=== PATIENT | female | born 1970 | race Caucasian/White ===

== ENCOUNTER 2023-03-29 11:42 | Inpatient (IN) | payer MEDICARE, MEDICAID, SELFPAY ==
[2023-03-29] VITALS (14 sets, daily range): BP systolic 96–153; BP diastolic 52–105; PULSE 94–116; RESP 18–38; TEMP 36.6–37.1; O2SAT 84–97; BMI 43.0; BMI 42.3
--- NOTE | 2023-03-29 12:01 | DI.RAD.S_ITS ---
PROCEDURE: XR CHEST 1V INDICATIONS: Shortness of breath TECHNIQUE: One view of the chest was acquired. COMPARISON: None. FINDINGS: Surgical changes and devices: None. Lungs and pleura: Lungs are clear. No pleural effusions or pneumothorax. Mediastinum: Mediastinal contours appear normal. Heart size is normal. Bones and chest wall: No suspicious bony lesions. Overlying soft tissues appear unremarkable. IMPRESSION: No acute cardiopulmonary abnormality is seen. Dictated by: Aric Hawk M.D. on 03/29/2023 at 12:41 Approved by: Aric Hawk M.D. on 03/29/2023 at 12:41
[2023-03-29 12:28] LABS: Add Manual Diff / Slide Review NO; Basophils Absolute Auto 100 /uL (0-100); Basophils Percent Auto 0.8 % (0-2); Eosinophils Absolute Auto 1000 /uL (0-450); Eosinophils Percent Auto 13.5 % (2-4); Hematocrit 45.7 % (36-46); Hemoglobin 15.2 g/dL (12.0-16.0); Lymphocytes Absolute Auto 2000 /uL (1100-4500); Lymphocytes Percent Auto 27.9 % (25-40); Mean Corpuscular HGB Conc 33.3 % (30-36); Monocytes Absolute Auto 500 /uL (0-900); Monocytes Percent Auto 7.3 % (3-14); Neutrophils Absolute Auto 3600 /uL (1500-7000); Neutrophils Percent Auto 50.5 % (50-75); Platelet Count 217 X10^3/uL (150-400); Red Blood Cell Count 5.25 X10^6/uL (4.0-5.2); White Blood Cell Count 7.1 X10^3/uL (4.5-11.0)
[2023-03-29] MEDS: ALBUTEROL/IPRATROPIUM 3 ML AMPUL INH ×5 (12:33→19:27)
--- NOTE | 2023-03-29 12:36 | ED.SOB ---
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 Patient presents feeling short of breath wheezy with some discomfort on the sides of her chest. She has had productive cough with white sputum. Afebrile, no sweats. Patient denies any chest pain or pressure, she states she has been feeling worse over the last several days but has had about 2 weeks of symptoms. She states she is starting to feel like when she was hospitalized at [facility]. She was on high-flow while hospitalized. She states she was not intubated. Patient denies any nausea or vomiting. No diarrhea or constipation. She is chronic urinary issues and does have a stimulator for bladder issues. Patient states does not have a known lung history but was discharged home with a nebulizer, states that she tried 1 yesterday and 1 today but without any improvement. She states she was not using them regularly before her hospitalization. States she was hospitalized at [facility]. Patient patient has had bilateral shoulder surgery, she has neurostimulator for her bladder and has had bladder injections for incontinence or retention issues. Patient quit smoking 10 years ago, no alcohol, uses marijuana but no other street drugs. Her primary care is Clementina Krishnan. Related Data Allergies Allergy/AdvReac Type Severity Reaction Status Date / Time shellfish derived Allergy Intermediate Unverified 06/28/17 12:33 metformin Allergy Verified 03/29/23 12:23 Review of Systems Review of Systems ROS Unobtainable: All systems reviewed & are unremarkable except as noted in HPI and below Patient History Social History Smoking Status: Former smoker Smoking Status: Former smoker Substance Use Type: marijuana Exam Narrative Exam Narrative: GENERAL: Alert and oriented x three, moderate distress. Patient able to communicate appropriately. HEENT: Head normocephalic, atraumatic, EOMI, pupils reactive, face symmetric, moist mucous membranes, nasal cannula in place. NECK: Supple, full range of motion CARDIOVASCULAR: Regular rate and rhythm without murmurs, rubs or gallops. RESPIRATORY: Breath sounds equal bilaterally, bilateral wheezes upper and lower lobes, tachypnea, minimal accessory muscle use. ABDOMEN: Soft, nontender. Normoactive bowel sounds all 4 quadrants. No guarding or rebound, rigidity, no mass : No CVA tenderness EXTREMITIES: Normal range of motion, no clubbing or edema. Neurovascularly intact NEUROLOGICAL: Cranial nerves II through XII grossly intact. Moving all extremities SKIN: Warm, dry, no petechiae, no rashes or lesions. Initial Vital Signs Initial Vital Signs: Vital Signs Temperature 98.8 F 03/29/23 11:42 Pulse Rate 102 H 03/29/23 11:42 Respiratory Rate 28 H 03/29/23 11:42 Blood Pressure 143/100 H 03/29/23 11:42 Pulse Oximetry 84 L 03/29/23 11:42 Oxygen Delivery Method Room Air 03/29/23 11:42 Course Orders Ordered: ED Orders 03/29/23 12:01 XR chest 1V Stat EKG-12 Lead Stat Measure peak expiratory flow ONCE RT Consult Eval and Treat NOW 03/29/23 12:02 Covid-19 + FLU A/B + RSV - PCR Stat Respiratory Panel (Film Array) Stat 03/29/23 12:05 Blood Culture Stat Complete Blood Count AUTO DIFF Stat Comprehensive Metabolic Panel Stat D Dimer Stat Lactate (Lactic Acid) Stat NT-proBNP (BNP-Adult 18+) Stat Procalcitonin Stat Prothrombin Time INR Stat Troponin I Stat 03/29/23 13:11 ABG [Arterial Blood Gas] Stat 03/29/23 13:23 CT angio chest PE protocol Stat Levofloxacin (Levaquin) 750 mg in 150 mls @ 100 mls/hr IV NOW ONE Stop: 03/29/23 15:53 Discontinued Medications Albuterol/Ipratropium (Albuterol/Ipratropium 3 Ml Ampul) 3 ml INH NOW ONE Stop: 03/29/23 12:30 Last Admin: 03/29/23 12:33 Dose: 3 ml Documented By: KELI Albuterol/Ipratropium (Albuterol/Ipratropium 3 Ml Ampul) 3 ml INH Q20M [facility] Stop: 03/29/23 14:11 Last Admin: 03/29/23 14:11 Dose: 3 ml Ceftriaxone Sodium 2,000 mg/ (Sodium Chloride) 100 mls @ 200 mls/hr IV NOW ONE Stop: 03/29/23 14:25 Methylprednisolone (Methylprednisolone 125 Mg/2 Ml Vial) 125 mg IV NOW ONE Stop: 03/29/23 12:55 Last Admin: 03/29/23 13:11 Dose: 125 mg Vital Signs Vital signs: Vital Signs - 8 hr 03/29/23 11:42 03/29/23 12:27 03/29/23 12:27 Temperature 98.8 F Pulse Rate 102 H 96 H Respiratory Rate 28 H 35 H Blood Pressure 143/100 H 138/103 H Pulse Oximetry 84 L 91 Oxygen Delivery Method Room Air Oxygen Flow Rate 03/29/23 12:30 03/29/23 12:30 03/29/23 12:35 Temperature Pulse Rate 97 H Respiratory Rate 38 H Blood Pressure 150/105 H Pulse Oximetry 93 93 Oxygen Delivery Method Nasal Cannula Oxygen Flow Rate 5 03/29/23 13:00 03/29/23 13:00 03/29/23 13:30 Temperature Pulse Rate 94 H Respiratory Rate 28 H Blood Pressure 153/99 H 150/101 H Pulse Oximetry 89 L Oxygen Delivery Method Nasal Cannula Oxygen Flow Rate 7 03/29/23 13:30 Temperature Pulse Rate 96 H Respiratory Rate 27 H Blood Pressure Pulse Oximetry 93 Oxygen Delivery Method Oximask Oxygen Flow Rate 7 MDM - SOB/Dyspnea Lab Data 03/29/23 12:05 03/29/23 12:05 Labs: Lab Results 03/29/23 03/29/23 03/29/23 Range/Units 12:02 12:05 13:11 WBC 7.1 (4.5-11.0) X10^3/uL RBC 5.25 H (4.0-5.2) X10^6/uL Hgb 15.2 (12.0-16.0) g/dL Hct 45.7 (36-46) % MCV 87.0 (80-100) fL MCH 29.0 (26-34) PG MCHC 33.3 (30-36) % RDW 14.0 (11.6-14.8) % Plt Count 217 (150-400) X10^3/uL Neut % (Auto) 50.5 (50-75) % Lymph % (Auto) 27.9 (25-40) % Hoke % (Auto) 7.3 (3-14) % Eos % (Auto) 13.5 H (2-4) % Baso % (Auto) 0.8 (0-2) % Neut # (Auto) 3600 (7409-1393) /uL Lymph # (Auto) 2000 (1193-9170) /uL Hoke # (Auto) 500 (0-900) /uL Eos # (Auto) 1000 H (0-450) /uL Baso # (Auto) 100 (0-100) /uL PT 11.9 (9.4-12.5) SECONDS INR 1.0 (0.9-1.3) D-Dimer 1092 H (<500) ng/ml ABG Sample Site Right radial ABG pH 7.36 (7.35-7.45) ABG pCO2 48.3 H (35-45) mmHg ABG pO2 57 L (80-100) mmHg ABG HCO3 27 (23-27) mmol/L ABG Total CO2 29 H (23-27) mmol/L ABG O2 Saturation 88 L (95-100) % ABG Base Excess 2.0 (-2-3) mmol/L FiO2 56 Sodium 139 (137-145) mmol/L Potassium 3.8 (3.4-5.1) mmol/L Chloride 102 (98-107) mmol/L Carbon Dioxide 30 (22-32) mmol/L BUN 11 (7-17) mg/dL Creatinine 0.66 (0.52-1.04) mg/dL Estimated GFR > 60 (>60) mL/min BUN/Creatinine Ratio 16.7 (6-22) Glucose 193 H (70-100) mg/dL Lactate 1.7 (0.7-2.1) mmol/L Calcium 9.1 (8.4-10.2) mg/dL Total Bilirubin 0.9 (0.2-1.3) mg/dL AST 52 H (14-36) IU/L ALT 43 H (<35) IU/L Alkaline Phosphatase 113 (38-126) U/L Troponin I < 0.012 (0.01-0.034) ng/mL NT-Pro-B Natriuret Pep 195 H (<125) pg/mL Total Protein 7.5 (6.3-8.2) g/dL Albumin 4.2 (3.5-5.0) g/dL Globulin 3.3 (1.7-4.1) g/dL Albumin/Globulin Ratio 1.3 (1.0-2.8) Procalcitonin 0.08 (<0.5) ng/mL SARS-CoV-2 (PCR) Negative (Negative) Influenza A (RT-PCR) Flu a negative (NEGATIVE) Influenza B (RT-PCR) Flu b negative (NEGATIVE) RSV (PCR) Negative (Negative) Imaging Data Chest x-ray: Radiologist's Impression: [address] [id number] XRay Report Signed Patient: Yamel Shah MR#: [id number] : 1970 Acct:[id number] Age/Sex: 52 / F Date of Service: 03/29/23 Loc: ED Accession Number: [id number] Procedure: XR chest 1V Ordering Provider: Petra Pearce D.O. PROCEDURE: XR CHEST 1V INDICATIONS: Shortness of breath TECHNIQUE: One view of the chest was acquired. COMPARISON: None. FINDINGS: Surgical changes and devices: None. Lungs and pleura: Lungs are clear. No pleural effusions or pneumothorax. Mediastinum: Mediastinal contours appear normal. Heart size is normal. Bones and chest wall: No suspicious bony lesions. Overlying soft tissues appear unremarkable. IMPRESSION: No acute cardiopulmonary abnormality is seen. Dictated by: Aric Hawk M.D. on 03/29/2023 at 12:41 Approved by: Aric Hawk M.D. on 03/29/2023 at 12:41 ECG Data Attestation: I personally reviewed and interpreted this ECG as follows: Interpretation: nsr, RATE OF 96, MO 124, QRS 80, QTC 492. No acute ST changes noted. MDM Narrative Medical decision making narrative: 52-year-old female with history of diabetes COVID pneumonia with hospitalization and high-flow in January who presents with similar symptoms today. Patient states she did not have lung issues before her hospitalization. She is hypoxic, tachypneic without significant work of breathing currently. Patient does have a hoarse cough in his quite wheezy. Lab workup shows white count of 7.1 and hemoglobin of 15 platelets of 217. No leftward shift. Dimer was ordered as patient had inpatient hospitalization in January with hypoxia and it is 1092. Based on patient's age she does not age adjust for this level and CTA chest to evaluate for pulmonary embolism. CMP shows normal electrolytes, renal function with a glucose of 193, lactate 1.7 bilirubin is 0.9 with a AST/ALT of 52 and 43- troponin and a BNP of 195. Procalcitonin is negative. [facility] respiratory swab is negative for COVID/influenza and RSV. Respiratory panel was sent ABG on 7 L shows a pH of 7.36 with pCO2 of 48 PO2 of 57 and bicarb of 27. Patient appears to have acute hypoxic respiratory failure but no signs of respiratory acidosis or CO2 retention. CTA shows bronchopneumonia, no PE. Patient had DuoNeb EN route, quite wheezy had additional 20 mg nebulized. On recheck some improvement patient states a little better. Still requires 7 L on OxyMask but dips down intermittently when on albuterol. Discussed may end up requiring high-flow. Patient accepted by Dr. Chaparro for admission. Plan for ICU. Critical Care Time Critical Care Time Critical Care Time: Yes Total Critical Care Time: 35 Attestation: The high probability of a clinically significant, sudden or life threatening deterioration of the [cardiac, pulm] system(s) required my full and direct attention, intervention and personal management. The aggregate critical care time was [] minutes. This time is in addition to time spent performing reported procedures but includes the following: [x] Data Review and interpretation [x] Patient assessment and monitoring of vital signs [x] Documentation [x] Medication orders and management Discharge Plan Departure Patient Disposition: Admitted As Inpatient Clinical Impression: Pneumonia Admit Date/Time: 03/29/23 14:42 Admit Provider: Buck Chaparro
[2023-03-29 12:46] LABS: Influenza A - CEPHEID Flu A NEGATIVE (NEGATIVE); Influenza B - CEPHEID Flu B NEGATIVE (NEGATIVE); Respiratory Syncytial Virus Negative (Negative)
[2023-03-29 12:48] LABS: Prothrombin Time 11.9 SECONDS (9.4-12.5)
[2023-03-29 12:52] LABS: Lactate (Lactic Acid) 1.7 mmol/L (0.7-2.1)
[2023-03-29 12:52] LABS: COVID-19 CEPHEID 4-PLEX PCR Negative (Negative)
[2023-03-29 12:53] LABS: Alanine Aminotransferase 43 IU/L (<35); Albumin 4.2 g/dL (3.5-5.0); Albumin Globulin Ratio 1.3 (1.0-2.8); Alkaline Phosphatase 113 U/L (38-126); Aspartate Aminotransferase 52 IU/L (14-36); BUN Creatinine Ratio 16.7 (6-22); Bilirubin Total 0.9 mg/dL (0.2-1.3); Blood Urea Nitrogen 11 mg/dL (7-17); Calcium 9.1 mg/dL (8.4-10.2); Carbon Dioxide 30 mmol/L (22-32); Chloride 102 mmol/L (98-107); Estimated Glomerular Filt Rate > 60 mL/min (>60); Globulin 3.3 g/dL (1.7-4.1); Glucose 193 mg/dL (70-100); HEMOLYSIS 40 (0-50); Potassium 3.8 mmol/L (3.4-5.1); Sodium 139 mmol/L (137-145); Total Protein 7.5 g/dL (6.3-8.2)
[2023-03-29 13:05] LABS: NT-proBNP (BNP-Adult 18+) 195 pg/mL (<125); Troponin I < 0.012 ng/mL (0.01-0.034)
[2023-03-29] MEDS: methylPREDNISolone 125 MG/2 ML VIAL IV (13:11)
[2023-03-29 13:17] LABS: D Dimer 1092 ng/ml (<500)
--- NOTE | 2023-03-29 13:23 | DI.CT.S_ITS ---
PROCEDURE: CT ANGIO CHEST PE PROTOCOL INDICATIONS: hypoxia/wheeze, hospitalized w/ covid pneumonia in January TECHNIQUE: After the administration of intravenous contrast, 2 mm thick sections acquired from the pulmonary apices to the posterior costophrenic angles. 3-dimensional maximum intensity projection (MIP) coronal and sagittal reformats were then acquired through the thorax. For radiation dose reduction, the following was used: automated exposure control, adjustment of mA and/or kV according to patient size. COMPARISON: [facility], CT, CT ANGIO CHEST PE, 07/12/2022, 4:47. FINDINGS: Image quality: Diagnostic. Pulmonary arteries: Pulmonary arteries are normal in size, and demonstrate no intraluminal filling defects to suggest central pulmonary embolism. Lower Neck: No enlarged lymph nodes. Thyroid: No thyroid nodules which require sonographic follow up, per consensus guidelines. Axillae: No enlarged lymph nodes. Chest Wall: Unremarkable. Bones: Unremarkable. Lungs and Pleura: No pneumothorax or pleural effusions. There is mild multifocal geographic bilateral ground-glass pulmonary opacity. Mild bilateral segmental and subsegmental bronchial thickening. 5 mm nodule within the right lower lobe anteriorly, as before. 6 mm nodule within the right middle lobe anteriorly. This is unchanged. Heart: Heart size is normal. No pericardial effusion. Thoracic Vessels: No aortic aneurysm. Mediastinum and Judie: No enlarged lymph nodes. Esophagus: No wall thickening. No hiatal hernia. Upper Abdomen: Portions of the upper abdomen demonstrate a nodular hepatic contour, and are otherwise unremarkable. IMPRESSION: 1. No pulmonary embolus. 2. Mild bilateral bronchopneumonia. 3. No change in right lung nodules. Follow-up is recommended as below. 4. Cirrhosis. Fleischner Society criteria for SOLID lung nodule followup. Nodule size (mm)Low-risk patientHigh-risk patient<6 (single or multiple)No routine followup.Optional CT at 12 months. 6-8 (single or multiple)CT at 6-12 months, then optional CT at 18-24 mo.CT at 6-12 months, then CT at 18-24 months. >8 (single)CT, PET-CT, or biopsy at 3 months. Same as for low-risk pts. >8 (multiple)CT at 3-6 months, then optional CT at 18-24 mo.CT at 3-6 months, then CT at 18-24 months. Fleischner Society criteria for SUB-SOLID lung nodule followup. Solitary pure ground-glass nodules<6 mm (ground glass or part solid)No followup needed. 6 mm or larger (ground glass)CT at 6-12 months to confirm persistence, then CT every 2 years until 5 years.6 mm or larger (part solid)CT at 3-6 months to confirm persistence, then annual CT until 5 years if unchanged and solid component remains <6 mm. Multiple sub-solid nodules<6 mmCT at 3-6 months, then CT consider at 2 & 4 years for high risk patients. [address] at 3-6 months. Subsequent management based on most suspicious lesions. Recommendations do not apply to lung cancer screening, patients with immunosuppression, or patients with known primary cancer. Dictated by: Aric Hawk M.D. on 03/29/2023 at 14:08 Approved by: Aric Hawk M.D. on 03/29/2023 at 14:12
[2023-03-29 13:37] LABS: Procalcitonin 0.08 ng/mL (<0.5)
[2023-03-29 13:54] LABS: Blood Gas Collection Site Right Radial; HCO3 ABG 27 mmol/L (23-27); Oxygen Saturation ABG 88 % (95-100); PCO2 ABG 48.3 mmHg (35-45); PO2 ABG 57 mmHg (80-100); TCO2 ABG 29 mmol/L (23-27); pH ABG 7.36 (7.35-7.45)
[2023-03-29 13:55] LABS: Allen Test for ABG Passed? Yes, Passed; Fractionated Inspired Oxygen 56
[2023-03-29 14:42] LABS: Adenovirus Not Detected (Not Detect); B. parapertussis Not Detected (Not Detecte); Bordetella pertussis Not Detected (Not Detect); Chlamydophila pneumoniae Not Detected (Not Detect); Coronavirus 229E Not Detected (Not Detect); Coronavirus HKU1 Not Detected (Not Detect); Coronavirus NL 63 Not Detected (Not Detect); Coronavirus OC43 Not Detected (Not Detect); Human Metapneumovirus Not Detected (Not Detect); Human Rhinovirus/Enterovirus Not Detected (Not Detect); Influenza A Not Detected (Not Detect); Influenza B Not Detected (Not Detect); Mycoplasma pneumoniae Not Detected (Not Detect); Parainfluenza Virus 1 Not Detected (Not Detect); Parainfluenza Virus 2 Not Detected (Not Detect); Parainfluenza Virus 3 Not Detected (Not Detect); Parainfluenza Virus 4 Not Detected (Not Detect); Respiratory Syncytial Virus Not Detected (Not Detect); SARS- CoV-2 Not Detected (Not Detecte)
[2023-03-29] MEDS: cefTRIAXone 2,000 MG in SODIUM CHLORIDE 0.9% 100 ML 200 MG IV (14:46)
[2023-03-29] MEDS: ALBUTEROL 2.5 MG/3 ML NEB (ADULT) 10 MG INH (15:20)
[2023-03-29] MEDS: levoFLOXacin 750 MG/150 ML PIGGYBACK 100 MG IV (15:22)
[2023-03-29 15:24] LABS: Magnesium 1.8 mg/dL (1.6-2.3)
[2023-03-29] MEDS: INSULIN LISPRO 100 UNIT/ML 3ML VIAL SUBCUT ×2 (17:44→20:32)
[2023-03-29] MEDS: ACETAMINOPHEN 325 MG TABLET 650 MG PO (17:50)
--- NOTE | 2023-03-29 17:56 | PC.NURSE ---
Admit Note Patient arrived to room 231 from ER at approx 1545. Walked self to BSC to void and then to bed. Very short of breath with and without exertion. Receiving neb on arrival and transitioned to oxymask at 15L with SpO2 low 90s. Just placed on heated HFNC by RT at 28L and 55% FiO2. SpO2 upper 90s. ST in the 110s-120s. Audible wheezing noted, coarse throughout lung garcia, intermittent cough. Pt is deaf and communicates in ASL. Production Engineer Track tablet in room and used to orient pt to bed controls, call light, and TV. Pt sister Darlin at bedside and assisted in some communication as well. Explained upcoming interventions as pt had relayed that she felt like she was receiving too many needle injections with no explanations provided during previous hospitalization at [facility]. Pt ok with blood sugar check and insulin administration this evening. Call light within reach, using appropriately to make needs known.
[2023-03-29 17:59] LABS: MRSA (Nasal) PCR Not Detected (Not Detect)
--- NOTE | 2023-03-29 18:51 | PM.HP.1 ---
History of Present Illness History of Present Illness Date Patient Seen: 03/29/23 Chief complaint: SOB, wheezing cough, low oxygen Narrative: Yamel Shah is a 52yo deaf female with PMH of asthma, chronic tobacco and marijuana use, RHONDA, HTN, DM2, crohn's disease, hypothyroidism and GERD who presents with worsening dyspnea, cough and congestion. Her sister is present and is providing ASL interpreting. Patient was hospitalized at [facility] in Jan 2023 with COVID pneumonia and she left AMA after having a bad experience. She says they didn't use her ASL cane weigher helper service well at all, leaving her in the dark about many things. She also felt like they forced her glucose checks and insulin when she didn't want it. She felt unsafe so she left. Since then she has been home and her breathing has been more difficult with a productive cough, wheezing and congestion. This acutely worsened 2 weeks ago and has been progressive so she came to [place] ED. In the ED a CTA chest showed bilateral bronchopneumonia and no PE. She was requiring 7L of O2 then was moved to [facility]. Currently her breathing is better on high flow. She denies CP, NV, abd pain or diarrhea. [facility] Medical History (Updated 03/29/23 @ 16:52 by Zeina Acosta RN) HTN (hypertension) Hypothyroidism GERD (gastroesophageal reflux disease) Diabetes Crohn disease Asthma RHONDA (obstructive sleep apnea) Deafness COVID-19 Surgical History (Updated 03/29/23 @ 16:52 by Zeina Acosta RN) S/P implantation of urinary electronic stimulator device Social History Smoking Status: Former smoker Meds Home Medications and Allergies Home Medications Medication Instructions Recorded Confirmed Type duloxetine 60 mg capsule,delayed 60 mg PO QPM 03/29/23 03/29/23 History release fluticasone propionate 115 2 puff inhalation BID 03/29/23 03/29/23 History mcg-salmeterol 21 mcg/actuation HFA inhaler (Advair HFA) glimepiride 2 mg tablet 2 mg PO DAILY 03/29/23 03/29/23 History glimepiride 4 mg tablet 4 mg PO DAILY 03/29/23 03/29/23 History ipratropium bromide 17 2 puff inhalation QID 03/29/23 03/29/23 History mcg/actuation HFA aerosol inhaler (Atrovent HFA) levothyroxine 50 mcg tablet 50 mcg PO DAILY 03/29/23 03/29/23 History meloxicam 7.5 mg tablet 7.5 mg PO DAILY 03/29/23 03/29/23 History metoprolol succinate 50 mg 100 mg PO DAILY 03/29/23 03/29/23 History tablet,extended release 24 hr omeprazole 40 mg capsule,delayed 40 mg PO DAILY 03/29/23 03/29/23 History release semaglutide 7 mg tablet (Rybelsus) 7 mg PO DAILY 03/29/23 03/29/23 History Allergies Allergy/AdvReac Type Severity Reaction Status Date / Time shellfish derived Allergy Intermediate Verified 03/29/23 16:32 dulaglutide [From Trulicity] Allergy Verified 03/29/23 16:32 metformin Allergy Verified 03/29/23 12:23 Review of Systems Review of Systems Narrative: All other systems reviewed with the patient and are negative unless otherwise stated. Exam Vital Signs (past 8 hours): - 03/29/23 11:42 03/29/23 12:27 03/29/23 12:27 Temperature 98.8 F Pulse Rate 102 H 96 H Respiratory Rate 28 H 35 H Blood Pressure 143/100 H 138/103 H Pulse Oximetry 84 L 91 Oxygen Delivery Method Room Air Oxygen Flow Rate 03/29/23 12:30 03/29/23 12:30 03/29/23 12:35 Temperature Pulse Rate 97 H Respiratory Rate 38 H Blood Pressure 150/105 H Pulse Oximetry 93 93 Oxygen Delivery Method Nasal Cannula Oxygen Flow Rate 5 03/29/23 13:00 03/29/23 13:00 03/29/23 13:30 Temperature Pulse Rate 94 H Respiratory Rate 28 H Blood Pressure 153/99 H 150/101 H Pulse Oximetry 89 L Oxygen Delivery Method Nasal Cannula Oxygen Flow Rate 7 03/29/23 13:30 03/29/23 15:30 03/29/23 16:00 Temperature Pulse Rate 96 H 106 H 112 H Respiratory Rate 27 H 30 H 31 H Blood Pressure Pulse Oximetry 93 89 L 92 Oxygen Delivery Method Oximask Oxygen Flow Rate 7 10 15 03/29/23 16:03 03/29/23 16:03 03/29/23 18:09 Temperature Pulse Rate 111 H Respiratory Rate 36 H Blood Pressure 147/65 H Pulse Oximetry 90 L Oxygen Delivery Method Heated High Flow Oxygen Flow Rate 15 03/29/23 18:16 Temperature Pulse Rate 116 H Respiratory Rate 18 Blood Pressure Pulse Oximetry 92 Oxygen Delivery Method Oxygen Flow Rate Oxygen Delivery Method Heated High Flow Oxygen Flow Rate 15 Narrative Exam Narrative: GEN: obese, dyspneic, has oxymask in place, patient is deaf HEENT: moist mucous membranes, PERRL NECK: trachea midline, no JVD CV: tachycardic, no murmurs PULM: bilateral diffuse wheezes ABD: soft, nontender, nondistended, no organomegaly EXT: warm and well perfused with no edema NEURO: awake, alert, oriented, no focal deficits Objective Labs 03/29/23 12:05 03/29/23 12:05 Labs: Laboratory Results - last 24 hr 03/29/23 03/29/23 03/29/23 12:02 12:02 12:02 WBC RBC Hgb Hct MCV MCH MCHC RDW Plt Count Neut % (Auto) Lymph % (Auto) Morrison % (Auto) Eos % (Auto) Baso % (Auto) Neut # (Auto) Lymph # (Auto) Morrison # (Auto) Eos # (Auto) Baso # (Auto) PT INR D-Dimer ABG Sample Site ABG pH ABG pCO2 ABG pO2 ABG HCO3 ABG Total CO2 ABG O2 Saturation ABG Base Excess FiO2 Sodium Potassium Chloride Carbon Dioxide BUN Creatinine Estimated GFR BUN/Creatinine Ratio Glucose Lactate Calcium Magnesium Total Bilirubin AST ALT Alkaline Phosphatase Troponin I NT-Pro-B Natriuret Pep Total Protein Albumin Globulin Albumin/Globulin Ratio Procalcitonin Nasal Screen MRSA (PCR) Chlamy pneumoniae PCR Not detected Adenovirus (PCR) Not detected B.parapertussis DNA PCR Not detected Coronavirus OC43 (PCR) Not detected Coronavirus HKU1 (PCR) Not detected Coronavirus 229E (PCR) Not detected SARS-CoV-2 (PCR) Negative Not detected Coronavirus NL63 (PCR) Not detected Human Metapneumovir PCR Not detected Influenza A (RT-PCR) Flu a negative Influenza Type A (PCR) Not detected Influenza B (RT-PCR) Flu b negative Influenza Type B (PCR) Not detected M. pneumoniae (PCR) Not detected Parainfluenza 1 (PCR) Not detected Parainfluenza 2 (PCR) Not detected Parainfluenza 3 (PCR) Not detected Parainfluenza 4 (PCR) Not detected RSV (PCR) Negative Not detected Entero/Rhino (PCR) Not detected 03/29/23 03/29/23 03/29/23 12:05 13:11 16:30 WBC 7.1 RBC 5.25 H Hgb 15.2 Hct 45.7 MCV 87.0 MCH 29.0 MCHC 33.3 RDW 14.0 Plt Count 217 Neut % (Auto) 50.5 Lymph % (Auto) 27.9 Morrison % (Auto) 7.3 Eos % (Auto) 13.5 H Baso % (Auto) 0.8 Neut # (Auto) 3600 Lymph # (Auto) 2000 Morrison # (Auto) 500 Eos # (Auto) 1000 H Baso # (Auto) 100 PT 11.9 INR 1.0 D-Dimer 1092 H ABG Sample Site Right radial ABG pH 7.36 ABG pCO2 48.3 H ABG pO2 57 L ABG HCO3 27 ABG Total CO2 29 H ABG O2 Saturation 88 L ABG Base Excess 2.0 FiO2 56 Sodium 139 Potassium 3.8 Chloride 102 Carbon Dioxide 30 BUN 11 Creatinine 0.66 Estimated GFR > 60 BUN/Creatinine Ratio 16.7 Glucose 193 H Lactate 1.7 Calcium 9.1 Magnesium 1.8 Total Bilirubin 0.9 AST 52 H ALT 43 H Alkaline Phosphatase 113 Troponin I < 0.012 NT-Pro-B Natriuret Pep 195 H Total Protein 7.5 Albumin 4.2 Globulin 3.3 Albumin/Globulin Ratio 1.3 Procalcitonin 0.08 Nasal Screen MRSA (PCR) Not detected Chlamy pneumoniae PCR Adenovirus (PCR) B.parapertussis DNA PCR Coronavirus OC43 (PCR) Coronavirus HKU1 (PCR) Coronavirus 229E (PCR) SARS-CoV-2 (PCR) Coronavirus NL63 (PCR) Human Metapneumovir PCR Influenza A (RT-PCR) Influenza Type A (PCR) Influenza B (RT-PCR) Influenza Type B (PCR) M. pneumoniae (PCR) Parainfluenza 1 (PCR) Parainfluenza 2 (PCR) Parainfluenza 3 (PCR) Parainfluenza 4 (PCR) RSV (PCR) Entero/Rhino (PCR) Assessment & Plan Assessment & Plan narrative: # acute hypoxic resp failure 2/2 to asthma exacerbation from pneumonia -CTA with bilateral pneumonia, req HFNC at 28L and 55% -since recently hospitalized and requiring high flow will cover with duel abx -rocephin and levaquin -solu-medrol 60mg IV BID -duonebs, budesonide scheduled -mucinex, tessalon perles PRN -wean O2 as able # deafness -patient requires delicatessen goods stock clerk or sister present to provide sign language # mildly elevated LFT's -AST 52 and ALT 43, unclear if from acute illness as no prior LFT's available -monitor -avoid hepatotoxic agents # DM2 -hold glimepiride, continue rybelsus -start lantus 15u given BG to rise with steroids -SSI -ACHS checks # HTN -continue metoprolol # GERD -continue PPI # obesity -BMI 43 # insomnia -trazodone PRN nightly Code status is full code. DVT prophylaxis with Lovenox b.i.d. due to obesity. Proxy is sister Darlin. I have reviewed home meds and used all available resources to reconcile the home meds. Case discussed with ED physician/APC and patient will be admitted to the hospitalist service for further workup and management. This patient will be admitted as inpatient and will require greater than 2 midnights of hospital time to treat acute hypoxic respiratory failure.
[2023-03-29] MEDS: BUDESONIDE 0.5 MG/2 ML NEB INH (19:27)
[2023-03-29] MEDS: methylPREDNISolone 125 MG/2 ML VIAL 60 MG IV (20:30)
[2023-03-29] MEDS: HYDROCODONE/ACET 5/325 TABLET 1 TAB PO (20:30)
[2023-03-29] MEDS: TRAZODONE 50 MG TABLET PO (20:30)
[2023-03-29] MEDS: DULOXETINE 30 MG CAPSULE 60 MG PO (20:31)
[2023-03-29] MEDS: guaiFENesin ER 600 MG TAB PO (20:31)
[2023-03-29] MEDS: ENOXAPARIN 40 MG/0.4 ML SYRINGE SUBCUT (20:31)
[2023-03-29] MEDS: INSULIN GLARGINE 100 UNIT/ML 3ML PEN 15 UNIT SUBCUT (20:32)
[2023-03-30] VITALS (53 sets, daily range): BP systolic 106–137; BP diastolic 64–86; PULSE 94–125; RESP 15–58; TEMP 36.8–36.9; O2SAT 85–100
[2023-03-30] MEDS: BENZONATATE 100 MG CAPSULE PO ×2 (04:39→11:47)
[2023-03-30 04:59] LABS: Add Manual Diff / Slide Review NO; Basophils Absolute Auto 0 /uL (0-100); Basophils Percent Auto 0.1 % (0-2); Eosinophils Absolute Auto 0 /uL (0-450); Hemoglobin 14.9 g/dL (12.0-16.0); Lymphocytes Absolute Auto 1000 /uL (1100-4500); Lymphocytes Percent Auto 10.9 % (25-40); Mean Corpuscular Volume 87.9 fL (80-100); Monocytes Absolute Auto 200 /uL (0-900); Monocytes Percent Auto 2.7 % (3-14); Neutrophils Absolute Auto 7500 /uL (1500-7000); Neutrophils Percent Auto 86.3 % (50-75); Platelet Count 198 X10^3/uL (150-400); Red Blood Cell Count 5.12 X10^6/uL (4.0-5.2); Red Cell Distribution Width 14.3 % (11.6-14.8); White Blood Cell Count 8.8 X10^3/uL (4.5-11.0)
[2023-03-30 05:09] LABS: Albumin 4.2 g/dL (3.5-5.0); Albumin Globulin Ratio 1.3 (1.0-2.8); Alkaline Phosphatase 105 U/L (38-126); Aspartate Aminotransferase 48 IU/L (14-36); Bilirubin Total 0.7 mg/dL (0.2-1.3); Blood Urea Nitrogen 17 mg/dL (7-17); Calcium 9.6 mg/dL (8.4-10.2); Carbon Dioxide 21 mmol/L (22-32); Chloride 97 mmol/L (98-107); Estimated Glomerular Filt Rate > 60 mL/min (>60); Globulin 3.2 g/dL (1.7-4.1); Glucose 377 mg/dL (70-100); HEMOLYSIS < 15 (0-50); Potassium 3.8 mmol/L (3.4-5.1); Sodium 135 mmol/L (137-145); Total Protein 7.4 g/dL (6.3-8.2)
[2023-03-30 05:16] LABS: Alanine Aminotransferase 51 IU/L (<35)
[2023-03-30] MEDS: PANTOPRAZOLE DR 40 MG TABLET PO (05:54)
[2023-03-30] MEDS: LEVOTHYROXINE 50 MCG TABLET PO (05:54)
[2023-03-30] MEDS: INSULIN LISPRO 100 UNIT/ML 3ML VIAL SUBCUT ×6 (08:23→20:33)
[2023-03-30] MEDS: ACETAMINOPHEN 325 MG TABLET 650 MG PO ×3 (08:27→20:31)
[2023-03-30] MEDS: methylPREDNISolone 125 MG/2 ML VIAL 60 MG IV ×2 (08:27→21:31)
[2023-03-30] MEDS: METOPROLOL ER 50 MG TABLET 100 MG PO (08:28)
[2023-03-30] MEDS: guaiFENesin ER 600 MG TAB PO ×2 (08:28→20:31)
[2023-03-30] MEDS: cefTRIAXone 2,000 MG in SODIUM CHLORIDE 0.9% 100 ML 200 MG IV (08:29)
[2023-03-30] MEDS: ENOXAPARIN 40 MG/0.4 ML SYRINGE SUBCUT ×2 (08:29→20:32)
[2023-03-30] MEDS: ACETYLCYSTEINE (PO/INH) 200 MG/ML VIAL 600 MG INH (09:07)
[2023-03-30] MEDS: ALBUTEROL/IPRATROPIUM 3 ML AMPUL INH ×3 (09:08→18:41)
[2023-03-30] MEDS: BUDESONIDE 0.5 MG/2 ML NEB INH ×2 (09:08→18:41)
[2023-03-30] MEDS: CODEINE/GUAIFENESIN LIQUID 5ML UDC 10 ML PO (11:48)
[2023-03-30] MEDS: levoFLOXacin 750 MG/150 ML PIGGYBACK 100 MG IV (15:34)
--- NOTE | 2023-03-30 16:42 | CM.DANOTE ---
Initial DCP Assessment Note Pt is a 52 yo deaf female, resident of [place], presents with SOB, low oxygen, wheezing cough. PMH of asthma, chronic tobacco and marijuana use, RHONDA, HTN, DM2, crohn's disease. Patient was admitted to [facility] in January with COVID pneumonia and left AMA after reporting a bad experience. PCP: Clementina Krishnan Payer: [facility] Reviewed chart, used language line board design engineer via IPAD to communicate with patient and conduct initial assessment. Patient currently living her with son in an apt in [place]. Patient drives and is indp in all aspects. Patient denies hx of HH or SNF. Patient is on disability benefits and has food stamps through [facility], no caregivers. Patient's sister Darlin lives in [place], is a support to patient , and able to assist with grocery shopping and errands when needed. Patient requests information on available [facility]DC facilities and also DME resources, as patient would like to obtain a cane and unsure she can pay out of pocket for this item. Discussed the necessary steps for SNF stay including finding a SNF that has bed availability, able to accept and then attempt at [facility] auth. Patient states understanding. Provided [facility] SNF choice list and list of DME providers, by [facility], for this region. Plan: Discharge home is anticipated, if so, HH referral may be appropriate CM team will follow clinical course closely. KEERTHI Graham Discharge Planning/Care Management CM Discharge Assessment Start: 03/30/23 16:36 Freq: Status: Active Protocol: Document 03/30/23 16:36 NASH (Rec: 03/30/23 16:42 NASH [id number]) Discharge Planning Assessment Assigned Licensed Nurse Practitioner KEERTHI Rojas DPOA/Assigned Designee Name Darlin, sister ([place]) Contact Information [phone] Advance Directives? No History Provided By Patient,Medical Record Prior Living Arrangements Apartment/Condo Household Members children Type of transporation used prior to Drives own vehicle admit Independent with ADL's Yes Is patient alert and oriented? Yes Needs Assistance With Home Chores / Shopping Comment Patient reports she has been struggling with wrist pain and finds chores and cleaning difficult. Son will not help around the apt w/cleaning. Comment Home w/family, may be a candidate for HH services Barriers to Discharge No Discharge Plan Home Transportation Arrangement Family Referrals Initiated Home Health Additional Comment May benefit from HH, follow clinical course Whiteboard Updated in Patient Room with Yes name and ext. # of Licensed Nurse Practitioner
--- NOTE | 2023-03-30 17:53 | PM.PN.1 ---
Subjective Subjective Interval history: Visit done using video clinical data assistant. Patient states she has a headache. Tylenol helps a little but not much. She thinks her headache is from her BG going too high from the steroids. She is still coughing frequently. HFNC at 75% and 35L. Exam Vital Signs (past 8 hours): - 03/30/23 10:00 03/30/23 10:30 03/30/23 11:00 Pulse Rate 110 H 108 H 108 H Respiratory Rate 27 H 32 H 33 H Blood Pressure Pulse Oximetry 95 91 96 Oxygen Delivery Method Oxygen Flow Rate Fraction of Inspired Oxygen 03/30/23 11:30 03/30/23 12:00 03/30/23 12:30 Pulse Rate 108 H 105 H 119 H Respiratory Rate 38 H 15 40 H Blood Pressure Pulse Oximetry 90 L 96 90 L Oxygen Delivery Method Oxygen Flow Rate Fraction of Inspired Oxygen 03/30/23 12:41 03/30/23 12:42 03/30/23 13:39 Pulse Rate 113 H 108 H Respiratory Rate 43 H 32 H Blood Pressure 124/76 Pulse Oximetry 85 L 93 Oxygen Delivery Method Heated High Flow Oxygen Flow Rate 35 Fraction of Inspired Oxygen 70 03/30/23 13:43 03/30/23 15:00 Pulse Rate 108 H 106 H Respiratory Rate 32 H 31 H Blood Pressure 106/69 Pulse Oximetry 93 94 Oxygen Delivery Method Oxygen Flow Rate Fraction of Inspired Oxygen Fraction of Inspired Oxygen 70 SaO2/FiO2 Ratio 132 Oxygen Delivery Method Heated High Flow Oxygen Flow Rate 35 Narrative Exam Narrative: GEN: obese, dyspneic, has HFNC in place, patient is deaf HEENT: moist mucous membranes, PERRL NECK: trachea midline, no JVD CV: tachycardic, no murmurs PULM: bilateral diffuse wheezes ABD: soft, nontender, nondistended, no organomegaly EXT: warm and well perfused with no edema NEURO: awake, alert, oriented, no focal deficits Objective Labs 03/30/23 04:15 03/30/23 04:15 Labs: Laboratory Results - last 24 hr 03/29/23 03/30/23 16:30 04:15 WBC 8.8 RBC 5.12 Hgb 14.9 Hct 45.0 MCV 87.9 MCH 29.0 MCHC 33.0 RDW 14.3 Plt Count 198 Neut % (Auto) 86.3 H D Lymph % (Auto) 10.9 L Spencer % (Auto) 2.7 L Eos % (Auto) 0.0 L Baso % (Auto) 0.1 Neut # (Auto) 7500 H Lymph # (Auto) 1000 L Spencer # (Auto) 200 Eos # (Auto) 0 Baso # (Auto) 0 Sodium 135 L Potassium 3.8 Chloride 97 L Carbon Dioxide 21 L BUN 17 Creatinine 0.81 Estimated GFR > 60 BUN/Creatinine Ratio 21.0 Glucose 377 H D Calcium 9.6 Total Bilirubin 0.7 AST 48 H ALT 51 H Alkaline Phosphatase 105 Total Protein 7.4 Albumin 4.2 Globulin 3.2 Albumin/Globulin Ratio 1.3 Nasal Screen MRSA (PCR) Not detected [facility] Medical History (Updated 03/29/23 @ 16:52 by Zeina Acosta RN) HTN (hypertension) Hypothyroidism GERD (gastroesophageal reflux disease) Diabetes Crohn disease Asthma RHONDA (obstructive sleep apnea) Deafness COVID-19 Surgical History (Updated 03/29/23 @ 16:52 by Zeina Acosta RN) S/P implantation of urinary electronic stimulator device Social History household members: children Smoking Status: Former smoker alcohol intake: never Assessment & Plan Assessment & Plan narrative: # acute hypoxic resp failure 2/2 to asthma exacerbation from pneumonia -CTA with bilateral pneumonia, req HFNC at 28L and 55% -since recently hospitalized and requiring high flow will cover with duel abx -rocephin and levaquin -solu-medrol 60mg IV BID -duonebs, budesonide scheduled -mucinex, tessalon perles PRN -wean O2 as able, still on HFNC # deafness -patient requires clinical data assistant or sister present to provide sign language # mildly elevated LFT's -AST 52 and ALT 43, unclear if from acute illness as no prior LFT's available -monitor -avoid hepatotoxic agents # DM2 -hold glimepiride, continue rybelsus -start lantus 20u BID given BG to rise with steroids -mealtime 5u and high dose SSI -ACHS checks # headache -add imitrex PRN as patient states tylenol and norco less effective # HTN -continue metoprolol # GERD -continue PPI # obesity -BMI 43 # insomnia -trazodone PRN nightly Code status is full code. DVT prophylaxis with Lovenox b.i.d. due to obesity. Proxy is sister Darlin. I have reviewed home meds and used all available resources to reconcile the home meds. Dispo: Several days to wean O2. Quality VTE Deep Vein Thrombosis/Pulmonary Embolism Present on Admission: No
[2023-03-30] MEDS: HYDROCODONE/ACET 5/325 TABLET 1 TAB PO (18:52)
[2023-03-30] MEDS: DULOXETINE 30 MG CAPSULE 60 MG PO (20:31)
[2023-03-30] MEDS: INSULIN GLARGINE 100 UNIT/ML 3ML PEN 20 UNIT SUBCUT (20:33)
[2023-03-30] MEDS: TRAZODONE 50 MG TABLET PO (20:46)
[2023-03-31] VITALS (58 sets, daily range): BP systolic 108–133; BP diastolic 64–88; PULSE 84–112; RESP 11–51; TEMP 36.4–36.6; O2SAT 87–100
[2023-03-31] MEDS: SUMAtriptan 25 MG TABLET PO (04:03)
[2023-03-31 04:35] LABS: Add Manual Diff / Slide Review NO; Basophils Absolute Auto 0 /uL (0-100); Basophils Percent Auto 0.1 % (0-2); Eosinophils Absolute Auto 0 /uL (0-450); Hematocrit 40.1 % (36-46); Hemoglobin 13.2 g/dL (12.0-16.0); Lymphocytes Absolute Auto 2000 /uL (1100-4500); Lymphocytes Percent Auto 15.3 % (25-40); Mean Corpuscular HGB Conc 32.9 % (30-36); Mean Corpuscular Hemoglobin 28.5 PG (26-34); Mean Corpuscular Volume 86.6 fL (80-100); Monocytes Absolute Auto 1000 /uL (0-900); Monocytes Percent Auto 7.6 % (3-14); Neutrophils Absolute Auto 10300 /uL (1500-7000); Platelet Count 190 X10^3/uL (150-400); Red Blood Cell Count 4.63 X10^6/uL (4.0-5.2); White Blood Cell Count 13.4 X10^3/uL (4.5-11.0)
[2023-03-31 04:44] LABS: Alanine Aminotransferase 30 IU/L (<35); Albumin 3.5 g/dL (3.5-5.0); Albumin Globulin Ratio 1.3 (1.0-2.8); Alkaline Phosphatase 88 U/L (38-126); Aspartate Aminotransferase 24 IU/L (14-36); BUN Creatinine Ratio 31.8 (6-22); Bilirubin Total 0.4 mg/dL (0.2-1.3); Blood Urea Nitrogen 27 mg/dL (7-17); Calcium 9.3 mg/dL (8.4-10.2); Carbon Dioxide 28 mmol/L (22-32); Chloride 102 mmol/L (98-107); Estimated Glomerular Filt Rate > 60 mL/min (>60); Globulin 2.8 g/dL (1.7-4.1); Glucose 170 mg/dL (70-100); HEMOLYSIS < 15 (0-50); Sodium 136 mmol/L (137-145); Total Protein 6.3 g/dL (6.3-8.2)
[2023-03-31] MEDS: LEVOTHYROXINE 50 MCG TABLET PO (05:18)
[2023-03-31] MEDS: PANTOPRAZOLE DR 40 MG TABLET PO (05:18)
[2023-03-31] MEDS: INSULIN LISPRO 100 UNIT/ML 3ML VIAL SUBCUT ×7 (08:05→20:20)
--- NOTE | 2023-03-31 08:12 | P.PN_ITS ---
Subjective Subjective Interval history: Patient's headache improved today. She feels her breathing is better overall too. Willing to work with PT today. Exam Vital Signs (past 8 hours): - 03/31/23 03:00 Temperature 97.6 F Respiratory Rate 20 Blood Pressure 109/77 Pulse Oximetry 96 Fraction of Inspired Oxygen 72 SaO2/FiO2 Ratio 132 Oxygen Delivery Method Heated High Flow Oxygen Flow Rate 35 Narrative Exam Narrative: GEN: obese, dyspneic, has HFNC in place, patient is deaf HEENT: moist mucous membranes, PERRL NECK: trachea midline, no JVD CV: tachycardic, no murmurs PULM: bilateral diffuse wheezes slightly improved ABD: soft, nontender, nondistended, no organomegaly EXT: warm and well perfused with no edema NEURO: awake, alert, oriented, no focal deficits Objective Labs 03/31/23 03:51 03/31/23 03:51 Labs: Laboratory Results - last 24 hr 03/31/23 03:51 WBC 13.4 H D RBC 4.63 Hgb 13.2 Hct 40.1 MCV 86.6 MCH 28.5 MCHC 32.9 RDW 14.0 Plt Count 190 Neut % (Auto) 77.0 H Lymph % (Auto) 15.3 L [place] % (Auto) 7.6 Eos % (Auto) 0.0 L Baso % (Auto) 0.1 Neut # (Auto) 33883 H Lymph # (Auto) 2000 [place] # (Auto) 1000 H Eos # (Auto) 0 Baso # (Auto) 0 Sodium 136 L Potassium 4.0 Chloride 102 Carbon Dioxide 28 BUN 27 H Creatinine 0.85 Estimated GFR > 60 BUN/Creatinine Ratio 31.8 H Glucose 170 H D Calcium 9.3 Total Bilirubin 0.4 AST 24 ALT 30 Alkaline Phosphatase 88 Total Protein 6.3 Albumin 3.5 Globulin 2.8 Albumin/Globulin Ratio 1.3 PFSH Medical History (Updated 03/29/23 @ 16:52 by Zeina Acosta RN) HTN (hypertension) Hypothyroidism GERD (gastroesophageal reflux disease) Diabetes Crohn disease Asthma RHONDA (obstructive sleep apnea) Deafness COVID-19 Surgical History (Updated 03/29/23 @ 16:52 by Zeina Acosta RN) S/P implantation of urinary electronic stimulator device Social History household members: children Smoking Status: Former smoker alcohol intake: never Assessment & Plan Assessment & Plan narrative: # acute hypoxic resp failure 2/2 to asthma exacerbation from pneumonia -CTA with bilateral pneumonia, req HFNC at 28L and 55% -since recently hospitalized and requiring high flow will cover with duel abx -rocephin and levaquin -solu-medrol 60mg IV BID -duonebs, budesonide scheduled -mucinex, tessalon perles PRN -wean O2 as able, still on HFNC # deafness -patient requires vice president for philanthropy or sister present to provide sign language # mildly elevated LFT's -AST 52 and ALT 43, unclear if from acute illness as no prior LFT's available -monitor -avoid hepatotoxic agents # DM2 -hold glimepiride, continue rybelsus -start lantus 20u BID given BG to rise with steroids -mealtime 5u and high dose SSI -ACHS checks # headache -add imitrex PRN as patient states tylenol and norco less effective # HTN -continue metoprolol # GERD -continue PPI # obesity -BMI 43 # insomnia -trazodone PRN nightly Code status is full code. DVT prophylaxis with Lovenox b.i.d. due to obesity. Proxy is sister Darlin. I have reviewed home meds and used all available resources to reconcile the home meds. Dispo: 2-3 days to wean O2. Quality VTE Deep Vein Thrombosis/Pulmonary Embolism Present on Admission: No
[2023-03-31] MEDS: INSULIN GLARGINE 100 UNIT/ML 3ML PEN 20 UNIT SUBCUT ×2 (08:59→20:20)
[2023-03-31] MEDS: METOPROLOL ER 50 MG TABLET 100 MG PO (09:00)
[2023-03-31] MEDS: ENOXAPARIN 40 MG/0.4 ML SYRINGE SUBCUT ×2 (09:00→20:19)
[2023-03-31] MEDS: ACETAMINOPHEN 325 MG TABLET 650 MG PO ×3 (09:01→20:18)
[2023-03-31] MEDS: ALBUTEROL/IPRATROPIUM 3 ML AMPUL INH ×3 (09:02→19:06)
[2023-03-31] MEDS: cefTRIAXone 2,000 MG in SODIUM CHLORIDE 0.9% 100 ML 200 MG IV (09:02)
[2023-03-31] MEDS: guaiFENesin ER 600 MG TAB PO ×2 (09:02→20:19)
[2023-03-31] MEDS: ACETYLCYSTEINE (PO/INH) 200 MG/ML VIAL 600 MG INH (09:03)
[2023-03-31] MEDS: BUDESONIDE 0.5 MG/2 ML NEB INH ×2 (09:03→19:06)
[2023-03-31] MEDS: methylPREDNISolone 125 MG/2 ML VIAL 60 MG IV ×2 (10:53→20:19)
--- NOTE | 2023-03-31 11:06 | CM.DPNOTE ---
DCP Note SUPERVISING LAW ENFORCEMENT ANALYST reviewed EMR. Per provider, pt on 35w/Heated high flow at this time. Pt will likely be here around a week to wean off O2. Per previous CM notes, return home is anticipated, likely no needs from CM team. R/O need for HH closer to [place]. Plan: home with son when medically stable, sister to support. CM team will continue to follow closely for potential HH needs. KEERTHI [place]
--- NOTE | 2023-03-31 13:51 | PC.NURSE ---
0800 Pt care done after explanation given with assistance of die out worker via IPad. otherwise pt is okay with writing notes on the white board. Denies difficulty with communication.
--- NOTE | 2023-03-31 14:48 | PT.IIE ---
Current Diagnoses Pneumonia, unspecified organism (03/29/23) Surgical History (Last Updated 03/29/23 @ 16:52 by Zeina Acosta, RN) S/P implantation of urinary electronic stimulator device Medical History (Last Updated 03/29/23 @ 16:52 by Zeina Acosta, RAMYA) Asthma COVID-19 Crohn disease Deafness Diabetes GERD (gastroesophageal reflux disease) HTN (hypertension) Hypothyroidism RHONDA (obstructive sleep apnea) Physical Therapy Inpatient Evaluation/Re-Eval M1 PT/OT-IP Prior Functional Status Start: 03/31/23 15:39 Freq: NEEDED Status: Active Protocol: Document 03/31/23 14:48 AB (Rec: 03/31/23 15:55 AB [id number]) Medical Review Prior Functional Status Medical History Reviewed Yes Communication pt is deaf and uses ASL to communicate PT used ALS eclectic doctor to communicate with pt Mobility and Gait pt stated that she was independent with all mobilities and ambulation without AD; pt seldom goes outside Social History Household Members children Living Arrangements Apartment/Condo Number of Floors (Floors) One Floor Number of Stairs To Enter/Railing? 2 steps B rails or a ramp to enter Home Environment High Toilet,Tub/Shower Home Equipment Hand Held Shower,Grab Bars In Shower Additional Social History Comment pt lives with her son but son works and will only be available to assist when he is off work pt stated that she sleeps on a couch M2 PT-IP Current Condition Start: 03/31/23 15:39 Freq: NEEDED Status: Active Protocol: Document 03/31/23 14:48 AB (Rec: 03/31/23 15:55 AB [id number]) Physical Therapy Current Condition Current Condition Evaluation Date 03/31/23 Treatment Diagnosis PNA; difficulty in walking Onset Date 03/29/23 M3 PT-IP Subjective Start: 03/31/23 15:39 Freq: NEEDED Status: Active Protocol: Document 03/31/23 14:48 AB (Rec: 03/31/23 15:55 AB [id number]) Subjective Physical Therapy Visit Type Type Initial Evaluation Visit Start Time 14:48 Visit Stop Time 15:37 Total Visit Minutes 49 Number of HYDROBLASTER Visits 0 Physical Therapy Visit Comments Patient Comments stated that she is tired but agreed to do PT M4 PT-IP Mobility and Gait Start: 03/31/23 15:39 Freq: NEEDED Status: Active Protocol: Document 03/31/23 14:48 AB (Rec: 03/31/23 15:55 AB [id number]) PT-Bed Mobility Assessment Supine to Sit Supine to Sit Standby Assistance,Head of Bed Elevated Sit to Supine Sit to Supine Standby Assistance,Head of Bed Elevated PT-Transfer Assessment Sit to and From Stand Sit to and from Stand Standby Assistance,1 Person Assistance,Use of Upper Extremities Equipment Transfer Assistive Device None,Gait Belt Orthotic/Prosthetic Devices or Brace: Yes Transfers Transfer Destination Bed,Bedside Commode Transfer Technique Stand Step Pivot Transfer Ability Level of Assist Standby Assistance,Use of Upper Extremities Comments Mobility Comments Used church communications administrator during PT session. pt supine in bed. agreed to do PT. obtained PLOF and home set up. Pt using HFNC and O2 sat at 96% at rest. pt has hand brace for L wrist and pt stated that she has tendinitis on L hand. pt completed supine to sit SBA with HOB elevated. able to sit on EOB SBA. pt requested to use the toilet. bedside commode positioned next to pt and pt completed step transfer SBA without AD. pt required assistance with hygiene care. completed sit to stand from the commode SBA and step transfer back to EOB SBA. O2 sat with transfers decreased to ~ 83 %. cued for deep breathing and increased to 92% in > 1 min. pt agreed to ambulate. completed sit to stand SBA and ambulated in room without AD SBA to CGA ~ 10 ft. (+) SOB. O2 sat 82-84% . pt refused further ambulation and wants to go back to bed. completed sit to supine SBA. positioned pt in bed. call light and table placed within reach. Nurse came in to assist pt with other needs. Gait Assessment Gait Gait Assistance Required: Standby Assistance,Contact Guard Assist Distance (Feet) 10 Able to Maintain Weight Bearing Status Yes During Gait Assistive Devices Assistive Device None,Gait Belt Orthotic/Prosthetic Devices or Brace: Yes Gait Deviations General Gait Pattern Ataxic,Decreased Stride Length ,Decreased Feet Clearance,Step -to Gait Factors Limiting Gait Function Factors Limiting Gait Function Decreased Activity Tolerance, Decreased Strength,Limited Range of Motion,Pain,Poor Balance,Respiratory Distress PT-Balance Assessment Sitting Balance and Reactions Static Sitting Balance Ability Normal Dynamic Sitting Balance Ability Good Standing Balance and Reactions Static Standing Balance Ability Good Dynamic Standing Balance Ability Fair Device Used without AD M5 PT-IP Objective Assessments Start: 03/31/23 15:39 Freq: NEEDED Status: Active Protocol: Document 03/31/23 14:48 AB (Rec: 03/31/23 15:55 AB [id number]) Orientation Orientation/Cognition Level of Alertness Alert Orientation Name Comments pt is deaf uses ASL for communication Gross Range of Motion Lower Extremity ROM Assessment Within Functional Limits Strength Lower Extremity Strength Hip 4-/5 Knee 4-/5 Muscle Tone Muscle Tone WNL Yes M6 PT-IP Treatment Start: 03/31/23 15:39 Freq: NEEDED Status: Active Protocol: Document 03/31/23 14:48 AB (Rec: 03/31/23 15:55 AB [id number]) Physical Therapy Treatment Education Education Provided Safety M7 PT-IP Assessment and Plan Start: 03/31/23 15:39 Freq: NEEDED Status: Active Protocol: Document 03/31/23 14:48 AB (Rec: 03/31/23 15:55 AB [id number]) PT Summary Assessment and Plan Potential Rehabilitation Potential Fair Status of Condition at Evaluation Unstable Summary Impairments Pain,ROM,Strength,Balance, Cognition,Bed Mobility, Transfers,Gait,Activity Tolerance Assessment Summary pt is a 52 y/o F who presented to the ED for SOB. pt admited for PNA. pt's d-dimer elevated: 1092 but nurse stated that pt does not have any blood clots and cleared to do PT. pt requiring SBA with transfers, CGA for ambulation without AD but limited due to decrease O2 sat to 82% with HFNC on. d/c plan depending on progress. will continue to assess. Goals Bed Mobility Goal Independent Transfer Goal Independent Gait Goal Independent Gait Distance 200 Days to Meet Goals 10 Frequency of Treatment Frequency Of Treatment Once a Day Treatment Plan Physical Therapy Treatment Plan Bed Mobility Training,Transfer Training,Gait Training, Therapeutic Exercise,Balance Retraining,Discharge Planning, Hot or Cold Pack,Neuromuscular Re-ed,Coordination Retraining Precautions Other Precautions O2 sat Recommendations To Nursing Amount of Assist Needed 1 Person Assist Discharge Recommendations PT Discharge Recommendations Home with Assistance,Home Health Transportation Needs at Discharge Private Vehicle
[2023-03-31] MEDS: levoFLOXacin 750 MG/150 ML PIGGYBACK 100 MG IV (15:41)
--- NOTE | 2023-03-31 17:26 | DIET.CONS ---
Addendum entered by Edith Dodd 03/31/23 17:33: Use of [facility] interpreting services during this visit. Original Note: Dietary Consultation Note Admission Date: 03/29/2023 14:42 Assessment: RD consult due to MNA of 11. Denies low PO prior to admit. Endorses adequate appetite despite acute hypoxic resp failure. BG elevated r/t prednisone therapy. States BG at home are usually well managed, however she has not been able to check BG in months due to not having a monitor and difficulty getting Dexcom G7. Sees [facility] ([facility]) and PCP ([facility]) per report. Recent BG in the 200-470mg/dl range until today. Last readings 277, 168, 220mg/dl. States her last Hga1c was in the 6-7% range. Endorses three meals and one snack per day No protein calorie malnutrition currently. Ht: 161.29 cm Wt: 110.223 kg BMI: 42.3 Last BM: 03/31/23 (03/31/23 15:39) MNA: 11 Coleman Score: 21 Diet: 03/29/23 Dinner Carbohydrate Consistent Diet Diet Modifications: Carbohydrate level: Medium (3 CHO) Bedtime snack: Yes Reflex DM orders: No Nutrition Percent Meal Consumed 100% 03/31/23 13:50 Percent Meal Consumed 100% 03/30/23 18:00 Percent Meal Consumed 100% 03/30/23 08:56 Percent Meal Consumed 100% 03/29/23 19:19 Labs: RBC 4.63 X10^6/uL (4.0-5.2) 03/31/23 03:51 Hgb 13.2 g/dL (12.0-16.0) 03/31/23 03:51 Hct 40.1 % (36-46) 03/31/23 03:51 Creatinine 0.85 mg/dL (0.52-1.04) 03/31/23 03:51 Lactate 1.7 mmol/L (0.7-2.1) 03/29/23 12:05 NT-Pro-B Natriuret Pep 195 pg/mL (<125) H 03/29/23 12:05 Nutrition Diagnosis: Altered nutrition related lab values r/t endocrine dysfunction and prednisone therapy aeb elevated blood sugars Interventions: Provided OP diabetes ed contact Pt would like to move forward with referral acquisition for DM ed for CGM help. Also encouraged her to contact endo for help with CGM. Provided monitor kit with 10 strips EER: 45g CCD Monitoring/Evaluations: consult prn Electronically Signed by: Edith Dodd 03/31/23 17:[address] [id number]
[2023-03-31] MEDS: HYDROCODONE/ACET 5/325 TABLET 1 TAB PO (18:28)
[2023-03-31] MEDS: DULOXETINE 30 MG CAPSULE 60 MG PO (20:19)
[2023-03-31] MEDS: TRAZODONE 50 MG TABLET PO (20:19)
[2023-03-31] MEDS: SODIUM CHLORIDE 0.9% FLUSH 10 ML IV (20:20)
[2023-04-01] VITALS (60 sets, daily range): BP systolic 123–167; BP diastolic 80–99; PULSE 81–108; RESP 13–39; TEMP 35.9–36.9; O2SAT 87–96
[2023-04-01] MEDS: HYDROCODONE/ACET 5/325 TABLET 1 TAB PO ×2 (03:56→20:47)
[2023-04-01 04:41] LABS: Add Manual Diff / Slide Review NO; Basophils Absolute Auto 0 /uL (0-100); Basophils Percent Auto 0.6 % (0-2); Eosinophils Absolute Auto 0 /uL (0-450); Eosinophils Percent Auto 0.2 % (2-4); Hematocrit 41.3 % (36-46); Hemoglobin 13.6 g/dL (12.0-16.0); Lymphocytes Absolute Auto 500 /uL (1100-4500); Lymphocytes Percent Auto 6.5 % (25-40); Mean Corpuscular Hemoglobin 28.7 PG (26-34); Monocytes Absolute Auto 200 /uL (0-900); Monocytes Percent Auto 2.7 % (3-14); Neutrophils Absolute Auto 7100 /uL (1500-7000); Platelet Count 168 X10^3/uL (150-400); Red Blood Cell Count 4.74 X10^6/uL (4.0-5.2); Red Cell Distribution Width 14.3 % (11.6-14.8); White Blood Cell Count 7.9 X10^3/uL (4.5-11.0)
[2023-04-01 04:50] LABS: Alanine Aminotransferase 29 IU/L (<35); Albumin 3.6 g/dL (3.5-5.0); Albumin Globulin Ratio 1.2 (1.0-2.8); Alkaline Phosphatase 112 U/L (38-126); Aspartate Aminotransferase 29 IU/L (14-36); BUN Creatinine Ratio 45.5 (6-22); Bilirubin Total 0.4 mg/dL (0.2-1.3); Blood Urea Nitrogen 30 mg/dL (7-17); Calcium 9.2 mg/dL (8.4-10.2); Carbon Dioxide 29 mmol/L (22-32); Chloride 99 mmol/L (98-107); Estimated Glomerular Filt Rate > 60 mL/min (>60); Globulin 2.9 g/dL (1.7-4.1); Glucose 373 mg/dL (70-100); HEMOLYSIS 23 (0-50); Potassium 4.3 mmol/L (3.4-5.1); Sodium 133 mmol/L (137-145); Total Protein 6.5 g/dL (6.3-8.2)
[2023-04-01] MEDS: PANTOPRAZOLE DR 40 MG TABLET PO (06:36)
[2023-04-01] MEDS: LEVOTHYROXINE 50 MCG TABLET PO (06:36)
[2023-04-01] MEDS: INSULIN LISPRO 100 UNIT/ML 3ML VIAL SUBCUT ×7 (07:51→20:50)
[2023-04-01] MEDS: ALBUTEROL/IPRATROPIUM 3 ML AMPUL INH ×3 (07:54→19:06)
[2023-04-01] MEDS: BUDESONIDE 0.5 MG/2 ML NEB INH ×2 (07:54→19:06)
[2023-04-01] MEDS: cefTRIAXone 2,000 MG in SODIUM CHLORIDE 0.9% 100 ML 200 MG IV (08:19)
[2023-04-01] MEDS: ENOXAPARIN 40 MG/0.4 ML SYRINGE SUBCUT ×2 (08:20→20:47)
[2023-04-01] MEDS: ACETAMINOPHEN 325 MG TABLET 650 MG PO ×2 (08:20→20:47)
[2023-04-01] MEDS: INSULIN GLARGINE 100 UNIT/ML 3ML PEN 20 UNIT SUBCUT (08:21)
[2023-04-01] MEDS: METOPROLOL ER 50 MG TABLET 100 MG PO (08:23)
[2023-04-01] MEDS: guaiFENesin ER 600 MG TAB PO ×2 (08:24→20:47)
[2023-04-01] MEDS: methylPREDNISolone 125 MG/2 ML VIAL 60 MG IV (08:28)
--- NOTE | 2023-04-01 09:01 | P.PN_ITS ---
Subjective Subjective Interval history: She is feeling better. Less wheezing. No pain. She has not really been out of bed. Exam Vital Signs (past 8 hours): - 04/01/23 01:30 04/01/23 02:00 04/01/23 02:30 Temperature Pulse Rate 82 81 84 Respiratory Rate 19 18 21 Blood Pressure Pulse Oximetry 90 L 90 L 91 Oxygen Delivery Method Oxygen Flow Rate Fraction of Inspired Oxygen 04/01/23 02:49 04/01/23 03:00 04/01/23 03:30 Temperature Pulse Rate 89 87 86 Respiratory Rate 16 17 19 Blood Pressure Pulse Oximetry 92 91 92 Oxygen Delivery Method Oxygen Flow Rate Fraction of Inspired Oxygen 04/01/23 03:56 04/01/23 03:56 04/01/23 04:00 Temperature Pulse Rate 94 H 92 H Respiratory Rate 32 H 24 Blood Pressure 153/85 H Pulse Oximetry 88 L 93 Oxygen Delivery Method Oxygen Flow Rate Fraction of Inspired Oxygen 04/01/23 04:30 04/01/23 04:35 04/01/23 05:00 Temperature 97.9 F Pulse Rate 93 H 93 H 86 Respiratory Rate 23 23 16 Blood Pressure 153/85 H Pulse Oximetry 89 L 95 93 Oxygen Delivery Method Oxygen Flow Rate Fraction of Inspired Oxygen 04/01/23 05:30 04/01/23 06:00 04/01/23 06:09 Temperature Pulse Rate 91 H 89 96 H Respiratory Rate 17 18 16 Blood Pressure Pulse Oximetry 92 95 94 Oxygen Delivery Method Oxygen Flow Rate Fraction of Inspired Oxygen 04/01/23 06:30 04/01/23 07:00 04/01/23 07:00 Temperature Pulse Rate 84 96 H Respiratory Rate 15 32 H Blood Pressure Pulse Oximetry 96 93 Oxygen Delivery Method Heated High Flow Oxygen Flow Rate Fraction of Inspired Oxygen 04/01/23 07:30 04/01/23 07:49 04/01/23 07:49 Temperature Pulse Rate 95 H 94 H Respiratory Rate 28 H 20 Blood Pressure 123/80 Pulse Oximetry 93 94 Oxygen Delivery Method Oxygen Flow Rate Fraction of Inspired Oxygen 04/01/23 07:54 04/01/23 08:00 04/01/23 08:00 Temperature 98.4 F Pulse Rate 100 H 94 H 99 H Respiratory Rate 22 13 31 H Blood Pressure 123/80 Pulse Oximetry 93 93 91 Oxygen Delivery Method Heated High Flow Oxygen Flow Rate 30 30 Fraction of Inspired Oxygen 50 51 04/01/23 08:02 04/01/23 08:23 Temperature Pulse Rate 100 H 100 H Respiratory Rate 22 Blood Pressure 123/80 Pulse Oximetry 91 Oxygen Delivery Method Oxygen Flow Rate Fraction of Inspired Oxygen Fraction of Inspired Oxygen 51 SaO2/FiO2 Ratio 186 Oxygen Delivery Method Heated High Flow Oxygen Flow Rate 30 Narrative Exam Narrative: NAD, used a sign language interpretor. Lungs clear, some expiratory wheezing. Normal effort. CV regular, no murmur. Non-distended abdomen. Extremities without edema. Objective Labs 04/01/23 04:03 04/01/23 04:03 Labs: Laboratory Results - last 24 hr 04/01/23 04:03 WBC 7.9 RBC 4.74 Hgb 13.6 Hct 41.3 MCV 87.0 MCH 28.7 MCHC 33.0 RDW 14.3 Plt Count 168 Neut % (Auto) 90.0 H Lymph % (Auto) 6.5 L [place] % (Auto) 2.7 L Eos % (Auto) 0.2 L Baso % (Auto) 0.6 Neut # (Auto) 7100 H Lymph # (Auto) 500 L [place] # (Auto) 200 Eos # (Auto) 0 Baso # (Auto) 0 Sodium 133 L Potassium 4.3 Chloride 99 Carbon Dioxide 29 BUN 30 H Creatinine 0.66 Estimated GFR > 60 BUN/Creatinine Ratio 45.5 H Glucose 373 H D Calcium 9.2 Total Bilirubin 0.4 AST 29 ALT 29 Alkaline Phosphatase 112 Total Protein 6.5 Albumin 3.6 Globulin 2.9 Albumin/Globulin Ratio 1.2 [facility] Medical History (Updated 03/29/23 @ 16:52 by Zeina Acosta RN) HTN (hypertension) Hypothyroidism GERD (gastroesophageal reflux disease) Diabetes Crohn disease Asthma RHONDA (obstructive sleep apnea) Deafness COVID-19 Surgical History (Updated 03/29/23 @ 16:52 by Zeina Acosta RN) S/P implantation of urinary electronic stimulator device Social History household members: children Smoking Status: Former smoker alcohol intake: never Assessment & Plan Assessment & Plan narrative: # Acute hypoxic respiratory failure secondary to asthma exacerbation and pneumonia, POA and improving. -CTA with bilateral pneumonia, req HFNC at 30L and 50% -wean off High Flow O2 as able. -rocephin and levaquin (5 days course) -solu-medrol 60mg IV BID -duonebs, budesonide scheduled -mucinex, tessalon perles PRN -wean Solumedrol to 30 Q 12. # Deafness, POA -patient requires medication care manager or sister present to provide sign language # Elevated LFT's, POA -AST 52 and ALT 43, unclear if from acute illness as no prior LFT's available -monitor -avoid hepatotoxic agents # DM2, POA -hold glimepiride, continue rybelsus -start lantus 20u BID given BG to rise with steroids -mealtime 5u and high dose SSI -ACHS checks -wean steroids # Headache, resolved. -add imitrex PRN as patient states tylenol and norco less effective # HTN, POA -continue metoprolol # GERD, POA -continue PPI # Morbid Obesity, POA -BMI 43 # Insomnia, POA -trazodone PRN nightly Code status is full code. DVT prophylaxis with Lovenox b.i.d. due to obesity. Proxy is sister Darlin. I have reviewed home meds and used all available resources to reconcile the home meds. Dispo: 2-3 days to wean O2. Quality VTE Deep Vein Thrombosis/Pulmonary Embolism Present on Admission: No
[2023-04-01] MEDS: SODIUM CHLORIDE 0.9% FLUSH 10 ML IV ×2 (09:44→20:48)
--- NOTE | 2023-04-01 10:04 | CM.DPNOTE ---
DCP Note DIVISION MANAGER reviewed chart. Pt remains on high flow, per provider, will be here for a few more days to wean off high flow. Per PT, fatigued and could be hard for pt to leave house for PT, could be home bound. Per provider, hold a few days for referral to see if she gets stronger first. Plan: home with son support when stable. R/o HH closer to dc. CM team will continue to follow closely. KEERTHI Troy
[2023-04-01] MEDS: INSULIN GLARGINE 100 UNIT/ML 3ML PEN 10 UNIT SUBCUT (11:09)
--- NOTE | 2023-04-01 11:32 | PT.IPTN ---
Current Diagnoses Pneumonia, unspecified organism (03/29/23) Physical Therapy Treatment Note M2 PT-IP Current Condition Start: 03/31/23 15:39 Freq: NEEDED Status: Active Protocol: Document 03/31/23 14:48 AB (Rec: 03/31/23 15:55 AB [email or web address]) Physical Therapy Current Condition Current Condition Evaluation Date 03/31/23 Treatment Diagnosis PNA; difficulty in walking Onset Date 03/29/23 M3 PT-IP Subjective Start: 03/31/23 15:39 Freq: NEEDED Status: Active Protocol: Document 04/01/23 12:00 TS (Rec: 04/01/23 12:14 TS [id number]) Subjective Physical Therapy Visit Type Type Treatment Note Visit Start Time 11:32 Visit Stop Time 11:59 Total Visit Minutes 27 Notes ASL Interepreter used Number of RN DOCUMENTATION Visits 1 Physical Therapy Visit Comments Patient Comments Pt found resting in bed, is agreeable to PT, would like to use commode. M4 PT-IP Mobility and Gait Start: 03/31/23 15:39 Freq: NEEDED Status: Active Protocol: Document 04/01/23 12:00 TS (Rec: 04/01/23 12:14 TS [id number]) PT-Bed Mobility Assessment Supine to Sit Supine to Sit Standby Assistance,Head of Bed Elevated Scooting Scooting to Edge of Bed Standby Assistance PT-Transfer Assessment Sit to and From Stand Sit to and from Stand Standby Assistance,1 Person Assistance,Use of Upper Extremities Equipment Transfer Assistive Device None,Gait Belt Orthotic/Prosthetic Devices or Brace: Yes Transfers Transfer Destination Bedside Commode Transfer Technique Stand Step Pivot Transfer Ability Level of Assist Standby Assistance,Use of Upper Extremities Comments Mobility Comments parts interpreter used for PT session. Pt resting on 10L of o2 Spo2 95% at rest. Supine to sit SBA with HOB elevated, pt desats to mid 80's sitting upto EOB. Sit to stand with no AD SBA for stand step pivot transfer to commode. Pt required assist for pericare from nursing staff. She ambulated in room ~60' SBA with step thru gait and no AD, pt has some SOB, desats to mid to low 80's with mobility, recovers quickly to low 90's with standing rest break. Pt agreed to sit in chair for lunch, pt was left with nursing tending to needs. Gait Assessment Gait Gait Assistance Required: Standby Assistance Distance (Feet) 60 Able to Maintain Weight Bearing Status Yes During Gait Assistive Devices Assistive Device None,Gait Belt Orthotic/Prosthetic Devices or Brace: Yes Gait Deviations General Gait Pattern Ataxic,Decreased Stride Length ,Decreased Feet Clearance,Wide Based Gait Factors Limiting Gait Function Factors Limiting Gait Function Decreased Activity Tolerance, Decreased Strength,Limited Range of Motion,Pain,Poor Balance,Respiratory Distress PT-Balance Assessment Sitting Balance and Reactions Static Sitting Balance Ability Normal Dynamic Sitting Balance Ability Good Standing Balance and Reactions Static Standing Balance Ability Good Dynamic Standing Balance Ability Fair Device Used without AD M5 PT-IP Objective Assessments Start: 03/31/23 15:39 Freq: NEEDED Status: Active Protocol: Document 03/31/23 14:48 AB (Rec: 03/31/23 15:55 AB [id number]) Orientation Orientation/Cognition Level of Alertness Alert Orientation Name Comments pt is deaf uses ASL for communication Gross Range of Motion Lower Extremity ROM Assessment Within Functional Limits Strength Lower Extremity Strength Hip 4-/5 Knee 4-/5 Muscle Tone Muscle Tone WNL Yes M6 PT-IP Treatment Start: 03/31/23 15:39 Freq: NEEDED Status: Active Protocol: Document 04/01/23 12:00 TS (Rec: 04/01/23 12:14 TS [id number]) Physical Therapy Treatment Education Education Provided Safety M7 PT-IP Assessment and Plan Start: 03/31/23 15:39 Freq: NEEDED Status: Active Protocol: Document 04/01/23 12:00 TS (Rec: 04/01/23 12:14 TS [id number]) PT Summary Assessment and Plan Potential Rehabilitation Potential Fair Summary Impairments Pain,ROM,Strength,Balance, Cognition,Bed Mobility, Transfers,Gait,Activity Tolerance Progress Towards Goals Slow Progress due to Medical Issues,Slow Progress due to Activity Tolerance Assessment Summary Yamel is making some progress with her mobility but remains limited by ongoing medical issues and activity tolerance. She continues to be SBA for bed mobility and for STS with no AD. She progressed her gait to ~60'SBA with no AD, she is somewhat unsteady and desats to low to mid 80's with her o2 , she recovers to low 90's quickly. PT continues to recommend home with assistance and HHPT. Goals Bed Mobility Goal Independent Transfer Goal Independent Gait Goal Independent Gait Distance 200 Days to Meet Goals 10 Frequency of Treatment Frequency Of Treatment Once a Day Treatment Plan Physical Therapy Treatment Plan Bed Mobility Training,Transfer Training,Gait Training, Therapeutic Exercise,Balance Retraining,Discharge Planning, Hot or Cold Pack,Neuromuscular Re-ed,Coordination Retraining Precautions Other Precautions O2 sat Recommendations To Nursing Amount of Assist Needed 1 Person Assist Discharge Recommendations PT Discharge Recommendations Home with Assistance,Home Health Transportation Needs at Discharge Private Vehicle
[2023-04-01] MEDS: SODIUM CHLORIDE NASAL SPRAY 1 SPRAY NASAL (11:36)
[2023-04-01] MEDS: CODEINE/GUAIFENESIN LIQUID 5ML UDC 10 ML PO (15:06)
[2023-04-01] MEDS: SUMAtriptan 25 MG TABLET PO (15:06)
[2023-04-01] MEDS: levoFLOXacin 750 MG/150 ML PIGGYBACK 100 MG IV (16:05)
[2023-04-01] MEDS: TRAZODONE 50 MG TABLET PO (20:47)
[2023-04-01] MEDS: DULOXETINE 30 MG CAPSULE 60 MG PO (20:49)
[2023-04-01] MEDS: INSULIN GLARGINE 100 UNIT/ML 3ML PEN 30 UNIT SUBCUT (20:51)
[2023-04-02] VITALS (59 sets, daily range): BP systolic 133–163; BP diastolic 70–108; PULSE 85–109; RESP 15–46; TEMP 35.9–36.8; O2SAT 87–99
[2023-04-02] MEDS: ALBUTEROL 2.5 MG/3 ML NEB (ADULT) INH ×2 (04:19→19:35)
[2023-04-02 04:58] LABS: Add Manual Diff / Slide Review NO; Basophils Absolute Auto 0 /uL (0-100); Basophils Percent Auto 0.2 % (0-2); Eosinophils Absolute Auto 0 /uL (0-450); Hematocrit 42.3 % (36-46); Hemoglobin 14.1 g/dL (12.0-16.0); Lymphocytes Absolute Auto 1000 /uL (1100-4500); Lymphocytes Percent Auto 11.4 % (25-40); Mean Corpuscular HGB Conc 33.3 % (30-36); Mean Corpuscular Hemoglobin 28.9 PG (26-34); Mean Corpuscular Volume 86.7 fL (80-100); Monocytes Absolute Auto 600 /uL (0-900); Monocytes Percent Auto 6.8 % (3-14); Neutrophils Absolute Auto 7000 /uL (1500-7000); Neutrophils Percent Auto 81.6 % (50-75); Platelet Count 160 X10^3/uL (150-400); Red Blood Cell Count 4.88 X10^6/uL (4.0-5.2); Red Cell Distribution Width 14.2 % (11.6-14.8); White Blood Cell Count 8.6 X10^3/uL (4.5-11.0)
[2023-04-02 05:04] LABS: Alanine Aminotransferase 29 IU/L (<35); Albumin 3.7 g/dL (3.5-5.0); Albumin Globulin Ratio 1.2 (1.0-2.8); Alkaline Phosphatase 112 U/L (38-126); Aspartate Aminotransferase 28 IU/L (14-36); BUN Creatinine Ratio 45.5 (6-22); Bilirubin Total 0.5 mg/dL (0.2-1.3); Blood Urea Nitrogen 30 mg/dL (7-17); Calcium 9.6 mg/dL (8.4-10.2); Carbon Dioxide 31 mmol/L (22-32); Chloride 97 mmol/L (98-107); Estimated Glomerular Filt Rate > 60 mL/min (>60); Globulin 3.1 g/dL (1.7-4.1); Glucose 283 mg/dL (70-100); HEMOLYSIS 19 (0-50); Potassium 4.9 mmol/L (3.4-5.1); Sodium 133 mmol/L (137-145); Total Protein 6.8 g/dL (6.3-8.2)
[2023-04-02] MEDS: PANTOPRAZOLE DR 40 MG TABLET PO (06:19)
[2023-04-02] MEDS: LEVOTHYROXINE 50 MCG TABLET PO (06:19)
[2023-04-02] MEDS: INSULIN LISPRO 100 UNIT/ML 3ML VIAL SUBCUT ×5 (07:40→20:11)
[2023-04-02] MEDS: INSULIN GLARGINE 100 UNIT/ML 3ML PEN 30 UNIT SUBCUT ×2 (08:59→20:11)
[2023-04-02] MEDS: ENOXAPARIN 40 MG/0.4 ML SYRINGE SUBCUT ×2 (09:00→20:12)
[2023-04-02] MEDS: cefTRIAXone 2,000 MG in SODIUM CHLORIDE 0.9% 100 ML 200 MG IV (09:00)
[2023-04-02] MEDS: ACETAMINOPHEN 325 MG TABLET 650 MG PO (09:01)
[2023-04-02] MEDS: guaiFENesin ER 600 MG TAB PO ×2 (09:01→20:12)
[2023-04-02] MEDS: METOPROLOL ER 50 MG TABLET 100 MG PO (09:01)
[2023-04-02] MEDS: SODIUM CHLORIDE 0.9% FLUSH 10 ML IV (09:04)
--- NOTE | 2023-04-02 10:25 | CM.DPNOTE ---
DCP Note CHEF UNDER reviewed chart. Per provider, pt making slow improvements. Pt likely here another few days. Pt could be homebound and could benefit from HH if continues to remain weak. Per provider, hold a few days for referral to see if she gets stronger first. Plan: home with son support when stable. R/o HH closer to dc. CM team will continue to follow closely. KEERTHI Troy
[2023-04-02] MEDS: INSULIN LISPRO 100 UNIT/ML 3ML VIAL 10 UNIT SUBCUT ×2 (11:48→16:48)
--- NOTE | 2023-04-02 11:59 | P.PN_ITS ---
Subjective Subjective Interval history: She feels that she is improving on a day-to-day basis. She is less short of breath. She was able to get out of bed and move around a bit yesterday with some dyspnea. Her cough is persistent but slowly improving. She denies any pain. No difficulties with abdominal pain, urination or constipation. Last BM was yesterday. Exam Vital Signs (past 8 hours): - 04/02/23 04:00 04/02/23 04:19 04/02/23 07:00 Temperature 97.9 F Pulse Rate 87 94 H Respiratory Rate 18 28 H Blood Pressure 137/95 H Pulse Oximetry 98 94 Oxygen Delivery Method High Flow Nasal Cannula High Flow Nasal Cannula Oxygen Flow Rate 12 04/02/23 08:00 04/02/23 08:32 04/02/23 09:01 Temperature 98.3 F Pulse Rate 90 90 96 H Respiratory Rate 18 16 Blood Pressure 141/84 H 141/84 H 141/84 H Pulse Oximetry 94 98 Oxygen Delivery Method Oxygen Flow Rate 04/02/23 09:21 04/02/23 09:34 Temperature Pulse Rate 97 H Respiratory Rate Blood Pressure 133/70 Pulse Oximetry 95 Oxygen Delivery Method High Flow Nasal Cannula Oxygen Flow Rate 11 Fraction of Inspired Oxygen 51 SaO2/FiO2 Ratio 155 Oxygen Delivery Method High Flow Nasal Cannula Oxygen Flow Rate 11 Narrative Exam Narrative: NAD, no distress. Lungs are mostly clear with normal rate and effort. Heart is regular. Abdomen is distended, non-tender. Extremities are free of edema. She is relatively calm. Objective Labs 04/02/23 04:41 04/02/23 04:41 Labs: Laboratory Results - last 24 hr 04/02/23 04:41 WBC 8.6 RBC 4.88 Hgb 14.1 Hct 42.3 MCV 86.7 MCH 28.9 MCHC 33.3 RDW 14.2 Plt Count 160 Neut % (Auto) 81.6 H Lymph % (Auto) 11.4 L [place] % (Auto) 6.8 Eos % (Auto) 0.0 L Baso % (Auto) 0.2 Neut # (Auto) 7000 Lymph # (Auto) 1000 L [place] # (Auto) 600 Eos # (Auto) 0 Baso # (Auto) 0 Sodium 133 L Potassium 4.9 Chloride 97 L Carbon Dioxide 31 BUN 30 H Creatinine 0.66 Estimated GFR > 60 BUN/Creatinine Ratio 45.5 H Glucose 283 H Calcium 9.6 Total Bilirubin 0.5 AST 28 ALT 29 Alkaline Phosphatase 112 Total Protein 6.8 Albumin 3.7 Globulin 3.1 Albumin/Globulin Ratio 1.2 [facility] Medical History (Updated 03/29/23 @ 16:52 by Zeina Acosta RN) HTN (hypertension) Hypothyroidism GERD (gastroesophageal reflux disease) Diabetes Crohn disease Asthma RHONDA (obstructive sleep apnea) Deafness COVID-19 Surgical History (Updated 03/29/23 @ 16:52 by Zeina Acosta RN) S/P implantation of urinary electronic stimulator device Social History household members: children Smoking Status: Former smoker alcohol intake: never Assessment & Plan Assessment & Plan narrative: 1. Acute hypoxic respiratory failure secondary to asthma exacerbation and pneumonia, POA and improving. -CTA with bilateral pneumonia, initially required HFNC at 30L and 50% -weaned off High Flow O2 04/01 -rocephin and levaquin (5 days course) -solu-medrol 60mg IV BID initially -duonebs, budesonide scheduled -mucinex, tessalon perles PRN -wean Solumedrol to 30 Q 12. 2. Deafness, POA and active. -patient requires gas blender or sister present to provide sign language 3. Elevated LFT's, POA and resolved. -AST 52 and ALT 43, unclear if from acute illness as no prior LFT's available -monitor 4. DM2, POA and uncontrolled. -hold glimepiride, continue rybelsus -started lantus 20u BID given BG to rise with steroids -mealtime 5u and high dose SSI -ACHS checks -wean steroids -increasing nutritional insulin to 10 AC, had increased Lantus from 20-30 b.i.d. yesterday. 5. Headache, POA and resolved. -add imitrex PRN as patient states tylenol and norco less effective 6. HTN, POA and stable. -continue metoprolol 7. GERD, POA and stable. -continue PPI 8. Morbid Obesity, POA and stable. -BMI 43 9. Insomnia, POA and stable. -trazodone PRN nightly Code status is full code. DVT prophylaxis with Lovenox b.i.d. due to obesity. Proxy is sister Darlin. I have reviewed home meds and used all available resources to reconcile the home meds. Dispo: 2-3 days to wean O2. Home with HH vs SNF pending her improvement and ability to ambulate safely. Quality VTE Deep Vein Thrombosis/Pulmonary Embolism Present on Admission: No
[2023-04-02] MEDS: BUDESONIDE 0.5 MG/2 ML NEB INH ×2 (13:15→19:35)
[2023-04-02] MEDS: ALBUTEROL/IPRATROPIUM 3 ML AMPUL INH (13:15)
--- NOTE | 2023-04-02 13:20 | PT.IPTN ---
Current Diagnoses Pneumonia, unspecified organism (03/29/23) Physical Therapy Treatment Note M2 PT-IP Current Condition Start: 03/31/23 15:39 Freq: NEEDED Status: Active Protocol: Document 03/31/23 14:48 AB (Rec: 03/31/23 15:55 AB [id number]) Physical Therapy Current Condition Current Condition Evaluation Date 03/31/23 Treatment Diagnosis PNA; difficulty in walking Onset Date 03/29/23 M3 PT-IP Subjective Start: 03/31/23 15:39 Freq: NEEDED Status: Active Protocol: Document 04/02/23 12:51 KS (Rec: 04/02/23 13:53 KS [id number]) Subjective Physical Therapy Visit Type Type Treatment Note Visit Start Time 12:51 Visit Stop Time 13:20 Total Visit Minutes 29 Notes Pts sister present and able to interpret Physical Therapy Visit Comments Patient Comments Pt found resting in bed, is agreeable to PT, would like to use commode. M4 PT-IP Mobility and Gait Start: 03/31/23 15:39 Freq: NEEDED Status: Active Protocol: Document 04/02/23 12:51 KS (Rec: 04/02/23 13:53 KS [id number]) PT-Bed Mobility Assessment Supine to Sit Supine to Sit Standby Assistance,Head of Bed Elevated Scooting Scooting to Edge of Bed Standby Assistance PT-Transfer Assessment Sit to and From Stand Sit to and from Stand Standby Assistance,1 Person Assistance,Use of Upper Extremities Equipment Transfer Assistive Device None,Gait Belt,4 Wheeled Walker Orthotic/Prosthetic Devices or Brace: Yes Transfers Transfer Destination Chair,Toilet Transfer Technique pt ambulated Transfer Ability Level of Assist Standby Assistance,Use of Upper Extremities Comments Mobility Comments Pt in bed upon arrival, sister present and able to interpret . Pt on 12 L O2, sat low to mid 90s at rest. Pt SBA for bed mobility, SBA to CGA for ambulation. Increased SOB duing ambulation, O2 desat to low to mid 80s but recovers quickly. Pt reported she occasionally feels lightheaded when walking longer distances at home as well, trialed ambulation w/ 4WW for energy conservation. Pts sister has 4WW that pt can borrow if she wants to walk longer distances . Pt transferred to chair and left w/ RT. Gait Assessment Gait Gait Assistance Required: Standby Assistance,Contact Guard Assist,1 Person Assist Distance (Feet) 80 Able to Maintain Weight Bearing Status Yes During Gait Assistive Devices Assistive Device None,Gait Belt Orthotic/Prosthetic Devices or Brace: Yes Gait Deviations General Gait Pattern Ataxic,Decreased Stride Length ,Decreased Feet Clearance,Wide Based Gait Factors Limiting Gait Function Factors Limiting Gait Function Decreased Activity Tolerance, Decreased Strength,Limited Range of Motion,Pain,Poor Balance,Respiratory Distress Comments Gait Comments Pt somewhat unsteady w/o AD and easily becomes SOB but recovers quickly. PT-Balance Assessment Sitting Balance and Reactions Static Sitting Balance Ability Normal Dynamic Sitting Balance Ability Good Standing Balance and Reactions Static Standing Balance Ability Good Dynamic Standing Balance Ability Fair Device Used without AD M5 PT-IP Objective Assessments Start: 03/31/23 15:39 Freq: NEEDED Status: Active Protocol: Document 03/31/23 14:48 AB (Rec: 03/31/23 15:55 AB [id number]) Orientation Orientation/Cognition Level of Alertness Alert Orientation Name Comments pt is deaf uses ASL for communication Gross Range of Motion Lower Extremity ROM Assessment Within Functional Limits Strength Lower Extremity Strength Hip 4-/5 Knee 4-/5 Muscle Tone Muscle Tone WNL Yes M6 PT-IP Treatment Start: 03/31/23 15:39 Freq: NEEDED Status: Active Protocol: Document 04/02/23 12:51 KS (Rec: 04/02/23 13:53 KS [id number]) Physical Therapy Treatment Education Education Provided Safety M7 PT-IP Assessment and Plan Start: 03/31/23 15:39 Freq: NEEDED Status: Active Protocol: Document 04/02/23 12:51 KS (Rec: 04/02/23 13:53 KS [id number]) PT Summary Assessment and Plan Potential Rehabilitation Potential Fair Summary Impairments Pain,ROM,Strength,Balance, Cognition,Bed Mobility, Transfers,Gait,Activity Tolerance Progress Towards Goals Slow Progress due to Medical Issues,Slow Progress due to Activity Tolerance Assessment Summary Pt on 12 L o2 today, mid 90s at rest and mid 80s during mobility. Able to ambulate SBA to CGA w/o AD but limited due to SOB and low activity tolerance. Trailed 4WW for energy conservation, pts sister as one pt can use for longer distances. PT continues to recommend home with assistance and HHPT. Goals Bed Mobility Goal Independent Transfer Goal Independent Gait Goal Independent Gait Distance 200 Days to Meet Goals 10 Frequency of Treatment Frequency Of Treatment Once a Day Treatment Plan Physical Therapy Treatment Plan Bed Mobility Training,Transfer Training,Gait Training, Therapeutic Exercise,Balance Retraining,Discharge Planning, Hot or Cold Pack,Neuromuscular Re-ed,Coordination Retraining Precautions Other Precautions O2 sat Recommendations To Nursing Amount of Assist Needed 1 Person Assist Discharge Recommendations PT Discharge Recommendations Home with Assistance,Home Health Transportation Needs at Discharge Private Vehicle
[2023-04-02] MEDS: FUROSEMIDE 40 MG/4 ML VIAL IV (13:38)
[2023-04-02] MEDS: levoFLOXacin 750 MG/150 ML PIGGYBACK 100 MG IV (15:49)
[2023-04-02] MEDS: CODEINE/GUAIFENESIN LIQUID 5ML UDC 10 ML PO (20:09)
[2023-04-02] MEDS: TRAZODONE 50 MG TABLET PO (20:12)
[2023-04-02] MEDS: HYDROCODONE/ACET 5/325 TABLET 1 TAB PO (20:12)
[2023-04-02] MEDS: DULOXETINE 30 MG CAPSULE 60 MG PO (20:13)
[2023-04-03] VITALS (60 sets, daily range): BP systolic 118–143; BP diastolic 70–95; PULSE 80–110; RESP 14–57; TEMP 36.1–36.7; O2SAT 85–100
[2023-04-03 04:32] LABS: Add Manual Diff / Slide Review NO; Basophils Absolute Auto 0 /uL (0-100); Basophils Percent Auto 0.1 % (0-2); Eosinophils Absolute Auto 100 /uL (0-450); Eosinophils Percent Auto 0.9 % (2-4); Hematocrit 43.4 % (36-46); Hemoglobin 14.4 g/dL (12.0-16.0); Lymphocytes Absolute Auto 2500 /uL (1100-4500); Lymphocytes Percent Auto 34.8 % (25-40); Mean Corpuscular HGB Conc 33.1 % (30-36); Mean Corpuscular Hemoglobin 28.2 PG (26-34); Mean Corpuscular Volume 85.2 fL (80-100); Monocytes Absolute Auto 700 /uL (0-900); Monocytes Percent Auto 10.3 % (3-14); Neutrophils Absolute Auto 3800 /uL (1500-7000); Neutrophils Percent Auto 53.9 % (50-75); Platelet Count 145 X10^3/uL (150-400); Red Cell Distribution Width 14.1 % (11.6-14.8); White Blood Cell Count 7.1 X10^3/uL (4.5-11.0)
[2023-04-03 04:40] LABS: Alanine Aminotransferase 38 IU/L (<35); Albumin 3.6 g/dL (3.5-5.0); Albumin Globulin Ratio 1.2 (1.0-2.8); Alkaline Phosphatase 105 U/L (38-126); Aspartate Aminotransferase 39 IU/L (14-36); Bilirubin Total 0.6 mg/dL (0.2-1.3); Blood Urea Nitrogen 37 mg/dL (7-17); Calcium 9.5 mg/dL (8.4-10.2); Carbon Dioxide 35 mmol/L (22-32); Chloride 96 mmol/L (98-107); Estimated Glomerular Filt Rate > 60 mL/min (>60); Globulin 2.9 g/dL (1.7-4.1); Glucose 153 mg/dL (70-100); HEMOLYSIS 28 (0-50); Sodium 134 mmol/L (137-145); Total Protein 6.5 g/dL (6.3-8.2)
[2023-04-03] MEDS: PANTOPRAZOLE DR 40 MG TABLET PO (06:00)
[2023-04-03] MEDS: LEVOTHYROXINE 50 MCG TABLET PO (06:01)
[2023-04-03] MEDS: ALBUTEROL/IPRATROPIUM 3 ML AMPUL INH ×3 (09:07→20:09)
[2023-04-03] MEDS: BUDESONIDE 0.5 MG/2 ML NEB INH ×2 (09:07→20:09)
[2023-04-03] MEDS: INSULIN GLARGINE 100 UNIT/ML 3ML PEN 30 UNIT SUBCUT ×2 (09:13→20:44)
[2023-04-03] MEDS: ENOXAPARIN 40 MG/0.4 ML SYRINGE SUBCUT ×2 (09:13→20:43)
[2023-04-03] MEDS: predniSONE 20 MG TABLET 40 MG PO (09:14)
[2023-04-03] MEDS: guaiFENesin ER 600 MG TAB PO ×2 (09:14→20:42)
[2023-04-03] MEDS: METOPROLOL ER 50 MG TABLET 100 MG PO (09:14)
--- NOTE | 2023-04-03 10:28 | CM.DPNOTE ---
Addendum entered by KEERTHI Troy 04/03/23 16:15: Per provider PN, pt on room air at this time at july tx tomorrow. Per PT note, refused PT today. CM team will follow closely for CM needs at tx. SL Original Note: DCP Note REVERSE ENGINEER reviewed chart. Per provider, pt making slow improvements. Pt likely here another few days. Pt could be homebound and could benefit from HH if continues to remain weak. CM team will hold a few days for referral to see if she gets stronger first or if HH referral would be appropriate. Pt currently on 8ltrs O2 at this time. Plan: home with son support when stable. R/o HH closer to tx. CM team will continue to follow closely. KEERTHI Troy
[2023-04-03] MEDS: INSULIN LISPRO 100 UNIT/ML 3ML VIAL SUBCUT ×5 (12:01→20:45)
--- NOTE | 2023-04-03 13:11 | PT-IP ANOTE ---
PT checked in twice today. Earlier in the day, pt was sleeping soundly. On second check, pt refused out of bed activity, stating she had been up to shower with nursing already today. RT arrived for treatment and PT departed. Will follow up as able next service date.
--- NOTE | 2023-04-03 15:23 | PM.PN.1 ---
Subjective Subjective Interval history: She feels much improved today. Has weaned O2 dramatically, now 88% on room air. still dyspnic with exertion. Seen with hearing aid repairer this AM ID#[id number]. Exam Vital Signs (past 8 hours): - 04/03/23 08:00 04/03/23 09:07 04/03/23 09:14 Temperature 97.8 F Pulse Rate 101 H 101 H 100 H Respiratory Rate 38 H 16 Blood Pressure 131/81 Pulse Oximetry 95 93 Oxygen Delivery Method High Flow Nasal Cannula Oxygen Flow Rate 9 Fraction of Inspired Oxygen 04/03/23 10:00 04/03/23 12:00 04/03/23 12:18 Temperature 97.0 F L Pulse Rate 92 H 106 H Respiratory Rate 38 H Blood Pressure 143/71 H 128/70 Pulse Oximetry 94 94 Oxygen Delivery Method High Flow Nasal Cannula Oxygen Flow Rate 2 1 Fraction of Inspired Oxygen 04/03/23 13:08 04/03/23 14:23 Temperature Pulse Rate 95 H Respiratory Rate 20 Blood Pressure Pulse Oximetry 96 91 Oxygen Delivery Method Nasal Cannula Room Air Oxygen Flow Rate 2 Fraction of Inspired Oxygen 28 Fraction of Inspired Oxygen 28 SaO2/FiO2 Ratio 342 Oxygen Delivery Method Room Air Oxygen Flow Rate 2 Narrative Exam Narrative: NAD, no distress. Lungs are mostly clear with normal rate and effort. Heart is regular. Abdomen is distended, non-tender. Extremities are free of edema. She is relatively calm. Objective Labs 04/03/23 04:12 04/03/23 04:12 Labs: Laboratory Results - last 24 hr 04/03/23 04:12 WBC 7.1 RBC 5.10 Hgb 14.4 Hct 43.4 MCV 85.2 MCH 28.2 MCHC 33.1 RDW 14.1 Plt Count 145 L Neut % (Auto) 53.9 D Lymph % (Auto) 34.8 D [place] % (Auto) 10.3 Eos % (Auto) 0.9 L Baso % (Auto) 0.1 Neut # (Auto) 3800 Lymph # (Auto) 2500 [place] # (Auto) 700 Eos # (Auto) 100 Baso # (Auto) 0 Sodium 134 L Potassium 4.0 Chloride 96 L Carbon Dioxide 35 H BUN 37 H Creatinine 0.74 Estimated GFR > 60 BUN/Creatinine Ratio 50.0 H Glucose 153 H D Calcium 9.5 Total Bilirubin 0.6 AST 39 H ALT 38 H Alkaline Phosphatase 105 Total Protein 6.5 Albumin 3.6 Globulin 2.9 Albumin/Globulin Ratio 1.2 [facility] Medical History (Updated 03/29/23 @ 16:52 by Zeina Acosta RN) HTN (hypertension) Hypothyroidism GERD (gastroesophageal reflux disease) Diabetes Crohn disease Asthma RHONDA (obstructive sleep apnea) Deafness COVID-19 Surgical History (Updated 03/29/23 @ 16:52 by Zeina Acosta RN) S/P implantation of urinary electronic stimulator device Social History household members: children Smoking Status: Former smoker alcohol intake: never Assessment & Plan Assessment & Plan narrative: 1. Acute hypoxic respiratory failure secondary to asthma exacerbation and pneumonia, POA and improving. -CTA with bilateral pneumonia, initially required HFNC at 30L and 50% -weaned off High Flow O2 04/01, borderline hypoxia on room air now, 88% on room air. Still dyspnea with exertion. -rocephin and levaquin (5 days course) now completed -solu-medrol 60mg IV BID initially, changed to prednisone 40 mg daily starting today. -duonebs, budesonide scheduled -mucinex, tessalon perles PRN 2. Deafness, POA and active. -patient requires hearing aid repairer or sister present to provide sign language -dimmer board operator used this morning for communication with patient. 3. Elevated LFT's, POA and resolved. -AST 52 and ALT 43, unclear if from acute illness as no prior LFT's available -monitor 4. DM2, POA and uncontrolled. -hold glimepiride, continue rybelsus -started lantus 20u BID given BG to rise with steroids, then increased to 30 U BID, will continue for now. -cut mealtime to 5 U from 10 U today with glucose near 100 with decrease in steroids to avoid hypoglycemia. Continue to monitor closely. -ACHS checks -wean steroids as discussed above. 5. Headache, POA and resolved. -add imitrex PRN as patient states tylenol and norco less effective 6. HTN, POA and stable. -continue home metoprolol 7. GERD, POA and stable. -continue PPI 8. Morbid Obesity, POA and stable. -BMI 43 9. Insomnia, POA and stable. -trazodone PRN nightly Code status is full code. DVT prophylaxis with Lovenox b.i.d. due to obesity. Proxy is sister Darlin. I have reviewed home meds and used all available resources to reconcile the home meds. Dispo: Likely discharge home tomorrow, depending on oxygen needs with ambulation. Quality VTE Deep Vein Thrombosis/Pulmonary Embolism Present on Admission: No
[2023-04-03] MEDS: HYDROCODONE/ACET 5/325 TABLET 1 TAB PO (16:46)
[2023-04-03] MEDS: BENZONATATE 100 MG CAPSULE PO (20:42)
[2023-04-03] MEDS: TRAZODONE 50 MG TABLET PO (20:42)
[2023-04-03] MEDS: DULOXETINE 30 MG CAPSULE 60 MG PO (20:42)
[2023-04-03] MEDS: ACETAMINOPHEN 325 MG TABLET 650 MG PO (20:42)
[2023-04-03] MEDS: CODEINE/GUAIFENESIN LIQUID 5ML UDC 10 ML PO (20:43)
[2023-04-04] VITALS (31 sets, daily range): BP systolic 124–174; BP diastolic 76–104; PULSE 92–107; RESP 15–28; TEMP 36.2–36.6; O2SAT 88–96
[2023-04-04] MEDS: ALBUTEROL/IPRATROPIUM 3 ML AMPUL INH (07:31)
[2023-04-04] MEDS: BUDESONIDE 0.5 MG/2 ML NEB INH (07:31)
[2023-04-04] MEDS: ENOXAPARIN 40 MG/0.4 ML SYRINGE SUBCUT (08:15)
[2023-04-04] MEDS: BENZONATATE 100 MG CAPSULE PO (08:15)
[2023-04-04] MEDS: predniSONE 20 MG TABLET 40 MG PO (08:15)
[2023-04-04] MEDS: LEVOTHYROXINE 50 MCG TABLET PO (08:15)
[2023-04-04] MEDS: guaiFENesin ER 600 MG TAB PO (08:16)
[2023-04-04] MEDS: PANTOPRAZOLE DR 40 MG TABLET PO (08:16)
[2023-04-04] MEDS: METOPROLOL ER 50 MG TABLET 100 MG PO (08:18)
[2023-04-04] MEDS: INSULIN GLARGINE 100 UNIT/ML 3ML PEN 30 UNIT SUBCUT (08:19)
[2023-04-04] MEDS: INSULIN LISPRO 100 UNIT/ML 3ML VIAL SUBCUT ×3 (08:20→12:16)
--- NOTE | 2023-04-04 10:35 | PT.IPTN ---
Current Diagnoses Pneumonia, unspecified organism (03/29/23) Physical Therapy Treatment Note M2 PT-IP Current Condition Start: 03/31/23 15:39 Freq: NEEDED Status: Active Protocol: Document 03/31/23 14:48 AB (Rec: 03/31/23 15:55 AB [id number]) Physical Therapy Current Condition Current Condition Evaluation Date 03/31/23 Treatment Diagnosis PNA; difficulty in walking Onset Date 03/29/23 M3 PT-IP Subjective Start: 03/31/23 15:39 Freq: NEEDED Status: Active Protocol: Document 04/04/23 10:35 AB (Rec: 04/04/23 11:51 AB [id number]) Subjective Physical Therapy Visit Type Type Treatment Note Visit Start Time 10:35 Visit Stop Time 10:55 Total Visit Minutes 20 Notes used supervisor refractory products to communicate with pt Number of ELECTRIC GOLF CART REPAIRER Visits 0 Physical Therapy Visit Comments Patient Comments agreeable to do PT M4 PT-IP Mobility and Gait Start: 03/31/23 15:39 Freq: NEEDED Status: Active Protocol: Document 04/04/23 10:35 AB (Rec: 04/04/23 11:51 AB [id number]) PT-Transfer Assessment Sit to and From Stand Sit to and from Stand Standby Assistance,Use of Upper Extremities Equipment Transfer Assistive Device None Orthotic/Prosthetic Devices or Brace: No Gait Assessment Gait Gait Assistance Required: Standby Assistance Distance (Feet) 600 Assistive Devices Assistive Device None Orthotic/Prosthetic Devices or Brace: No Gait Deviations General Gait Pattern Ataxic Factors Limiting Gait Function Factors Limiting Gait Function Respiratory Distress Comments Gait Comments pt sitting on the chair and agreed to do PT. supervisor refractory products used. O2 sat with 3L/min O2: 93%. completed sit to stand SBA and ambulated in room without AD ~ 25 ft. pt sat on the chair. O2 sat: 88% with 3L/min O2. cued for deep breathing and O2 sat recovered to 91%. educated pt to take deep breaths in between tasks to maintain O2 sat. pt agreed to do more ambulation. Pt ambulated in the hallway without AD SBA with 3L/min O2. completed ~ 600 ft SBA and cued for deep breathing in between walking. O2 sat dueing ambulation: 90- 96%. pt ambulated back to her chair. call light and table placed within reach. M5 PT-IP Objective Assessments Start: 03/31/23 15:39 Freq: NEEDED Status: Active Protocol: Document 03/31/23 14:48 AB (Rec: 03/31/23 15:55 AB [id number]) Orientation Orientation/Cognition Level of Alertness Alert Orientation Name Comments pt is deaf uses ASL for communication Gross Range of Motion Lower Extremity ROM Assessment Within Functional Limits Strength Lower Extremity Strength Hip 4-/5 Knee 4-/5 Muscle Tone Muscle Tone WNL Yes M6 PT-IP Treatment Start: 03/31/23 15:39 Freq: NEEDED Status: Active Protocol: Document 04/04/23 10:35 AB (Rec: 04/04/23 11:51 AB [id number]) Physical Therapy Treatment Education Education Provided Safety M7 PT-IP Assessment and Plan Start: 03/31/23 15:39 Freq: NEEDED Status: Active Protocol: Document 04/04/23 10:35 AB (Rec: 04/04/23 11:51 AB [id number]) PT Summary Assessment and Plan Potential Rehabilitation Potential Fair Summary Impairments Balance,Bed Mobility,Transfers ,Gait,Activity Tolerance Progress Towards Goals Slow Progress due to Activity Tolerance Assessment Summary pt requiring SBA with ambulation without AD. O2 sat decreased to 88% with initial walking but with good recovery. O2 sat maintained at 90-96% with 2nd ambulation without AD SBA with cues for deep breathing in between ambulation. pt lives with her son who works but may assist pt as needed. pt may go home with assistance and will benefit from HHPT. Goals Bed Mobility Goal Independent Transfer Goal Independent Gait Goal Independent Gait Distance 200 Days to Meet Goals 10 Frequency of Treatment Frequency Of Treatment Once a Day Treatment Plan Physical Therapy Treatment Plan Bed Mobility Training,Transfer Training,Gait Training, Therapeutic Exercise,Balance Retraining,Discharge Planning, Hot or Cold Pack,Neuromuscular Re-ed,Coordination Retraining Precautions Other Precautions O2 sat Recommendations To Nursing Amount of Assist Needed 1 Person Assist Discharge Recommendations PT Discharge Recommendations Home with Assistance,Home Health Transportation Needs at Discharge Private Vehicle
[2023-04-04 11:13] LABS: Add Manual Diff / Slide Review NO; Basophils Absolute Auto 0 /uL (0-100); Basophils Percent Auto 0.2 % (0-2); Eosinophils Absolute Auto 100 /uL (0-450); Eosinophils Percent Auto 1.4 % (2-4); Hematocrit 45.8 % (36-46); Hemoglobin 15.3 g/dL (12.0-16.0); Lymphocytes Absolute Auto 1400 /uL (1100-4500); Lymphocytes Percent Auto 15.9 % (25-40); Mean Corpuscular HGB Conc 33.4 % (30-36); Mean Corpuscular Hemoglobin 28.5 PG (26-34); Mean Corpuscular Volume 85.4 fL (80-100); Monocytes Absolute Auto 600 /uL (0-900); Monocytes Percent Auto 7.4 % (3-14); Neutrophils Absolute Auto 6400 /uL (1500-7000); Neutrophils Percent Auto 75.1 % (50-75); Platelet Count 193 X10^3/uL (150-400); Red Blood Cell Count 5.36 X10^6/uL (4.0-5.2); Red Cell Distribution Width 14.3 % (11.6-14.8); White Blood Cell Count 8.5 X10^3/uL (4.5-11.0)
[2023-04-04 11:22] LABS: Alanine Aminotransferase 59 IU/L (<35); Albumin 4.1 g/dL (3.5-5.0); Albumin Globulin Ratio 1.3 (1.0-2.8); Alkaline Phosphatase 125 U/L (38-126); Aspartate Aminotransferase 65 IU/L (14-36); BUN Creatinine Ratio 41.1 (6-22); Bilirubin Total 0.8 mg/dL (0.2-1.3); Blood Urea Nitrogen 30 mg/dL (7-17); Calcium 9.7 mg/dL (8.4-10.2); Carbon Dioxide 31 mmol/L (22-32); Chloride 96 mmol/L (98-107); Estimated Glomerular Filt Rate > 60 mL/min (>60); Globulin 3.2 g/dL (1.7-4.1); Glucose 251 mg/dL (70-100); HEMOLYSIS 26 (0-50); Potassium 4.3 mmol/L (3.4-5.1); Sodium 133 mmol/L (137-145); Total Protein 7.3 g/dL (6.3-8.2)
[2023-04-04] MEDS: CALCIUM CARBONATE 500 MG TAB 1000 MG PO (11:47)
--- NOTE | 2023-04-04 11:51 | PC.NURSE ---
Addendum entered by Melissa Robins R.N. 04/04/23 13:25: Pt met discharge criteria, VSS, RN gave in depth instructions on medications and home oxygen. Original Note: Pt counseled on using oxygen when at home, 2-3L, especially with activity. Pt has home SPO2 sensor and RN counseled pt to measure O2 with sensor. VSS.
--- NOTE | 2023-04-04 12:16 | P.DS_ITS ---
History of Present Illness History of Present Illness Chief complaint: SOB, wheezing cough, low oxygen Narrative: Yamel Shah is a 52yo deaf female with PMH of asthma, chronic tobacco and marijuana use, RHONDA, HTN, DM2, crohn's disease, hypothyroidism and GERD who presents with worsening dyspnea, cough and congestion. Her sister is present and is providing ASL interpreting. Patient was hospitalized at [facility] in Jan 2023 with COVID pneumonia and she left AMA after having a bad experience. She says they didn't use her ASL kitchen work supervisor service well at all, leaving her in the dark about many things. She also felt like they forced her glucose checks and insulin when she didn't want it. She felt unsafe so she left. Since then she has been home and her breathing has been more difficult with a productive cough, wheezing and congestion. This acutely worsened 2 weeks ago and has been progressive so she came to [place] ED. In the ED a CTA chest showed bilateral bronchopneumonia and no PE. She was requiring 7L of O2 then was moved to HFNC. Currently her breathing is better on high flow. She denies CP, NV, abd pain or diarrhea. Discharge Providers Provider Date of admission: 03/29/23 14:42 Discharge Date: 04/04/23 Primary care physician: MILLI Morgan Consults: 03/29/23 19:18 Consult to Dietitian, Adult Routine Comment: Reason For Exam: assessed at high risk 03/31/23 12:45 Consult to Physical Therapy Evaluate & Treat Comment: Physician Instructions: Evaluate and Treat Discharge provider: Buck Chaparro DO Summary Hospital Course Discharge Diagnosis: 1. Acute hypoxic respiratory failure secondary to asthma exacerbation and pneumonia, POA and improving. -CTA with bilateral pneumonia, initially required HFNC at 30L and 50% -weaned off High Flow O2 04/01 to NC -rocephin and levaquin (5 days course finished) -solu-medrol 60mg IV BID initially, then weaned to 30mg IV then prednisone 40mg daily -duonebs, budesonide scheduled -weaned to 2-3L with exertion and 1L at rest -setup for home O2 with RT 2. Deafness, POA and active. -patient requires screener perfumer or sister present to provide sign language 3. Elevated LFT's, POA and resolved. -AST 52 and ALT 43, unclear if from acute illness as no prior LFT's available -monitor -ordered for outpatient CMP in 1 week after discharge to check on LFT's and have PCP follow-up on this 4. DM2, POA and uncontrolled. -hold glimepiride, continue rybelsus -started lantus 20u BID given BG to rise with steroids -mealtime 5u and high dose SSI -ACHS checks -wean steroids -increasing nutritional insulin to 10 AC, had increased Lantus from 20-30 b.i.d. yesterday. -patient to resume home regimen on discharge 5. Headache, POA and resolved. -add imitrex PRN as patient states tylenol and norco less effective 6. HTN, POA and stable. -continue metoprolol 7. GERD, POA and stable. -continue PPI -patient wanted to try protonix on discharge instead of her prilosec, script given 8. Morbid Obesity, POA and stable. -BMI 43 9. Insomnia, POA and stable. -trazodone PRN nightly Hospital Course: Admitted for acute hypoxic resp failure 2/2 PNA and requiring HFNC. Put on abx, steroids, and nebs and improved over 1 week to 1L at rest and 2L with exertion. Patient discharged home with home O2. Given protonix on discharge for ongoing heartburn. Also prescribed more duonebs medication and tubing for her neb machine. Patient had elevated LFT's without a clear cause, so CMP outpatient labs ordered for PCP to follow-up on. Exam Vital Signs (past 8 hours): - 04/04/23 04:20 04/04/23 04:20 04/04/23 07:00 Temperature 97.4 F L Pulse Rate 92 H Respiratory Rate 17 Blood Pressure 143/91 H Pulse Oximetry 96 Oxygen Delivery Method High Flow Nasal Cannula Oxygen Flow Rate 1 04/04/23 07:33 04/04/23 08:00 04/04/23 08:18 Temperature 98 F Pulse Rate 96 H 96 H Respiratory Rate 18 Blood Pressure 152/85 H 152/85 H Pulse Oximetry 88 L 90 L Oxygen Delivery Method High Flow Nasal Cannula Oxygen Flow Rate 0.5 1 04/04/23 08:48 Temperature Pulse Rate 99 H Respiratory Rate Blood Pressure 143/76 H Pulse Oximetry Oxygen Delivery Method Oxygen Flow Rate Fraction of Inspired Oxygen 28 SaO2/FiO2 Ratio 342 Oxygen Delivery Method High Flow Nasal Cannula Oxygen Flow Rate 1 Narrative Exam Narrative: NAD, no distress. She is deaf. Lungs with mild wheezes, and with normal rate and effort. Heart is regular. Abdomen is distended, non-tender. Extremities are free of edema. She is relatively calm. Objective Labs 04/04/23 10:48 04/04/23 10:48 Labs: Laboratory Results - last 24 hr 04/04/23 10:48 WBC 8.5 RBC 5.36 H Hgb 15.3 Hct 45.8 MCV 85.4 MCH 28.5 MCHC 33.4 RDW 14.3 Plt Count 193 Neut % (Auto) 75.1 H D Lymph % (Auto) 15.9 L [place] % (Auto) 7.4 Eos % (Auto) 1.4 L Baso % (Auto) 0.2 Neut # (Auto) 6400 Lymph # (Auto) 1400 [place] # (Auto) 600 Eos # (Auto) 100 Baso # (Auto) 0 Sodium 133 L Potassium 4.3 Chloride 96 L Carbon Dioxide 31 BUN 30 H Creatinine 0.73 Estimated GFR > 60 BUN/Creatinine Ratio 41.1 H Glucose 251 H Calcium 9.7 Total Bilirubin 0.8 AST 65 H ALT 59 H Alkaline Phosphatase 125 Total Protein 7.3 Albumin 4.1 Globulin 3.2 Albumin/Globulin Ratio 1.3 PFSH Medical History (Updated 04/04/23 @ 12:12 by Buck Chaparro DO) HTN (hypertension) Hypothyroidism GERD (gastroesophageal reflux disease) Diabetes Crohn disease Asthma RHONDA (obstructive sleep apnea) Deafness COVID-19 Surgical History (Updated 03/29/23 @ 16:52 by Zeina Acosta RN) S/P implantation of urinary electronic stimulator device Social History household members: children Smoking Status: Former smoker alcohol intake: never Discharge Plan Discharge Plan Patient Disposition: Home Provider Discharge Comment: You were admitted for shortness of breathing and wheezing. This improved with steroids, nebulizers and oxygen. You will now need oxygen at home to keep yourself >90%. You don't have to use it at rest if you're above this number. I've sent more nebulizer mediation and tubing for you. I've also put you on a different antiacid medication for your heartburn to try. Please get your labs checked in 1 week because your liver enzymes were mildly elevated. Your PCP should follow-up on the results to make sure they are looking ok. Dr. Chaparro Discharge orders & Medications Prescriptions: New pantoprazole 40 mg Tablet,Delayed Release (Dr/Ec) 40 mg PO 0600 Qty: 30 0RF (DME) nebulizer accessories Misc See Rx Instructions .Route Qty: 4 0RF Rx Instructions: nebulizer tubing ipratropium-albuterol 0.5 mg-3 mg(2.5 mg base)/3 mL Solution For Nebulization 3 ml inhalation Q6H PRN (Reason: shortness of breath or wheezing) Qty: 90 0RF Continued fluticasone propion-salmeterol [Advair HFA] 115-21 mcg/actuation HFA aerosol inhaler 2 puff inhalation BID metoprolol succinate 50 mg tablet extended release 24 hr 100 mg PO DAILY glimepiride 2 mg tablet 2 mg PO DAILY Rx Instructions: Take along with 4 mg tab meloxicam 7.5 mg tablet 7.5 mg PO DAILY levothyroxine 50 mcg tablet 50 mcg PO DAILY glimepiride 4 mg tablet 4 mg PO DAILY Rx Instructions: take along with 2 mg tab duloxetine 60 mg capsule,delayed release(DR/EC) 60 mg PO QPM Atrovent HFA 17 mcg/actuation HFA aerosol inhaler 2 puff inhalation QID Rybelsus 7 mg tablet 7 mg PO DAILY calcium carbonate [Tums] 200 mg calcium (500 mg) Tablet,Chewable 200 mg PO PRN PRN (Reason: Heartburn) Discontinued omeprazole 40 mg capsule,delayed release(DR/EC) 40 mg PO DAILY Follow up/Referrals: Clementina Krishnan ARNP [Primary Care Provider] - 2 Weeks Other Ambulatory Orders: Comprehensive Metabolic Panel (Urgent) Timeframe: 1 Week Facility: [facility] - Location: Laboratory Ordered By: Buck Chaparro Visit Report/Discharge Packet Stand Alone Forms: Patient Portal/API, Stroke Signs & Symptoms Discharge Data Primary Care Provider: Clementina Krishnan Quality VTE Deep Vein Thrombosis/Pulmonary Embolism Present on Admission: No
== END 2023-04-04 13:26 | disposition home or self-care (01) | DRG 193 ==
LOC: ED 14:25 → AC 14:43 → ICU 15:17
PROVIDERS: Admitting Provider Student in an Organized Health Care Education/Training Program; Emergency Provider Emergency Medicine; PCP Nurse Practitioner Family; Referring Provider Emergency Medicine; Visit Provider Student in an Organized Health Care Education/Training Program
DX: J18.9 Pneumonia, unspecified organism (principal); J96.01 Acute respiratory failure with hypoxia; J45.901 Unspecified asthma with (acute) exacerbation; Z68.41 Body mass index [BMI] 40.0-44.9, adult; H91.90 Unspecified hearing loss, unspecified ear; I10 Essential (primary) hypertension; K21.9 Gastro-esophageal reflux disease without esophagitis; G47.00 Insomnia, unspecified; E66.9 Obesity, unspecified; R51.9 Headache, unspecified; R79.89 Other specified abnormal findings of blood chemistry; E11.65 Type 2 diabetes mellitus with hyperglycemia; E03.9 Hypothyroidism, unspecified; Z79.84 Long term (current) use of oral hypoglycemic drugs; Z87.891 Personal history of nicotine dependence
CPT/HCPCS: 0241U; 36415; 36600; 71045; 71275; 80053; 82805; 82962; 83605; 83735; 83880; 84145; 84484; 85025; 85379; 85610; 87040; 87633; 87797; 93005; 93010; 94618; 94640; 94762; 96365; 96368; 96375; 97116; 97163; 97530; 99285; 99291; J0696; J1650; J1940; J1956; J2919; J2930; J7613; Q9967

== ENCOUNTER 2023-06-23 11:50 | Emergency (ER) | payer MEDICARE, MEDICAID, SELFPAY ==
[2023-06-07 13:57] VITALS: BMI 42.3
[2023-06-23] VITALS (13 sets, daily range): BP systolic 124–145; BP diastolic 73–84; PULSE 86–98; RESP 18–26; TEMP 36.9; O2SAT 89–93; BMI 41.3
--- NOTE | 2023-06-23 12:14 | DI.RAD.S_ITS ---
PROCEDURE: XR CHEST 1V INDICATIONS: sob, h/o copd TECHNIQUE: One view of the chest was acquired. COMPARISON: [facility], CR, XR CHEST 1V, 03/29/2023, 12:19. FINDINGS: Surgical changes and devices: None. Lungs and pleura: Lungs are clear. No pleural effusions or pneumothorax. Mediastinum: Mediastinal contours appear normal. Heart size is normal. Bones and chest wall: No suspicious bony lesions. Overlying soft tissues appear unremarkable. IMPRESSION: No acute cardiopulmonary abnormality is seen. Dictated by: Alex Kong M.D. on 06/23/2023 at 13:05 Approved by: Alex Kong M.D. on 06/23/2023 at 13:05
--- NOTE | 2023-06-23 12:16 | ED.SOB ---
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 She reports increasing shortness of breath over the last couple of days. She has audible wheezing son is at bedside reports that she always sounds like this. They are here today because her PCP recommended that she come to the ED. She does have a productive cough and does not to be significantly worse. No fever or chills. Denies any orthopnea. She is noted to be 90% on 2 L. Related Data Home Medications Medication Instructions Recorded Confirmed duloxetine 60 mg capsule,delayed 60 mg PO QPM 03/29/23 03/29/23 release fluticasone propionate 115 2 puff inhalation BID 03/29/23 03/29/23 mcg-salmeterol 21 mcg/actuation HFA inhaler (Advair HFA) glimepiride 2 mg tablet 2 mg PO DAILY 03/29/23 03/29/23 glimepiride 4 mg tablet 4 mg PO DAILY 03/29/23 03/29/23 ipratropium bromide 17 2 puff inhalation QID 03/29/23 03/29/23 mcg/actuation HFA aerosol inhaler (Atrovent HFA) levothyroxine 50 mcg tablet 50 mcg PO DAILY 03/29/23 03/29/23 meloxicam 7.5 mg tablet 7.5 mg PO DAILY 03/29/23 03/29/23 metoprolol succinate 50 mg 100 mg PO DAILY 03/29/23 03/29/23 tablet,extended release 24 hr semaglutide 7 mg tablet (Rybelsus) 7 mg PO DAILY 03/29/23 03/29/23 calcium carbonate 200 mg calcium 200 mg PO PRN PRN Heartburn 04/04/23 04/04/23 (500 mg) chewable tablet (Tums) Previous Rx's Medication Instructions Recorded ipratropium 0.5 mg-albuterol 3 mg 3 ml inhalation Q6H PRN shortness 04/04/23 (2.5 mg base)/3 mL nebulization of breath or wheezing #90 mL soln nebulizer accessories #4 ea 04/04/23 pantoprazole 40 mg tablet,delayed 40 mg PO 0600 #30 tabs 04/04/23 release benzonatate 200 mg capsule 200 mg PO TID PRN cough #20 caps 06/23/23 prednisone 20 mg tablet 40 mg (2 x 20 mg) PO DAILY #10 tabs 06/23/23 Allergies Allergy/AdvReac Type Severity Reaction Status Date / Time shellfish derived Allergy Intermediate Verified 03/29/23 16:32 dulaglutide [From Trulicity] Allergy Verified 03/29/23 16:32 metformin Allergy Verified 03/29/23 12:23 Patient History Medical History (Updated 06/23/23 @ 15:36 by Yokasta Jasmine DO) HTN (hypertension) Hypothyroidism GERD (gastroesophageal reflux disease) Diabetes Crohn disease Asthma RHONDA (obstructive sleep apnea) Deafness COVID-19 Surgical History (Updated 03/29/23 @ 16:52 by Zeina Acosta RN) S/P implantation of urinary electronic stimulator device Social History household members: children Smoking Status: Former smoker alcohol intake: never Smoking Status: Former smoker alcohol intake frequency: holidays/special occasions only Substance Use Type: marijuana Exam Initial Vital Signs Initial Vital Signs: Vital Signs Temperature 98.5 F 06/23/23 11:57 Pulse Rate 95 H 06/23/23 11:57 Respiratory Rate 18 06/23/23 11:57 Blood Pressure 130/80 06/23/23 11:57 Pulse Oximetry 90 L 06/23/23 11:57 Oxygen Delivery Method Room Air 06/23/23 11:57 GENERAL: Alert 52-year-old female appears comfortable and in no acute distress. HEENT: Head atraumatic,EOMI, pupils reactive, face symmetric, moist mucous membranes CARDIOVASCULAR: Regular rate and rhythm without murmurs, rubs or gallops. RESPIRATORY: Audible wheezing bilaterally, coarse breath sounds bilaterally ABDOMEN: Soft, nontender. Normoactive bowel sounds all 4 quadrants. No guarding or rebound. : Mild bilateral flank EXTREMITIES: Normal range of motion, no clubbing or edema. Neurovascularly intact NEUROLOGICAL: Alert and oriented x4. No focal deficits SKIN: Warm, dry, no laceration, no petechiae, no rashes or lesions. Course Orders Ordered: ED Orders 06/23/23 12:14 Chest [XR chest 1V] Stat RT Consult Eval and Treat NOW 06/23/23 12:53 BNP [NT-proBNP (BNP-Adult 18+)] Stat CBC Auto Diff [Complete Blood Count AUTO DIFF] Stat CMP [Comprehensive Metabolic Panel] Stat Troponin & CK Cardiac Panel Stat 06/23/23 14:04 Respiratory Panel (Film Array) Stat Discontinued Medications Albuterol (Albuterol 2.5 Mg/3 Ml Neb (Adult)) 5 mg INH NOW ONE Stop: 06/23/23 12:42 Last Admin: 06/23/23 12:48 Dose: 5 mg Documented By: KENA Albuterol/Ipratropium (Albuterol/Ipratropium 3 Ml Ampul) 3 ml INH NOW ONE Stop: 06/23/23 12:27 Last Admin: 06/23/23 12:31 Dose: 3 ml Documented By: KENA Methylprednisolone (Methylprednisolone 125 Mg/2 Ml Vial) 125 mg IV NOW ONE Stop: 06/23/23 12:29 Last Admin: 06/23/23 13:06 Dose: 125 mg Documented By: NOLA Vital Signs Vital signs: Vital Signs - 8 hr 06/23/23 11:57 06/23/23 12:31 06/23/23 12:41 Temperature 98.5 F Pulse Rate 95 H 98 H 89 Respiratory Rate 18 26 H Blood Pressure 130/80 Pulse Oximetry 90 L 89 L 91 Oxygen Delivery Method Room Air Nasal Cannula Nasal Cannula Oxygen Flow Rate 3 2 06/23/23 12:48 06/23/23 13:00 06/23/23 13:30 Temperature Pulse Rate 90 93 H 89 Respiratory Rate 24 Blood Pressure Pulse Oximetry 91 91 93 Oxygen Delivery Method Nasal Cannula Oxygen Flow Rate 4 06/23/23 14:00 06/23/23 14:30 06/23/23 14:37 Temperature Pulse Rate 89 97 H 90 Respiratory Rate Blood Pressure 126/73 Pulse Oximetry 92 93 90 L Oxygen Delivery Method Oxygen Flow Rate 06/23/23 14:37 06/23/23 15:00 06/23/23 15:00 Temperature Pulse Rate 86 Respiratory Rate Blood Pressure 126/73 124/74 Pulse Oximetry 92 Oxygen Delivery Method Oxygen Flow Rate 06/23/23 15:30 06/23/23 16:00 06/23/23 16:07 Temperature Pulse Rate 90 87 Respiratory Rate Blood Pressure 145/84 H Pulse Oximetry 89 L Oxygen Delivery Method Oxygen Flow Rate 06/23/23 16:07 Temperature Pulse Rate 93 H Respiratory Rate Blood Pressure Pulse Oximetry 89 L Oxygen Delivery Method Oxygen Flow Rate MDM - SOB/Dyspnea Lab Data 06/23/23 12:53 06/23/23 12:53 Labs: Lab Results 06/23/23 06/23/23 Range/Units 12:53 14:04 WBC 9.4 (4.5-11.0) X10^3/uL RBC 5.25 H (4.0-5.2) X10^6/uL Hgb 14.7 (12.0-16.0) g/dL Hct 45.0 (36-46) % MCV 85.8 (80-100) fL MCH 28.1 (26-34) PG MCHC 32.7 (30-36) % RDW 13.6 (11.6-14.8) % Plt Count 225 (150-400) X10^3/uL Neut % (Auto) 46.5 L (50-75) % Lymph % (Auto) 32.2 (25-40) % [place] % (Auto) 10.2 (3-14) % Eos % (Auto) 9.8 H (2-4) % Baso % (Auto) 1.3 (0-2) % Neut # (Auto) 4300 (2051-3168) /uL Lymph # (Auto) 3000 (5080-9163) /uL [place] # (Auto) 1000 H (0-900) /uL Eos # (Auto) 900 H (0-450) /uL Baso # (Auto) 100 (0-100) /uL Sodium 141 (137-145) mmol/L Potassium 4.3 (3.4-5.1) mmol/L Chloride 107 (98-107) mmol/L Carbon Dioxide 29 (22-32) mmol/L BUN 21 H (7-17) mg/dL Creatinine 0.72 (0.52-1.04) mg/dL Estimated GFR > 60 (>60) mL/min BUN/Creatinine Ratio 29.2 H (6-22) Glucose 73 (70-100) mg/dL Calcium 9.3 (8.4-10.2) mg/dL Total Bilirubin 0.6 (0.2-1.3) mg/dL AST 33 (14-36) IU/L ALT 27 (<35) IU/L Alkaline Phosphatase 105 (38-126) U/L Total Creatine Kinase 163 H (30-135) U/L Troponin I < 0.012 (0.01-0.034) ng/mL NT-Pro-B Natriuret Pep 206 H (<125) pg/mL Total Protein 7.6 (6.3-8.2) g/dL Albumin 4.2 (3.5-5.0) g/dL Globulin 3.4 (1.7-4.1) g/dL Albumin/Globulin Ratio 1.2 (1.0-2.8) Chlamy pneumoniae PCR Not detected (Not Detect) Adenovirus (PCR) Not detected (Not Detect) B.parapertussis DNA PCR Not detected (Not Detecte) Coronavirus OC43 (PCR) Not detected (Not Detect) Coronavirus HKU1 (PCR) Not detected (Not Detect) Coronavirus 229E (PCR) Not detected (Not Detect) SARS-CoV-2 (PCR) Not detected (Not Detecte) Coronavirus NL63 (PCR) Not detected (Not Detect) Human Metapneumovir PCR Not detected (Not Detect) Influenza Type A (PCR) Not detected (Not Detect) Influenza Type B (PCR) Not detected (Not Detect) M. pneumoniae (PCR) Not detected (Not Detect) Parainfluenza 1 (PCR) Not detected (Not Detect) Parainfluenza 2 (PCR) Not detected (Not Detect) Parainfluenza 3 (PCR) Not detected (Not Detect) Parainfluenza 4 (PCR) Not detected (Not Detect) RSV (PCR) Not detected (Not Detect) Entero/Rhino (PCR) Not detected (Not Detect) Imaging Data Chest x-ray: Radiologist's Impression: PROCEDURE: XR CHEST 1V INDICATIONS: sob, h/o copd TECHNIQUE: One view of the chest was acquired. COMPARISON: [facility], CR, XR CHEST 1V, 03/29/2023, 12:19. FINDINGS: Surgical changes and devices: None. Lungs and pleura: Lungs are clear. No pleural effusions or pneumothorax. Mediastinum: Mediastinal contours appear normal. Heart size is normal. Bones and chest wall: No suspicious bony lesions. Overlying soft tissues appear unremarkable. IMPRESSION: No acute cardiopulmonary abnormality is seen. Dictated by: Alex Kong M.D. on 06/23/2023 at 13:05 [facility] Narrative Medical decision making narrative: Patient 52-year-old female with chronic respiratory failure on chronic home O2 presenting today with increasing shortness of breath per PCP. Patient reports that she is mildly worse shortness of breath. She is audible wheezing although family reports that her breathing only sounds is partly. She is afebrile. Blood work has been reviewed WBC 9.4, hemoglobin 14.7 hematocrit 45, platelets 225, electrolytes sodium 141 potassium 4.3 chloride 107, carbon 20 any glucose 73, negative troponin BNP 206 Chest x-ray no acute cardiopulmonary process Patient received albuterol treatment and steroids in his overall feeling a little bit better. Her audible wheezing is obviously improved. Family and patient state that she feels back to her normal self she is on her 2 L. She ambulated to the restroom. She is given prednisone and Tessalon Perles for her cough Discharge Plan Departure Patient Disposition: Home Clinical Impression: Asthma exacerbation Instructions: DI for Asthma -- Adult Activity Restrictions/Additional Instructions: *You have been diagnosed with asthma exacerbation *What to do: At this time things overall appear well no need for antibiotics. Please continue to use her oxygen all the time. *Continue to take medications as directed Prednisone 40 mg once a day for 5 days *Follow up with your primary care provider in 2-3 days or call [phone] *Return to ER if you should have increasing shortness of breath fever chills productive cough confusion or any new, worsening or concerning symptoms Prescriptions: New prednisone 20 mg tablet 40 mg PO DAILY Qty: 10 0RF benzonatate 200 mg capsule 200 mg PO TID PRN (Reason: cough) Qty: 20 0RF No Action fluticasone propion-salmeterol [Advair HFA] 115-21 mcg/actuation HFA aerosol inhaler 2 puff inhalation BID metoprolol succinate 50 mg tablet extended release 24 hr 100 mg PO DAILY glimepiride 2 mg tablet 2 mg PO DAILY Rx Instructions: Take along with 4 mg tab meloxicam 7.5 mg tablet 7.5 mg PO DAILY levothyroxine 50 mcg tablet 50 mcg PO DAILY glimepiride 4 mg tablet 4 mg PO DAILY Rx Instructions: take along with 2 mg tab duloxetine 60 mg capsule,delayed release(DR/EC) 60 mg PO QPM Atrovent HFA 17 mcg/actuation HFA aerosol inhaler 2 puff inhalation QID Rybelsus 7 mg tablet 7 mg PO DAILY calcium carbonate [Tums] 200 mg calcium (500 mg) Tablet,Chewable 200 mg PO PRN PRN (Reason: Heartburn) pantoprazole 40 mg Tablet,Delayed Release (Dr/Ec) 40 mg PO 0600 Qty: 30 0RF (DME) nebulizer accessories Misc See Rx Instructions .Route Qty: 4 0RF Rx Instructions: nebulizer tubing ipratropium-albuterol 0.5 mg-3 mg(2.5 mg base)/3 mL Solution For Nebulization 3 ml inhalation Q6H PRN (Reason: shortness of breath or wheezing) Qty: 90 0RF Referrals: Clementina Krishnan ARNP [Primary Care Provider] - Stand Alone Forms: Patient Portal/API
[2023-06-23] MEDS: ALBUTEROL/IPRATROPIUM 3 ML AMPUL INH (12:31)
--- NOTE | 2023-06-23 12:46 | RT ---
pt valerio neb tx well, on 3lpm nc, no distress noted
[2023-06-23] MEDS: ALBUTEROL 2.5 MG/3 ML NEB (ADULT) 5 MG INH (12:48)
[2023-06-23 13:00] LABS: Add Manual Diff / Slide Review NO; Basophils Absolute Auto 100 /uL (0-100); Basophils Percent Auto 1.3 % (0-2); Eosinophils Absolute Auto 900 /uL (0-450); Eosinophils Percent Auto 9.8 % (2-4); Hemoglobin 14.7 g/dL (12.0-16.0); Lymphocytes Absolute Auto 3000 /uL (1100-4500); Lymphocytes Percent Auto 32.2 % (25-40); Mean Corpuscular HGB Conc 32.7 % (30-36); Mean Corpuscular Hemoglobin 28.1 PG (26-34); Mean Corpuscular Volume 85.8 fL (80-100); Monocytes Absolute Auto 1000 /uL (0-900); Monocytes Percent Auto 10.2 % (3-14); Neutrophils Absolute Auto 4300 /uL (1500-7000); Neutrophils Percent Auto 46.5 % (50-75); Platelet Count 225 X10^3/uL (150-400); Red Blood Cell Count 5.25 X10^6/uL (4.0-5.2); Red Cell Distribution Width 13.6 % (11.6-14.8); White Blood Cell Count 9.4 X10^3/uL (4.5-11.0)
[2023-06-23] MEDS: methylPREDNISolone 125 MG/2 ML VIAL IV (13:06)
[2023-06-23 13:20] LABS: Alanine Aminotransferase 27 IU/L (<35); Albumin 4.2 g/dL (3.5-5.0); Albumin Globulin Ratio 1.2 (1.0-2.8); Alkaline Phosphatase 105 U/L (38-126); Aspartate Aminotransferase 33 IU/L (14-36); BUN Creatinine Ratio 29.2 (6-22); Bilirubin Total 0.6 mg/dL (0.2-1.3); Blood Urea Nitrogen 21 mg/dL (7-17); Calcium 9.3 mg/dL (8.4-10.2); Carbon Dioxide 29 mmol/L (22-32); Chloride 107 mmol/L (98-107); Creatine Kinase 163 U/L (30-135); Estimated Glomerular Filt Rate > 60 mL/min (>60); Globulin 3.4 g/dL (1.7-4.1); Glucose 73 mg/dL (70-100); HEMOLYSIS < 15 (0-50); Potassium 4.3 mmol/L (3.4-5.1); Sodium 141 mmol/L (137-145); Total Protein 7.6 g/dL (6.3-8.2)
[2023-06-23 13:29] LABS: NT-proBNP (BNP-Adult 18+) 206 pg/mL (<125); Troponin I < 0.012 ng/mL (0.01-0.034)
[2023-06-23 14:57] LABS: Adenovirus Not Detected (Not Detect); B. parapertussis Not Detected (Not Detecte); Bordetella pertussis Not Detected (Not Detect); Chlamydophila pneumoniae Not Detected (Not Detect); Coronavirus 229E Not Detected (Not Detect); Coronavirus HKU1 Not Detected (Not Detect); Coronavirus NL 63 Not Detected (Not Detect); Coronavirus OC43 Not Detected (Not Detect); Human Metapneumovirus Not Detected (Not Detect); Human Rhinovirus/Enterovirus Not Detected (Not Detect); Influenza A Not Detected (Not Detect); Influenza B Not Detected (Not Detect); Mycoplasma pneumoniae Not Detected (Not Detect); Parainfluenza Virus 1 Not Detected (Not Detect); Parainfluenza Virus 2 Not Detected (Not Detect); Parainfluenza Virus 3 Not Detected (Not Detect); Parainfluenza Virus 4 Not Detected (Not Detect); Respiratory Syncytial Virus Not Detected (Not Detect); SARS- CoV-2 Not Detected (Not Detecte)
--- NOTE | 2023-06-23 16:18 | RT ---
pt valerio well, on 4 lpm nc.
== END 2023-06-23 16:19 | disposition home or self-care (01) ==
PROVIDERS: Emergency Provider Emergency Medicine; PCP Nurse Practitioner Family
DX: J45.901 Unspecified asthma with (acute) exacerbation (principal)
CPT/HCPCS: 71045; 80053; 82550; 83880; 84484; 85025; 87633; 94640; 96374; 99284; J2919; J7613

== ENCOUNTER 2023-10-15 15:11 | Emergency (ER) | payer MEDICARE, MEDICAID, SELFPAY ==
[2023-06-07 13:57] VITALS: BMI 42.3
[2023-10-15] VITALS (11 sets, daily range): BP systolic 105–162; BP diastolic 77–106; PULSE 108–121; RESP 20–39; TEMP 36.5; O2SAT 89–98; BMI 42.4
--- NOTE | 2023-10-15 15:12 | PC.NURSE ---
customer service attendant offered to pt. Pt declined customer service attendant at this time. Pt states her sister can translate.
--- NOTE | 2023-10-15 15:55 | PC.NURSE ---
SOB has worsened with N/V over the last 2-3 days.
--- NOTE | 2023-10-15 15:59 | PC.NURSE ---
Pt Sister is translating at this time per pt request.
--- NOTE | 2023-10-15 16:05 | ED_ITS ---
HPI - Nausea/Vomiting/Diarrhea General Chief complaint: Nausea/Vomiting/Diarrhea Stated complaint: diabetic, N/V t-3, SOB Time Seen by Provider: 10/15/23 15:42 Source: patient and family Mode of arrival: Wheelchair Limitations: no limitations History of Present Illness HPI Narrative: 52-year-old female on home O2 2 L, RHONDA, Crohn's disease, diabetes, GERD, hypertension, hypothyroid who uses sign language to communicate. 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 Patient presents with complaint of chronic persistent cough, audible wheezing which is baseline. Patient notes she has been having nausea and vomiting sometimes associated as a post-tussive emesis but also sometimes immediately after eating without any cough. She denies any fevers or chills. Denies any chest pain or pressure. States she always feels a little short of breath. No orthopnea. She states she feels like she is wheezing in her upper chest. She does use albuterol inhalers and nebulizers at home with minimal improvement. She was given a prescription for some cough medication which was very helpful but she states her primary care doctor did not refill it. Patient denies any abdominal back or flank pain. She has a history of IBS so states when she has coughing a lot or vomiting she often has not diarrhea. Denies any black or bloody stools. Denies any dysuria urgency frequency or new incontinence. No new swelling of extremities. Patient presents today because of vomiting has been pretty persistent for the past week. She notes that she isn't diabetic she has no longer on insulin she has been moved over to oral medications but her continuous glucose monitor and insurance would not cover a new 1. She states her primary care did not write for a glucometer and she has not been able to check her sugars. She is accompanied by her sister who is currently translating for her. Related Data Home Medications Medication Instructions Recorded Confirmed duloxetine 60 mg capsule,delayed 60 mg PO QPM 03/29/23 03/29/23 release fluticasone propionate 115 2 puff inhalation BID 03/29/23 03/29/23 mcg-salmeterol 21 mcg/actuation HFA inhaler (Advair HFA) glimepiride 2 mg tablet 2 mg PO DAILY 03/29/23 03/29/23 glimepiride 4 mg tablet 4 mg PO DAILY 03/29/23 03/29/23 ipratropium bromide 17 2 puff inhalation QID 03/29/23 03/29/23 mcg/actuation HFA aerosol inhaler (Atrovent HFA) levothyroxine 50 mcg tablet 50 mcg PO DAILY 03/29/23 03/29/23 meloxicam 7.5 mg tablet 7.5 mg PO DAILY 03/29/23 03/29/23 metoprolol succinate 50 mg 100 mg PO DAILY 03/29/23 03/29/23 tablet,extended release 24 hr semaglutide 7 mg tablet (Rybelsus) 7 mg PO DAILY 03/29/23 03/29/23 calcium carbonate (Tums) 200 mg PO PRN PRN Heartburn 04/04/23 04/04/23 Previous Rx's Medication Instructions Recorded ipratropium 0.5 mg-albuterol 3 mg 3 ml inhalation Q6H PRN shortness 04/04/23 (2.5 mg base)/3 mL nebulization of breath or wheezing #90 mL soln nebulizer accessories #4 ea 04/04/23 pantoprazole 40 mg tablet,delayed 40 mg PO 0600 #30 tabs 04/04/23 release benzonatate 200 mg capsule 200 mg PO TID PRN cough #20 caps 06/23/23 prednisone 20 mg tablet 40 mg (2 x 20 mg) PO DAILY #10 tabs 06/23/23 albuterol sulfate 90 mcg/actuation 2 puff inhalation Q6H PRN 06/27/23 aerosol inhaler shortness of breath or wheezing #8.5 grams fluticasone propionate 230 2 puff inhalation BID #12 grams 06/27/23 mcg-salmeterol 21 mcg/actuation HFA inhaler (Advair HFA) benzonatate 100 mg capsule 100 mg PO Q6H PRN cough #20 caps 10/15/23 blood sugar diagnostic #50 ea 10/15/23 blood-glucose meter #1 ea 10/15/23 Allergies Allergy/AdvReac Type Severity Reaction Status Date / Time shellfish derived Allergy Intermediate Verified 10/15/23 15:27 dulaglutide [From Trulicity] Allergy Verified 10/15/23 15:27 metformin Allergy Verified 10/15/23 15:27 Review of Systems Review of Systems ROS Unobtainable: All systems reviewed & are unremarkable except as noted in HPI and below Patient History Medical History HTN (hypertension) Hypothyroidism GERD (gastroesophageal reflux disease) Diabetes Crohn disease Asthma RHONDA (obstructive sleep apnea) Deafness COVID-19 Surgical History S/P implantation of urinary electronic stimulator device Social History household members: children Smoking Status: Former smoker alcohol intake: never Smoking Status: Former smoker alcohol intake frequency: holidays/special occasions only Substance Use Type: marijuana Exam Narrative Exam Narrative: GENERAL: Alert and oriented x three, obese female in mild distress HEENT: Head normocephalic, atraumatic, EOMI, pupils reactive, face symmetric, moist mucous membranes NECK: Supple, full range of motion CARDIOVASCULAR: Regular rate and rhythm without murmurs, rubs or gallops. No JVD. No edema bilateral lower extremities. RESPIRATORY: Breath sounds equal bilaterally, no wheezes rales or rhonchi. Patient does have some audible wheeze but no wheeze in bases. No accessory muscle use. No tachypnea. ABDOMEN: Soft, nontender. Nondistended. Normoactive bowel sounds all 4 quadrants. No guarding or rebound, rigidity, no mass : No CVA tenderness EXTREMITIES: Normal range of motion, no clubbing or edema. Neurovascularly intact NEUROLOGICAL: Cranial nerves II through XII grossly intact. Moving all extremities. Patient ambulated to bathroom independently without issue. SKIN: Warm, dry, no petechiae, no rashes or lesions. Initial Vital Signs Initial Vital Signs: Vital Signs Temperature 97.7 F 10/15/23 15:20 Pulse Rate 114 H 10/15/23 15:20 Respiratory Rate 20 10/15/23 15:20 Blood Pressure 162/106 H 10/15/23 15:20 Pulse Oximetry 92 10/15/23 15:20 Oxygen Delivery Method Room Air 10/15/23 15:20 Course Orders Ordered: Discontinued Medications Benzonatate (Benzonatate 100 Mg Capsule) 100 mg PO NOW ONE Stop: 10/15/23 18:34 Last Admin: 10/15/23 18:48 Dose: 100 mg Documented By: RACHEL Sodium Chloride (Normal Saline 0.9%) 1,000 mls @ 1,000 mls/hr IV BOLUS ONE Stop: 10/15/23 17:29 Last Infusion: 10/15/23 18:15 Dose: Infused Documented By: Admin: 10/15/23 17:13 Dose: 1,000 mls/hr Documented By: Ondansetron HCl (Ondansetron 4 Mg/2 Ml Inj) 4 mg IV NOW ONE Stop: 10/15/23 18:34 Last Admin: 10/15/23 18:48 Dose: 4 mg Documented By: RACHEL Vital Signs Vital signs: Vital Signs - 8 hr 10/15/23 15:20 10/15/23 15:30 10/15/23 15:31 Temperature 97.7 F Pulse Rate 114 H 111 H Respiratory Rate 20 Blood Pressure 162/106 H 129/83 Pulse Oximetry 92 93 Oxygen Delivery Method Room Air 10/15/23 15:31 10/15/23 16:00 10/15/23 16:00 Temperature Pulse Rate 113 H 108 H Respiratory Rate 24 Blood Pressure 105/77 Pulse Oximetry 91 91 Oxygen Delivery Method Room Air 10/15/23 16:30 10/15/23 16:30 10/15/23 17:06 Temperature Pulse Rate 109 H 109 H Respiratory Rate 39 H 24 Blood Pressure 156/90 H Pulse Oximetry 92 94 Oxygen Delivery Method 10/15/23 17:07 10/15/23 17:07 10/15/23 17:30 Temperature Pulse Rate 108 H 109 H Respiratory Rate 25 H 26 H Blood Pressure 136/82 Pulse Oximetry 93 96 Oxygen Delivery Method Room Air 10/15/23 17:30 10/15/23 18:00 10/15/23 18:00 Temperature Pulse Rate 121 H Respiratory Rate 34 H Blood Pressure 137/85 140/88 Pulse Oximetry 98 Oxygen Delivery Method 10/15/23 18:41 10/15/23 18:43 10/15/23 18:43 Temperature Pulse Rate 111 H 109 H Respiratory Rate 38 H Blood Pressure 128/87 Pulse Oximetry 89 L 93 Oxygen Delivery Method Room Air MDM - Nausea/Vomiting/Diarrhea Lab Data 10/15/23 15:38 10/15/23 15:38 Labs: Lab Results 10/15/23 10/15/23 10/15/23 Range/Units 15:38 16:21 17:10 WBC 4.7 (4.5-11.0) X10^3/uL RBC 5.26 H (4.0-5.2) X10^6/uL Hgb 14.9 (12.0-16.0) g/dL Hct 44.9 (36-46) % MCV 85.4 (80-100) fL MCH 28.4 (26-34) PG MCHC 33.2 (30-36) % RDW 13.8 (11.6-14.8) % Plt Count 182 (150-400) X10^3/uL Neut % (Auto) 56.3 (50-75) % Lymph % (Auto) 24.0 L (25-40) % Lipscomb % (Auto) 12.8 (3-14) % Eos % (Auto) 5.3 H (2-4) % Baso % (Auto) 1.6 (0-2) % Neut # (Auto) 2600 (2914-9373) /uL Lymph # (Auto) 1100 (2073-2639) /uL Lipscomb # (Auto) 600 (0-900) /uL Eos # (Auto) 200 (0-450) /uL Baso # (Auto) 100 (0-100) /uL VBG pH (7.33-7.43) VBG pCO2 (45-50) mmHg VBG pO2 (35-45) mmHg VBG HCO3 (24-28) mmol/L VBG Total CO2 (24-29) mmol/L VBG O2 Saturation (70-75) % VBG Base Excess (0-4) mmol/L FiO2 Sodium 141 (137-145) mmol/L Potassium 3.5 (3.4-5.1) mmol/L Chloride 107 (98-107) mmol/L Carbon Dioxide 25 (22-32) mmol/L BUN 15 (7-17) mg/dL Creatinine 0.75 (0.52-1.04) mg/dL Estimated GFR > 60 (>60) mL/min BUN/Creatinine Ratio 20.0 (6-22) Glucose 199 H (70-100) mg/dL Lactate 1.3 (0.7-2.1) mmol/L Calcium 9.1 (8.4-10.2) mg/dL Total Bilirubin 0.7 (0.2-1.3) mg/dL AST 47 H (14-36) IU/L ALT 39 H (<35) IU/L Alkaline Phosphatase 146 H (38-126) U/L Total Creatine Kinase 174 H (30-135) U/L Troponin I < 0.012 (0.01-0.034) ng/mL NT-Pro-B Natriuret Pep 38 (<125) pg/mL Total Protein 7.5 (6.3-8.2) g/dL Albumin 4.4 (3.5-5.0) g/dL Globulin 3.1 (1.7-4.1) g/dL Albumin/Globulin Ratio 1.4 (1.0-2.8) Lipase 79 (23-300) U/L Ur Bilirubin Confirm Negative (Negative) Urine RBC None seen (0-5/HPF) Urine WBC 1-5/hpf (0-5/HPF) Ur Squamous Epith Cells 10-30 /hpf H (0-5/HPF) Calcium Oxalate Crystal Few H Urine Bacteria Few (2-10) H (None) Ur Culture Indicated? Cult not indicated Vol Urine Centrifuged 10ml (spun) Ketones < 0.20 (<0.27) mmol/L Chlamy pneumoniae PCR Not detected (Not Detect) Adenovirus (PCR) Not detected (Not Detect) B.parapertussis DNA PCR Not detected (Not Detecte) Coronavirus OC43 (PCR) Not detected (Not Detect) Coronavirus HKU1 (PCR) Not detected (Not Detect) Coronavirus 229E (PCR) Not detected (Not Detect) SARS-CoV-2 (PCR) Not detected (Not Detecte) Coronavirus NL63 (PCR) Not detected (Not Detect) Human Metapneumovir PCR Not detected (Not Detect) Influenza Type A (PCR) Not detected (Not Detect) Influenza Type B (PCR) Not detected (Not Detect) M. pneumoniae (PCR) Not detected (Not Detect) Parainfluenza 1 (PCR) Not detected (Not Detect) Parainfluenza 2 (PCR) Not detected (Not Detect) Parainfluenza 3 (PCR) Not detected (Not Detect) Parainfluenza 4 (PCR) Not detected (Not Detect) RSV (PCR) Not detected (Not Detect) Entero/Rhino (PCR) Not detected (Not Detect) 10/15/23 Range/Units 17:12 WBC (4.5-11.0) X10^3/uL RBC (4.0-5.2) X10^6/uL Hgb (12.0-16.0) g/dL Hct (36-46) % MCV (80-100) fL MCH (26-34) PG MCHC (30-36) % RDW (11.6-14.8) % Plt Count (150-400) X10^3/uL Neut % (Auto) (50-75) % Lymph % (Auto) (25-40) % Lipscomb % (Auto) (3-14) % Eos % (Auto) (2-4) % Baso % (Auto) (0-2) % Neut # (Auto) (8564-1959) /uL Lymph # (Auto) (6447-6092) /uL Lipscomb # (Auto) (0-900) /uL Eos # (Auto) (0-450) /uL Baso # (Auto) (0-100) /uL VBG pH 7.37 (7.33-7.43) VBG pCO2 44.3 L (45-50) mmHg VBG pO2 41 (35-45) mmHg VBG HCO3 25 (24-28) mmol/L VBG Total CO2 26 (24-29) mmol/L VBG O2 Saturation 74 (70-75) % VBG Base Excess -0.3 L (0-4) mmol/L FiO2 21 Sodium (137-145) mmol/L Potassium (3.4-5.1) mmol/L Chloride (98-107) mmol/L Carbon Dioxide (22-32) mmol/L BUN (7-17) mg/dL Creatinine (0.52-1.04) mg/dL Estimated GFR (>60) mL/min BUN/Creatinine Ratio (6-22) Glucose (70-100) mg/dL Lactate (0.7-2.1) mmol/L Calcium (8.4-10.2) mg/dL Total Bilirubin (0.2-1.3) mg/dL AST (14-36) IU/L ALT (<35) IU/L Alkaline Phosphatase (38-126) U/L Total Creatine Kinase (30-135) U/L Troponin I (0.01-0.034) ng/mL NT-Pro-B Natriuret Pep (<125) pg/mL Total Protein (6.3-8.2) g/dL Albumin (3.5-5.0) g/dL Globulin (1.7-4.1) g/dL Albumin/Globulin Ratio (1.0-2.8) Lipase (23-300) U/L Ur Bilirubin Confirm (Negative) Urine RBC (0-5/HPF) Urine WBC (0-5/HPF) Ur Squamous Epith Cells (0-5/HPF) Calcium Oxalate Crystal Urine Bacteria (None) Ur Culture Indicated? Vol Urine Centrifuged Ketones (<0.27) mmol/L Chlamy pneumoniae PCR (Not Detect) Adenovirus (PCR) (Not Detect) B.parapertussis DNA PCR (Not Detecte) Coronavirus OC43 (PCR) (Not Detect) Coronavirus HKU1 (PCR) (Not Detect) Coronavirus 229E (PCR) (Not Detect) SARS-CoV-2 (PCR) (Not Detecte) Coronavirus NL63 (PCR) (Not Detect) Human Metapneumovir PCR (Not Detect) Influenza Type A (PCR) (Not Detect) Influenza Type B (PCR) (Not Detect) M. pneumoniae (PCR) (Not Detect) Parainfluenza 1 (PCR) (Not Detect) Parainfluenza 2 (PCR) (Not Detect) Parainfluenza 3 (PCR) (Not Detect) Parainfluenza 4 (PCR) (Not Detect) RSV (PCR) (Not Detect) Entero/Rhino (PCR) (Not Detect) Point of Care Testing Glucose POC 204 Urine Dip Bedside Urine Glucose Negative Bedside Urine Bilirubin + 1 Bedside Urine Ketone +/- 5 Urine Specific [place] 1.030 Bedside Urine Occult Blood - Negative Bedside Urine pH 6.0 Bedside Urine Protein + 30 Bedside Urine Urobilinogen - Negative Bedside Urine Nitrite - Negative Bedside Urine Leukocytes +/- 15 Esterase Imaging Data Chest x-ray: Radiologist's Impression: [address] [address] XRay Report Signed Patient: Yamel Shah MR#: [id number] : 1970 Acct:[id number] Age/Sex: 52 / F Date of Service: 10/15/23 Loc: ED Accession Number: [id number] Procedure: XR chest 1V Ordering Provider: Petra Pearce D.O. PROCEDURE: XR CHEST 1V INDICATIONS: cough, vomiting TECHNIQUE: One view of the chest was acquired. COMPARISON: [facility], CR, XR CHEST 1V, 06/23/2023, 12:20. FINDINGS: Surgical changes and devices: None. Lungs and pleura: Lungs are clear. No pleural effusions or pneumothorax. Mediastinum: Mediastinal contours appear normal. Heart size is normal. Bones and chest wall: No suspicious bony lesions. Overlying soft tissues appear unremarkable. IMPRESSION: No acute cardiopulmonary abnormality is seen. Approved by: Pedro Virk M.D. on 10/15/2023 at 16:05 CT scan - abdomen/pelvis: Radiologist's Impression: Yamel Shah??52??F??1970 ? Allergy/Adv: shellfish derived, dulaglutide, metformin (More??) Close Chest X-Ray (Signed) Pedro Virk - 10/15/23 Abdomen/Pelvis CT (Signed) Luis Virkic - 10/15/23 Chest X-Ray (Signed) Alex Kong - 06/23/23 Telemetry Strips 03/29/23 Chest CTA (Signed) Aric Hawk - 03/29/23 Chest X-Ray (Signed) Aric Hawk - 03/29/23 Launch?[place] [address] CT Scan Report Signed Patient: Yamel Shah MR#: [id number] : 1970 Acct:[id number] Age/Sex: 52 / F Date of Service: 10/15/23 Loc: ED Accession Number: [id number] Procedure: CT abdomen pelvis w con Ordering Provider: Petra Pearce D.O. PROCEDURE: CT ABDOMEN PELVIS W CON INDICATIONS: vomiting TECHNIQUE: After the administration of intravenous contrast, axial sections acquired from the lung bases to the pubic symphysis. Coronal and sagittal reformats were performed. For radiation dose reduction, the following was used: automated exposure control, adjustment of mA and/or kV according to patient size. COMPARISON: None. FINDINGS: Lower thorax: The lung bases are clear. Heart size normal. No hiatal hernia. Liver: The liver is diffusely decreased in attenuation without focal mass lesion. Biliary system: Cholecystectomy. No intra or extrahepatic bile duct dilation. Pancreas: Unremarkable without mass or inflammation evident. Spleen: Normal in size and density. Adrenals: Normal morphology and density. Reproductive system: Unremarkable as visualized. Urinary system: Normal renal size and attenuation. No renal calculi, hydronephrosis, or solid mass present. Urinary bladder unremarkable. Gastrointestinal system: The bowel is unremarkable without evidence of bowel obstruction or inflammation. The stomach appears unremarkable. Appendix: Normal appendix identified. No evidence of appendicitis. Peritoneal spaces: No mesenteric or retroperitoneal adenopathy. No free air. No free fluid. Vasculature: The IVC, aorta and iliac vasculature are unremarkable. Abdominal wall: Abdominal wall intact without evidence of ventral or inguinal hernias. Musculoskeletal: Normal bone mineralization. No acute fractures. Sacral nerve stimulator with left gluteal pulse generator noted IMPRESSION: No acute CT findings in the abdomen and pelvis. No obstruction or abscess. Approved by: Pedro Virk M.D. on 10/15/2023 at 17:15 ECG Data Attestation: I personally reviewed and interpreted this ECG as follows: Prior ECG tracings: not available for review Interpretation: Sinus rhythm rate of 100 IN 122 QRS 82 QTC of 461, no acute ST elevation or depression. No change from prior 03/29/2023. MDM Narrative Medical decision making narrative: 52-year-old female who presents with complaint of nausea and vomiting for the past week sometimes associated with posttussive emesis but also sometimes just right after eating. Fevers. She is got chronic audible wheeze which has not changed. She has a chronic cough. Patient is tachycardic but afebrile no hypotension. No significant work of breathing and her wheezing seems to be little bit higher up and not at her bases. Per patient this is more her baseline. She does have known diabetes was on insulin but converted over to oral medications but has not been able to check her glucose. Labs, white count of 4.7 hemoglobin of 14 platelets of 182. Sodium 141 potassium 3 5 chloride of 107 CO2 of 25 with a BUN of 15 creatinine 0.75 glucose is 199 lactate 1.3 calcium 9.1 with bilirubin of 0.7 AST is 47 ALT is 39 alk- phos of 146 lipase is 79, troponins less than 0.012 with a BNP of 38 and a CK of 174. Urine micro is 10-30 squamous few calcium oxalate few bacteria. Positive for leuks negative for nitrates. EKG sinus rhythm no acute ST changes Chest x-ray chest x-ray shows no acute change CT abdomen and pelvis is negative. Respiratory panel is negative. Patient notes she had like a prescription for Tessalon Perles for cough. I do not see any contraindication to this. Patient's labs overall are appropriate, felt appropriate for discharge home at this time. Patient has had not had any emesis here in the department. She has had some fluids but no antiemetics. She is a little bit of audible wheeze but she states that is kind of her normal baseline she has had chronic cough no clear new signs of infection or changes. She did find Tessalon Perles helpful. Discharge Plan Departure Patient Disposition: Home Clinical Impression: Cough, Vomiting Activity Restrictions/Additional Instructions: Follow up with your physician for recheck. Your workup today was overall reassuring no significant changes in terms of infection, your glucose is a little high at 199 and your liver enzymes are slightly elevated. Continue your home medications as prescribed. You can obtain a glucometer [id number] prescription is included today. There is also a prescription for Tessalon Perles [facility] in [place]. Please return for fevers, new chest pain or shortness of breath, coughing up blood, lightheadedness or passing out, new swelling in your extremities, persistent vomiting, black or bloody stools or other new or concerning changes. Prescriptions: New benzonatate 100 mg capsule 100 mg PO Q6H PRN (Reason: cough) Qty: 20 0RF (DME) blood-glucose meter Kit See Rx Instructions .Route Qty: 1 0RF Rx Instructions: As directed (DME) blood sugar diagnostic Strip See Rx Instructions .Route Qty: 50 0RF Rx Instructions: As directed No Action fluticasone propion-salmeterol [Advair HFA] 115-21 mcg/actuation HFA aerosol inhaler 2 puff inhalation BID metoprolol succinate 50 mg tablet extended release 24 hr 100 mg PO DAILY glimepiride 2 mg tablet 2 mg PO DAILY Rx Instructions: Take along with 4 mg tab meloxicam 7.5 mg tablet 7.5 mg PO DAILY levothyroxine 50 mcg tablet 50 mcg PO DAILY glimepiride 4 mg tablet 4 mg PO DAILY Rx Instructions: take along with 2 mg tab duloxetine 60 mg capsule,delayed release(DR/EC) 60 mg PO QPM Atrovent HFA 17 mcg/actuation HFA aerosol inhaler 2 puff inhalation QID Rybelsus 7 mg tablet 7 mg PO DAILY calcium carbonate [Tums] 200 mg calcium (500 mg) Tablet,Chewable 200 mg PO PRN PRN (Reason: Heartburn) pantoprazole 40 mg Tablet,Delayed Release (Dr/Ec) 40 mg PO 0600 Qty: 30 0RF (DME) nebulizer accessories Misc See Rx Instructions .Route Qty: 4 0RF Rx Instructions: nebulizer tubing ipratropium-albuterol 0.5 mg-3 mg(2.5 mg base)/3 mL Solution For Nebulization 3 ml inhalation Q6H PRN (Reason: shortness of breath or wheezing) Qty: 90 0RF prednisone 20 mg tablet 40 mg PO DAILY Qty: 10 0RF benzonatate 200 mg capsule 200 mg PO TID PRN (Reason: cough) Qty: 20 0RF fluticasone propion-salmeterol [Advair HFA] 230-21 mcg/actuation HFA aerosol inhaler 2 puff inhalation BID Qty: 12 3RF albuterol sulfate 90 mcg/actuation HFA aerosol inhaler 2 puff inhalation Q6H PRN (Reason: shortness of breath or wheezing) Qty: 8.5 3RF Referrals: Clementina Krishnan ARNP [Primary Care Provider] - Stand Alone Forms: Patient Portal/API
--- NOTE | 2023-10-15 16:28 | DI.CT.S_ITS ---
PROCEDURE: CT ABDOMEN PELVIS W CON INDICATIONS: vomiting TECHNIQUE: After the administration of intravenous contrast, axial sections acquired from the lung bases to the pubic symphysis. Coronal and sagittal reformats were performed. For radiation dose reduction, the following was used: automated exposure control, adjustment of mA and/or kV according to patient size. COMPARISON: None. FINDINGS: Lower thorax: The lung bases are clear. Heart size normal. No hiatal hernia. Liver: The liver is diffusely decreased in attenuation without focal mass lesion. Biliary system: Cholecystectomy. No intra or extrahepatic bile duct dilation. Pancreas: Unremarkable without mass or inflammation evident. Spleen: Normal in size and density. Adrenals: Normal morphology and density. Reproductive system: Unremarkable as visualized. Urinary system: Normal renal size and attenuation. No renal calculi, hydronephrosis, or solid mass present. Urinary bladder unremarkable. Gastrointestinal system: The bowel is unremarkable without evidence of bowel obstruction or inflammation. The stomach appears unremarkable. Appendix: Normal appendix identified. No evidence of appendicitis. Peritoneal spaces: No mesenteric or retroperitoneal adenopathy. No free air. No free fluid. Vasculature: The IVC, aorta and iliac vasculature are unremarkable. Abdominal wall: Abdominal wall intact without evidence of ventral or inguinal hernias. Musculoskeletal: Normal bone mineralization. No acute fractures. Sacral nerve stimulator with left gluteal pulse generator noted IMPRESSION: No acute CT findings in the abdomen and pelvis. No obstruction or abscess. Approved by: Pedro Virk M.D. on 10/15/2023 at 17:15
--- NOTE | 2023-10-15 16:28 | DI.RAD.S_ITS ---
PROCEDURE: XR CHEST 1V INDICATIONS: cough, vomiting TECHNIQUE: One view of the chest was acquired. COMPARISON: [facility], CR, XR CHEST 1V, 06/23/2023, 12:20. FINDINGS: Surgical changes and devices: None. Lungs and pleura: Lungs are clear. No pleural effusions or pneumothorax. Mediastinum: Mediastinal contours appear normal. Heart size is normal. Bones and chest wall: No suspicious bony lesions. Overlying soft tissues appear unremarkable. IMPRESSION: No acute cardiopulmonary abnormality is seen. Approved by: Pedro Virk M.D. on 10/15/2023 at 16:05
--- NOTE | 2023-10-15 16:39 | EKG_ITS ---
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
[2023-10-15 16:46] LABS: Add Manual Diff / Slide Review NO; Basophils Absolute Auto 100 /uL (0-100); Basophils Percent Auto 1.6 % (0-2); Eosinophils Absolute Auto 200 /uL (0-450); Eosinophils Percent Auto 5.3 % (2-4); Hematocrit 44.9 % (36-46); Hemoglobin 14.9 g/dL (12.0-16.0); Lymphocytes Absolute Auto 1100 /uL (1100-4500); Mean Corpuscular HGB Conc 33.2 % (30-36); Mean Corpuscular Hemoglobin 28.4 PG (26-34); Mean Corpuscular Volume 85.4 fL (80-100); Monocytes Absolute Auto 600 /uL (0-900); Monocytes Percent Auto 12.8 % (3-14); Neutrophils Absolute Auto 2600 /uL (1500-7000); Neutrophils Percent Auto 56.3 % (50-75); Platelet Count 182 X10^3/uL (150-400); Red Blood Cell Count 5.26 X10^6/uL (4.0-5.2); Red Cell Distribution Width 13.8 % (11.6-14.8); White Blood Cell Count 4.7 X10^3/uL (4.5-11.0)
[2023-10-15 16:48] LABS: HEMOLYSIS < 15 (0-50)
[2023-10-15 16:52] LABS: Lactate (Lactic Acid) 1.3 mmol/L (0.7-2.1)
[2023-10-15 16:53] LABS: Alanine Aminotransferase 39 IU/L (<35); Albumin 4.4 g/dL (3.5-5.0); Albumin Globulin Ratio 1.4 (1.0-2.8); Alkaline Phosphatase 146 U/L (38-126); Aspartate Aminotransferase 47 IU/L (14-36); Bilirubin Total 0.7 mg/dL (0.2-1.3); Blood Urea Nitrogen 15 mg/dL (7-17); Calcium 9.1 mg/dL (8.4-10.2); Carbon Dioxide 25 mmol/L (22-32); Chloride 107 mmol/L (98-107); Estimated Glomerular Filt Rate > 60 mL/min (>60); Globulin 3.1 g/dL (1.7-4.1); Glucose 199 mg/dL (70-100); Lipase 79 U/L (23-300); Potassium 3.5 mmol/L (3.4-5.1); Sodium 141 mmol/L (137-145); Total Protein 7.5 g/dL (6.3-8.2)
[2023-10-15 16:54] LABS: Creatine Kinase 174 U/L (30-135)
[2023-10-15 16:56] LABS: Bacteria Urine Few (2-10); RBC Urine None Seen (0-5/HPF); Squamous Epithelial Cell Urine 10-30 /HPF (0-5/HPF); Urine Volume 10mL (spun); WBC Urine 1-5/HPF (0-5/HPF)
[2023-10-15 16:57] LABS: Calcium Oxalate Crystals Urine Few; Culture Indicated Urine Cult Not Indicated; Ictotest Urine Negative (Negative)
[2023-10-15 17:05] LABS: NT-proBNP (BNP-Adult 18+) 38 pg/mL (<125); Troponin I < 0.012 ng/mL (0.01-0.034)
[2023-10-15 17:12] LABS: Ketones (Beta-Hydroxybutyrate) < 0.20 mmol/L (<0.27)
[2023-10-15] MEDS: SODIUM CHLORIDE 0.9% 1,000 ML 1000 ML IV (17:13)
[2023-10-15 17:24] LABS: Base Excess VBG -0.3 mmol/L (0-4); HCO3 VBG 25 mmol/L (24-28); PCO2 VBG 44.3 mmHg (45-50); PO2 VBG 41 mmHg (35-45); pH VBG 7.37 (7.33-7.43)
[2023-10-15 17:25] LABS: Fractionated Inspired Oxygen 21; Oxygen Saturation VBG 74 % (70-75); Total CO2 VBG 26 mmol/L (24-29)
[2023-10-15 18:03] LABS: Adenovirus Not Detected (Not Detect); B. parapertussis Not Detected (Not Detecte); Bordetella pertussis Not Detected (Not Detect); Chlamydophila pneumoniae Not Detected (Not Detect); Coronavirus 229E Not Detected (Not Detect); Coronavirus HKU1 Not Detected (Not Detect); Coronavirus NL 63 Not Detected (Not Detect); Coronavirus OC43 Not Detected (Not Detect); Human Metapneumovirus Not Detected (Not Detect); Human Rhinovirus/Enterovirus Not Detected (Not Detect); Influenza A Not Detected (Not Detect); Influenza B Not Detected (Not Detect); Mycoplasma pneumoniae Not Detected (Not Detect); Parainfluenza Virus 1 Not Detected (Not Detect); Parainfluenza Virus 2 Not Detected (Not Detect); Parainfluenza Virus 3 Not Detected (Not Detect); Parainfluenza Virus 4 Not Detected (Not Detect); Respiratory Syncytial Virus Not Detected (Not Detect); SARS- CoV-2 Not Detected (Not Detecte)
[2023-10-15] MEDS: ONDANSETRON 4 MG/2 ML INJ IV (18:48)
[2023-10-15] MEDS: BENZONATATE 100 MG CAPSULE PO (18:48)
== END 2023-10-15 19:11 | disposition home or self-care (01) ==
PROVIDERS: Emergency Provider Emergency Medicine; PCP Nurse Practitioner Family
DX: R05.9 Cough, unspecified (principal); R11.2 Nausea with vomiting, unspecified; R06.02 Shortness of breath; Z11.52 Encounter for screening for COVID-19
CPT/HCPCS: 36415; 71045; 74177; 80053; 81003; 81015; 82009; 82550; 82805; 82962; 83605; 83690; 83880; 84484; 85025; 87633; 93005; 96361; 96374; 99284; J2405; Q9967

== ENCOUNTER 2024-01-16 12:45 | Inpatient (IN) | payer MEDICARE, MEDICAID, SELFPAY ==
[2023-06-07 13:57] VITALS: BMI 42.3
[2024-01-16] VITALS (28 sets, daily range): BP systolic 123–194; BP diastolic 84–112; PULSE 79–107; RESP 18–20; TEMP 36.3–36.8; O2SAT 85–95; BMI 42.7
--- NOTE | 2024-01-16 13:16 | DI.RAD.S_ITS ---
PROCEDURE: XR CHEST 1V INDICATIONS: Shortness of breath TECHNIQUE: One view of the chest was acquired. COMPARISON: [facility], CR, XR CHEST 1V, 10/15/2023, 16:48. FINDINGS: Surgical changes and devices: None. Lungs and pleura: Lungs are clear. No pleural effusions or pneumothorax. Mediastinum: Mediastinal contours appear normal. Heart size is normal. Bones and chest wall: No suspicious bony lesions. Overlying soft tissues appear unremarkable. IMPRESSION: No acute cardiopulmonary pathology. Dictated by: Erickson Chester M.D. on 01/16/2024 at 14:52 Approved by: Erickson Chester M.D. on 01/16/2024 at 14:54
--- NOTE | 2024-01-16 13:16 | EKG_ITS ---
[facility] [address] [place] [address] Test Date: 2024-01-16 Pat Name: Yamel Shah Department: [facility] Room: Gender: Female [employer]: : [id number] Requested By: Order Number: [id number] Reading MD: Bowen Lopes Measurements Intervals [place] Rate: 86 P: 30 VT: 152 QRS: 40 QRSD: 86 T: 59 QT: 388 QTc: 464 Interpretive Statements Normal sinus rhythm Electronically Signed On 01-16-2024 14:44:53 PDT by Bowen Lopes
--- NOTE | 2024-01-16 13:17 | ED_ITS ---
HPI - SOB/Dyspnea General Chief Complaint: Shortness of Breath/Dyspnea Stated Complaint: cough, dizziness, wheezing Time Seen by Provider: 01/16/24 13:15 Source: patient, RN notes reviewed and old records reviewed Mode of arrival: Ambulatory Limitations: language barrier (uses ASL to communicate, used music critic line) History of Present Illness HPI Narrative: 53-year-old female history of home O2, obstructive sleep apnea, Crohn's, diabetes, GERD, hypertension, dyslipidemia he was sign language to communicate. Patient presents with complaint of increased shortness of breath for the months, chronic persistent cough and audible wheezing. Patient states no fevers or chills she has had chronic nasal congestion. Does have intermittent nausea and vomiting which she also described on her last visit in September. She associates it more with particular foods. States she feels very tight in her chest today. Does feel short of breath. She has been using her albuterol inhaler and her steroid inhaler regularly. She describes using her daily inhaler daily whether feeling good or bad, last use of her albuterol inhaler was last night. She does note she has not been compliant with her home O2 has run out of the tubing and has not called her physician for refill but she still has the oxygen take available and full. Denies any orthopnea. Denies any diarrhea or constipation that is new. States she has IBS so has irregular bowels normally. Denies any new urinary symptoms. States she has some chronic issues and does have a stimulator in place her. Denies any new swelling of extremities. States she was not taking any prescription medications currently states she was allergic to shellfish, Trulicity and metformin. Former smoker, denies any regular alcohol, states uses marijuana but no other recreational drugs. Clementina Krishnan is her primary care physician. Patient states she reached out to her primary care physician who referred her to be evaluated by us. Related Data Home Medications Medication Instructions Recorded Confirmed duloxetine 60 mg capsule,delayed 60 mg PO QPM 03/29/23 03/29/23 release fluticasone propionate 115 2 puff inhalation BID 03/29/23 03/29/23 mcg-salmeterol 21 mcg/actuation HFA inhaler (Advair HFA) glimepiride 2 mg tablet 2 mg PO DAILY 03/29/23 03/29/23 glimepiride 4 mg tablet 4 mg PO DAILY 03/29/23 03/29/23 ipratropium bromide 17 2 puff inhalation QID 03/29/23 03/29/23 mcg/actuation HFA aerosol inhaler (Atrovent HFA) levothyroxine 50 mcg tablet 50 mcg PO DAILY 03/29/23 03/29/23 meloxicam 7.5 mg tablet 7.5 mg PO DAILY 03/29/23 03/29/23 metoprolol succinate 50 mg 100 mg PO DAILY 03/29/23 03/29/23 tablet,extended release 24 hr semaglutide 7 mg tablet (Rybelsus) 7 mg PO DAILY 03/29/23 03/29/23 calcium carbonate (Tums) 200 mg PO PRN PRN Heartburn 04/04/23 04/04/23 Previous Rx's Medication Instructions Recorded ipratropium 0.5 mg-albuterol 3 mg 3 ml inhalation Q6H PRN shortness 04/04/23 (2.5 mg base)/3 mL nebulization of breath or wheezing #90 mL soln nebulizer accessories #4 ea 04/04/23 pantoprazole 40 mg tablet,delayed 40 mg PO 0600 #30 tabs 04/04/23 release benzonatate 200 mg capsule 200 mg PO TID PRN cough #20 caps 06/23/23 prednisone 20 mg tablet 40 mg (2 x 20 mg) PO DAILY #10 tabs 06/23/23 albuterol sulfate 90 mcg/actuation 2 puff inhalation Q6H PRN 06/27/23 aerosol inhaler shortness of breath or wheezing #8.5 grams benzonatate 100 mg capsule 100 mg PO Q6H PRN cough #20 caps 10/15/23 blood sugar diagnostic #50 ea 10/15/23 blood-glucose meter #1 ea 10/15/23 fluticasone propionate 230 2 puff inhalation BID #12 grams 11/22/23 mcg-salmeterol 21 mcg/actuation HFA inhaler (Advair HFA) Allergies Allergy/AdvReac Type Severity Reaction Status Date / Time shellfish derived Allergy Intermediate Verified 10/15/23 15:27 dulaglutide [From Trulicity] Allergy Verified 10/15/23 15:27 metformin Allergy Verified 10/15/23 15:27 Review of Systems Review of Systems ROS Unobtainable: All systems reviewed & are unremarkable except as noted in HPI and below Patient History Medical History HTN (hypertension) Hypothyroidism GERD (gastroesophageal reflux disease) Diabetes Crohn disease Asthma RHONDA (obstructive sleep apnea) Deafness COVID-19 Surgical History S/P implantation of urinary electronic stimulator device Social History household members: children Smoking Status: Former smoker alcohol intake: never Smoking Status: Former smoker alcohol intake frequency: holidays/special occasions only Substance Use Type: marijuana Exam Narrative Exam Narrative: GEN: well nourished, well appearing female, alert and oriented x 3, patient appears to be in mild distress. HEENT: Atraumatic, pupils are equal round reactive to light, extraocular movements are intact, nares are clear, there is no conjunctival pallor. Throat is clear without any exudates, erythema, tonsillar enlargement or uvular deviation HEART: Regular rate and rhythm without murmur, clicks, rubs. Edema bilateral lower extremities LUNGS:Lungs breath sounds slightly decreased, bilateral expiratory wheeze throughout, no rales, crackles, chest moves symmetrically, no tachypnea. ABD:bowel sounds normal, soft, non-tender, no guarding, rebound, rigidity, no masses noted, no hepatosplenomegaly :No CVA tenderness MSCL: Non-tender, no muscle atrophy, muscles strength 5/5 upper and lower extremities, full range of motion, normal gait NEURO:CN 2-12 intact, sensation normal. SKIN: Patient has some abrasions on her left anterior abdominal wall, there appear to be healing no surrounding erythema or cellulitis no drainage. Patient states this is from where her cat scratched her she then had Band-Aids in the Band-Aids caused reaction on her skin. Initial Vital Signs Initial Vital Signs: Vital Signs Temperature 97.3 F L 01/16/24 13:07 Pulse Rate 89 01/16/24 13:07 Respiratory Rate 18 01/16/24 13:07 Blood Pressure 123/97 H 01/16/24 13:07 Pulse Oximetry 90 L 01/16/24 13:07 Oxygen Delivery Method Room Air 01/16/24 13:07 Course Orders Ordered: ED Orders 01/16/24 13:16 XR chest 1V Stat EKG-12 Lead Stat Measure peak expiratory flow ONCE RT Consult Eval and Treat NOW 01/16/24 13:20 Complete Blood Count AUTO DIFF Stat Comprehensive Metabolic Panel Stat Lactate (Lactic Acid) Stat NT-proBNP (BNP-Adult 18+) Stat Prothrombin Time INR Stat Troponin & CK Cardiac Panel Stat 01/16/24 13:52 Respiratory Panel (Film Array) Stat Remdesivir 200 mg/ Sodium (Chloride) 250 mls @ 250 mls/hr IV NOW ONE Stop: 01/16/24 18:47 Last Admin: 01/16/24 18:16 Dose: 250 mls/hr Discontinued Medications Acetaminophen (Acetaminophen 325 Mg Tablet) 975 mg PO NOW ONE Stop: 01/16/24 17:43 Last Admin: 01/16/24 17:45 Dose: 975 mg Documented By: TARA Albuterol (Albuterol 2.5 Mg/3 Ml Neb (Adult)) 10 mg INH NOW ONE Stop: 01/16/24 13:16 Last Admin: 01/16/24 13:25 Dose: 10 mg Documented By: DANIEL Dexamethasone (Dexamethasone 10 Mg/Ml Vial) 6 mg IV NOW ONE Stop: 01/16/24 17:49 Last Admin: 01/16/24 18:16 Dose: 6 mg Methylprednisolone (Methylprednisolone 125 Mg/2 Ml Vial) 125 mg IV NOW ONE Stop: 01/16/24 13:16 Last Admin: 01/16/24 13:49 Dose: 125 mg Documented By: PRIMITIVO Vital Signs Vital signs: Vital Signs - 8 hr 01/16/24 13:07 01/16/24 13:15 01/16/24 13:26 Temperature 97.3 F L Pulse Rate 89 86 84 Respiratory Rate 18 20 Blood Pressure 123/97 H 123/97 H Pulse Oximetry 90 L 88 L 95 Oxygen Delivery Method Room Air Room Air Nasal Cannula Oxygen Flow Rate 2 01/16/24 13:30 01/16/24 13:45 01/16/24 13:59 Temperature Pulse Rate 85 89 83 Respiratory Rate 20 Blood Pressure 129/90 Pulse Oximetry 90 L 91 89 L Oxygen Delivery Method Nasal Cannula Nasal Cannula Nasal Cannula Oxygen Flow Rate 5 5 5 01/16/24 14:00 01/16/24 14:00 01/16/24 14:30 Temperature Pulse Rate 81 83 Respiratory Rate Blood Pressure 135/91 H Pulse Oximetry 88 L 90 L Oxygen Delivery Method Nasal Cannula Nasal Cannula Oxygen Flow Rate 5 4 01/16/24 14:31 01/16/24 14:31 01/16/24 14:55 Temperature Pulse Rate 85 87 Respiratory Rate Blood Pressure 150/109 H Pulse Oximetry 88 L 93 Oxygen Delivery Method Nasal Cannula Oximask Oxygen Flow Rate 4 4 01/16/24 14:55 01/16/24 15:00 01/16/24 15:00 Temperature Pulse Rate 90 Respiratory Rate Blood Pressure 159/98 H 146/84 H Pulse Oximetry 91 Oxygen Delivery Method Oximask Oxygen Flow Rate 4 01/16/24 15:30 01/16/24 15:30 01/16/24 16:00 Temperature Pulse Rate 90 89 Respiratory Rate Blood Pressure 139/97 H Pulse Oximetry 92 93 Oxygen Delivery Method Oxygen Flow Rate 01/16/24 16:00 01/16/24 16:30 01/16/24 16:30 Temperature Pulse Rate 91 H Respiratory Rate Blood Pressure 151/110 H 143/97 H Pulse Oximetry 91 Oxygen Delivery Method Oximask Oxygen Flow Rate 2 01/16/24 16:52 01/16/24 16:52 01/16/24 17:00 Temperature Pulse Rate 95 H 91 H Respiratory Rate Blood Pressure 188/109 H Pulse Oximetry 91 90 L Oxygen Delivery Method Oximask Oxygen Flow Rate 2 2 01/16/24 17:00 01/16/24 17:30 01/16/24 17:31 Temperature Pulse Rate 80 79 Respiratory Rate Blood Pressure 194/103 H Pulse Oximetry 85 L 86 L Oxygen Delivery Method Nasal Cannula Nasal Cannula Oxygen Flow Rate 2 2 01/16/24 17:31 01/16/24 17:45 01/16/24 17:58 Temperature Pulse Rate 96 H Respiratory Rate 20 Blood Pressure 158/96 H Pulse Oximetry 87 L 94 Oxygen Delivery Method Oximask Oximask Oxygen Flow Rate 2 4 MDM - SOB/Dyspnea Lab Data 01/16/24 13:20 01/16/24 13:20 Labs: Lab Results 01/16/24 01/16/24 Range/Units 13:20 13:52 WBC 7.1 (4.5-11.0) X10^3/uL RBC 5.24 H (4.0-5.2) X10^6/uL Hgb 14.8 (12.0-16.0) g/dL Hct 44.4 (36-46) % MCV 84.7 (80-100) fL MCH 28.2 (26-34) PG MCHC 33.3 (30-36) % RDW 14.6 (11.6-14.8) % Plt Count 219 (150-400) X10^3/uL Neut % (Auto) 53.1 (50-75) % Lymph % (Auto) 27.4 (25-40) % Sandoval % (Auto) 10.5 (3-14) % Eos % (Auto) 8.1 H (2-4) % Baso % (Auto) 0.9 (0-2) % Neut # (Auto) 3800 (5390-8456) /uL Lymph # (Auto) 2000 (7028-6202) /uL Sandoval # (Auto) 800 (0-900) /uL Eos # (Auto) 600 H (0-450) /uL Baso # (Auto) 100 (0-100) /uL PT 11.1 (9.4-12.5) SECONDS INR 1.0 (0.9-1.3) Sodium 139 (137-145) mmol/L Potassium 4.4 (3.4-5.1) mmol/L Chloride 106 (98-107) mmol/L Carbon Dioxide 30 (22-32) mmol/L BUN 17 (7-17) mg/dL Creatinine 0.78 (0.52-1.04) mg/dL Estimated GFR > 60 (>60) mL/min BUN/Creatinine Ratio 21.8 (6-22) Glucose 109 H (70-100) mg/dL Lactate 0.9 (0.7-2.1) mmol/L Calcium 9.4 (8.4-10.2) mg/dL Total Bilirubin 0.6 (0.2-1.3) mg/dL AST 33 (14-36) IU/L ALT 25 (<35) IU/L Alkaline Phosphatase 102 (38-126) U/L Total Creatine Kinase 78 (30-135) U/L Troponin I < 0.012 (0.01-0.034) ng/mL NT-Pro-B Natriuret Pep 221 H (<125) pg/mL Total Protein 6.6 (6.3-8.2) g/dL Albumin 4.0 (3.5-5.0) g/dL Globulin 2.6 (1.7-4.1) g/dL Albumin/Globulin Ratio 1.5 (1.0-2.8) Chlamy pneumoniae PCR Not detected (Not Detect) Adenovirus (PCR) Not detected (Not Detect) B. pertussis DNA (PCR) Not detected (Not Detect) B.parapertussis DNA PCR Not detected (Not Detecte) Coronavirus OC43 (PCR) Not detected (Not Detect) Coronavirus HKU1 (PCR) Not detected (Not Detect) Coronavirus 229E (PCR) Not detected (Not Detect) SARS-CoV-2 (PCR) Detected H (Not Detecte) Coronavirus NL63 (PCR) Not detected (Not Detect) Human Metapneumovir PCR Not detected (Not Detect) Influenza Type A (PCR) Not detected (Not Detect) Influenza Type B (PCR) Not detected (Not Detect) M. pneumoniae (PCR) Not detected (Not Detect) Parainfluenza 1 (PCR) Not detected (Not Detect) Parainfluenza 2 (PCR) Not detected (Not Detect) Parainfluenza 3 (PCR) Not detected (Not Detect) Parainfluenza 4 (PCR) Not detected (Not Detect) RSV (PCR) Not detected (Not Detect) Entero/Rhino (PCR) Not detected (Not Detect) Point of Care Testing Glucose POC 95 ECG Data Attestation: I personally reviewed and interpreted this ECG as follows: Prior ECG tracings: available for review Interpretation: Sinus rhythm rate 86 WI 152 QRS 86 QTC [address] No acute ST elevation depression appreciated. Patient has priors from September and March of 2023 which appears similar. [facility] Narrative Medical decision making narrative: 3-year-old presents with complaint of wheezing chest tightness that she describes as going on for the past 2 months but worse recently. She was hypoxic at 90% on room but does have a history of using home O2. She states she has not typically been using it did not arrive with it on today. Patient is diffusely wheezing on exam but otherwise minimal respiratory distress. She has been on albuterol and been using Advair regularly. Labs show white count of 7.1 hemoglobin of 14 platelets of 219, electrolytes appropriate glucose is 109 creatinine 0.78 with a BUN of 17, lactate 0.9, LFTs are negative troponins less than 0.012 with a BNP of 221. EKG sinus rhythm Chest x-ray shows no acute change Respiratory panel positive for COVID Patient received Solu-Medrol, 10 mg albuterol. On recheck patient's wheezes resolved but is 86% on 2 L. patient does have home O2 which she was not here with but this is lower than likely appropriate for discharge. Patient is agreeable to receive remdesivir and dexamethasone. She states breathing feels better if she was quiet and still. Spoke with Dr. Lopes who accepts for inpatient. Discharge Plan Departure Patient Disposition: Admitted As Inpatient Clinical Impression: Acute asthma exacerbation, COVID-19 virus infection Admit Date/Time: 01/16/24 17:59 Admit Provider: Bowen Lopes
[2024-01-16] MEDS: ALBUTEROL 2.5 MG/3 ML NEB (ADULT) 10 MG INH (13:25)
[2024-01-16 13:30] LABS: Add Manual Diff / Slide Review NO; Basophils Absolute Auto 100 /uL (0-100); Basophils Percent Auto 0.9 % (0-2); Eosinophils Absolute Auto 600 /uL (0-450); Eosinophils Percent Auto 8.1 % (2-4); Hematocrit 44.4 % (36-46); Hemoglobin 14.8 g/dL (12.0-16.0); Lymphocytes Absolute Auto 2000 /uL (1100-4500); Lymphocytes Percent Auto 27.4 % (25-40); Mean Corpuscular HGB Conc 33.3 % (30-36); Mean Corpuscular Hemoglobin 28.2 PG (26-34); Mean Corpuscular Volume 84.7 fL (80-100); Monocytes Absolute Auto 800 /uL (0-900); Monocytes Percent Auto 10.5 % (3-14); Neutrophils Absolute Auto 3800 /uL (1500-7000); Neutrophils Percent Auto 53.1 % (50-75); Platelet Count 219 X10^3/uL (150-400); Red Blood Cell Count 5.24 X10^6/uL (4.0-5.2); Red Cell Distribution Width 14.6 % (11.6-14.8); White Blood Cell Count 7.1 X10^3/uL (4.5-11.0)
[2024-01-16 13:38] LABS: Prothrombin Time 11.1 SECONDS (9.4-12.5)
[2024-01-16 13:42] LABS: Creatine Kinase 78 U/L (30-135); Lactate (Lactic Acid) 0.9 mmol/L (0.7-2.1)
[2024-01-16 13:43] LABS: Alanine Aminotransferase 25 IU/L (<35); Albumin Globulin Ratio 1.5 (1.0-2.8); Alkaline Phosphatase 102 U/L (38-126); Aspartate Aminotransferase 33 IU/L (14-36); BUN Creatinine Ratio 21.8 (6-22); Bilirubin Total 0.6 mg/dL (0.2-1.3); Blood Urea Nitrogen 17 mg/dL (7-17); Calcium 9.4 mg/dL (8.4-10.2); Carbon Dioxide 30 mmol/L (22-32); Chloride 106 mmol/L (98-107); Estimated Glomerular Filt Rate > 60 mL/min (>60); Globulin 2.6 g/dL (1.7-4.1); Glucose 109 mg/dL (70-100); HEMOLYSIS 34 (0-50); Potassium 4.4 mmol/L (3.4-5.1); Sodium 139 mmol/L (137-145); Total Protein 6.6 g/dL (6.3-8.2)
[2024-01-16] MEDS: methylPREDNISolone 125 MG/2 ML VIAL IV (13:49)
[2024-01-16 13:52] LABS: NT-proBNP (BNP-Adult 18+) 221 pg/mL (<125)
[2024-01-16 13:55] LABS: Troponin I < 0.012 ng/mL (0.01-0.034)
--- NOTE | 2024-01-16 14:08 | PC.NURSE ---
Pt receiving breathing tx, called RT to bedside, pt on 5L NC + nebulizer = currently 87%. Physician aware.
[2024-01-16 14:59] LABS: B. parapertussis Not Detected (Not Detecte); Bordetella pertussis Not Detected (Not Detect); Chlamydophila pneumoniae Not Detected (Not Detect); Coronavirus 229E Not Detected (Not Detect); Coronavirus HKU1 Not Detected (Not Detect); Coronavirus NL 63 Not Detected (Not Detect); Coronavirus OC43 Not Detected (Not Detect); Human Metapneumovirus Not Detected (Not Detect); Human Rhinovirus/Enterovirus Not Detected (Not Detect); Influenza A Not Detected (Not Detect); Influenza B Not Detected (Not Detect); Mycoplasma pneumoniae Not Detected (Not Detect); Parainfluenza Virus 1 Not Detected (Not Detect); Parainfluenza Virus 2 Not Detected (Not Detect); Parainfluenza Virus 3 Not Detected (Not Detect); Parainfluenza Virus 4 Not Detected (Not Detect); Respiratory Syncytial Virus Not Detected (Not Detect); SARS- CoV-2 Detected (Not Detecte)
[2024-01-16 15:08] LABS: Adenovirus Not Detected (Not Detect)
[2024-01-16] MEDS: ACETAMINOPHEN 325 MG TABLET 975 MG PO (17:45)
[2024-01-16] MEDS: DEXAMETHASONE 10 MG/ML VIAL 6 MG IV (18:16)
[2024-01-16] MEDS: REMDESIVIR 200 MG in SODIUM CHLORIDE 0.9% 250 ML 250 MG IV (18:16)
--- NOTE | 2024-01-16 18:27 | PM.HP.1 ---
History of Present Illness History of Present Illness Date Patient Seen: 01/16/24 Time Patient Seen: 18:29 Chief complaint: cough, dizziness, wheezing Narrative: History obtained with use of bedside ASL interpretation services on an ipad. Yamel Shah is a 53yo deaf female with PMH of OHS and asthma (see prior pulmonary notes), prior chronic tobacco and current daily marijuana use, RHONDA, HTN, DM2, crohn's disease, hypothyroidism and GERD who presents with worsening dyspnea, cough and congestion. She presents with worsening dyspnea over the past couple of days along with increased sputum production. She reports testing positive for COVID approximately a month ago, she felt improved after about a week. Last week she went to [place], [place] and since has felt more short of breath, with increased wheezing and cough. Cough is productive of yellow sputum. Yesterday she felt very sleepy and tired. She called her PCP who asked her to come to the emergency room but she stalled until today when she checked her oxygen and it was 85%. She had not been checking her oxygen for the past few months. She was previously on oxygen but stopped using this about 3 months ago, she was not checking her oxygen at that time. She also complains of stomach pains for the past month, with occasional morning emesis. She has IBS-D and has had no change in her diarrhea. She denies melena, BRBPR, or hematemesis. She endorses daily marijuana smoking, and THC gummy use for years. In the ER, Patient was hypoxic on room air to the low 80s, mid 80s on 2L, but >90% on 3L. Previous pulmonary documentation states she only required 1-2 L at her last follow up. She also no longer has all the equipment for her oxygen at home. CXR was unremarkable. Labs were also unremarkable. I have ordered for a d-dimer given her recent travel. If positive will perform a CT angio. [facility] Medical History HTN (hypertension) Hypothyroidism GERD (gastroesophageal reflux disease) Diabetes Crohn disease Asthma RHONDA (obstructive sleep apnea) Deafness COVID-19 Surgical History S/P implantation of urinary electronic stimulator device Social History household members: children Smoking Status: Former smoker alcohol intake: never Meds Home Medications and Allergies Home Medications Medication Instructions Recorded Confirmed Type duloxetine 60 mg capsule,delayed 60 mg PO QPM 03/29/23 03/29/23 History release fluticasone propionate 115 2 puff inhalation BID 03/29/23 03/29/23 History mcg-salmeterol 21 mcg/actuation HFA inhaler (Advair HFA) glimepiride 2 mg tablet 2 mg PO DAILY 03/29/23 03/29/23 History glimepiride 4 mg tablet 4 mg PO DAILY 03/29/23 03/29/23 History ipratropium bromide 17 2 puff inhalation QID 03/29/23 03/29/23 History mcg/actuation HFA aerosol inhaler (Atrovent HFA) levothyroxine 50 mcg tablet 50 mcg PO DAILY 03/29/23 03/29/23 History meloxicam 7.5 mg tablet 7.5 mg PO DAILY 03/29/23 03/29/23 History metoprolol succinate 50 mg 100 mg PO DAILY 03/29/23 03/29/23 History tablet,extended release 24 hr semaglutide 7 mg tablet (Rybelsus) 7 mg PO DAILY 03/29/23 03/29/23 History calcium carbonate (Tums) 200 mg PO PRN PRN Heartburn 04/04/23 04/04/23 History ipratropium 0.5 mg-albuterol 3 mg 3 ml inhalation Q6H PRN shortness 04/04/23 Rx (2.5 mg base)/3 mL nebulization of breath or wheezing #90 mL soln nebulizer accessories #4 ea 04/04/23 Rx pantoprazole 40 mg tablet,delayed 40 mg PO 0600 #30 tabs 04/04/23 Rx release benzonatate 200 mg capsule 200 mg PO TID PRN cough #20 caps 06/23/23 Rx prednisone 20 mg tablet 40 mg (2 x 20 mg) PO DAILY #10 tabs 06/23/23 Rx albuterol sulfate 90 mcg/actuation 2 puff inhalation Q6H PRN 06/27/23 06/27/23 Rx aerosol inhaler shortness of breath or wheezing #8.5 grams benzonatate 100 mg capsule 100 mg PO Q6H PRN cough #20 caps 10/15/23 Rx blood sugar diagnostic #50 ea 10/15/23 Rx blood-glucose meter #1 ea 10/15/23 Rx fluticasone propionate 230 2 puff inhalation BID #12 grams 11/22/23 Rx mcg-salmeterol 21 mcg/actuation HFA inhaler (Advair HFA) Allergies Allergy/AdvReac Type Severity Reaction Status Date / Time shellfish derived Allergy Intermediate Verified 10/15/23 15:27 dulaglutide [From Trulicity] Allergy Verified 10/15/23 15:27 metformin Allergy Verified 10/15/23 15:27 Review of Systems Review of Systems Narrative: All other systems reviewed with the patient and are negative unless otherwise stated. Exam Vital Signs (past 8 hours): - 01/16/24 13:07 01/16/24 13:15 01/16/24 13:26 Temperature 97.3 F L Pulse Rate 89 86 84 Respiratory Rate 18 20 Blood Pressure 123/97 H 123/97 H Pulse Oximetry 90 L 88 L 95 Oxygen Delivery Method Room Air Room Air Nasal Cannula Oxygen Flow Rate 2 01/16/24 13:30 01/16/24 13:45 01/16/24 13:59 Temperature Pulse Rate 85 89 83 Respiratory Rate 20 Blood Pressure 129/90 Pulse Oximetry 90 L 91 89 L Oxygen Delivery Method Nasal Cannula Nasal Cannula Nasal Cannula Oxygen Flow Rate 5 5 5 01/16/24 14:00 01/16/24 14:00 01/16/24 14:30 Temperature Pulse Rate 81 83 Respiratory Rate Blood Pressure 135/91 H Pulse Oximetry 88 L 90 L Oxygen Delivery Method Nasal Cannula Nasal Cannula Oxygen Flow Rate 5 4 01/16/24 14:31 01/16/24 14:31 01/16/24 14:55 Temperature Pulse Rate 85 87 Respiratory Rate Blood Pressure 150/109 H Pulse Oximetry 88 L 93 Oxygen Delivery Method Nasal Cannula Oximask Oxygen Flow Rate 4 4 01/16/24 14:55 01/16/24 15:00 01/16/24 15:00 Temperature Pulse Rate 90 Respiratory Rate Blood Pressure 159/98 H 146/84 H Pulse Oximetry 91 Oxygen Delivery Method Oximask Oxygen Flow Rate 4 01/16/24 15:30 01/16/24 15:30 01/16/24 16:00 Temperature Pulse Rate 90 89 Respiratory Rate Blood Pressure 139/97 H Pulse Oximetry 92 93 Oxygen Delivery Method Oxygen Flow Rate 01/16/24 16:00 01/16/24 16:30 01/16/24 16:30 Temperature Pulse Rate 91 H Respiratory Rate Blood Pressure 151/110 H 143/97 H Pulse Oximetry 91 Oxygen Delivery Method Oximask Oxygen Flow Rate 2 01/16/24 16:52 01/16/24 16:52 01/16/24 17:00 Temperature Pulse Rate 95 H 91 H Respiratory Rate Blood Pressure 188/109 H Pulse Oximetry 91 90 L Oxygen Delivery Method Oximask Oxygen Flow Rate 2 2 01/16/24 17:00 01/16/24 17:30 01/16/24 17:31 Temperature Pulse Rate 80 79 Respiratory Rate Blood Pressure 194/103 H Pulse Oximetry 85 L 86 L Oxygen Delivery Method Nasal Cannula Nasal Cannula Oxygen Flow Rate 2 2 01/16/24 17:31 01/16/24 17:45 01/16/24 17:58 Temperature Pulse Rate 96 H Respiratory Rate 20 Blood Pressure 158/96 H Pulse Oximetry 87 L 94 Oxygen Delivery Method Oximask Oximask Oxygen Flow Rate 2 4 Oxygen Delivery Method Oximask Oxygen Flow Rate 4 Narrative Exam Narrative: General:? Patient is well developed and well nourished, in no distress at this time. On nasal cannula. HEENT:? Normocephalic, atraumatic, extraocular muscles intact, oral pharynx is clear and mucous membranes are moist. Neck: supple and symmetric, trachea is midline, no cervical adenopathy. Negative for JVD Chest:? Normal AP diameter and contour without kyphoscoliosis, no tachypnea, equal chest rise bilaterally. Lungs:? Left wheezing > R, diffuse, expiratory. No rhonchi or rales. Cardio:?RRR no m/r/g. Abdomen: S ND, mild epigastric tenderness. Musculoskeletal:? Muscle strength and tone are equal within normal limits, no deformity. Extremities: No edema or joint effusions. No cyanosis or clubbing. Skin:? Pale,? Warm to touch,dry and intact without rashes, ulcerations or petechiae.? Neuro:? Alert and orientated x3,? sensation to touch intact in all extremities, no gross deficits noted of cranial nerves. Psych:? Patient has a well-kept appearance, appropriate affect, mental status attitude thought context and judgment are appropriate for age. Objective ECG Impression: Normal sinus rhythm as interpreted by [facility] 01/16/24 13:20 01/16/24 13:20 Labs: Laboratory Results - last 24 hr 01/16/24 01/16/24 13:20 13:52 WBC 7.1 RBC 5.24 H Hgb 14.8 Hct 44.4 MCV 84.7 MCH 28.2 MCHC 33.3 RDW 14.6 Plt Count 219 Neut % (Auto) 53.1 Lymph % (Auto) 27.4 [place] % (Auto) 10.5 Eos % (Auto) 8.1 H Baso % (Auto) 0.9 Neut # (Auto) 3800 Lymph # (Auto) 2000 [place] # (Auto) 800 Eos # (Auto) 600 H Baso # (Auto) 100 PT 11.1 INR 1.0 Sodium 139 Potassium 4.4 Chloride 106 Carbon Dioxide 30 BUN 17 Creatinine 0.78 Estimated GFR > 60 BUN/Creatinine Ratio 21.8 Glucose 109 H Lactate 0.9 Calcium 9.4 Total Bilirubin 0.6 AST 33 ALT 25 Alkaline Phosphatase 102 Total Creatine Kinase 78 Troponin I < 0.012 NT-Pro-B Natriuret Pep 221 H Total Protein 6.6 Albumin 4.0 Globulin 2.6 Albumin/Globulin Ratio 1.5 Chlamy pneumoniae PCR Not detected Adenovirus (PCR) Not detected B. pertussis DNA (PCR) Not detected B.parapertussis DNA PCR Not detected Coronavirus OC43 (PCR) Not detected Coronavirus HKU1 (PCR) Not detected Coronavirus 229E (PCR) Not detected SARS-CoV-2 (PCR) Detected H Coronavirus NL63 (PCR) Not detected Human Metapneumovir PCR Not detected Influenza Type A (PCR) Not detected Influenza Type B (PCR) Not detected M. pneumoniae (PCR) Not detected Parainfluenza 1 (PCR) Not detected Parainfluenza 2 (PCR) Not detected Parainfluenza 3 (PCR) Not detected Parainfluenza 4 (PCR) Not detected RSV (PCR) Not detected Entero/Rhino (PCR) Not detected Assessment & Plan Assessment & Plan narrative: 1. Acute on chronic respiratory failure with hypoxia - likely secondary to asthma exacerbation, with COVID and possible bacterial pneumonia. Unclear significant of covid testing since she reports testing postive a month ago but felt improved after. - worsening of symptoms can represent a bacterial component. Will treat with oral augmentin x5 days. - Dexamethasone 6mg IV until acute hypoxia resolved, will also treat with remdesevir - will check D-dimer, if positive will get CT angio of her chest with recent worsening after recent trip to [facility]. - RT eval and treat, continue albuterol prn, covert home inhalers to formulary nebulizers - isolation precuations for her COVID infection. 2. COVID pneumonia with possible bacterial superimposed pneumonia - treatment as noted above in #1 3. Asthma with exacerbation - steroids as noted above - RT eval and treat - continue prn albuterol and replace home inhalers with formulary nebs. 4. Obesity - The patient is at much higher risk for medical and surgical complications because of their obesity. This increases the difficulty and complexity of medical and surgical interventions and increases the chances of poor outcomes such as morbidity and mortality. 5. HTN - continue home medications. 6. DM - replace home oral medication with sliding scale insulin - A1c ordered 7. Hypothyroidism - continue home medications - will check a TSH tomorrow AM Code: Full, surrogate is patient's sister DVT: Lovenox I have utilized all available immediate resources to obtain, update, or review the patient's current medications. Dispo: patient admitted under inpatient status. Unclear if will be able to discharge home or possible SNF, will have PT/OT evaluations. Additional history obtained via discussions with the ER provider, also used sign language interpretive services for this encounter with the patient. These discussions contributed to the creation of the above assessment and plan. I have reviewed patient's presenting documentation, labs, and imaging personally. Time-Based Coding :: [TOTAL MINUTES] spent with patient and on the chart (including review of chart, obtaining history, exam, reviewing outside data, placing orders, documenting exam and treatment plan, and counseling patient) on [DATE].
[2024-01-16 19:07] LABS: D Dimer 992 ng/ml (<500)
--- NOTE | 2024-01-16 22:35 | DI.CT.S_ITS ---
PROCEDURE: CT ANGIO CHEST PE PROTOCOL INDICATIONS: r/o PE, hypoxia TECHNIQUE: After the administration of intravenous contrast, 2 mm thick sections acquired from the pulmonary apices to the posterior costophrenic angles. 3-dimensional maximum intensity projection (MIP) coronal and sagittal reformats were then acquired through the thorax. For radiation dose reduction, the following was used: automated exposure control, adjustment of mA and/or kV according to patient size. COMPARISON: [facility], CT, CT ANGIO CHEST PE PROTOCOL, 03/29/2023, 13:45. FINDINGS: Image quality: Diagnostic. Pulmonary arteries: Pulmonary arteries are normal in size, and demonstrate no intraluminal filling defects to suggest central pulmonary embolism. Lower Neck: No enlarged lymph nodes. Thyroid: No thyroid nodules which require sonographic follow up, per consensus guidelines. Axillae: No enlarged lymph nodes. Chest Wall: Unremarkable. Bones: Unremarkable. Lungs and Pleura: No pneumothorax or pleural effusions. Bibasilar atelectasis. No septal thickening or nodularity. Visualized airways are clear. Stable 4 mm anterior right middle lobe nodule. No new suspicious or enlarging pulmonary nodules. Heart: Heart size is normal. No pericardial effusion. Thoracic Vessels: No aortic aneurysm. Mediastinum and Judie: No enlarged lymph nodes. Esophagus: No wall thickening. No hiatal hernia. Upper Abdomen: Visualized upper abdomen solid organs and bowel loops appear normal. IMPRESSION: No pulmonary embolus. No acute cardiopulmonary process. Dictated by: Jorge Atwood M.D. on 01/16/2024 at 23:40 Approved by: Jorge Atwood M.D. on 01/16/2024 at 23:46
[2024-01-16] MEDS: ACETAMINOPHEN 325 MG TABLET 650 MG PO (22:49)
[2024-01-16] MEDS: INSULIN LISPRO 100 UNIT/ML 3ML VIAL SUBCUT (22:49)
[2024-01-16] MEDS: AMOXICILLIN/CLAV 875/125 MG 1 TAB PO (22:49)
[2024-01-17] VITALS (9 sets, daily range): BP systolic 104–146; BP diastolic 62–103; PULSE 94–108; RESP 16–24; TEMP 35.7–36.9; O2SAT 91–96
--- NOTE | 2024-01-17 00:40 | PC.NURSE ---
pt arrived via stretcher from ED @ 1940. pt is deaf and uses ASL and/or whiteboard to communicate. able to slightly read mouths of others, though not very much. covid positive and on droplet precautions. a&o x4. temp 98.3, hr 103, bp 145/103, rr 18. on 4L oxymask with O2 sats of 94%. expiratory wheezing heard on auscultation throughout lungs. has productive, intermittent cough. ambulates independently. complaining of 9/10 headache. prn tylenol given. blood sugar 385. notified and ordered to give 8 units of sliding scale insulin. able to get prn tessalon woody ordered for cough. has scratches on abdomen that have surrounding erythema. small bruise below umbilical line. highly encouraged pt to ambulate to the bedside commode for the night but pt insisted on having purewick placed overnight. bed in lowest position with call light within reach.
[2024-01-17] MEDS: MELATONIN 3 MG TABLET 6 MG PO ×2 (02:16→21:50)
[2024-01-17] MEDS: BENZONATATE 100 MG CAPSULE PO ×3 (02:16→21:50)
[2024-01-17 05:25] LABS: Add Manual Diff / Slide Review NO; Basophils Absolute Auto 0 /uL (0-100); Basophils Percent Auto 0.2 % (0-2); Eosinophils Absolute Auto 0 /uL (0-450); Hematocrit 41.9 % (36-46); Hemoglobin 13.9 g/dL (12.0-16.0); Lymphocytes Absolute Auto 1100 /uL (1100-4500); Lymphocytes Percent Auto 7.9 % (25-40); Mean Corpuscular HGB Conc 33.2 % (30-36); Mean Corpuscular Hemoglobin 27.9 PG (26-34); Monocytes Absolute Auto 400 /uL (0-900); Monocytes Percent Auto 2.5 % (3-14); Neutrophils Absolute Auto 12400 /uL (1500-7000); Neutrophils Percent Auto 89.4 % (50-75); Platelet Count 222 X10^3/uL (150-400); Red Blood Cell Count 4.99 X10^6/uL (4.0-5.2); Red Cell Distribution Width 14.4 % (11.6-14.8); White Blood Cell Count 13.9 X10^3/uL (4.5-11.0)
[2024-01-17] MEDS: PANTOPRAZOLE DR 20 MG TABLET PO (05:32)
[2024-01-17] MEDS: LEVOTHYROXINE 50 MCG TABLET PO (05:32)
[2024-01-17 05:37] LABS: BUN Creatinine Ratio 29.9 (6-22); Blood Urea Nitrogen 23 mg/dL (7-17); Calcium 9.6 mg/dL (8.4-10.2); Carbon Dioxide 25 mmol/L (22-32); Chloride 104 mmol/L (98-107); Estimated Glomerular Filt Rate > 60 mL/min (>60); Glucose 176 mg/dL (70-100); HEMOLYSIS < 15 (0-50); Hemoglobin A1C% w Est Avg Glu 6.5 % (4.0-6.0); Potassium 4.6 mmol/L (3.4-5.1); Sodium 136 mmol/L (137-145)
[2024-01-17 06:29] LABS: TSH w/ Reflex to FT4 0.53 uIU/mL (0.47-4.68)
--- NOTE | 2024-01-17 07:45 | PM.PN.1 ---
Subjective Subjective Interval history: 53 F admitted with Covid PNA. H/O HTN, RHONDA, and DM2. S: The patient feels somewhat better today, still is low short of breath and coughing quite a bit. She also has a headache. No nausea. Exam Vital Signs (past 8 hours): - 01/17/24 00:00 01/17/24 04:00 Temperature 97.2 F L 97.6 F Pulse Rate 106 H 104 H Respiratory Rate 24 20 Blood Pressure 116/69 114/73 Pulse Oximetry 91 93 Oxygen Flow Rate 4 4 Oxygen Delivery Method Oximask Oxygen Flow Rate 4 Narrative Exam Narrative: NAD, alert and oriented. Fluent speech. O2 2 L Lungs are clear, normal rate and effort. Heart is regular, no murmur gallop or rub. Abdomen is soft, non distended. Extremities are free of edema. Objective Labs 01/17/24 04:45 01/17/24 04:45 Labs: Laboratory Results - last 24 hr 01/16/24 01/16/24 01/17/24 13:20 13:52 04:45 WBC 7.1 13.9 H D RBC 5.24 H 4.99 Hgb 14.8 13.9 Hct 44.4 41.9 MCV 84.7 84.0 MCH 28.2 27.9 MCHC 33.3 33.2 RDW 14.6 14.4 Plt Count 219 222 Neut % (Auto) 53.1 89.4 H D Lymph % (Auto) 27.4 7.9 L [place] % (Auto) 10.5 2.5 L Eos % (Auto) 8.1 H 0.0 L Baso % (Auto) 0.9 0.2 Neut # (Auto) 3800 09628 H Lymph # (Auto) 2000 1100 [place] # (Auto) 800 400 Eos # (Auto) 600 H 0 Baso # (Auto) 100 0 PT 11.1 INR 1.0 D-Dimer 992 H Sodium 139 136 L Potassium 4.4 4.6 Chloride 106 104 Carbon Dioxide 30 25 BUN 17 23 H Creatinine 0.78 0.77 Estimated GFR > 60 > 60 BUN/Creatinine Ratio 21.8 29.9 H Glucose 109 H 176 H Hemoglobin A1c 6.5 H Lactate 0.9 Calcium 9.4 9.6 Magnesium 2.0 Total Bilirubin 0.6 AST 33 ALT 25 Alkaline Phosphatase 102 Total Creatine Kinase 78 Troponin I < 0.012 NT-Pro-B Natriuret Pep 221 H Total Protein 6.6 Albumin 4.0 Globulin 2.6 Albumin/Globulin Ratio 1.5 TSH 0.53 Chlamy pneumoniae PCR Not detected Adenovirus (PCR) Not detected B. pertussis DNA (PCR) Not detected B.parapertussis DNA PCR Not detected Coronavirus OC43 (PCR) Not detected Coronavirus HKU1 (PCR) Not detected Coronavirus 229E (PCR) Not detected SARS-CoV-2 (PCR) Detected H Coronavirus NL63 (PCR) Not detected Human Metapneumovir PCR Not detected Influenza Type A (PCR) Not detected Influenza Type B (PCR) Not detected M. pneumoniae (PCR) Not detected Parainfluenza 1 (PCR) Not detected Parainfluenza 2 (PCR) Not detected Parainfluenza 3 (PCR) Not detected Parainfluenza 4 (PCR) Not detected RSV (PCR) Not detected Entero/Rhino (PCR) Not detected PFSH Medical History HTN (hypertension) Hypothyroidism GERD (gastroesophageal reflux disease) Diabetes Crohn disease Asthma RHONDA (obstructive sleep apnea) Deafness COVID-19 Surgical History S/P implantation of urinary electronic stimulator device Social History household members: children Smoking Status: Former smoker alcohol intake: never Assessment & Plan Assessment & Plan narrative: 1. Acute on chronic respiratory failure with hypoxia, present on admission and active. - likely secondary to asthma exacerbation, with COVID and possible bacterial pneumonia. Unclear significant of covid testing since she reports testing postive a month ago but felt improved after. - Dexamethasone 6mg IV until acute hypoxia resolved, will also treat with remdesevir - will check D-dimer, if positive will get CT angio of her chest with recent worsening after recent trip to [facility]. - RT eval and treat, continue albuterol prn, covert home inhalers to formulary nebulizers - isolation precuations for her COVID infection. 2. COVID pneumonia with possible bacterial superimposed pneumonia, present on admission and active. - treatment as noted above in #1 3. Asthma with exacerbation, present on admission and active. - steroids as noted above - RT eval and treat - continue prn albuterol and replace home inhalers with formulary nebs. 4. Obesity, present on admission and active. - The patient is at much higher risk for medical and surgical complications because of their obesity. This increases the difficulty and complexity of medical and surgical interventions and increases the chances of poor outcomes such as morbidity and mortality. 5. HTN, present on admission and active. - continue home medications. 6. DM, present on admission and active. - replace home oral medication with sliding scale insulin - A1c ordered 7. Hypothyroidism, present on admission and active. - continue home medications - will check a TSH tomorrow AM 8. Possible bacterial pneumonia, present on admission and active. - Ceftriaxone and azithro. MELANY: 01/17. Code: Full, surrogate is patient's sister DVT: Lovenox Time-Based Coding :: [TOTAL MINUTES] spent with patient and on the chart (including review of chart, obtaining history, exam, reviewing outside data, placing orders, documenting exam and treatment plan, and counseling patient) on [DATE].
[2024-01-17] MEDS: AMOXICILLIN/CLAV 875/125 MG 1 TAB PO ×2 (08:07→21:25)
[2024-01-17] MEDS: DULOXETINE 30 MG CAPSULE 60 MG PO (08:08)
[2024-01-17] MEDS: DEXAMETHASONE 10 MG/ML VIAL 6 MG IV (08:08)
[2024-01-17] MEDS: METOPROLOL ER 50 MG TABLET 100 MG PO (08:08)
[2024-01-17] MEDS: ENOXAPARIN 40 MG/0.4 ML SYRINGE SUBCUT ×2 (08:08→21:25)
[2024-01-17] MEDS: INSULIN LISPRO 100 UNIT/ML 3ML VIAL SUBCUT ×4 (08:11→21:26)
[2024-01-17] MEDS: REMDESIVIR 100 MG in SODIUM CHLORIDE 0.9% 250 ML 250 MG IV (08:23)
[2024-01-17] MEDS: BACITRACIN 28 GM OINT 1 APPLIC TOP ×2 (09:23→21:26)
[2024-01-17] MEDS: ALBUTEROL/IPRATROPIUM 3 ML AMPUL INH ×2 (09:32→15:49)
[2024-01-17] MEDS: ACETAMINOPHEN 325 MG TABLET 650 MG PO (11:54)
[2024-01-17] MEDS: guaiFENesin Solution 100 MG/5 ML UDC 200 MG PO (14:08)
--- NOTE | 2024-01-17 15:06 | CM.DANOTE ---
Initial DCP Assessment Visit Note Reviewed EMR and team rounds for pt's medical status and updates. Did not meet with pt at bedside due to covid+ status and active cough symptoms. Pt lives independently with her son in their own apartment in [place]. She has a sister, Darlin, who lives in [place] and will likely be the family member to transport her home once she is medically cleared for home d/c. Final PT/OT recommendations are currently pending. Payor: [facility] PCP: Clementina Krishnan Pt is a 53 year-old F who presented to the ED with covid+ pneumonia. She is deaf and uses ASL and whiteboards for communication, she uses a cane for mobility, and uses home O2 at baseline. She c/o worsening SOB, chronic/persistent cough, and audible wheezing. She was started on IV remdesivir and dexamethasone, and admitted to the floor for cont. eval and tx. DCP will continue to follow and assist with any final evolving assistance/resource needs for d/c. Discharge Planning/Care Management CM Discharge Assessment Start: 01/17/24 15:04 Freq: Status: Active Protocol: Document 01/17/24 15:04 DPL (Rec: 01/17/24 15:06 DPL [id number]) Discharge Planning Assessment Assigned Surveillance Supervisor KEERTHI Herndon Advance Directives? No History Provided By Medical Record Expected Length of Stay 3 Has Patient been admitted in last 30 No days? Prior Living Arrangements Apartment/Condo Household Members children Type of transporation used prior to Drives own vehicle admit Independent with ADL's Yes Is patient alert and oriented? Yes Caregiver for Another No Community Services used prior to Oxygen Therapy admission: DME Already Rented / Owned Cane Comment Likely home, but pending PT/OT evals once pt is more stable. Barriers to Discharge No Discharge Plan Home Transportation Arrangement Family Whiteboard Updated in Patient Room with No name and ext. # of Surveillance Supervisor Comment Did not enter room due to covid+ status and active cough . Review Status In Process Please Provide Date Initial DC 01/17/24 Assessment Was Performed
[2024-01-17] MEDS: INSULIN GLARGINE 100 UNIT/ML 3ML PEN 15 UNIT SUBCUT (21:27)
[2024-01-18] VITALS (7 sets, daily range): BP systolic 110–148; BP diastolic 70–95; PULSE 84–103; RESP 16–20; TEMP 36.4–36.8; O2SAT 92–98
[2024-01-18] MEDS: PANTOPRAZOLE DR 20 MG TABLET PO (06:17)
[2024-01-18] MEDS: LEVOTHYROXINE 50 MCG TABLET PO (06:17)
[2024-01-18 07:25] LABS: Add Manual Diff / Slide Review NO; Basophils Absolute Auto 0 /uL (0-100); Basophils Percent Auto 0.2 % (0-2); Eosinophils Absolute Auto 0 /uL (0-450); Hematocrit 40.4 % (36-46); Hemoglobin 13.4 g/dL (12.0-16.0); Lymphocytes Absolute Auto 2400 /uL (1100-4500); Lymphocytes Percent Auto 17.4 % (25-40); Mean Corpuscular HGB Conc 33.2 % (30-36); Mean Corpuscular Volume 84.5 fL (80-100); Monocytes Absolute Auto 1000 /uL (0-900); Monocytes Percent Auto 7.1 % (3-14); Neutrophils Absolute Auto 10600 /uL (1500-7000); Neutrophils Percent Auto 75.3 % (50-75); Platelet Count 204 X10^3/uL (150-400); Red Blood Cell Count 4.78 X10^6/uL (4.0-5.2); Red Cell Distribution Width 14.6 % (11.6-14.8); White Blood Cell Count 14.1 X10^3/uL (4.5-11.0)
[2024-01-18] MEDS: ALBUTEROL/IPRATROPIUM 3 ML AMPUL INH ×2 (07:36→11:37)
[2024-01-18 07:38] LABS: Blood Urea Nitrogen 28 mg/dL (7-17); Calcium 9.4 mg/dL (8.4-10.2); Carbon Dioxide 30 mmol/L (22-32); Chloride 102 mmol/L (98-107); Estimated Glomerular Filt Rate > 60 mL/min (>60); Glucose 140 mg/dL (70-100); HEMOLYSIS 21 (0-50); Potassium 4.4 mmol/L (3.4-5.1); Sodium 135 mmol/L (137-145)
[2024-01-18] MEDS: REMDESIVIR 100 MG in SODIUM CHLORIDE 0.9% 250 ML 250 MG IV (09:27)
[2024-01-18] MEDS: ENOXAPARIN 40 MG/0.4 ML SYRINGE SUBCUT (09:27)
[2024-01-18] MEDS: METOPROLOL ER 50 MG TABLET 100 MG PO (09:27)
[2024-01-18] MEDS: AMOXICILLIN/CLAV 875/125 MG 1 TAB PO (09:28)
[2024-01-18] MEDS: DULOXETINE 30 MG CAPSULE 60 MG PO (09:28)
[2024-01-18] MEDS: DEXAMETHASONE 10 MG/ML VIAL 6 MG IV (09:28)
[2024-01-18] MEDS: BACITRACIN 28 GM OINT 1 APPLIC TOP (09:28)
[2024-01-18] MEDS: BENZONATATE 100 MG CAPSULE PO (10:14)
[2024-01-18] MEDS: INSULIN LISPRO 100 UNIT/ML 3ML VIAL SUBCUT (12:07)
--- NOTE | 2024-01-18 14:08 | PM.DS.1 ---
History of Present Illness History of Present Illness Chief complaint: cough, dizziness, wheezing Narrative: From H&P: Yamel Shah is a 53yo deaf female with PMH of OHS and asthma (see prior pulmonary notes), prior chronic tobacco and current daily marijuana use, RHONDA, HTN, DM2, crohn's disease, hypothyroidism and GERD who presents with worsening dyspnea, cough and congestion. She presents with worsening dyspnea over the past couple of days along with increased sputum production. She reports testing positive for COVID approximately a month ago, she felt improved after about a week. Last week she went to [place], [place] and since has felt more short of breath, with increased wheezing and cough. Cough is productive of yellow sputum. Yesterday she felt very sleepy and tired. She called her PCP who asked her to come to the emergency room but she stalled until today when she checked her oxygen and it was 85%. She had not been checking her oxygen for the past few months. She was previously on oxygen but stopped using this about 3 months ago, she was not checking her oxygen at that time. She also complains of stomach pains for the past month, with occasional morning emesis. She has IBS-D and has had no change in her diarrhea. She denies melena, BRBPR, or hematemesis. She endorses daily marijuana smoking, and THC gummy use for years. In the ER, Patient was hypoxic on room air to the low 80s, mid 80s on 2L, but >90% on 3L. Previous pulmonary documentation states she only required 1-2 L at her last follow up. She also no longer has all the equipment for her oxygen at home. CXR was unremarkable. Labs were also unremarkable. I have ordered for a d-dimer given her recent travel. If positive will perform a CT angio. Discharge Providers Provider Date of admission: 01/16/24 17:59 Discharge Date: 01/18/24 Primary care physician: MILLI Morgan Consults: None. Discharge provider: David Carmona MD Summary Hospital Course Discharge Diagnosis: 1. Acute on chronic respiratory failure with hypoxia, present on admission and improved. - likely secondary to asthma exacerbation, with COVID and possible bacterial pneumonia. 2. COVID pneumonia with possible bacterial superimposed pneumonia, present on admission and improved. - treatment as noted above in #1 3. Asthma with exacerbation, present on admission and improved. - steroids as noted above 4. Obesity, present on admission and active. 5. HTN, present on admission and active. - continue home medications. 6. DM, present on admission and active. - replace home oral medication with sliding scale insulin 7. Hypothyroidism, present on admission and active. 8. Possible bacterial pneumonia, present on admission and active. -antibiotics in the hospital. Hospital Course: She was admitted for asthma exacerbation and COVID. Her CT scan was negative. She was treated with steroids and remdesivir as well as empiric antibiotics, Augmentin. She improved with resolution of hypoxemia and great improvement of cough. She felt at or near her baseline the day of discharge was felt to be stable for discharge home. She will be given several more days of oral antibiotics and steroids. She was asked to have close follow up with her primary care. Status at Discharge Cognitive/behavioral status at discharge: oriented Functional status at discharge: independent ambulation Overall status at discharge: patient is back to baseline Time Spent with Patient Time spent: Greater than 30 minutes Exam Vital Signs (past 8 hours): - 01/18/24 07:37 01/18/24 08:00 01/18/24 08:57 Temperature 97.6 F Pulse Rate 95 H 92 H Respiratory Rate 20 16 Blood Pressure 116/79 Pulse Oximetry 94 96 Oxygen Delivery Method Nasal Cannula Nasal Cannula Oxygen Flow Rate 3 2 01/18/24 09:27 01/18/24 11:37 01/18/24 12:00 Temperature 97.6 F Pulse Rate 92 H 103 H 84 Respiratory Rate 20 Blood Pressure 116/72 148/95 H Pulse Oximetry 95 98 Oxygen Delivery Method Nasal Cannula Oxygen Flow Rate 3 2 Oxygen Delivery Method Nasal Cannula Oxygen Flow Rate 2 Narrative Exam Narrative: NAD, alert and oriented. Fluent speech. Lungs are clear, normal rate and effort. Minimal if any wheezing. No coughing while in the room. Heart is regular, no murmur gallop or rub. Abdomen is soft, non distended. Extremities are free of edema. Objective Imaging Multiple studies:: Radiologist's impression: Chest CTA: No pulmonary embolus. No acute cardiopulmonary process. Chest x-ray: No acute cardiopulmonary pathology. Labs 01/18/24 07:05 01/18/24 07:05 Labs: Laboratory Results - last 24 hr 01/18/24 07:05 WBC 14.1 H RBC 4.78 Hgb 13.4 Hct 40.4 MCV 84.5 MCH 28.0 MCHC 33.2 RDW 14.6 Plt Count 204 Neut % (Auto) 75.3 H Lymph % (Auto) 17.4 L [place] % (Auto) 7.1 Eos % (Auto) 0.0 L Baso % (Auto) 0.2 Neut # (Auto) 93691 H Lymph # (Auto) 2400 [place] # (Auto) 1000 H Eos # (Auto) 0 Baso # (Auto) 0 Sodium 135 L Potassium 4.4 Chloride 102 Carbon Dioxide 30 BUN 28 H Creatinine 0.80 Estimated GFR > 60 BUN/Creatinine Ratio 35.0 H Glucose 140 H Calcium 9.4 Magnesium 2.0 PFSH Medical History HTN (hypertension) Hypothyroidism GERD (gastroesophageal reflux disease) Diabetes Crohn disease Asthma RHONDA (obstructive sleep apnea) Deafness COVID-19 Surgical History S/P implantation of urinary electronic stimulator device Social History household members: children Smoking Status: Former smoker alcohol intake: never Discharge Assessment & Plan Assessment and Plan Assessment: 1. COVID, present on admission and active. 2. Acute hypoxic respiratory failure, present on admission and resolved. 3. Asthma exacerbation, present on admission and improved. Plan of Treatment: Discharge home with the initial 5 days of oral antibiotics and steroids. Close follow up with the PCP. Return for fevers, chills, or dyspnea. Her antibiotics were changed to doxycycline at discharge to cover atypicals as well. Discharge Plan Discharge Plan Patient Disposition: Home Provider Discharge Comment: Stable for discharge home. Discharge orders & Medications Prescriptions: New prednisone 50 mg tablet 50 mg PO DAILY Qty: 5 0RF doxycycline hyclate 100 mg capsule 100 mg PO BID Qty: 10 0RF Continued fluticasone propion-salmeterol [Advair HFA] 230-21 mcg/actuation HFA aerosol inhaler 2 puff inhalation BID Qty: 12 3RF fluticasone propion-salmeterol [Advair HFA] 115-21 mcg/actuation HFA aerosol inhaler 2 puff inhalation BID metoprolol succinate 50 mg tablet extended release 24 hr 100 mg PO DAILY glimepiride 2 mg tablet 2 mg PO DAILY Rx Instructions: Take along with 4 mg tab levothyroxine 50 mcg tablet 50 mcg PO DAILY glimepiride 4 mg tablet 4 mg PO DAILY Rx Instructions: take along with 2 mg tab duloxetine 60 mg capsule,delayed release(DR/EC) 60 mg PO QPM Atrovent HFA 17 mcg/actuation HFA aerosol inhaler 2 puff inhalation QID Rybelsus 7 mg tablet 7 mg PO DAILY pantoprazole 40 mg Tablet,Delayed Release (Dr/Ec) 40 mg PO 0600 Qty: 30 0RF (DME) nebulizer accessories Misc See Rx Instructions .Route Qty: 4 0RF Rx Instructions: nebulizer tubing benzonatate 200 mg capsule 200 mg PO TID PRN (Reason: cough) Qty: 20 0RF benzonatate 100 mg capsule 100 mg PO Q6H PRN (Reason: cough) Qty: 20 0RF (DME) blood-glucose meter Kit See Rx Instructions .Route Qty: 1 0RF Rx Instructions: As directed (DME) blood sugar diagnostic Strip See Rx Instructions .Route Qty: 50 0RF Rx Instructions: As directed albuterol sulfate 90 mcg/actuation HFA aerosol inhaler 2 puff inhalation Q6H PRN (Reason: shortness of breath or wheezing) Qty: 8.5 3RF Follow up/Referrals: Clementina Krishnan ARNP [Primary Care Provider] - Activity Restrictions/Additional Instructions: toelrated Diet/Activity/Treatments Activity: As tolerated. Skin/Wound/Dressing Care Report to your healthcare provider any signs of infection, such as:: chills, fever Visit Report/Discharge Packet Instructions: Prednisone, DI for COVID-19 (Suspected or Confirmed ) Stand Alone Forms: Patient Portal/API Discharge Data Primary Care Provider: Clementina Krishnan
== END 2024-01-18 15:16 | disposition home or self-care (01) | DRG 177 ==
LOC: ED 13:15 → AC 18:00
PROVIDERS: Admitting Provider Internal Medicine; Emergency Provider Emergency Medicine; PCP Nurse Practitioner Family; Referring Provider Emergency Medicine; Visit Provider Internal Medicine
DX: U07.1 COVID-19 (principal); J12.82 Pneumonia due to coronavirus disease 2019; J96.21 Acute and chronic respiratory failure with hypoxia; J15.9 Unspecified bacterial pneumonia; J45.901 Unspecified asthma with (acute) exacerbation; Z68.41 Body mass index [BMI] 40.0-44.9, adult; H91.93 Unspecified hearing loss, bilateral; K58.0 Irritable bowel syndrome with diarrhea; E66.9 Obesity, unspecified; I10 Essential (primary) hypertension; E11.9 Type 2 diabetes mellitus without complications; E03.9 Hypothyroidism, unspecified; F12.90 Cannabis use, unspecified, uncomplicated; G47.33 Obstructive sleep apnea (adult) (pediatric); K21.9 Gastro-esophageal reflux disease without esophagitis; Z87.891 Personal history of nicotine dependence; Z79.84 Long term (current) use of oral hypoglycemic drugs
CPT/HCPCS: 36415; 71045; 71275; 80048; 80053; 82550; 82962; 83036; 83605; 83735; 83880; 84443; 84484; 85025; 85379; 85610; 87633; 93005; 94640; 94762; 96365; 96375; 99285; J1100; J1650; J1815; J2919; J7613; Q9967

== ENCOUNTER 2024-04-11 18:22 | Inpatient (IN) | payer MEDICARE, MEDICAID, SELFPAY ==
[2024-01-16 22:17] VITALS: BMI 42.7
[2024-04-11] VITALS (21 sets, daily range): BP systolic 113–157; BP diastolic 63–89; PULSE 99–122; RESP 18–40; TEMP 36.9; O2SAT 90–98; BMI 42.9
--- NOTE | 2024-04-11 18:39 | DI.RAD.S_ITS ---
PROCEDURE: XR CHEST 1V INDICATIONS: SOB TECHNIQUE: One view of the chest was acquired. COMPARISON: [facility], CR, XR CHEST 1V, 01/16/2024, 14:01. [facility], CR, XR CHEST 1V, 10/15/2023, 16:48. FINDINGS: Surgical changes and devices: None. Lungs and pleura: Lungs are clear. No pleural effusions or pneumothorax. Mediastinum: Mediastinal contours appear normal. Heart size is normal. Bones and chest wall: No suspicious bony lesions. Overlying soft tissues appear unremarkable. IMPRESSION: No acute cardiopulmonary abnormality is seen. Dictated by: Dao Copeland M.D. on 04/11/2024 at 19:57 Approved by: Dao Copeland M.D. on 04/11/2024 at 19:58
--- NOTE | 2024-04-11 18:39 | EKG_ITS ---
[facility] [address] [place] [address] Test Date: 2024-04-11 Pat Name: Yamel Shah Department: [facility] Room: Gender: Female Hem[employer] Automatic: : [id number] Requested By: Order Number: [id number] Reading MD: David Carmona Measurements Intervals [place] Rate: 95 P: 26 TX: 130 QRS: 52 QRSD: 76 T: 70 QT: 372 QTc: 467 Interpretive Statements Normal sinus rhythm Electronically Signed On 04-12-2024 12:51:41 PST by David Carmona
--- NOTE | 2024-04-11 18:40 | PC.NURSE ---
Patient is deaf, does not have hearing aids here with her. Sister is at bedside helping to interpret everything that is said in room, this is preferred by patient because sister is fluent in ASL and hearing, sister is also well versed in interpreting all things said/spoken or sounds for her sister as needed. RN also removed mask from face whenever possible to allow patient to see full face, facial expression, and lips while speaking to aid in communication; sister explained that is helpful for patient.
[2024-04-11] MEDS: ALBUTEROL/IPRATROPIUM 3 ML AMPUL 6 ML INH (18:59)
--- NOTE | 2024-04-11 19:19 | ED_ITS ---
HPI - General Adult General Chief complaint: Shortness of Breath/Dyspnea Stated complaint: SOB, Wheezing Time Seen by Provider: 04/11/24 18:38 Source: patient and family Mode of arrival: Ambulatory Limitations: hearing History of Present Illness HPI narrative: Patient was a 53-year-old female. She was deaf. Her sister is at bedside providing sign language interpretation. Patient was here for evaluation of shortness of breath and wheezing that has been progressively worsening over the past couple days. No fevers. Patient was having some chest pressure because of the shortness of breath. She does have a history of asthma. She also states she was presumed COPD but does not carry the specific diagnosis. She does not see a electrical design technician. She has been trying to get into see a electrical design technician but has been having some difficulty because she needs a service in order to help her make phone calls and she thinks that because it is showing up as an abnormal phone number the clinic is not picking up the phone she was not been able to talk with anybody at the electrical design technician's office despite multiple attempts. She denies any lower extremity swelling. She has a nonproductive cough. She was albuterol at home which he has been using fairly persistently. She was a nebulizer at home but is out of the medications. She has been on Advair in the past but she states this medication did not work for her in her insurance company does not cover it any longer. Related Data Home Medications Medication Instructions Recorded Confirmed duloxetine 60 mg capsule,delayed 60 mg PO QPM 03/29/23 01/16/24 release fluticasone propionate 115 2 puff inhalation BID 03/29/23 01/16/24 mcg-salmeterol 21 mcg/actuation HFA inhaler (Advair HFA) glimepiride 2 mg tablet 2 mg PO DAILY 03/29/23 01/16/24 glimepiride 4 mg tablet 4 mg PO DAILY 03/29/23 01/16/24 ipratropium bromide 17 2 puff inhalation QID 03/29/23 01/16/24 mcg/actuation HFA aerosol inhaler (Atrovent HFA) levothyroxine 50 mcg tablet 50 mcg PO DAILY 03/29/23 01/16/24 metoprolol succinate 50 mg 100 mg PO DAILY 03/29/23 01/16/24 tablet,extended release 24 hr semaglutide 7 mg tablet (Rybelsus) 7 mg PO DAILY 03/29/23 01/16/24 Previous Rx's Medication Instructions Recorded nebulizer accessories #4 ea 04/04/23 pantoprazole 40 mg tablet,delayed 40 mg PO 0600 #30 tabs 04/04/23 release benzonatate 200 mg capsule 200 mg PO TID PRN cough #20 caps 06/23/23 albuterol sulfate 90 mcg/actuation 2 puff inhalation Q6H PRN 06/27/23 aerosol inhaler shortness of breath or wheezing #8.5 grams benzonatate 100 mg capsule 100 mg PO Q6H PRN cough #20 caps 10/15/23 blood sugar diagnostic #50 ea 10/15/23 blood-glucose meter #1 ea 10/15/23 fluticasone propionate 230 2 puff inhalation BID #12 grams 11/22/23 mcg-salmeterol 21 mcg/actuation HFA inhaler (Advair HFA) doxycycline hyclate 100 mg capsule 100 mg PO BID #10 caps 01/18/24 prednisone 50 mg tablet 50 mg PO DAILY #5 tabs 01/18/24 Allergies Allergy/AdvReac Type Severity Reaction Status Date / Time shellfish derived Allergy Intermediate Verified 10/15/23 15:27 dulaglutide [From Trulicity] Allergy Verified 10/15/23 15:27 metformin Allergy Verified 10/15/23 15:27 Review of Systems Review of Systems ROS Unobtainable: All systems reviewed & are unremarkable except as noted in HPI and below Patient History Medical History HTN (hypertension) Hypothyroidism GERD (gastroesophageal reflux disease) Diabetes Crohn disease Asthma RHONDA (obstructive sleep apnea) Deafness COVID-19 Surgical History S/P implantation of urinary electronic stimulator device Social History household members: children Smoking Status: Former smoker alcohol intake: never Smoking Status: Former smoker alcohol intake frequency: holidays/special occasions only Exam Initial Vital Signs Initial Vital Signs: Vital Signs Pulse Rate 105 H 04/11/24 18:37 Respiratory Rate 28 H 04/11/24 18:37 Pulse Oximetry 90 L 04/11/24 18:37 Const General: cooperative, comfortable and No ill appearing [facility] Head: normal to inspection and normocephalic Resp Effort & Inspection: cough, labored, no respiratory distress, no retractions, no stridor, tachypneic and no use of accessory muscles Auscultation: rhonchi and wheezes Cardio Rate: tachycardic Rhythm: regular rhythm Skin General: no rashes or lesions noted Neuro General: patient alert, patient awake and moves all extremities Extrem General: No edema Course Orders Ordered: ED Orders 04/11/24 18:39 XR chest 1V Stat EKG-12 Lead Stat RT Consult Eval and Treat Now 04/11/24 19:20 BNP [NT-proBNP (BNP-Adult 18+)] Stat Complete Blood Count AUTO DIFF Stat Comprehensive Metabolic Panel Stat Lipase Stat Troponin & CK Cardiac Panel Stat 04/11/24 19:40 Covid-19 + FLU A/B + RSV - PCR Stat 04/11/24 21:10 CT chest wo con Stat Magnesium Sulfate (Magnesium Sulfate) 2 gm in 50 mls @ 25 mls/hr IV NOW ONE Stop: 04/12/24 01:46 Last Admin: 04/11/24 23:55 Dose: 25 mls/hr Documented By: KG Co-signed By: HNG Discontinued Medications Albuterol (Albuterol 2.5 Mg/3 Ml Neb (Adult)) 20 mg INH NOW ONE Stop: 04/11/24 21:11 Last Admin: 04/11/24 21:45 Dose: 20 mg Documented By: MR Albuterol/Ipratropium (Albuterol/Ipratropium 3 Ml Ampul) 6 ml INH NOW ONE Stop: 04/11/24 18:45 Last Admin: 04/11/24 18:59 Dose: 6 ml Documented By: ROSHAN Albuterol/Ipratropium (Albuterol/Ipratropium 3 Ml Ampul) 3 ml INH NOW ONE Stop: 04/11/24 19:21 Last Admin: 04/11/24 19:55 Dose: 3 ml Documented By: ROSHAN Azithromycin 500 mg/ Dextrose 250 mls @ 250 mls/hr IV NOW ONE Stop: 04/11/24 23:48 Methylprednisolone (Methylprednisolone 125 Mg/2 Ml Vial) 125 mg IV NOW ONE Stop: 04/11/24 19:22 Last Admin: 04/11/24 19:45 Dose: 125 mg Documented By: PRIMITIVO Vital Signs Vital signs: Vital Signs - 8 hr 04/11/24 18:37 04/11/24 18:38 04/11/24 18:38 Temperature Pulse Rate 105 H 103 H Respiratory Rate 28 H Blood Pressure 157/82 H Pulse Oximetry 90 L 92 Oxygen Delivery Method Oxygen Flow Rate 04/11/24 18:45 04/11/24 18:45 04/11/24 18:59 Temperature 98.5 F Pulse Rate 100 H 106 H Respiratory Rate 28 H 40 H Blood Pressure 134/84 134/84 Pulse Oximetry 94 90 L Oxygen Delivery Method Nasal Cannula Room Air Oxygen Flow Rate 04/11/24 19:00 04/11/24 19:08 04/11/24 19:30 Temperature Pulse Rate 100 H 99 H 103 H Respiratory Rate 22 28 H 20 Blood Pressure Pulse Oximetry 93 95 93 Oxygen Delivery Method Nasal Cannula Nasal Cannula Nasal Cannula Oxygen Flow Rate 2 3 2 04/11/24 19:56 04/11/24 20:00 04/11/24 20:30 Temperature Pulse Rate 106 H 107 H 107 H Respiratory Rate 24 23 Blood Pressure Pulse Oximetry 94 91 92 Oxygen Delivery Method Nasal Cannula Nasal Cannula Oxygen Flow Rate 3 2 04/11/24 21:00 04/11/24 21:05 04/11/24 21:05 Temperature Pulse Rate 107 H Respiratory Rate 22 Blood Pressure 125/87 125/78 Pulse Oximetry 98 Oxygen Delivery Method Nasal Cannula Oxygen Flow Rate 2 04/11/24 21:05 04/11/24 21:30 04/11/24 22:00 Temperature Pulse Rate 106 H 105 H 112 H Respiratory Rate 22 22 Blood Pressure Pulse Oximetry 92 95 94 Oxygen Delivery Method Nasal Cannula Oxygen Flow Rate 2 04/11/24 22:09 04/11/24 22:09 04/11/24 22:20 Temperature Pulse Rate 111 H 116 H Respiratory Rate 18 21 Blood Pressure 142/63 H 118/67 Pulse Oximetry 94 94 Oxygen Delivery Method Room Air Room Air Oxygen Flow Rate 04/11/24 22:21 04/11/24 22:21 04/11/24 22:30 Temperature Pulse Rate 121 H Respiratory Rate 22 Blood Pressure 118/65 113/68 Pulse Oximetry 92 Oxygen Delivery Method Room Air Oxygen Flow Rate 04/11/24 22:30 04/11/24 23:00 04/11/24 23:00 Temperature Pulse Rate 118 H 114 H Respiratory Rate 22 18 Blood Pressure 120/67 Pulse Oximetry 90 L 90 L Oxygen Delivery Method Room Air Oxygen Flow Rate 04/11/24 23:21 04/11/24 23:21 04/11/24 23:30 Temperature Pulse Rate 119 H 122 H Respiratory Rate Blood Pressure 121/81 Pulse Oximetry 94 92 Oxygen Delivery Method Oxygen Flow Rate 04/11/24 23:30 Temperature Pulse Rate Respiratory Rate Blood Pressure 149/89 H Pulse Oximetry Oxygen Delivery Method Oxygen Flow Rate Medical Decision Making Medical Records Medical records reviewed: Yes I reviewed the patient's medical records. Lab Data Lab results reviewed: Yes I reviewed the patient's lab results. 04/11/24 19:20 04/11/24 19:20 Labs: Lab Results 04/11/24 04/11/24 Range/Units 19:20 19:40 WBC 6.9 (4.5-11.0) X10^3/uL RBC 5.02 (4.0-5.2) X10^6/uL Hgb 14.0 (12.0-16.0) g/dL Hct 42.4 (36-46) % MCV 84.4 (80-100) fL MCH 27.9 (26-34) PG MCHC 33.1 (30-36) % RDW 14.1 (11.6-14.8) % Plt Count 163 (150-400) X10^3/uL Neut % (Auto) 46.1 L (50-75) % Lymph % (Auto) 35.7 (25-40) % [place] % (Auto) 8.5 (3-14) % Eos % (Auto) 8.9 H (2-4) % Baso % (Auto) 0.8 (0-2) % Neut # (Auto) 3200 (6717-7186) /uL Lymph # (Auto) 2500 (8340-3146) /uL [place] # (Auto) 600 (0-900) /uL Eos # (Auto) 600 H (0-450) /uL Baso # (Auto) 100 (0-100) /uL Sodium 142 (137-145) mmol/L Potassium 4.2 (3.4-5.1) mmol/L Chloride 106 (98-107) mmol/L Carbon Dioxide 31 (22-32) mmol/L BUN 18 H (7-17) mg/dL Creatinine 0.88 (0.52-1.04) mg/dL Estimated GFR > 60 (>60) mL/min BUN/Creatinine Ratio 20.5 (6-22) Glucose 123 H (70-100) mg/dL Calcium 9.1 (8.4-10.2) mg/dL Total Bilirubin 0.5 (0.2-1.3) mg/dL AST 34 (14-36) IU/L ALT 35 H (<35) IU/L Alkaline Phosphatase 117 (38-126) U/L Total Creatine Kinase 103 (30-135) U/L Troponin I < 0.012 (0.01-0.034) ng/mL NT-Pro-B Natriuret Pep 69 (<125) pg/mL Total Protein 7.3 (6.3-8.2) g/dL Albumin 4.4 (3.5-5.0) g/dL Globulin 2.9 (1.7-4.1) g/dL Albumin/Globulin Ratio 1.5 (1.0-2.8) Lipase 197 (23-300) U/L SARS-CoV-2 (PCR) Negative (Negative) Influenza A (RT-PCR) Flu a negative (NEGATIVE) Influenza B (RT-PCR) Flu b negative (NEGATIVE) RSV (PCR) Negative (Negative) Imaging Data Chest x-ray: Radiologist's Impression: PROCEDURE: XR CHEST 1V INDICATIONS: SOB TECHNIQUE: One view of the chest was acquired. COMPARISON: [facility], , XR CHEST 1V, 01/16/2024, 14:01. [facility], , XR CHEST 1V, 10/15/2023, 16:48. FINDINGS: Surgical changes and devices: None. Lungs and pleura: Lungs are clear. No pleural effusions or pneumothorax. Mediastinum: Mediastinal contours appear normal. Heart size is normal. Bones and chest wall: No suspicious bony lesions. Overlying soft tissues appear unremarkable. IMPRESSION: No acute cardiopulmonary abnormality is seen. CT scan - chest: Radiologist's Impression: PROCEDURE: CT CHEST WO CON INDICATIONS: SOb and cough TECHNIQUE: Noncontrast 5 mm thick sections acquired from the pulmonary apices to the posterior costophrenic angles. 1 mm lung window, 5 mm thick coronal and sagittal and 7 mm axial MIP reformats were then acquired. For radiation dose reduction, the following was used: automated exposure control, adjustment of mA and/or kV according to patient size. COMPARISON: [facility], CT, CT ANGIO CHEST PE PROTOCOL, 01/16/2024, 23:02. FINDINGS: Image quality: Diagnostic. Lower Neck: No enlarged lymph nodes. Thyroid: No thyroid nodules which require sonographic follow up, per consensus guidelines. Axillae: No enlarged lymph nodes. Chest Wall: Unremarkable. Bones: Unremarkable. Lungs and Pleura: No pneumothorax or pleural effusions. No consolidation or suspicious nodules. Heart: Heart size is normal. No pericardial effusion. Thoracic Vessels: The aorta and pulmonary arteries demonstrate normal size. Mediastinum and Judie: No enlarged lymph nodes. Esophagus: No wall thickening. No hiatal hernia. Upper Abdomen: Visualized upper abdomen solid organs and bowel loops appear normal. IMPRESSION: No acute pulmonary process. ECG Data Attestation: I personally reviewed and interpreted this ECG as follows: Interpretation: Sinus rhythm Ventricular rate 95 Normal axis Normal QRS Normal QTC No ST T wave changes MDM Narrative Medical decision making narrative: Chest x-ray shows no signs of pneumonia. No CT scan was ordered because the patient states that her primary doctor monitor have a CT scan but again she has been having difficulty navigating the phone system in order to get this scheduled. Subsequent CT scan is unremarkable and I did discuss this with her. She was remained persistently tachycardic and I suspect that this is because of all of the albuterol. She was not been hypoxic but up with walking she does become very dyspneic on exertion and tachypneic. After 3 DuoNebs, continuous nebulizer, steroids the patient was still having quite a bit of wheezing and tachypnea. Magnesium will be administered. I will cover with antibiotics given the fact that she was not improving with normal treatment to cover any potential atypical pneumonias. I do feel given her presentation, tachycardia, tachypnea, wheezing of the fact that she does not have nebulizer medications at home that admission to the hospital would benefit her tremendously. I discussed this with the patient in the sister. She expressed understanding and agreement. Discussed the case with Dr. Ghotra hospitalist on-call who will admit for further evaluation and treatment. Discharge Plan Departure Patient Disposition: Admitted as Observation Clinical Impression: Asthma with exacerbation Admit Date/Time: 04/11/24 23:57
[2024-04-11 19:35] LABS: Add Manual Diff / Slide Review NO; Basophils Absolute Auto 100 /uL (0-100); Basophils Percent Auto 0.8 % (0-2); Eosinophils Absolute Auto 600 /uL (0-450); Eosinophils Percent Auto 8.9 % (2-4); Hematocrit 42.4 % (36-46); Lymphocytes Absolute Auto 2500 /uL (1100-4500); Lymphocytes Percent Auto 35.7 % (25-40); Mean Corpuscular HGB Conc 33.1 % (30-36); Mean Corpuscular Hemoglobin 27.9 PG (26-34); Mean Corpuscular Volume 84.4 fL (80-100); Monocytes Absolute Auto 600 /uL (0-900); Monocytes Percent Auto 8.5 % (3-14); Neutrophils Absolute Auto 3200 /uL (1500-7000); Neutrophils Percent Auto 46.1 % (50-75); Platelet Count 163 X10^3/uL (150-400); Red Blood Cell Count 5.02 X10^6/uL (4.0-5.2); Red Cell Distribution Width 14.1 % (11.6-14.8); White Blood Cell Count 6.9 X10^3/uL (4.5-11.0)
[2024-04-11 19:45] LABS: Creatine Kinase 103 U/L (30-135)
[2024-04-11] MEDS: methylPREDNISolone 125 MG/2 ML VIAL IV (19:45)
[2024-04-11 19:46] LABS: Alanine Aminotransferase 35 IU/L (<35); Albumin 4.4 g/dL (3.5-5.0); Albumin Globulin Ratio 1.5 (1.0-2.8); Alkaline Phosphatase 117 U/L (38-126); Aspartate Aminotransferase 34 IU/L (14-36); BUN Creatinine Ratio 20.5 (6-22); Bilirubin Total 0.5 mg/dL (0.2-1.3); Blood Urea Nitrogen 18 mg/dL (7-17); Calcium 9.1 mg/dL (8.4-10.2); Carbon Dioxide 31 mmol/L (22-32); Chloride 106 mmol/L (98-107); Estimated Glomerular Filt Rate > 60 mL/min (>60); Globulin 2.9 g/dL (1.7-4.1); Glucose 123 mg/dL (70-100); HEMOLYSIS < 15 (0-50); Lipase 197 U/L (23-300); Potassium 4.2 mmol/L (3.4-5.1); Sodium 142 mmol/L (137-145); Total Protein 7.3 g/dL (6.3-8.2)
[2024-04-11] MEDS: ALBUTEROL/IPRATROPIUM 3 ML AMPUL INH (19:55)
[2024-04-11 19:58] LABS: NT-proBNP (BNP-Adult 18+) 69 pg/mL (<125); Troponin I < 0.012 ng/mL (0.01-0.034)
[2024-04-11 20:34] LABS: Influenza A - CEPHEID Flu A NEGATIVE (NEGATIVE); Influenza B - CEPHEID Flu B NEGATIVE (NEGATIVE); Respiratory Syncytial Virus Negative (Negative)
[2024-04-11 20:35] LABS: COVID-19 CEPHEID 4-PLEX PCR Negative (Negative)
--- NOTE | 2024-04-11 21:10 | DI.CT.S_ITS ---
PROCEDURE: CT CHEST WO CON INDICATIONS: SOb and cough TECHNIQUE: Noncontrast 5 mm thick sections acquired from the pulmonary apices to the posterior costophrenic angles. 1 mm lung window, 5 mm thick coronal and sagittal and 7 mm axial MIP reformats were then acquired. For radiation dose reduction, the following was used: automated exposure control, adjustment of mA and/or kV according to patient size. COMPARISON: [facility], CT, CT ANGIO CHEST PE PROTOCOL, 01/16/2024, 23:02. FINDINGS: Image quality: Diagnostic. Lower Neck: No enlarged lymph nodes. Thyroid: No thyroid nodules which require sonographic follow up, per consensus guidelines. Axillae: No enlarged lymph nodes. Chest Wall: Unremarkable. Bones: Unremarkable. Lungs and Pleura: No pneumothorax or pleural effusions. No consolidation or suspicious nodules. Heart: Heart size is normal. No pericardial effusion. Thoracic Vessels: The aorta and pulmonary arteries demonstrate normal size. Mediastinum and Judie: No enlarged lymph nodes. Esophagus: No wall thickening. No hiatal hernia. Upper Abdomen: Visualized upper abdomen solid organs and bowel loops appear normal. IMPRESSION: No acute pulmonary process. Dictated by: Pat Vargas M.D. on 04/11/2024 at 22:04 Approved by: Pat Vargas M.D. on 04/11/2024 at 22:10
[2024-04-11] MEDS: ALBUTEROL 2.5 MG/3 ML NEB (ADULT) 20 MG INH (21:45)
--- NOTE | 2024-04-11 22:16 | PC.NURSE ---
patient reported dizziness after start of nebulizer, bp and heartrate stable, see flowsheet for VS. MD notified and ordered to pause nebulizer. Patient then asked to ambulate to restroom, ambulated independentl, steady gate to restroom; oxygen off.
--- NOTE | 2024-04-11 23:25 | PC.NURSE ---
DESIZING MACHINE OPERATOR note: Walked patient down the che. Patient's oxygen saturation was 92% on room air with a pulse of 122. This was consistent.
[2024-04-11] MEDS: MAGNESIUM SULFATE 2 GM/50 ML PIGGYBACK IV (23:55)
[2024-04-12] VITALS (40 sets, daily range): BP systolic 115–154; BP diastolic 66–91; PULSE 99–116; RESP 18–28; TEMP 36.7–37.7; O2SAT 86–96; BMI 42.9
--- NOTE | 2024-04-12 00:03 | PC.NURSE ---
Mag sulfate infusing at resp rate over 20 mins per verbal order from Dr Glaeas
[2024-04-12] MEDS: AZITHROMYCIN 500 MG in DEXTROSE 5% IN WATER 250 ML 250 MG IV (00:39)
[2024-04-12] MEDS: HEPARIN 5,000 UNIT/ML VIAL 5000 UNIT SUBCUT ×3 (00:39→20:18)
--- NOTE | 2024-04-12 01:20 | PC.NURSE ---
Pt took her routine home nighttime meds: duloxetine metoprolol with ok from Dr Galeas
--- NOTE | 2024-04-12 01:22 | PC.NURSE ---
Admission assessment completed with pt's sister assisting with ASL interpretation.
[2024-04-12] MEDS: ACETAMINOPHEN 325 MG TABLET 650 MG PO ×2 (02:55→10:18)
[2024-04-12 05:22] LABS: Add Manual Diff / Slide Review NO; Basophils Absolute Auto 0 /uL (0-100); Basophils Percent Auto 0.1 % (0-2); Eosinophils Absolute Auto 0 /uL (0-450); Eosinophils Percent Auto 0.1 % (2-4); Hematocrit 41.5 % (36-46); Hemoglobin 13.6 g/dL (12.0-16.0); Lymphocytes Absolute Auto 600 /uL (1100-4500); Lymphocytes Percent Auto 8.9 % (25-40); Mean Corpuscular HGB Conc 32.7 % (30-36); Mean Corpuscular Hemoglobin 27.7 PG (26-34); Mean Corpuscular Volume 84.7 fL (80-100); Monocytes Absolute Auto 100 /uL (0-900); Monocytes Percent Auto 1.2 % (3-14); Neutrophils Absolute Auto 5700 /uL (1500-7000); Neutrophils Percent Auto 89.7 % (50-75); Platelet Count 154 X10^3/uL (150-400); Red Blood Cell Count 4.91 X10^6/uL (4.0-5.2); White Blood Cell Count 6.4 X10^3/uL (4.5-11.0)
[2024-04-12 05:37] LABS: Blood Urea Nitrogen 20 mg/dL (7-17); Calcium 9.3 mg/dL (8.4-10.2); Carbon Dioxide 23 mmol/L (22-32); Chloride 105 mmol/L (98-107); Estimated Glomerular Filt Rate > 60 mL/min (>60); Glucose 265 mg/dL (70-100); HEMOLYSIS < 15 (0-50); Potassium 4.7 mmol/L (3.4-5.1); Sodium 137 mmol/L (137-145)
--- NOTE | 2024-04-12 05:50 | PM.HP.1 ---
History of Present Illness History of Present Illness Chief complaint: SOB, Wheezing Narrative: 53 year old female with past medical history of asthma and presumed COPD (past medical history of tobacco abuse but quit 10 years ago), depression, hypothyroidism, NIDDM and HTN presents with shortness of breath. Of note, the patient is deaf the patient's younger sister is at the bedside who help with interpretation. Per report, over the last few days, the patient has been having progressive shortness of breath and wheezing. The patient has a dry cough but denies any known sick contact. The patient also denies any fever, chills, chest pain, nausea, vomiting, diarrhea or dysuria. In our ER, the patient remains stable but was requiring 1-2L of O2 per NC. CXR and CT chest shows no acute findings. The patient labs were relatively benign. The patient was given Solumedrol and duoenbs. [facility] Medical History HTN (hypertension) Hypothyroidism GERD (gastroesophageal reflux disease) Diabetes Crohn disease Asthma RHONDA (obstructive sleep apnea) Deafness COVID-19 Surgical History S/P implantation of urinary electronic stimulator device Social History household members: children Smoking Status: Former smoker alcohol intake: never Meds Home Medications and Allergies Home Medications Medication Instructions Recorded Confirmed Type duloxetine 60 mg capsule,delayed 60 mg PO QPM 03/29/23 04/12/24 History release fluticasone propionate 115 2 puff inhalation BID 03/29/23 01/16/24 History mcg-salmeterol 21 mcg/actuation HFA inhaler (Advair HFA) glimepiride 2 mg tablet 2 mg PO DAILY 03/29/23 04/12/24 History glimepiride 4 mg tablet 4 mg PO DAILY 03/29/23 04/12/24 History ipratropium bromide 17 2 puff inhalation QID 03/29/23 01/16/24 History mcg/actuation HFA aerosol inhaler (Atrovent HFA) levothyroxine 50 mcg tablet 50 mcg PO DAILY 03/29/23 04/12/24 History metoprolol succinate 50 mg 100 mg PO DAILY 03/29/23 04/12/24 History tablet,extended release 24 hr semaglutide 7 mg tablet (Rybelsus) 14 mg PO DAILY 03/29/23 04/12/24 History nebulizer accessories #4 ea 04/04/23 01/16/24 Rx pantoprazole 40 mg tablet,delayed 40 mg PO 0600 #30 tabs 04/04/23 01/16/24 Rx release benzonatate 200 mg capsule 200 mg PO TID PRN cough #20 caps 06/23/23 01/16/24 Rx albuterol sulfate 90 mcg/actuation 2 puff inhalation Q6H PRN 06/27/23 01/16/24 Rx aerosol inhaler shortness of breath or wheezing #8.5 grams benzonatate 100 mg capsule 100 mg PO Q6H PRN cough #20 caps 10/15/23 01/16/24 Rx blood sugar diagnostic #50 ea 10/15/23 01/16/24 Rx blood-glucose meter #1 ea 10/15/23 01/16/24 Rx fluticasone propionate 230 2 puff inhalation BID #12 grams 11/22/23 01/16/24 Rx mcg-salmeterol 21 mcg/actuation HFA inhaler (Advair HFA) doxycycline hyclate 100 mg capsule 100 mg PO BID #10 caps 01/18/24 Rx prednisone 50 mg tablet 50 mg PO DAILY #5 tabs 01/18/24 Rx pantoprazole 40 mg tablet,delayed 40 mg PO DAILY 04/12/24 04/12/24 History release pioglitazone 15 mg tablet 15 mg PO DAILY 04/12/24 04/12/24 History vibegron 75 mg tablet (Gemtesa) 75 mg PO DAILY 04/12/24 04/12/24 History Allergies Allergy/AdvReac Type Severity Reaction Status Date / Time shellfish derived Allergy Intermediate Verified 10/15/23 15:27 dulaglutide [From [facility]] Allergy Verified 10/15/23 15:27 metformin Allergy Verified 10/15/23 15:27 Review of Systems Review of Systems ROS: Yes All systems reviewed with the patient and are negative except as otherwise documented Exam Vital Signs (past 8 hours): - 04/11/24 22:00 04/11/24 22:09 04/11/24 22:09 Pulse Rate 112 H 111 H Respiratory Rate 22 18 Blood Pressure 142/63 H Pulse Oximetry 94 94 Oxygen Delivery Method Nasal Cannula Room Air Oxygen Flow Rate 2 04/11/24 22:20 04/11/24 22:21 04/11/24 22:21 Pulse Rate 116 H 121 H Respiratory Rate 21 22 Blood Pressure 118/67 118/65 Pulse Oximetry 94 92 Oxygen Delivery Method Room Air Room Air Oxygen Flow Rate 04/11/24 22:30 04/11/24 22:30 04/11/24 23:00 Pulse Rate 118 H 114 H Respiratory Rate 22 18 Blood Pressure 113/68 Pulse Oximetry 90 L 90 L Oxygen Delivery Method Room Air Oxygen Flow Rate 04/11/24 23:00 04/11/24 23:21 04/11/24 23:21 Pulse Rate 119 H Respiratory Rate Blood Pressure 120/67 121/81 Pulse Oximetry 94 Oxygen Delivery Method Oxygen Flow Rate 04/11/24 23:30 04/11/24 23:30 04/12/24 00:00 Pulse Rate 122 H Respiratory Rate Blood Pressure 149/89 H 141/86 H Pulse Oximetry 92 Oxygen Delivery Method Oxygen Flow Rate 04/12/24 00:30 04/12/24 01:00 04/12/24 01:30 Pulse Rate 111 H 113 H 112 H Respiratory Rate 18 Blood Pressure Pulse Oximetry 93 92 93 Oxygen Delivery Method Oxygen Flow Rate 04/12/24 02:00 04/12/24 02:30 04/12/24 03:00 Pulse Rate 110 H 110 H 110 H Respiratory Rate Blood Pressure Pulse Oximetry 91 92 91 Oxygen Delivery Method Oxygen Flow Rate 04/12/24 03:30 04/12/24 04:00 04/12/24 04:30 Pulse Rate 109 H 109 H 109 H Respiratory Rate Blood Pressure Pulse Oximetry 91 91 90 L Oxygen Delivery Method Oxygen Flow Rate 04/12/24 05:00 Pulse Rate 110 H Respiratory Rate Blood Pressure 126/76 Pulse Oximetry 91 Oxygen Delivery Method Oxygen Flow Rate Oxygen Delivery Method Room Air Oxygen Flow Rate 2 Narrative Exam Narrative: Physical Exam: GENERAL: The patient is not in any acute distressed. Awake and alert. HEENT: Nonicteric sclerae, PERRLA, EOMI. Oropharynx clear. Moist mucous membranes. Conjunctivae appear well perfused. HEART: Regular rate and rhythm without murmurs. No lower extremities edema. LUNGS: Clear to auscultation bilaterally. No wheezing, crackles or rhonchi ABDOMEN: Soft, positive bowel sounds, nontender. SKIN: No rash, no excessive bruising, petechiae, or purpura. NEUROLOGIC: AxO x 3. Cranial nerves II-XII intact without motor/sensory deficit. Objective Labs 04/12/24 05:03 04/12/24 05:03 Labs: Laboratory Results - last 24 hr 04/11/24 04/11/24 04/12/24 19:20 19:40 05:03 WBC 6.9 6.4 RBC 5.02 4.91 Hgb 14.0 13.6 Hct 42.4 41.5 MCV 84.4 84.7 MCH 27.9 27.7 MCHC 33.1 32.7 RDW 14.1 14.0 Plt Count 163 154 Neut % (Auto) 46.1 L 89.7 H D Lymph % (Auto) 35.7 8.9 L D [place] % (Auto) 8.5 1.2 L Eos % (Auto) 8.9 H 0.1 L Baso % (Auto) 0.8 0.1 Neut # (Auto) 3200 5700 Lymph # (Auto) 2500 600 L [place] # (Auto) 600 100 Eos # (Auto) 600 H 0 Baso # (Auto) 100 0 Sodium 142 137 Potassium 4.2 4.7 Chloride 106 105 Carbon Dioxide 31 23 BUN 18 H 20 H Creatinine 0.88 0.74 Estimated GFR > 60 > 60 BUN/Creatinine Ratio 20.5 27.0 H Glucose 123 H 265 H D Calcium 9.1 9.3 Total Bilirubin 0.5 AST 34 ALT 35 H Alkaline Phosphatase 117 Total Creatine Kinase 103 Troponin I < 0.012 NT-Pro-B Natriuret Pep 69 Total Protein 7.3 Albumin 4.4 Globulin 2.9 Albumin/Globulin Ratio 1.5 Lipase 197 SARS-CoV-2 (PCR) Negative Influenza A (RT-PCR) Flu a negative Influenza B (RT-PCR) Flu b negative RSV (PCR) Negative Assessment & Plan Assessment & Plan narrative: Asthma/COPD exacerbation. Admit to medical inpatient. Continue Solumedrol and duonebs. No sign of infection at this time. NIDDM. Glucose 120s. Hold all oral DM medications. Will give lantus and montior glucose in setting of steroid treatment. Hypothyroidism. Resume home Synthroid. GERD. Resume home PPI. HTN. Monitor BP and resume home BP medications. DVT PPx hep SQ Code status full code Disposition home in 2 days Time-Based Coding :: [TOTAL MINUTES] spent with patient and on the chart (including review of chart, obtaining history, exam, reviewing outside data, placing orders, documenting exam and treatment plan, and counseling patient) on [DATE].
[2024-04-12] MEDS: methylPREDNISolone 125 MG/2 ML VIAL 60 MG IV ×4 (06:47→23:42)
[2024-04-12] MEDS: LEVOTHYROXINE 50 MCG TABLET PO (06:47)
--- NOTE | 2024-04-12 07:23 | P.PN_ITS ---
Subjective Subjective Interval history: Summary: 53 year old female with past medical history of asthma and presumed COPD (past medical history of tobacco abuse but quit 10 years ago), depression, hypothyroidism, NIDDM and HTN presents with shortness of breath. Of note, the patient is deaf the patient's younger sister is at the bedside who help with interpretation. Per report, over the last few days, the patient has been having progressive shortness of breath and wheezing. The patient has a dry cough but denies any known sick contact. The patient also denies any fever, chills, chest pain, nausea, vomiting, diarrhea or dysuria. In our ER, the patient remains stable but was requiring 1-2L of O2 per NC. CXR and CT chest shows no acute findings. The patient labs were relatively benign. The patient was given Solumedrol and duoenbs. She uses oxygen at home, as needed. S: She was still about a short of breath and wheezy as yesterday. She notes a many year history of smoking marijuana and previous history of smoking cigarettes for many years as well. She continues to smoke marijuana. She did have cold symptoms initially which was about 3 weeks ago with some rhinorrhea. Her cough is mostly nonproductive at this point. Exam Vital Signs (past 8 hours): - 04/11/24 23:30 04/11/24 23:30 04/12/24 00:00 Pulse Rate 122 H Respiratory Rate Blood Pressure 149/89 H 141/86 H Pulse Oximetry 92 04/12/24 00:30 04/12/24 01:00 04/12/24 01:30 Pulse Rate 111 H 113 H 112 H Respiratory Rate 18 Blood Pressure Pulse Oximetry 93 92 93 04/12/24 02:00 04/12/24 02:30 04/12/24 03:00 Pulse Rate 110 H 110 H 110 H Respiratory Rate Blood Pressure Pulse Oximetry 91 92 91 04/12/24 03:30 04/12/24 04:00 04/12/24 04:30 Pulse Rate 109 H 109 H 109 H Respiratory Rate Blood Pressure Pulse Oximetry 91 91 90 L 04/12/24 05:00 04/12/24 05:03 04/12/24 05:03 Pulse Rate 110 H 108 H Respiratory Rate Blood Pressure 126/76 126/76 Pulse Oximetry 91 91 04/12/24 05:30 04/12/24 06:00 04/12/24 06:30 Pulse Rate 103 H 99 H 101 H Respiratory Rate Blood Pressure Pulse Oximetry 90 L 89 L 94 Oxygen Delivery Method Room Air Oxygen Flow Rate 2 Narrative Exam Narrative: NAD, alert and oriented. Fluent speech. Lungs are notable for diffuse expiratory wheezing, normal rate and effort. She was on oxygen. Heart is regular, no murmur gallop or rub. Abdomen is soft, non distended. Extremities are free of edema. Objective ECG Impression: Sinus rhythm Ventricular rate 95 Normal axis Normal QRS Normal QTC No ST T wave changes Imaging Multiple studies:: Radiologist's impression: Chest x-ray: No acute cardiopulmonary abnormality is seen. Chest CT: Lower Neck: No enlarged lymph nodes. Thyroid: No thyroid nodules which require sonographic follow up, per consensus guidelines. Axillae: No enlarged lymph nodes. Chest Wall: Unremarkable. Bones: Unremarkable. Lungs and Pleura: No pneumothorax or pleural effusions. No consolidation or suspicious nodules. Heart: Heart size is normal. No pericardial effusion. Thoracic Vessels: The aorta and pulmonary arteries demonstrate normal size. Mediastinum and Judie: No enlarged lymph nodes. Esophagus: No wall thickening. No hiatal hernia. Upper Abdomen: Visualized upper abdomen solid organs and bowel loops appear normal. Labs 04/12/24 05:03 04/12/24 05:03 Labs: Laboratory Results - last 24 hr 04/11/24 04/11/24 04/12/24 19:20 19:40 05:03 WBC 6.9 6.4 RBC 5.02 4.91 Hgb 14.0 13.6 Hct 42.4 41.5 MCV 84.4 84.7 MCH 27.9 27.7 MCHC 33.1 32.7 RDW 14.1 14.0 Plt Count 163 154 Neut % (Auto) 46.1 L 89.7 H D Lymph % (Auto) 35.7 8.9 L D [place] % (Auto) 8.5 1.2 L Eos % (Auto) 8.9 H 0.1 L Baso % (Auto) 0.8 0.1 Neut # (Auto) 3200 5700 Lymph # (Auto) 2500 600 L [place] # (Auto) 600 100 Eos # (Auto) 600 H 0 Baso # (Auto) 100 0 Sodium 142 137 Potassium 4.2 4.7 Chloride 106 105 Carbon Dioxide 31 23 BUN 18 H 20 H Creatinine 0.88 0.74 Estimated GFR > 60 > 60 BUN/Creatinine Ratio 20.5 27.0 H Glucose 123 H 265 H D Calcium 9.1 9.3 Total Bilirubin 0.5 AST 34 ALT 35 H Alkaline Phosphatase 117 Total Creatine Kinase 103 Troponin I < 0.012 NT-Pro-B Natriuret Pep 69 Total Protein 7.3 Albumin 4.4 Globulin 2.9 Albumin/Globulin Ratio 1.5 Lipase 197 SARS-CoV-2 (PCR) Negative Influenza A (RT-PCR) Flu a negative Influenza B (RT-PCR) Flu b negative RSV (PCR) Negative PFSH Medical History HTN (hypertension) Hypothyroidism GERD (gastroesophageal reflux disease) Diabetes Crohn disease Asthma RHONDA (obstructive sleep apnea) Deafness COVID-19 Surgical History S/P implantation of urinary electronic stimulator device Social History household members: children Smoking Status: Former smoker alcohol intake: never Assessment & Plan Assessment & Plan narrative: 1. Asthma/COPD exacerbation. Present on admission and active. 2. NIDDM. Present on admission and active. 3. Hypothyroidism. Present on admission and stable. 4. GERD. Present on admission and stable. 5. HTN. Present on admission and stable. PLAN: -continue corticosteroids and bronchodilators. -no antibiotics at this point. Imaging is clear. -continue her chronic PPI and hypertension medications as well as Synthroid. -correctional lispro and hold oral agents. -oxycodone as needed for headache or pain. Tylenol is not very helpful. -Tessalon as needed cough MELANY: 04/14. DVT PPx hep SQ Code status full code Time-Based Coding :: [TOTAL MINUTES] spent with patient and on the chart (including review of chart, obtaining history, exam, reviewing outside data, placing orders, documenting exam and treatment plan, and counseling patient) on [DATE].
[2024-04-12] MEDS: ALBUTEROL/IPRATROPIUM 3 ML AMPUL INH ×3 (07:35→19:28)
[2024-04-12] MEDS: BUDESONIDE 0.5 MG/2 ML NEB INH ×2 (07:45→19:28)
[2024-04-12] MEDS: METOPROLOL ER 50 MG TABLET 100 MG PO (08:35)
[2024-04-12] MEDS: PANTOPRAZOLE DR 40 MG TABLET PO (08:36)
[2024-04-12] MEDS: INSULIN GLARGINE 100 UNIT/ML 3ML PEN 20 UNIT SUBCUT (08:37)
--- NOTE | 2024-04-12 08:50 | PC.NURSE ---
Pt a&Ox4. GIven breakfast tray from dietary. Pt remains on 2L NC with o2 sat 96%. Pt tachypneic and wheezy. Report given to Radha FOOD QUALITY TECHNICIAN.
[2024-04-12 12:06] LABS: MRSA (Nasal) PCR NOT DETECTED (Not Detect)
[2024-04-12] MEDS: BENZONATATE 100 MG CAPSULE PO ×2 (14:42→20:18)
[2024-04-12 15:40] LABS: Adenovirus Not Detected (Not Detect); B. parapertussis Not Detected (Not Detecte); Bordetella pertussis Not Detected (Not Detect); Chlamydophila pneumoniae Not Detected (Not Detect); Coronavirus 229E Not Detected (Not Detect); Coronavirus HKU1 Not Detected (Not Detect); Coronavirus NL 63 Not Detected (Not Detect); Coronavirus OC43 Not Detected (Not Detect); Human Metapneumovirus Not Detected (Not Detect); Human Rhinovirus/Enterovirus Not Detected (Not Detect); Influenza A Not Detected (Not Detect); Influenza B Not Detected (Not Detect); Mycoplasma pneumoniae Not Detected (Not Detect); Parainfluenza Virus 1 Not Detected (Not Detect); Parainfluenza Virus 2 Not Detected (Not Detect); Parainfluenza Virus 3 Not Detected (Not Detect); Parainfluenza Virus 4 Not Detected (Not Detect); Respiratory Syncytial Virus Not Detected (Not Detect); SARS- CoV-2 Not Detected (Not Detecte)
[2024-04-12] MEDS: OXYCODONE IR 5 MG TABLET PO ×2 (17:11→20:18)
[2024-04-12] MEDS: DULOXETINE 30 MG CAPSULE 60 MG PO (17:11)
[2024-04-12] MEDS: SODIUM CHLORIDE 0.9% FLUSH 10 ML IV (20:18)
[2024-04-12] MEDS: INSULIN LISPRO 100 UNIT/ML 3ML VIAL SUBCUT (21:34)
[2024-04-13] VITALS (9 sets, daily range): BP systolic 120–148; BP diastolic 72–95; PULSE 97–110; RESP 18–28; TEMP 36.2–37.4; O2SAT 90–95
[2024-04-13] MEDS: methylPREDNISolone 125 MG/2 ML VIAL 60 MG IV ×4 (06:27→23:37)
[2024-04-13] MEDS: LEVOTHYROXINE 50 MCG TABLET PO (06:28)
[2024-04-13] MEDS: ALBUTEROL/IPRATROPIUM 3 ML AMPUL INH ×3 (07:43→18:05)
[2024-04-13] MEDS: BUDESONIDE 0.5 MG/2 ML NEB INH ×2 (07:43→18:05)
[2024-04-13] MEDS: OXYCODONE IR 5 MG TABLET PO ×3 (07:54→20:18)
[2024-04-13] MEDS: BENZONATATE 100 MG CAPSULE PO (07:57)
[2024-04-13] MEDS: METOPROLOL ER 50 MG TABLET 100 MG PO (08:37)
[2024-04-13] MEDS: PANTOPRAZOLE DR 40 MG TABLET PO (08:37)
[2024-04-13] MEDS: INSULIN GLARGINE 100 UNIT/ML 3ML PEN 20 UNIT SUBCUT (08:37)
[2024-04-13] MEDS: INSULIN LISPRO 100 UNIT/ML 3ML VIAL SUBCUT ×4 (08:38→20:20)
[2024-04-13] MEDS: SODIUM CHLORIDE 0.9% FLUSH 10 ML IV ×2 (08:51→20:19)
[2024-04-13] MEDS: HEPARIN 5,000 UNIT/ML VIAL 5000 UNIT SUBCUT ×2 (08:51→20:18)
[2024-04-13] MEDS: AZITHROMYCIN 500 MG in SODIUM CHLORIDE 0.9% 250 ML 250 MG IV (11:03)
[2024-04-13] MEDS: guaiFENesin ER 600 MG TAB 1200 MG PO ×2 (11:03→20:18)
[2024-04-13] MEDS: BENZOCAINE/MENTHOL 1 LOZ PKT 1 EACH PO ×2 (11:51→20:18)
--- NOTE | 2024-04-13 15:21 | CM.DANOTE ---
Patient is a 53 yo female who was admitted OBS Status on 04/11/24 and changed to INPT Status on 04/13/24 for Asthma/COPD exac. Pt has [facility] and [facility] for insurance and her PCP is Clementina Krishnan. EMR was reviewed. Per MD, pt with SOB and hx of tobacco smoking and current THC smoker and has home oxygen at baseline and admitted for COPD exacerbation and discussion regarding her smoking habits. Pt currently on IV abx. Per RN, pt has been independent in room with mobility and now tolerating room air and family either translates or the collar band creaser or white board used for communication. Due to triage needs today, no bedside discussion at this time as currently no identified barriers to discharge. Pt was last admitted in Dec 2023 a few months ago for COVID+ and was able to discharge home with outpt f/u. Pt lives independently with her son in their own apartment in [place] and sometimes uses a cane for longer distances. She has a sister, Darlin, who lives in [place] and will likely be the family member to transport her home once she is medically cleared for home d/c. Plan: SW to follow tomorrow for bedside discussion to confirm safe d/c home when medically stable and any further identified discharge planning needs. KEERTHI Gallegos Discharge Planning/Care Management CM Discharge Assessment Start: 04/13/24 15:19 Freq: Status: Active Protocol: Document 04/13/24 15:19 BF (Rec: 04/13/24 15:21 BF [id number]) Discharge Planning Assessment Assigned Histology Supervisor KEERTHI Arevalo DPOA/Assigned Designee Name sister Advance Directives? No Advance Directives on File No History Provided By Patient,Family Member,Medical Record Has Patient been admitted in last 30 No days? Comment last admit in Dec 2023 couple months ago for COVID+ and went home Prior Living Arrangements Apartment/Condo Household Members children Type of transporation used prior to Relies on Others admit Independent with ADL's Yes Is patient alert and oriented? Yes Caregiver for Another No Comment Deaf and uses [place] Sign Language at baseline DME Already Rented / Owned Oxygen Comment Home O2 2L Barriers to Discharge No Discharge Plan Home Transportation Arrangement Family Review Status In Process Please Provide Date Initial DC 04/13/24 Assessment Was Performed Next Review Type Continued Stay Review
[2024-04-13] MEDS: DULOXETINE 30 MG CAPSULE 60 MG PO (16:42)
--- NOTE | 2024-04-13 18:49 | P.PN_ITS ---
Subjective Subjective Interval history: 53 year old female with asthma and presumed COPD, former tobacco dependence, current marijuana smoker, depression, hypothyroidism, NIDDM and HTN admitted early yesterday morning w/COPD exacerbation. director global sales used. Pt reports she continues to feel very tight in her chest and SOB. She was able to get up to the bathroom last night and didn't get more SOB. RT did trial of O2 removal a couple of minutes before I walked in to see her (current sats 88- 89%). Pt reports she cannot take more than shallow breath d/t the harsh coughing she gets. She coughs up white sputum. She notes the sputum production is chronic. She did not have any fevers or other ill sxs at home. She feels we aren't giving her the right meds to make her better at this point. Exam Vital Signs (past 8 hours): - 04/13/24 12:00 04/13/24 13:11 04/13/24 16:00 Temperature 97.2 F L Pulse Rate 107 H 99 H 104 H Respiratory Rate 26 H 18 26 H Blood Pressure 148/82 H 142/89 H Pulse Oximetry 90 L 95 93 Oxygen Delivery Method Room Air Oxygen Flow Rate 0 0 0 Fraction of Inspired Oxygen 21 04/13/24 18:05 Temperature Pulse Rate 103 H Respiratory Rate 20 Blood Pressure Pulse Oximetry 95 Oxygen Delivery Method Room Air Oxygen Flow Rate Fraction of Inspired Oxygen Fraction of Inspired Oxygen 21 SaO2/FiO2 Ratio 452 Oxygen Delivery Method Room Air Oxygen Flow Rate 0 Narrative Exam Narrative: GEN: Middle aged female, pleasant, alert and oriented x 3, NAD HEENT:NC, Face symmetric CHEST: audible wheezing at rest, Respiratory excursions symmetric, diffusely diminished t/o, diffuse wheezing t/o CV: mildly tachy w/rr, no M/R/G ABD: Soft, obese, NT/ND, BT present in all 4 quadrants, body habitus limits exam EXTR: warm, well perfused, no C/C/E SKIN: warm and dry, no rash NEURO: Alert and oriented x 3, nonfocal Objective Labs 04/12/24 05:03 04/12/24 05:03 [facility] Medical History HTN (hypertension) Hypothyroidism GERD (gastroesophageal reflux disease) Diabetes Crohn disease Asthma RHONDA (obstructive sleep apnea) Deafness COVID-19 Surgical History S/P implantation of urinary electronic stimulator device Social History household members: children Smoking Status: Former smoker alcohol intake: never Assessment & Plan Assessment & Plan narrative: 1. COPD exacerbation Patient remains very tight and wheezy. She continues on Solu-Medrol 60 mg IV q.6 hours. She has not ready for deescalation of steroids. She continues on budesonide nebulizers, DuoNebs, and albuterol nebulizers. Will add azithromycin for anti-inflammatory effect. Discussed she needs to discontinue smoking marijuana. This is likely worsening her COPD control at baseline. Will add Mucinex to help with the cough and help her expectorate her mucus. Will also have cough medications at bedside as needed. 2. Diabetes mellitus, uncontrolled with hyperglycemia She has blood sugars that are quite elevated, up as high as 359, likely exacerbated by steroids. Will add medium dose sliding scale insulin. 3. Acute hypoxic respiratory failure She has been requiring 2 L of oxygen via nasal cannula to maintain her O2 saturations 4. Class 3 obesity BMI is 42.9. Would benefit from weight reduction from a respiratory perspective. 5. Hypertension Continue metoprolol 6. Hypothyroidism Continue levothyroxine 7. GERD Continue pantoprazole Code status Full Prophylaxis Continue heparin Disposition Likely home in 48-72 hours Time-Based Coding :: [TOTAL MINUTES] spent with patient and on the chart (including review of chart, obtaining history, exam, reviewing outside data, placing orders, documenting exam and treatment plan, and counseling patient) on [DATE].
[2024-04-14] VITALS: BP 125/67; PULSE 104; TEMP 37.2; O2SAT 97
[2024-04-14 04:00] VITALS: BP 136/83; PULSE 90; RESP 20; TEMP 36.8; O2SAT 96
[2024-04-14 04:57] LABS: Add Manual Diff / Slide Review NO; Basophils Absolute Auto 0 /uL (0-100); Eosinophils Absolute Auto 0 /uL (0-450); Hematocrit 39.8 % (36-46); Hemoglobin 12.9 g/dL (12.0-16.0); Lymphocytes Absolute Auto 600 /uL (1100-4500); Lymphocytes Percent Auto 4.9 % (25-40); Mean Corpuscular HGB Conc 32.5 % (30-36); Mean Corpuscular Hemoglobin 27.6 PG (26-34); Mean Corpuscular Volume 84.9 fL (80-100); Monocytes Absolute Auto 400 /uL (0-900); Monocytes Percent Auto 3.8 % (3-14); Neutrophils Absolute Auto 10800 /uL (1500-7000); Neutrophils Percent Auto 91.3 % (50-75); Platelet Count 162 X10^3/uL (150-400); Red Blood Cell Count 4.69 X10^6/uL (4.0-5.2); Red Cell Distribution Width 14.4 % (11.6-14.8); White Blood Cell Count 11.9 X10^3/uL (4.5-11.0)
[2024-04-14 05:17] LABS: BUN Creatinine Ratio 38.1 (6-22); Blood Urea Nitrogen 32 mg/dL (7-17); Calcium 9.6 mg/dL (8.4-10.2); Carbon Dioxide 30 mmol/L (22-32); Chloride 100 mmol/L (98-107); Estimated Glomerular Filt Rate > 60 mL/min (>60); Glucose 287 mg/dL (70-100); HEMOLYSIS < 15 (0-50); Potassium 4.6 mmol/L (3.4-5.1); Sodium 135 mmol/L (137-145)
[2024-04-14] MEDS: methylPREDNISolone 125 MG/2 ML VIAL 60 MG IV (06:15)
[2024-04-14] MEDS: LEVOTHYROXINE 50 MCG TABLET PO (06:18)
[2024-04-14] MEDS: ALBUTEROL/IPRATROPIUM 3 ML AMPUL INH (07:39)
[2024-04-14 07:40] VITALS: PULSE 95; RESP 18; O2SAT 90
[2024-04-14] MEDS: BUDESONIDE 0.5 MG/2 ML NEB INH (07:40)
[2024-04-14 08:00] VITALS: BP 139/97; PULSE 94; RESP 18; O2SAT 95
[2024-04-14] MEDS: INSULIN LISPRO 100 UNIT/ML 3ML VIAL SUBCUT (08:05)
[2024-04-14] MEDS: INSULIN GLARGINE 100 UNIT/ML 3ML PEN 20 UNIT SUBCUT (08:06)
[2024-04-14] MEDS: BENZOCAINE/MENTHOL 1 LOZ PKT 1 EACH PO (08:06)
[2024-04-14] MEDS: PANTOPRAZOLE DR 40 MG TABLET PO (08:07)
[2024-04-14] MEDS: SODIUM CHLORIDE 0.9% FLUSH 10 ML IV (08:07)
[2024-04-14] MEDS: HEPARIN 5,000 UNIT/ML VIAL 5000 UNIT SUBCUT (08:07)
[2024-04-14] MEDS: METOPROLOL ER 50 MG TABLET 100 MG PO (08:07)
[2024-04-14] MEDS: guaiFENesin ER 600 MG TAB 1200 MG PO (08:07)
[2024-04-14 08:37] VITALS: BP 129/90; PULSE 81
[2024-04-14] MEDS: INSULIN GLARGINE 100 UNIT/ML 3ML PEN 10 UNIT SUBCUT (10:50)
--- NOTE | 2024-04-14 11:54 | CM.DPC ---
DCP Discharge Home Per MD, pt is medically stable to d/c home today and pt states she prefers [facility] over [facility] even though she lives close to [facility] and pt denies any discharge needs and states sister will provide transport this morning home. No identified barriers to discharge. KEERTHI Gallegos
--- NOTE | 2024-04-19 10:34 | PM.DS.1 ---
History of Present Illness History of Present Illness Chief complaint: SOB, Wheezing Narrative: Per H&P: 53 year old female with past medical history of asthma and presumed COPD (past medical history of tobacco abuse but quit 10 years ago), depression, hypothyroidism, NIDDM and HTN presents with shortness of breath. Of note, the patient is deaf the patient's younger sister is at the bedside who help with interpretation. Per report, over the last few days, the patient has been having progressive shortness of breath and wheezing. The patient has a dry cough but denies any known sick contact. The patient also denies any fever, chills, chest pain, nausea, vomiting, diarrhea or dysuria. In our ER, the patient remains stable but was requiring 1-2L of O2 per NC. CXR and CT chest shows no acute findings. The patient labs were relatively benign. The patient was given Solumedrol and duoenbs. Discharge Providers Provider Date of admission: 04/13/24 05:19 Discharge Date: 04/14/24 Primary care physician: MILLI Morgan Consults: 04/12/24 10:17 Consult to [facility] - Toddler Caregiver Routine Comment: Toddler Caregiver Consult needed for:: Has no money Comment: Limited funds for food, broken car Discharge provider: Madyson Pressley MD Summary Hospital Course Discharge Diagnosis: 1. COPD exacerbation 2. Diabetes mellitus, uncontrolled with hyperglycemia 3. Acute hypoxic respiratory failure 4. Class 3 obesity 5. Hypertension 6. Hypothyroidism 7. GERD Hospital Course: Pt was admitted w/COPD exacerbation and initiated on IV steroids, nebulizers and supplemental O2. IV azithromycin was added on 04/13 for its antiinflammatory benefit. She showed gradual improvement, was weaned off of oxygen, and was feeling significantly better on the date of discharge. She was advised to stop smoking marijuana as it is likely exacerbating her COPD. She agreed to try to switch to edibles instead. She is discharged in stable condition. Status at Discharge Cognitive/behavioral status at discharge: at baseline, oriented Functional status at discharge: independent ambulation Overall status at discharge: patient is progressing back to baseline Time Spent with Patient Time spent: Less than 30 minutes Exam Vital Signs (past 8 hours): Fraction of Inspired Oxygen 21 SaO2/FiO2 Ratio 428 Oxygen Delivery Method Room Air Oxygen Flow Rate 4 Narrative Exam Narrative: GEN: Middle aged female, pleasant, alert and oriented x 3, NAD HEENT:NC, Face symmetric CHEST: Improved air movement throughout, diffuse expiratory wheezes CV: RRR, no M/R/G ABD: Soft, obese, NT/ND, BT present in all 4 quadrants, body habitus limits exam EXTR: warm, well perfused, no C/C/E SKIN: warm and dry, no rash NEURO: Alert and oriented x 3, nonfocal Objective Labs 04/14/24 04:02 04/14/24 04:02 [facility] Medical History (Reviewed 04/12/24 @ : by David Carmona MD) HTN (hypertension) Hypothyroidism GERD (gastroesophageal reflux disease) Diabetes Crohn disease Asthma RHONDA (obstructive sleep apnea) Deafness COVID-19 Surgical History (Reviewed 04/12/24 @ : by David Carmona MD) S/P implantation of urinary electronic stimulator device Social History (Reviewed 04/12/24 @ : by David Carmona MD) household members: children Smoking Status: Former smoker alcohol intake: never Discharge Plan Discharge Plan Patient Disposition: Home Provider Discharge Comment: 1. You will be on a taper of prednisone (a steroid) which is anti-inflammatory. Unfortunately, it will continue to cause your blood sugars to be elevated. 2. You will continue on the antibiotic (azithromycin) for 2 more days for its anti-inflammatory properties, not because of any infection. 3. Continue cough medication as needed. 4. ADD ipratropium/albuterol (duoneb) nebulizers three times per day 5. ADD budesonide nebulizers (pulmicort) twice a day 6. Continue albuterol nebulizers as needed 7. Do not smoke or vape. Return to the ED: Worsening shortness of breath Fevers/chills Inability to hold down medicines/food/fluids Discharge orders & Medications Prescriptions: New albuterol sulfate 2.5 mg /3 mL (0.083 %) Solution For Nebulization 2.5 mg inhalation Q4H PRN (Reason: Shortness Of Breath) Qty: 180 0RF ipratropium-albuterol 0.5 mg-3 mg(2.5 mg base)/3 mL Solution For Nebulization 3 ml inhalation TID Qty: 180 0RF budesonide [Pulmicort] 0.5 mg/2 mL Suspension For Nebulization 0.5 mg INH RTBID Qty: 120 0RF guaifenesin [Mucus Relief ER] 600 mg Tablet Extended Release 12hr 1,200 mg PO BID Qty: 120 0RF prednisone 20 mg tablet 40 mg PO DAILY Qty: 15 0RF Rx Instructions: 2 tabs daily x 3 days, 1.5 tabs daily x 3 days, 1 tab daily x 3 days, 1/2 tab daily x 3 days, then stop Continued pantoprazole 40 mg tablet,delayed release (DR/EC) 40 mg PO DAILY Gemtesa 75 mg tablet 75 mg PO DAILY pioglitazone 15 mg Tablet 15 mg PO DAILY metoprolol succinate 50 mg tablet extended release 24 hr 100 mg PO DAILY glimepiride 2 mg tablet 2 mg PO DAILY Rx Instructions: Take along with 4 mg tab levothyroxine 50 mcg tablet 50 mcg PO DAILY glimepiride 4 mg tablet 4 mg PO DAILY Rx Instructions: take along with 2 mg tab duloxetine 60 mg capsule,delayed release(DR/EC) 60 mg PO QPM Rybelsus 7 mg tablet 14 mg PO DAILY pantoprazole 40 mg Tablet,Delayed Release (Dr/Ec) 40 mg PO 0600 Qty: 30 0RF (DME) nebulizer accessories Misc See Rx Instructions .Route Qty: 4 0RF Rx Instructions: nebulizer tubing benzonatate 100 mg capsule 100 mg PO Q6H PRN (Reason: cough) Qty: 20 0RF (DME) blood-glucose meter Kit See Rx Instructions .Route Qty: 1 0RF Rx Instructions: As directed (DME) blood sugar diagnostic Strip See Rx Instructions .Route Qty: 50 0RF Rx Instructions: As directed albuterol sulfate 90 mcg/actuation HFA aerosol inhaler 2 puff inhalation Q6H PRN (Reason: shortness of breath or wheezing) Qty: 8.5 3RF Discontinued fluticasone propion-salmeterol [Advair HFA] 115-21 mcg/actuation HFA aerosol inhaler 2 puff inhalation BID Atrovent HFA 17 mcg/actuation HFA aerosol inhaler 2 puff inhalation QID Follow up/Referrals: Clementina Krishnan ARNP [Primary Care Provider] - Diet/Activity/Treatments Diet: Carb-consistent/Diabetic Activity: As tolerated Oxygen: N/A Visit Report/Discharge Packet Instructions: DI for Chronic Obstructive Pulmonary Disease, Physical Activity for People with COPD Stand Alone Forms: Patient Portal/API, Stroke Signs & Symptoms Discharge Data Primary Care Provider: Clementina Krishnan
== END 2024-04-14 11:05 | disposition home or self-care (01) | DRG 191 ==
LOC: ED 23:58 → AC 23:58 → ICU 04-12 09:30
PROVIDERS: Family Medicine; Hospitalist; Admitting Provider Internal Medicine; Emergency Provider Emergency Medicine; PCP Nurse Practitioner Family; Visit Provider Internal Medicine
DX: J44.1 Chronic obstructive pulmonary disease with (acute) exacerbation (principal); J45.901 Unspecified asthma with (acute) exacerbation; Z68.41 Body mass index [BMI] 40.0-44.9, adult; E03.9 Hypothyroidism, unspecified; K21.9 Gastro-esophageal reflux disease without esophagitis; I10 Essential (primary) hypertension; H91.90 Unspecified hearing loss, unspecified ear; E11.65 Type 2 diabetes mellitus with hyperglycemia; T38.0X5A Adverse effect of glucocorticoids and synthetic analogues, initial encounter; E66.813 Obesity, class 3; Z79.84 Long term (current) use of oral hypoglycemic drugs; Z87.891 Personal history of nicotine dependence
CPT/HCPCS: 0241U; 36415; 71045; 71250; 80048; 80053; 82550; 82962; 83690; 83880; 84484; 85025; 87633; 87797; 93005; 94640; 94762; 96365; 96366; 96367; 96375; 99285; G0378; J1644; J1815; J2919; J3475; J7613

== ENCOUNTER 2024-05-08 16:32 | Emergency (ER) | payer MEDICARE, MEDICAID, SELFPAY ==
[2024-04-12 10:00] VITALS: BMI 42.9
[2024-05-08] VITALS (8 sets, daily range): BP systolic 115–158; BP diastolic 57–92; PULSE 89–99; RESP 18–22; TEMP 36.9–37.3; O2SAT 91–96; BMI 42.4
--- NOTE | 2024-05-08 16:50 | EKG_ITS ---
[address] [address] Test Date: 2024-05-08 Pat Name: Yamel Shah Department: [facility] Room: Gender: Female Pile Driving Technician: EMILIA : 1970 Requested By: Order Number: [id number] Reading MD: Magdaleno Small MD Measurements Intervals [place] Rate: 90 P: 37 DC: 130 QRS: 25 QRSD: 80 T: 55 QT: 380 QTc: 464 Interpretive Statements Normal sinus rhythm Electronically Signed On 05-09-2024 7:40:35 PST by Magdaleno Small MD
[2024-05-08 17:42] LABS: Add Manual Diff / Slide Review NO; Basophils Absolute Auto 100 /uL (0-100); Eosinophils Absolute Auto 300 /uL (0-450); Eosinophils Percent Auto 7.1 % (2-4); Hematocrit 41.2 % (36-46); Hemoglobin 13.4 g/dL (12.0-16.0); Lymphocytes Absolute Auto 1700 /uL (1100-4500); Lymphocytes Percent Auto 38.2 % (25-40); Mean Corpuscular HGB Conc 32.6 % (30-36); Mean Corpuscular Hemoglobin 27.9 PG (26-34); Mean Corpuscular Volume 85.6 fL (80-100); Monocytes Absolute Auto 500 /uL (0-900); Monocytes Percent Auto 11.3 % (3-14); Neutrophils Absolute Auto 1800 /uL (1500-7000); Neutrophils Percent Auto 41.4 % (50-75); Platelet Count 171 X10^3/uL (150-400); Red Blood Cell Count 4.81 X10^6/uL (4.0-5.2); Red Cell Distribution Width 15.5 % (11.6-14.8); White Blood Cell Count 4.3 X10^3/uL (4.5-11.0)
[2024-05-08 17:48] LABS: Alanine Aminotransferase 70 IU/L (<35); Albumin Globulin Ratio 1.4 (1.0-2.8); Alkaline Phosphatase 107 U/L (38-126); Aspartate Aminotransferase 58 IU/L (14-36); BUN Creatinine Ratio 22.2 (6-22); Bilirubin Total 0.6 mg/dL (0.2-1.3); Blood Urea Nitrogen 16 mg/dL (7-17); Calcium 8.7 mg/dL (8.4-10.2); Carbon Dioxide 24 mmol/L (22-32); Chloride 109 mmol/L (98-107); Estimated Glomerular Filt Rate > 60 mL/min (>60); Globulin 2.8 g/dL (1.7-4.1); Glucose 180 mg/dL (70-100); HEMOLYSIS 18 (0-50); Lipase 114 U/L (23-300); Potassium 3.9 mmol/L (3.4-5.1); Sodium 141 mmol/L (137-145); Total Protein 6.8 g/dL (6.3-8.2)
[2024-05-08] MEDS: ONDANSETRON 4 MG/2 ML INJ IV ×2 (17:49→18:48)
--- NOTE | 2024-05-08 17:54 | PC.NURSE ---
Sigh foreign language teacher used for assessment
--- NOTE | 2024-05-08 18:32 | ED.NAVMDI ---
HPI - Nausea/Vomiting/Diarrhea General Chief complaint: Nausea/Vomiting/Diarrhea Stated complaint: vomitting/diarrhea stomach hurts Time Seen by Provider: 05/08/24 18:19 Source: patient Mode of arrival: Ambulatory History of Present Illness HPI Narrative: 53-year-old female with history of deafness, communicates by ASL, history via sales supervisor service, has 3 days duration of nausea vomiting diarrhea, worse on Monday with perhaps 20 episodes of diarrhea, 10 episodes of emesis, less on Monday, further decreased yesterday but still present today. No black or red stool. No black or red emesis. She was taking [id number] Imodium but ran out, still having diarrhea, still feeling nauseated and retching. No recent antibiotics. No history of Crohn's disease or inflammatory bowel disease, though she does admit to history of IBS. No recent travel or camping. No close contacts to persons with similar GI symptoms. Related Data Home Medications Medication Instructions Recorded Confirmed duloxetine 60 mg capsule,delayed 60 mg PO QPM 03/29/23 04/12/24 release glimepiride 2 mg tablet 2 mg PO DAILY 03/29/23 04/12/24 glimepiride 4 mg tablet 4 mg PO DAILY 03/29/23 04/12/24 levothyroxine 50 mcg tablet 50 mcg PO DAILY 03/29/23 04/12/24 metoprolol succinate 50 mg 100 mg PO DAILY 03/29/23 04/12/24 tablet,extended release 24 hr semaglutide 7 mg tablet (Rybelsus) 14 mg PO DAILY 03/29/23 04/12/24 pantoprazole 40 mg tablet,delayed 40 mg PO DAILY 04/12/24 04/12/24 release pioglitazone 15 mg tablet 15 mg PO DAILY 04/12/24 04/12/24 vibegron 75 mg tablet (Gemtesa) 75 mg PO DAILY 04/12/24 04/12/24 Previous Rx's Medication Instructions Recorded nebulizer accessories #4 ea 04/04/23 pantoprazole 40 mg tablet,delayed 40 mg PO 0600 #30 tabs 04/04/23 release albuterol sulfate 90 mcg/actuation 2 puff inhalation Q6H PRN 06/27/23 aerosol inhaler shortness of breath or wheezing #8.5 grams benzonatate 100 mg capsule 100 mg PO Q6H PRN cough #20 caps 10/15/23 blood sugar diagnostic #50 ea 10/15/23 blood-glucose meter #1 ea 10/15/23 albuterol sulfate 2.5 mg/3 mL 2.5 mg (3 mL) inhalation Q4H PRN 04/14/24 (0.083 %) solution for nebulization Shortness Of Breath #180 mL budesonide 0.5 mg/2 mL suspension 0.5 mg (2 mL) INH RTBID #120 mL 04/14/24 for nebulization (Pulmicort) guaifenesin 600 mg tablet, 1,200 mg (2 x 600 mg) PO BID #120 04/14/24 extended release 12 hr (Mucus tabs Relief ER) ipratropium 0.5 mg-albuterol 3 mg 3 ml inhalation TID #180 mL 04/14/24 (2.5 mg base)/3 mL nebulization soln prednisone 20 mg tablet 40 mg (2 x 20 mg) PO DAILY #15 tabs 04/14/24 diphenoxylate-atropine 2.5 1 tab PO BID #7 tabs 05/08/24 mg-0.025 mg tablet (Lomotil) ondansetron 4 mg disintegrating 4 mg PO Q6H PRN nausea and 05/08/24 tablet vomiting #7 tabs Allergies Allergy/AdvReac Type Severity Reaction Status Date / Time shellfish derived Allergy Intermediate Verified 10/15/23 15:27 dulaglutide [From Trulicity] Allergy Verified 10/15/23 15:27 metformin Allergy Verified 10/15/23 15:27 Patient History Medical History HTN (hypertension) Hypothyroidism GERD (gastroesophageal reflux disease) Diabetes Crohn disease Asthma RHONDA (obstructive sleep apnea) Deafness COVID-19 Surgical History S/P implantation of urinary electronic stimulator device Social History household members: children Smoking Status: Former smoker alcohol intake: never Smoking Status: Former smoker alcohol intake frequency: holidays/special occasions only Exam Narrative Exam Narrative: GENERAL: Well-developed patient, in mild distress. Communication via sales supervisor on tablet HEAD: Atraumatic. Normocephalic. EYES: Pupils equal round and reactive. Extraocular motions intact. No scleral icterus. No injection or drainage. ENT: Nose without bleeding, purulent drainage. Throat without erythema, tonsillar hypertrophy or exudate. Airway patent. Bilateral deafness, TMs appear unremarkable, EACs normal. No hearing aids in place. NECK: Trachea midline. Non tender CARDIOVASCULAR: Regular rate and rhythm without murmurs, gallops, or rubs. RESPIRATORY: Clear to auscultation. Breath sounds equal bilaterally. No wheezes, rales, or rhonchi. GASTROINTESTINAL: Abdomen soft, non-tender, nondistended. EXTREMITIES: No edema or joint tenderness. BACK: Nontender without deformity or crepitance. No flank tenderness. NEURO: AOx3. Motor functions grossly nonfocal. Deafness noted however, chronic bilateral, communication by sales supervisor SKIN: No rash or erythema of visible areas Initial Vital Signs Initial Vital Signs: Vital Signs Temperature 98.4 F 05/08/24 16:43 Pulse Rate 95 H 05/08/24 16:43 Respiratory Rate 18 05/08/24 16:43 Blood Pressure 135/92 H 05/08/24 16:43 Pulse Oximetry 93 05/08/24 16:43 Oxygen Delivery Method Room Air 05/08/24 16:43 Course Orders Ordered: ED Orders 05/08/24 19:00 GI Panel (Film Array) Stat Urine Microscopic Stat Discontinued Medications Diphenoxylate HCl/Atropine (Diphenoxylate/Atrop 2.5/0.025 Tablet) 2 each PO NOW ONE Stop: 05/08/24 18:34 Last Admin: 05/08/24 18:48 Dose: 2 each Documented By: ALINA Sodium Chloride (Normal Saline 0.9%) 1,000 mls @ 1,000 mls/hr IV BOLUS ONE Stop: 05/08/24 19:32 Last Infusion: 05/08/24 20:06 Dose: Infused Documented By: Admin: 05/08/24 18:48 Dose: 1,000 mls/hr Documented By: ALINA Ondansetron HCl (Ondansetron 4 Mg/2 Ml Inj) 4 mg IV NOW PRN PRN Reason: Nausea And Vomiting Last Admin: 05/08/24 17:49 Dose: 4 mg Documented By: ALINA Ondansetron HCl (Ondansetron 4 Mg Odt) 4 mg PO NOW PRN PRN Reason: Nausea And Vomiting Ondansetron HCl (Ondansetron 4 Mg/2 Ml Inj) 4 mg IV NOW ONE Stop: 05/08/24 18:34 Last Admin: 05/08/24 18:48 Dose: 4 mg Documented By: ALINA Ondansetron HCl (Ondansetron 4 Mg Odt Prepack) 1 bottle MISC DIRECTED ONE Stop: 05/08/24 18:52 Last Admin: 05/08/24 20:09 Dose: 1 bottle Documented By: ALINA Vital Signs Vital signs: Vital Signs - 8 hr 05/08/24 19:10 05/08/24 19:11 05/08/24 19:11 Temperature Pulse Rate 99 H 97 H Respiratory Rate Blood Pressure 124/79 Pulse Oximetry 95 96 Oxygen Delivery Method 05/08/24 20:22 Temperature 99.2 F Pulse Rate 90 Respiratory Rate 22 Blood Pressure 158/92 H Pulse Oximetry 95 Oxygen Delivery Method Room Air MDM - Nausea/Vomiting/Diarrhea Lab Data Attestation: I reviewed the patient's lab results. Lab results narrative: White blood cell count 4300, hemoglobin 13.4, platelets adequate. Glucose 180. BUN 16 with creatinine 0.72. Serum CO2 24 not decreased. Sodium 141, potassium 3.9, chloride 109. Liver functions show mild transaminitis, otherwise unremarkable. Lipase normal. Stool GI panel requested but no specimen received thus far. 05/08/24 17:30 05/08/24 17:30 Labs: Lab Results 05/08/24 05/08/24 Range/Units 17:30 19:00 WBC 4.3 L (4.5-11.0) X10^3/uL RBC 4.81 (4.0-5.2) X10^6/uL Hgb 13.4 (12.0-16.0) g/dL Hct 41.2 (36-46) % MCV 85.6 (80-100) fL MCH 27.9 (26-34) PG MCHC 32.6 (30-36) % RDW 15.5 H (11.6-14.8) % Plt Count 171 (150-400) X10^3/uL Neut % (Auto) 41.4 L (50-75) % Lymph % (Auto) 38.2 (25-40) % [place] % (Auto) 11.3 (3-14) % Eos % (Auto) 7.1 H (2-4) % Baso % (Auto) 2.0 (0-2) % Neut # (Auto) 1800 (2391-8008) /uL Lymph # (Auto) 1700 (5477-4032) /uL [place] # (Auto) 500 (0-900) /uL Eos # (Auto) 300 (0-450) /uL Baso # (Auto) 100 (0-100) /uL Sodium 141 (137-145) mmol/L Potassium 3.9 (3.4-5.1) mmol/L Chloride 109 H (98-107) mmol/L Carbon Dioxide 24 (22-32) mmol/L BUN 16 (7-17) mg/dL Creatinine 0.72 (0.52-1.04) mg/dL Estimated GFR > 60 (>60) mL/min BUN/Creatinine Ratio 22.2 H (6-22) Glucose 180 H (70-100) mg/dL Calcium 8.7 (8.4-10.2) mg/dL Total Bilirubin 0.6 (0.2-1.3) mg/dL AST 58 H (14-36) IU/L ALT 70 H (<35) IU/L Alkaline Phosphatase 107 (38-126) U/L Total Protein 6.8 (6.3-8.2) g/dL Albumin 4.0 (3.5-5.0) g/dL Globulin 2.8 (1.7-4.1) g/dL Albumin/Globulin Ratio 1.4 (1.0-2.8) Lipase 114 (23-300) U/L Urine RBC None seen (0-5/HPF) Urine WBC 1-5/hpf (0-5/HPF) Ur Squamous Epith Cells 10-30 /hpf H (0-5/HPF) Urine Bacteria Moderate (10-30) H (None) Vol Urine Centrifuged 10ml (spun) Stl C. cayetanensis PCR Not detected (Not Detect) Stool Rotavirus (PCR) Not detected (Not Detect) Stool Adenovirus (PCR) Not detected (Not Detect) Stool Astrovirus (PCR) Not detected (Not Detect) Stool Cryptosporidium PCR Not detected (Not Detect) Stl E.coli Shiga Tox PCR Not detected (Not Detect) St Sh/Enteroin Ecoli PCR Not detected (Not Detect) Stl Enterotoxigenic E PCR Not detected (Not Detect) Stool EPEC (PCR) Not detected (Not Detect) Stl E. histolytica PCR Not detected (Not Detect) Stool Giardia Lamblia PCR Not detected (Not Detect) Stool Sapovirus (PCR) Not detected (Not Detect) Stl P. shigelloides PCR Not detected (Not Detect) St Y.enterocolitica PCR Not detected (Not Detect) Stool Vibrio (PCR) Not detected (Not Detect) Stl Vibrio cholerae PCR Not detected (Not Detect) Stl Enteroaggr Ecoli PCR Not detected (Not Detect) Stl Norovirus GI/GII PCR Detected (Not Detect) Campylobacter (PCR) Not detected (Not Detect) C. difficile Tox (PCR) Not detected (Not Detect) Salmonella (PCR) Not detected (Not Detect) Urine Dip Bedside Urine Glucose Negative Bedside Urine Bilirubin - Negative Bedside Urine Ketone - Negative Urine Specific [place] 1.030 Bedside Urine Occult Blood - Negative Bedside Urine pH 5.5 Bedside Urine Protein +/- 15 Bedside Urine Urobilinogen +/- 1mg Bedside Urine Nitrite - Negative Bedside Urine Leukocytes - Negative Esterase MDM Narrative Medical decision making narrative: (patient encounter with the assistance of [employer]ere[employer] marine design engineer online through tablet) 53-year-old female with history of deafness, communicates via Aereo, manager of investigations services communication for history. Patient with 3 days duration significant nausea and vomiting, less the 2nd day, further decreased yesterday but still persisting, with nausea and retching through the day today. Afebrile, sirs screen negative. Generalized weakness likely represents dehydration, we will screen for electrolyte disorder. Labs pending. Lab results: White blood cell count 4300, hemoglobin 13.4, platelets adequate. Glucose 180. BUN 16 with creatinine 0.72. Serum CO2 24 not decreased. Sodium 141, potassium 3.9, chloride 109. Liver functions show mild transaminitis, otherwise unremarkable. Lipase normal. Stool GI panel requested but no specimen received thus far. Urinalysis contaminated, no new or in culture by protocol, she would not have UTI symptoms. We will hold off on any repeat for now. No stool specimen received for GI panel testing. Patient is still nauseated after initial IV Zofran, we will repeat dose. She has been taking OTC loperamide but still having loose stools, we will give Lomotil oral when she is able to take orals. IV fluid bolus. Patient feels better after IV fluid bolus, nausea seems controlled, was able to take oral Lomotil. Prescription sent for further Lomotil to use as needed for control of diarrhea, no specimens for multiple hours here reproduced. Home pack ODT Zofran provided to use if needed for nausea or vomiting. Encouraged to take oral fluids. Discharged home. Return precautions discussed. Discharge Plan Departure Patient Disposition: Home Clinical Impression: Nausea vomiting and diarrhea, Dehydration, Generalized weakness Instructions: DI for Dehydration -- Adult, Nausea and Vomiting-Adult Activity Restrictions/Additional Instructions: History of deafness, history obtained via sales supervisor services. Ms. Shah, You had recent days significant nausea vomiting and diarrhea, with generalized weakness, worse on Monday, improved some on Monday, further improved on Monday, still having symptoms today. He had been taking [id number] loperamide/Imodium for diarrhea control. Your lab tests actually were pretty reassuring, no anemia, no high white blood cell count inflammatory changes, electrolytes and kidney function were good despite significant output of stool and vomiting reported. We will add Lomotil antidiarrheal agent, dose given now, prescription sent to your pharmacy if any further doses might be needed. Antidiarrheals can also cause constipation if overused, use if needed to control significant diarrhea output. Otherwise stay hydrated with drinking of Gatorade and Powerade oral fluids. Antinausea medication given as well, prescription sent to your pharmacy for oral dissolvable ondansetron if needed. IV fluids given. Recheck symptoms with your regular doctor if still persisting in the next couple of days. Return to this/nearest emergency department for any change worsening symptoms or any concerns prior. Thank you for allowing our team to evaluate you today. Prescriptions: New diphenoxylate-atropine [Lomotil] 2.5-0.025 mg tablet 1 tab PO BID Qty: 7 0RF ondansetron 4 mg tablet,disintegrating 4 mg PO Q6H PRN (Reason: nausea and vomiting) Qty: 7 0RF No Action pantoprazole 40 mg tablet,delayed release (DR/EC) 40 mg PO DAILY Gemtesa 75 mg tablet 75 mg PO DAILY pioglitazone 15 mg Tablet 15 mg PO DAILY albuterol sulfate 2.5 mg /3 mL (0.083 %) Solution For Nebulization 2.5 mg inhalation Q4H PRN (Reason: Shortness Of Breath) Qty: 180 0RF ipratropium-albuterol 0.5 mg-3 mg(2.5 mg base)/3 mL Solution For Nebulization 3 ml inhalation TID Qty: 180 0RF budesonide [Pulmicort] 0.5 mg/2 mL Suspension For Nebulization 0.5 mg INH RTBID Qty: 120 0RF guaifenesin [Mucus Relief ER] 600 mg Tablet Extended Release 12hr 1,200 mg PO BID Qty: 120 0RF prednisone 20 mg tablet 40 mg PO DAILY Qty: 15 0RF Rx Instructions: 2 tabs daily x 3 days, 1.5 tabs daily x 3 days, 1 tab daily x 3 days, 1/2 tab daily x 3 days, then stop metoprolol succinate 50 mg tablet extended release 24 hr 100 mg PO DAILY glimepiride 2 mg tablet 2 mg PO DAILY Rx Instructions: Take along with 4 mg tab levothyroxine 50 mcg tablet 50 mcg PO DAILY glimepiride 4 mg tablet 4 mg PO DAILY Rx Instructions: take along with 2 mg tab duloxetine 60 mg capsule,delayed release(DR/EC) 60 mg PO QPM Rybelsus 7 mg tablet 14 mg PO DAILY pantoprazole 40 mg Tablet,Delayed Release (Dr/Ec) 40 mg PO 0600 Qty: 30 0RF (DME) nebulizer accessories Misc See Rx Instructions .Route Qty: 4 0RF Rx Instructions: nebulizer tubing benzonatate 100 mg capsule 100 mg PO Q6H PRN (Reason: cough) Qty: 20 0RF (DME) blood-glucose meter Kit See Rx Instructions .Route Qty: 1 0RF Rx Instructions: As directed (DME) blood sugar diagnostic Strip See Rx Instructions .Route Qty: 50 0RF Rx Instructions: As directed albuterol sulfate 90 mcg/actuation HFA aerosol inhaler 2 puff inhalation Q6H PRN (Reason: shortness of breath or wheezing) Qty: 8.5 3RF Referrals: Clementina Krishnan ARNP [Primary Care Provider] - Stand Alone Forms: Patient Portal/API/Survey
[2024-05-08] MEDS: DIPHENOXYLATE/ATROP 2.5/0.025 TABLET 2 EACH PO (18:48)
[2024-05-08] MEDS: SODIUM CHLORIDE 0.9% 1,000 ML 1000 ML IV (18:48)
[2024-05-08 19:56] LABS: Urine Volume 10mL (spun)
[2024-05-08 19:57] LABS: Bacteria Urine Moderate (10-30); RBC Urine None Seen (0-5/HPF); Squamous Epithelial Cell Urine 10-30 /HPF (0-5/HPF); WBC Urine 1-5/HPF (0-5/HPF)
[2024-05-08] MEDS: ONDANSETRON 4 MG ODT PREPACK 1 BOTTLE MISC (20:09)
[2024-05-08 20:37] LABS: Adenovirus F 40/41 Not Detected (Not Detect); Astrovirus Not Detected (Not Detect); Campylobacter Not Detected (Not Detect); Clostridium difficile toxin AB Not Detected (Not Detect); Cryptosporidium Not Detected (Not Detect); Cyclospora cayetanensis Not Detected (Not Detect); Entamoeba histolytica Not Detected (Not Detect); Enteroaggregative E.coli Not Detected (Not Detect); Enteropathogenic E.coli Not Detected (Not Detect); Enterotoxigenic E.coli It/st Not Detected (Not Detect); Giardia lamblia Not Detected (Not Detect); Norovirus GI/GII Detected (Not Detect); Plesiomonsa shigelloides Not Detected (Not Detect); Rotavirus A Not Detected (Not Detect); Salmonella Not Detected (Not Detect); Sapovirus Not Detected (Not Detect); Shiga-like toxin-prod E.coli Not Detected (Not Detect); Shigella/Enteroinvasive E.coli Not Detected (Not Detect); Vibrio Not Detected (Not Detect); Vibrio cholerae Not Detected (Not Detect); Yersinia enterocolitica Not Detected (Not Detect)
== END 2024-05-08 20:24 | disposition home or self-care (01) ==
PROVIDERS: Emergency Medicine; Emergency Provider Emergency Medicine; PCP Nurse Practitioner Family
DX: R19.7 Diarrhea, unspecified (principal); R11.2 Nausea with vomiting, unspecified; E86.0 Dehydration; R53.1 Weakness; H91.93 Unspecified hearing loss, bilateral; I10 Essential (primary) hypertension; Z87.891 Personal history of nicotine dependence
CPT/HCPCS: 36415; 80053; 81003; 81015; 83690; 85025; 87507; 93005; 96361; 96374; 96376; 99284; J2405

== ENCOUNTER 2024-08-22 10:57 | Inpatient (IN) | payer MEDICARE, MEDICAID, SELFPAY ==
[2024-04-12 10:00] VITALS: BMI 42.9
[2024-08-22] VITALS (19 sets, daily range): BP systolic 112–142; BP diastolic 69–95; PULSE 92–105; RESP 18–33; TEMP 35.7–36.9; O2SAT 88–96; BMI 47.9; BMI 46.3
--- NOTE | 2024-08-22 11:10 | EKG_ITS ---
[address] [address] [address] [address] Test Date: 2024-08-22 Pat Name: Yamel Shah Department: Room: Gender: Female Log Clerk: : 1970 Requested By: Order Number: [id number] Reading MD: David Carmona Measurements Intervals [place] Rate: 98 P: 43 MI: 130 QRS: 51 QRSD: 86 T: 66 QT: 374 QTc: 477 Interpretive Statements Normal sinus rhythm Electronically Signed On 08-22-2024 19:02:25 PDT by David Carmona
--- NOTE | 2024-08-22 11:10 | DI.RAD.S_ITS ---
PROCEDURE: XR CHEST 1V INDICATIONS: Shortness of breath TECHNIQUE: One view of the chest was acquired. COMPARISON: [facility], CR, XR CHEST 2 VIEWS, 03/22/2024, 13:45. [facility], CT, CT ANGIO CHEST PE PROTOCOL, 01/16/2024, 23:02. [facility], CR, XR CHEST 1V, 01/16/2024, 14:01. [facility], CR, XR CHEST 1V, 10/15/2023, 16:48. [facility], CR, XR CHEST 1V, 04/11/2024, 19:22. FINDINGS: Surgical changes and devices: There is been prior truncation of the right distal clavicle. Lungs and pleura: An incomplete inspiratory result is noted, causing a crowded appearance to the lung markings. No focal infiltrates are seen. No pneumothorax or significant pleural effusions are seen. Mediastinum: The cardiac contours are within normal limits. The aorta demonstrates calcification and tortuosity. Bones and chest wall: Age-appropriate bony degenerative changes are seen. No suspicious bony lesions. Overlying soft tissues appear unremarkable. IMPRESSION: Low lung volumes, without an acute abnormality seen by plain film. Dictated by: Vaughn Meraz M.D. on 08/22/2024 at 10:48 Approved by: Vaughn Meraz M.D. on 08/22/2024 at 10:49
[2024-08-22] MEDS: ALBUTEROL/IPRATROPIUM 3 ML AMPUL 9 ML INH (11:28)
--- NOTE | 2024-08-22 11:50 | ED_ITS ---
HPI - SOB/Dyspnea General Chief Complaint: Shortness of Breath/Dyspnea Stated Complaint: sent from Pulmonology, Wheezing Time Seen by Provider: 08/22/24 11:44 Source: patient and family Mode of arrival: Wheelchair Limitations: other History of Present Illness HPI Narrative: Patient is sent here from her pulmonary office with Dr. Infante, she was in the office today. Has had shortness of breath in the past 1 week that is worse. History of asthma and is being evaluated for COPD. Is still smoking. Last admission in May 2024 and she states she feels like she needs to be admitted again. No prior history of intubation. Patient does still smoke. She is on 2 L nasal cannula oxygen at night and during the day as needed. Sister at bedside to do sign language Related Data Home Medications ?Medication ?Instructions ?Recorded ?Confirmed glimepiride 2 mg tablet 2 mg PO DAILY 03/29/2308/22 levothyroxine 50 mcg tablet 50 mcg PO DAILY 03/29/23 0 08/22/24 metoprolol succinate 50 mg 100 mg PO DAILY 03/29/23 tablet,extended release 24 hr pantoprazole 40 mg tablet,delayed 40 mg PO DAILY 04/1208/22/24 release pioglitazone 15 mg tablet 15 mg PO DAILY 04/12/2408/11 vibegron 75 mg tablet (Gemtesa) 75 mg PO DAILY 5 08/22/24 gabapentin 300 mg capsule 300 mg PO TID nerve pain 08/1108/22/24 omega 3-iyl-iix-fish oil 300 1 cap PO DAILY 08/22/24 0 08/22/24 mg-1,000 mg capsule (Fish Oil) Previous Rx's ?Medication ?Instructions ?Recorded nebulizer accessories #4 ea 04/04/23 albuterol sulfate 90 mcg/actuation 2 puff inhalation Q 6H PRN 06/27/23 aerosol inhaler shortness of breath or wheez ing #8.5 grams blood sugar diagnostic #50 ea 10/15/23 albuterol sulfate 2.5 mg/3 mL 2.5 mg (3 mL) inhalation Q4H PRN 04/14/24 (0.083 %) solution for nebulization Shortness Of Breat h #180 mL ipratropium 0.5 mg-albuterol 3 mg 3 ml inhalation TID #180 mL 04/14/24 (2.5 mg base)/3 mL nebulization soln Allergies Allergy/AdvReac Type Severity Reaction Status Date / Time shellfish derived Allergy Intermediate Verified 08/22/24 10:22 dulaglutide (From Trulicity) Allergy Verified 08/22/24 10:22 metformin Allergy Verified 08/22/24 10:22 Review of Systems Review of Systems Narrative: GENERAL: Negative chills, fatigue, malaise, fever, sweats. HEENT: Negative sinus pain, ear pain, sore throat RESPIRATORY: Positive dyspnea, cough CARDIOVASCULAR: Negative chest pain, palpitations GASTROINTESTINAL: Negative vomiting, nausea, abdominal pain : Negative dysuria, frequency, hematuria MUSCULOSKELETAL: Negative muscle or bony pain SKIN: Negative rash, skin lesions NEUROLOGIC: Negative weakness, numbness ROS Unobtainable: All systems reviewed & are unremarkable except as noted in HPI and below Patient History Medical History HTN (hypertension) Hypothyroidism GERD (gastroesophageal reflux disease) Diabetes Crohn disease Asthma RHONDA (obstructive sleep apnea) Deafness COVID-19 Surgical History S/P implantation of urinary electronic stimulator device Social History household members: none Smoking Status: Former smoker alcohol intake: never alcohol intake frequency: holidays/special occasions only Exam Narrative Exam Narrative: GENERAL: in no distress, not toxic not dyspneic HEAD: Normocephalic. EYES: Pupils equal round ENT: Mucous membranes moist. NECK: Trachea midline. CARDIOVASCULAR: Regular rate and rhythm RESPIRATORY: Patient is speaking near full sentences. Actively getting breathing treatment. There is coarse bilateral lung sounds with wheezing. Patient in no distress otherwise. GASTROINTESTINAL: Abdomen soft, non-tender EXTREMITIES: No gross deformities. BACK: No flank tenderness. NEURO: AOx4. Patient using sign language with sister SKIN: Warm and dry PSYCH: Not anxious, is cooperative Initial Vital Signs Initial Vital Signs: Vital Signs Pulse Rate 97 H 08/22/24 11:12 Pulse Oximetry 91 08/22/24 11:12 Course Orders Ordered: Acetaminophen (Acetaminophen 325 Mg Tablet) 650 mg PO Q6H PRN PRN Reason: Fever/Mild Pain (1-3) Last Admin: 08/25/24 09:02 Dose: 650 mg Documented By: Admin: 08/23/24 07:05 Dose: 650 mg Documented By: Admin: 08/22/24 17:11 Dose: 650 mg Documented By: DEMOND Hydrocodone Bitart/Acetaminophen (Hydrocodone/Acet 10/325 Tablet) 1 tab PO Q4HR PRN PRN Reason: Pain, Moderate (4-6) Last Admin: 08/26/24 06:37 Dose: 1 tab Documented By: Admin: 08/25/24 21:06 Dose: 1 tab Documented By: Admin: 08/25/24 15:38 Dose: 1 tab Documented By: Admin: 08/25/24 06:08 Dose: 1 tab Documented By: Admin: 08/24/24 15:35 Dose: 1 tab Documented By: Admin: 08/24/24 10:18 Dose: 1 tab Documented By: Admin: 08/23/24 16:05 Dose: 1 tab Documented By: Admin: 08/23/24 10:25 Dose: 1 tab Documented By: ERIC Albuterol (Albuterol 2.5 Mg/3 Ml Neb (Adult)) 2.5 mg INH [id number] PRN PRN Reason: Shortness Of Breath Or Wheezing Last Admin: 08/23/24 18:55 Dose: 2.5 mg Documented By: Admin: 08/23/24 04:37 Dose: 2.5 mg Documented By: PV Albuterol/Ipratropium (Albuterol/Ipratropium 3 Ml Ampul) 3 ml INH [id number] LULY Last Admin: 08/25/24 19:16 Dose: 3 ml Documented By: Admin: 08/25/24 13:47 Dose: 3 ml Documented By: Admin: 08/25/24 08:18 Dose: 3 ml Documented By: Admin: 08/24/24 20:03 Dose: 3 ml Documented By: Admin: 08/24/24 15:26 Dose: 3 ml Documented By: Admin: 08/24/24 08:30 Dose: 3 ml Documented By: Admin: 08/23/24 16:52 Dose: 3 ml Documented By: Admin: 08/23/24 13:18 Dose: 3 ml Documented By: Admin: 08/23/24 09:07 Dose: 3 ml Documented By: Admin: 08/22/24 20:08 Dose: 3 ml Documented By: MR Bisacodyl (Bisacodyl 10 Mg Supp) 10 mg W[place] DAILY PRN PRN Reason: Constipation Last Admin: 08/25/24 17:11 Dose: 10 mg Documented By: GLENN Doxycycline Hyclate (Doxycycline Hyclate 100 Mg Tablet) 100 mg PO BID [facility] Last Admin: 08/25/24 20:53 Dose: 100 mg Documented By: Admin: 08/25/24 09:03 Dose: 100 mg Documented By: Admin: 08/24/24 20:54 Dose: 100 mg Documented By: Admin: 08/24/24 08:56 Dose: 100 mg Documented By: Admin: 08/23/24 20:27 Dose: 100 mg Documented By: Admin: 08/23/24 08:22 Dose: 100 mg Documented By: Admin: 08/22/24 21:10 Dose: 100 mg Documented By: TELLY Enoxaparin Sodium (Enoxaparin 40 Mg/0.4 Ml Syringe) 40 mg SUBCUT BID [facility] Last Admin: 08/25/24 20:53 Dose: 40 mg Documented By: Admin: 08/25/24 09:03 Dose: 40 mg Documented By: Admin: 08/24/24 21:09 Dose: 40 mg Documented By: Admin: 08/24/24 08:50 Dose: 40 mg Documented By: Admin: 08/23/24 20:27 Dose: 40 mg Documented By: EF Gabapentin (Gabapentin 300 Mg Capsule) 300 mg PO TID [facility] Last Admin: 08/25/24 20:53 Dose: 300 mg Documented By: Admin: 08/25/24 15:38 Dose: 300 mg Documented By: Admin: 08/25/24 09:03 Dose: 300 mg Documented By: Admin: 08/24/24 20:54 Dose: 300 mg Documented By: Admin: 08/24/24 15:40 Dose: 300 mg Documented By: Admin: 08/24/24 08:54 Dose: 300 mg Documented By: Admin: 08/23/24 20:27 Dose: 300 mg Documented By: Admin: 08/23/24 15:53 Dose: 300 mg Documented By: Admin: 08/23/24 08:22 Dose: 300 mg Documented By: Admin: 08/22/24 21:10 Dose: 300 mg Documented By: Admin: 08/22/24 17:05 Dose: 300 mg Documented By: DEMOND Guaifenesin (Guaifenesin Solution 100 Mg/5 Ml Udc) 200 mg PO Q4HR PRN PRN Reason: Cough Last Admin: 08/24/24 17:26 Dose: 200 mg Documented By: Admin: 08/24/24 12:44 Dose: 200 mg Documented By: Admin: 08/23/24 18:53 Dose: 200 mg Documented By: Admin: 08/23/24 12:11 Dose: 200 mg Documented By: Admin: 08/23/24 08:22 Dose: 200 mg Documented By: ERIC Hydromorphone HCl (Hydromorphone 0.5 Mg Inj) 0.5 mg IV Q2H PRN PRN Reason: Pain, Severe (7-10) Last Admin: 08/24/24 12:44 Dose: 0.5 mg Documented By: TYLER Dextrose (D10w) 100 mls @ 999 mls/hr IV PRN PRN PRN Reason: Hypoglycemia Insulin Glargine (Insulin Glargine 100 Unit/Ml 3ml Pen) 12 unit SUBCUT BEDTIME LULY; Protocol Last Admin: 08/25/24 20:54 Dose: 12 unit Documented By: TRAMAINE Co-signed By: REGAN Admin: 08/24/24 21:10 Dose: 12 unit Documented By: Co-signed By: MEGAN Insulin Human Lispro (Insulin Lispro 100 Unit/Ml 3ml Vial) 0 unit SUBCUT ACHS LULY; Protocol Last Admin: 08/25/24 20:55 Dose: 5 unit Documented By: SMS Co-signed By: REGAN Admin: 08/25/24 17:12 Dose: 7 unit Documented By: GLENN Co-signed By: МАРИЯ Admin: 08/25/24 12:20 Dose: 5 unit Documented By: GLENN Co-signed By: BRENNAN Admin: 08/25/24 09:03 Dose: 3 unit Documented By: GLENN Co-signed By: BRENNAN Admin: 08/24/24 21:10 Dose: 5 unit Documented By: Co-signed By: MEGAN Admin: 08/24/24 17:25 Dose: 3 unit Documented By: TYLER Co-signed By: MAURICE Admin: 08/24/24 12:12 Dose: 5 unit Documented By: TYLER Co-signed By: MS(2) Admin: 08/24/24 08:49 Dose: 3 unit Documented By: TYLER Co-signed By: MAURICE Admin: 08/23/24 20:38 Dose: 4 unit Documented By: HANNA Co-signed By: NATALIE Admin: 08/23/24 17:00 Dose: 4 unit Documented By: ERIC Co-signed By: MS(2) Admin: 08/23/24 12:12 Dose: 4 unit Documented By: ERIC Co-signed By: MS(2) Admin: 08/23/24 08:26 Dose: 2 unit Documented By: ERIC Co-signed By: MICKI Admin: 08/22/24 21:10 Dose: 4 unit Documented By: TELLY Co-signed By: NATALIE Admin: 08/22/24 17:06 Dose: 2 unit Documented By: DEMOND Co-signed By: GA Levothyroxine Sodium (Levothyroxine 50 Mcg Tablet) 50 mcg PO DAILY@0600 [facility] Last Admin: 08/26/24 06:25 Dose: 50 mcg Documented By: Admin: 08/25/24 06:08 Dose: 50 mcg Documented By: Admin: 08/24/24 06:50 Dose: 50 mcg Documented By: HANNA Lorazepam (Lorazepam 1 Mg Tablet) 1 mg PO Q6HR PRN PRN Reason: Anxiety Last Admin: 08/25/24 15:38 Dose: 1 mg Documented By: Admin: 08/25/24 06:19 Dose: 1 mg Documented By: Admin: 08/24/24 20:55 Dose: 1 mg Documented By: Lorazepam (Lorazepam 0.5 Mg Tablet) 0.5 mg PO Q4HR PRN PRN Reason: Anxiety Last Admin: 08/26/24 06:37 Dose: 0.5 mg Documented By: Admin: 08/25/24 21:06 Dose: 0.5 mg Documented By: TRAMAINE Methylprednisolone (Methylprednisolone 125 Mg/2 Ml Vial) 60 mg IV Q6HR [facility] [place] Last Admin: 08/26/24 06:25 Dose: 60 mg Documented By: Admin: 08/25/24 23:49 Dose: 60 mg Documented By: Admin: 08/25/24 18:35 Dose: 60 mg Documented By: Admin: 08/25/24 12:19 Dose: 60 mg Documented By: Admin: 08/25/24 06:08 Dose: 60 mg Documented By: Admin: 08/24/24 23:57 Dose: 60 mg Documented By: Admin: 08/24/24 17:26 Dose: 60 mg Documented By: Admin: 08/24/24 12:10 Dose: 60 mg Documented By: Admin: 08/24/24 06:50 Dose: 60 mg Documented By: Admin: 08/23/24 23:19 Dose: 60 mg Documented By: Admin: 08/23/24 17:04 Dose: 60 mg Documented By: Admin: 08/23/24 12:11 Dose: 60 mg Documented By: Admin: 08/23/24 06:28 Dose: 60 mg Documented By: Admin: 08/22/24 23:29 Dose: 60 mg Documented By: Admin: 08/22/24 17:11 Dose: 60 mg Documented By: DEMOND Metoprolol Succinate (Metoprolol Er 50 Mg Tablet) 100 mg PO DAILY [facility] Last Admin: 08/25/24 09:03 Dose: 100 mg Documented By: Admin: 08/24/24 08:55 Dose: 100 mg Documented By: Admin: 08/23/24 08:22 Dose: 100 mg Documented By: ERIC Naloxone HCl (Naloxone 0.4 Mg/Ml Vial) 0.2 mg IV Q2MIN PRN PRN Reason: Opiate Reversal Nf - Vibegron ( Gemtesa) 75 Mg Tablet 75 mg PO DAILY [facility] [place] Last Admin: 08/25/24 09:17 Dose: Not Given Documented By: Admin: 08/24/24 09:02 Dose: 75 mg Documented By: Admin: 08/23/24 09:39 Dose: Not Given Documented By: ERIC Nystatin (Nystatin Powder 15gm) 1 applic TOP BID [facility] Last Admin: 08/25/24 20:53 Dose: 1 applic Documented By: TRAMAINE Ondansetron HCl (Ondansetron 4 Mg/2 Ml Inj) 4 mg IV Q8HR PRN PRN Reason: Nausea And Vomiting Last Admin: 08/25/24 06:19 Dose: 4 mg Documented By: Admin: 08/24/24 18:18 Dose: 4 mg Documented By: Admin: 08/23/24 20:27 Dose: 4 mg Documented By: HANNA Pantoprazole Sodium (Pantoprazole Dr 40 Mg Tablet) 40 mg PO DAILY [facility] Last Admin: 08/25/24 09:03 Dose: 40 mg Documented By: Admin: 08/24/24 08:56 Dose: 40 mg Documented By: Admin: 08/23/24 08:22 Dose: 40 mg Documented By: ERIC Polyethylene Glycol (Polyethylene Glycol 3350 17 Gm Powd.Pack) 17 gm PO BID [facility] Last Admin: 08/25/24 20:53 Dose: 17 gm Documented By: Admin: 08/25/24 09:03 Dose: 17 gm Documented By: Admin: 08/24/24 21:13 Dose: Not Given Documented By: Admin: 08/24/24 20:55 Dose: 17 gm Documented By: Sennosides (Sennosides 8.6 Mg Tablet) 8.6 mg PO DAILY [facility] Last Admin: 08/25/24 09:03 Dose: 8.6 mg Documented By: Admin: 08/24/24 20:55 Dose: 8.6 mg Documented By: Sodium Chloride (Sodium Chloride 0.9% Flush) 10 ml IV PRN PRN PRN Reason: Flush Last Admin: 08/26/24 06:25 Dose: 10 ml Documented By: TRAMAINE Discontinued Medications Albuterol (Albuterol 2.5 Mg/3 Ml Neb (Adult)) 2.5 mg INH NOW ONE Stop: 08/22/24 14:13 Last Admin: 08/22/24 14:17 Dose: 2.5 mg Documented By: LA Albuterol/Ipratropium (Albuterol/Ipratropium 3 Ml Ampul) 9 ml INH NOW ONE Stop: 08/22/24 11:26 Last Admin: 08/22/24 11:28 Dose: 9 ml Documented By: ASAEL Insulin Glargine (Insulin Glargine 100 Unit/Ml 3ml Pen) 10 unit SUBCUT BEDTIME [facility]; Protocol Last Admin: 08/23/24 20:38 Dose: 10 unit Documented By: HANNA Co-signed By: NATALIE Levothyroxine Sodium (Levothyroxine 50 Mcg Tablet) 50 mcg PO DAILY [facility] Last Admin: 08/23/24 08:22 Dose: 50 mcg Documented By: ERIC Methylprednisolone (Methylprednisolone 125 Mg/2 Ml Vial) 125 mg IV NOW ONE Stop: 08/22/24 11:54 Last Admin: 08/22/24 12:06 Dose: 125 mg Documented By: KONSTANTIN Oseltamivir Phosphate (Oseltamivir 75 Mg Capsule) 75 mg PO BID [facility] Last Admin: 08/23/24 10:25 Dose: 75 mg Documented By: ERIC Vital Signs Vital signs: Vital Signs - 8 hr 08/22/24 11:12 08/22/24 11:13 08/22/24 11:13 Temperature Pulse Rate 97 H 95 H Respiratory Rate Blood Pressure 131/91 H Pulse Oximetry 91 90 L Oxygen Delivery Method Oxygen Flow Rate Fraction of Inspired Oxygen 08/22/24 11:22 08/22/24 11:29 08/22/24 11:30 Temperature 98.4 F Pulse Rate 95 H 94 H Respiratory Rate 28 H 24 Blood Pressure 131/91 H 120/77 Pulse Oximetry 90 L 96 Oxygen Delivery Method Room Air Nasal Cannula Oxygen Flow Rate 3 Fraction of Inspired Oxygen 08/22/24 11:30 08/22/24 12:00 08/22/24 12:00 Temperature Pulse Rate 92 H 102 H Respiratory Rate Blood Pressure 123/78 Pulse Oximetry 91 88 L Oxygen Delivery Method Room Air Oxygen Flow Rate Fraction of Inspired Oxygen 08/22/24 14:17 Temperature Pulse Rate 98 H Respiratory Rate 20 Blood Pressure Pulse Oximetry 90 L Oxygen Delivery Method Nasal Cannula Oxygen Flow Rate 2 Fraction of Inspired Oxygen 28 MDM - SOB/Dyspnea Lab Data 08/26/24 05:00 08/26/24 05:00 Labs: Lab Results 08/22/24 08/22/24 Range/Units 11:54 11:56 WBC 5.8 (4.5-11.0) X10^3/uL RBC 4.95 (4.0-5.2) X10^6/uL Hgb 14.1 (12.0-16.0) g/dL Hct 41.7 (36-46) % MCV 84.4 (80-100) fL MCH 28.4 (26-34) PG MCHC 33.7 (30-36) % RDW 14.2 (11.6-14.8) % Plt Count 171 (150-400) X10^3/uL Neut % (Auto) 51.4 (50-75) % Lymph % (Auto) 27.2 (25-40) % [place] % (Auto) 13.4 (3-14) % Eos % (Auto) 7.4 H (2-4) % Baso % (Auto) 0.6 (0-2) % Neut # (Auto) 3000 (6699-8150) /uL Lymph # (Auto) 1600 (5416-5944) /uL [place] # (Auto) 800 (0-900) /uL Eos # (Auto) 400 (0-450) /uL Baso # (Auto) 0 (0-100) /uL PT 11.0 (9.4-12.5) SECONDS INR 1.0 (0.9-1.3) VBG pH 7.26 L (7.33-7.43) VBG pCO2 65.7 H (45-50) mmHg VBG pO2 33 L (35-45) mmHg VBG HCO3 30 H (24-28) mmol/L VBG Total CO2 29 (24-29) mmol/L VBG O2 Saturation 54 L (70-75) % VBG Base Excess 0.6 (0-4) mmol/L FiO2 % 28 % % Sodium 139 (137-145) mmol/L Potassium 4.5 (3.4-5.1) mmol/L Chloride 104 (98-107) mmol/L Carbon Dioxide 25 (22-32) mmol/L BUN 21 H (7-17) mg/dL Creatinine 0.94 (0.52-1.04) mg/dL Estimated GFR > 60 (>60) mL/min BUN/Creatinine Ratio 22.3 H (6-22) Glucose 132 H (70-99) mg/dL Lactate 1.2 (0.7-2.1) mmol/L Calcium 9.2 (8.4-10.2) mg/dL Total Bilirubin 0.6 (0.2-1.3) mg/dL AST 37 H (14-36) IU/L ALT 28 (<35) IU/L Alkaline Phosphatase 115 (38-126) U/L Troponin I < 0.012 (0.01-0.034) ng/mL NT-Pro-B Natriuret Pep 282 H (<125) pg/mL Total Protein 7.6 (6.3-8.2) g/dL Albumin 4.6 (3.5-5.0) g/dL Globulin 3.0 (1.7-4.1) g/dL Albumin/Globulin Ratio 1.5 (1.0-2.8) Imaging Data Chest x-ray: Radiologist's Impression: [address] [address] XRay Report Signed Patient: Yamel Shah MR#: [id number] : 1970 Acct:[id number] Age/Sex: 53 / F Date of Service: 08/22/24 Loc: ED Accession Number: [id number] Procedure: XR chest 1V Ordering Provider: Veto Saunders MD PROCEDURE: XR CHEST 1V INDICATIONS: Shortness of breath TECHNIQUE: One view of the chest was acquired. COMPARISON: [facility], CR, XR CHEST 2 VIEWS, 03/22/2024, 13:45. [facility], CT, CT ANGIO CHEST PE PROTOCOL, 01/16/2024, 23:02. [facility], CR, XR CHEST 1V, 01/16/2024, 14:01. [facility], CR, XR CHEST 1V, 10/15/2023, 16:48. [facility], CR, XR CHEST 1V, 04/11/2024, 19:22. FINDINGS: Surgical changes and devices: There is been prior truncation of the right distal clavicle. Lungs and pleura: An incomplete inspiratory result is noted, causing a crowded appearance to the lung markings. No focal infiltrates are seen. No pneumothorax or significant pleural effusions are seen. Mediastinum: The cardiac contours are within normal limits. The aorta demonstrates calcification and tortuosity. Bones and chest wall: Age-appropriate bony degenerative changes are seen. No suspicious bony lesions. Overlying soft tissues appear unremarkable. IMPRESSION: Low lung volumes, without an acute abnormality seen by plain film. Dictated by: Vaughn Meraz M.D. on 08/22/2024 at 10:48 Approved by: Vaughn Meraz M.D. on 08/22/2024 at 10:49 MDM Narrative Medical decision making narrative: Patient is sent here from her pulmonary office with Dr. Infante, she was in the office today. Has had shortness of breath in the past 1 week that is worse. History of asthma and is being evaluated for COPD. Is still smoking. Last admission in May 2024 and she states she feels like she needs to be admitted again. No prior history of intubation. Patient does still smoke. She is on 2 L nasal cannula oxygen at night and during the day as needed. Sister at bedside to do sign language After history and exam, respiratory therapy for albuterol nebulizers, CBC CMP respiratory panel chest x-ray Solu-Medrol admit, VBG [facility] Medical records reviewed: Pulmonary office visit prior to arrival today Differential considered: Includes but not limited to asthma exacerbation pneumonia viral syndrome Lab Test results independently reviewed as above. Pertinent findings: WBC 5.8 hemoglobin 14.1 sodium 139 potassium 4.5 troponin less than 0.012 BNP 282 Independently reviewed EKG normal sinus rhythm normal EKG rate 98 Imaging studies independently reviewed: Chest x-ray no acute finding Consultations: 2:40 p.m.. Spoke with hospitalist Dr. Carmona, who will admit patient Re-evaluations: 2:45 p.m. Patient is doing better but still requiring supplemental oxygen. She does agree for admission. Sister at bedside. Discussion: Appropriate for admission. Patient will require routine regular breathing treatments and steroids for asthma exacerbation. Patient and family agree for admit. Hospitalist was contacted Diagnosis: Asthma exacerbation Discharge Plan Departure Patient Disposition: Admitted as Observation Clinical Impression: Asthma with exacerbation Qualifiers: Asthma severity: severe Asthma persistence: persistent Qualified Code(s): J 45.51 - Severe persistent asthma with (acute) exacerbation Admit Date/Time: 08/22/24 14:39 Admit Provider: David Carmona
[2024-08-22] MEDS: methylPREDNISolone 125 MG/2 ML VIAL IV (12:06)
[2024-08-22 12:09] LABS: Add Manual Diff / Slide Review NO; Basophils Absolute Auto 0 /uL (0-100); Basophils Percent Auto 0.6 % (0-2); Eosinophils Absolute Auto 400 /uL (0-450); Eosinophils Percent Auto 7.4 % (2-4); Hematocrit 41.7 % (36-46); Hemoglobin 14.1 g/dL (12.0-16.0); Lymphocytes Absolute Auto 1600 /uL (1100-4500); Lymphocytes Percent Auto 27.2 % (25-40); Mean Corpuscular HGB Conc 33.7 % (30-36); Mean Corpuscular Hemoglobin 28.4 PG (26-34); Mean Corpuscular Volume 84.4 fL (80-100); Monocytes Absolute Auto 800 /uL (0-900); Monocytes Percent Auto 13.4 % (3-14); Neutrophils Absolute Auto 3000 /uL (1500-7000); Neutrophils Percent Auto 51.4 % (50-75); Platelet Count 171 X10^3/uL (150-400); Red Blood Cell Count 4.95 X10^6/uL (4.0-5.2); Red Cell Distribution Width 14.2 % (11.6-14.8); White Blood Cell Count 5.8 X10^3/uL (4.5-11.0)
[2024-08-22 12:15] LABS: Lactate (Lactic Acid) 1.2 mmol/L (0.7-2.1)
[2024-08-22 12:16] LABS: Alanine Aminotransferase 28 IU/L (<35); Albumin 4.6 g/dL (3.5-5.0); Albumin Globulin Ratio 1.5 (1.0-2.8); Alkaline Phosphatase 115 U/L (38-126); Aspartate Aminotransferase 37 IU/L (14-36); BUN Creatinine Ratio 22.3 (6-22); Bilirubin Total 0.6 mg/dL (0.2-1.3); Blood Urea Nitrogen 21 mg/dL (7-17); Calcium 9.2 mg/dL (8.4-10.2); Carbon Dioxide 25 mmol/L (22-32); Chloride 104 mmol/L (98-107); Estimated Glomerular Filt Rate > 60 mL/min (>60); Glucose 132 mg/dL (70-99); HEMOLYSIS < 15 (0-50); Potassium 4.5 mmol/L (3.4-5.1); Sodium 139 mmol/L (137-145); Total Protein 7.6 g/dL (6.3-8.2)
[2024-08-22 12:28] LABS: NT-proBNP (BNP-Adult 18+) 282 pg/mL (<125); Troponin I < 0.012 ng/mL (0.01-0.034)
[2024-08-22] MEDS: ALBUTEROL 2.5 MG/3 ML NEB (ADULT) INH (14:17)
--- NOTE | 2024-08-22 14:48 | PM.HP.1 ---
History of Present Illness History of Present Illness Date Patient Seen: 08/22/24 Time Patient Seen: 16:10 Chief complaint: sent from Pulmonology, Wheezing Narrative: She was a 53-year-old female with history of asthma. She also has a history of tobacco use. She presents with the acute wheezing, dyspnea, and hypoxemia. She was seen in pulmonary clinic and sent to the ED for admission. She uses nebulizers at home. She was hearing impaired. She was had cold symptoms recently including rhinorrhea, and a nonproductive cough. She denies chest pain, abdominal pain, nausea, vomiting, or diarrhea. Chest x-ray in the ED was clear and she was given steroids and nebulizers. [facility] Medical History HTN (hypertension) Hypothyroidism GERD (gastroesophageal reflux disease) Diabetes Crohn disease Asthma RHONDA (obstructive sleep apnea) Deafness COVID-19 Surgical History S/P implantation of urinary electronic stimulator device Social History household members: children alcohol intake: never Meds Home Medications and Allergies Home Medications ?Medication ?Instructions ?Recorded ?Confirmed ?Type glimepiride 2 mg tablet 2 mg PO DAILY 03/29/23 08/22/24 History levothyroxine 50 mcg tablet 50 mcg PO DAILY 03/29/23 08/22/24 History metoprolol succinate 50 mg 100 mg PO DAILY 03/29/23 08/22/24 History tablet,extended release 24 hr nebulizer accessories #4 ea 04/04/23 08/22/24 Rx albuterol sulfate 90 mcg/actuation 2 puff inhalation Q6H PRN 06/27/23 08/22/24 Rx aerosol inhaler shortness of breath or wheezing #8.5 grams blood sugar diagnostic #50 ea 10/15/23 08/22/24 Rx pantoprazole 40 mg tablet,delayed 40 mg PO DAILY 04/12/24 08/22/24 History release pioglitazone 15 mg tablet 15 mg PO DAILY 04/12/24 08/22/24 History vibegron 75 mg tablet (Gemtesa) 75 mg PO DAILY 04/12/24 08/22/24 History albuterol sulfate 2.5 mg/3 mL 2.5 mg (3 mL) inhalation Q4H PRN 04/14/24 08/22/24 Rx (0.083 %) solution for nebulization Shortness Of Breath #180 mL ipratropium 0.5 mg-albuterol 3 mg 3 ml inhalation TID #180 mL 04/14/24 08/22/24 Rx (2.5 mg base)/3 mL nebulization soln Allergies Allergy/AdvReac Type Severity Reaction Status Date / Time shellfish derived Allergy Intermediate Verified 08/22/24 10:22 dulaglutide (From Trulicity) Allergy Verified 08/22/24 10:22 metformin Allergy Verified 08/22/24 10:22 Review of Systems Review of Systems Narrative: All else reviewed and otherwise unremarkable except as noted in the history and physical. Exam Vital Signs (past 8 hours): - 08/22/24 11:12 08/22/24 11:13 08/22/24 11:13 Temperature Pulse Rate 97 H 95 H Respiratory Rate Blood Pressure 131/91 H Pulse Oximetry 91 90 L Oxygen Delivery Method Oxygen Flow Rate Fraction of Inspired Oxygen 08/22/24 11:22 08/22/24 11:29 08/22/24 11:30 Temperature 98.4 F Pulse Rate 95 H 94 H Respiratory Rate 28 H 24 Blood Pressure 131/91 H 120/77 Pulse Oximetry 90 L 96 Oxygen Delivery Method Room Air Nasal Cannula Oxygen Flow Rate 3 Fraction of Inspired Oxygen 08/22/24 11:30 08/22/24 12:00 08/22/24 12:00 Temperature Pulse Rate 92 H 102 H Respiratory Rate Blood Pressure 123/78 Pulse Oximetry 91 88 L Oxygen Delivery Method Room Air Oxygen Flow Rate Fraction of Inspired Oxygen 08/22/24 14:17 Temperature Pulse Rate 98 H Respiratory Rate 20 Blood Pressure Pulse Oximetry 90 L Oxygen Delivery Method Nasal Cannula Oxygen Flow Rate 2 Fraction of Inspired Oxygen 28 Fraction of Inspired Oxygen 28 SaO2/FiO2 Ratio 321 Oxygen Delivery Method Nasal Cannula Oxygen Flow Rate 2 Narrative Exam Narrative: NAD, alert and oriented, hearing impaired, calm. Normocephalic skull, EOMI, anicteric sclera, symmetric pupils. Oropharynx unremarkable, no droop. Neck supple, midline trachea, no adenopathy. Lungs are very wheezy, primarily with expiration. She was normal rate and effort of breathing.. Abdomen is soft, non distended and non tender. Extremities are free of edema. Skin is free of rash or lesions. Joints are not swollen or deformed. Judgment appears to be normal. Objective ECG Impression: ntervals Bradley Rate: 98 P: 43 SC: 130 QRS: 51 QRSD: 86 T: 66 QT: 374 QTc: 477 Interpretive Statements Normal sinus rhythm Imaging Chest x-ray: Radiologist's impression: Low lung volumes, without an acute abnormality seen by plain film. Labs 08/22/24 11:54 08/22/24 11:54 Labs: Laboratory Results - last 24 hr 08/22/24 11:54 WBC 5.8 RBC 4.95 Hgb 14.1 Hct 41.7 MCV 84.4 MCH 28.4 MCHC 33.7 RDW 14.2 Plt Count 171 Neut % (Auto) 51.4 Lymph % (Auto) 27.2 [place] % (Auto) 13.4 Eos % (Auto) 7.4 H Baso % (Auto) 0.6 Neut # (Auto) 3000 Lymph # (Auto) 1600 [place] # (Auto) 800 Eos # (Auto) 400 Baso # (Auto) 0 PT 11.0 INR 1.0 Sodium 139 Potassium 4.5 Chloride 104 Carbon Dioxide 25 BUN 21 H Creatinine 0.94 Estimated GFR > 60 BUN/Creatinine Ratio 22.3 H Glucose 132 H Lactate 1.2 Calcium 9.2 Total Bilirubin 0.6 AST 37 H ALT 28 Alkaline Phosphatase 115 Troponin I < 0.012 NT-Pro-B Natriuret Pep 282 H Total Protein 7.6 Albumin 4.6 Globulin 3.0 Albumin/Globulin Ratio 1.5 Assessment & Plan Assessment & Plan narrative: 1. Asthma/COPD exacerbation. Present on admission and active. 2. NIDDM. Present on admission and active. 3. Hypothyroidism. Present on admission and stable. 4. GERD. Present on admission and stable. 5. HTN. Present on admission and stable. PLAN: -continue corticosteroids and bronchodilators. -no antibiotics at this point. Imaging is clear. -continue her chronic PPI and hypertension medications as well as Synthroid. -correctional lispro and hold oral agents. -oxycodone as needed for headache or pain. Tylenol is not very helpful. -Tessalon as needed cough MELANY: 08/23. Anticipate 1 night in the hospital, supports observation status. Time-Based Coding :: 35 min spent with patient and on the chart (including review of chart, obtaining history, exam, reviewing outside data, placing orders, documenting exam and treatment plan, and counseling patient) on 08/22. Quality MIPS - Admit I confirm the patient?s Advance Care Plan is present, Code status is documented, Surrogate decision maker is in patient?s record [If Yes, STOP here]: Yes MIPS - Meds 'Current medications' to include all prescriptions, [id number] products, herbals, cannabis/cannabidiol products, and vitamin/mineral/dietary (nutritional) supplements. I have utilized all available resources to obtain, update, or review the patient?s current medications. [If Yes, STOP here]: Yes
[2024-08-22] MEDS: GABAPENTIN 300 MG CAPSULE PO ×2 (17:05→21:10)
[2024-08-22] MEDS: INSULIN LISPRO 100 UNIT/ML 3ML VIAL SUBCUT ×2 (17:06→21:10)
[2024-08-22] MEDS: ACETAMINOPHEN 325 MG TABLET 650 MG PO (17:11)
[2024-08-22] MEDS: methylPREDNISolone 125 MG/2 ML VIAL 60 MG IV ×2 (17:11→23:29)
[2024-08-22 17:21] LABS: Adenovirus Not Detected (Not Detect); B. parapertussis Not Detected (Not Detecte); Bordetella pertussis Not Detected (Not Detect); Chlamydophila pneumoniae Not Detected (Not Detect); Coronavirus 229E Not Detected (Not Detect); Coronavirus HKU1 Not Detected (Not Detect); Coronavirus NL 63 Not Detected (Not Detect); Coronavirus OC43 Not Detected (Not Detect); Human Metapneumovirus Not Detected (Not Detect); Human Rhinovirus/Enterovirus Not Detected (Not Detect); Influenza A Not Detected (Not Detect); Influenza B Not Detected (Not Detect); Mycoplasma pneumoniae Not Detected (Not Detect); Parainfluenza Virus 1 Not Detected (Not Detect); Parainfluenza Virus 2 Not Detected (Not Detect); Parainfluenza Virus 3 Detected (Not Detect); Parainfluenza Virus 4 Not Detected (Not Detect); Respiratory Syncytial Virus Not Detected (Not Detect); SARS- CoV-2 Not Detected (Not Detecte)
[2024-08-22] MEDS: ALBUTEROL/IPRATROPIUM 3 ML AMPUL INH (20:08)
[2024-08-22] MEDS: DOXYCYCLINE HYCLATE 100 MG TABLET PO (21:10)
[2024-08-23] VITALS (12 sets, daily range): BP systolic 108–139; BP diastolic 64–82; PULSE 101–116; RESP 16–28; TEMP 35.7–36.6; O2SAT 90–94
[2024-08-23] MEDS: ALBUTEROL 2.5 MG/3 ML NEB (ADULT) INH ×2 (04:37→18:55)
[2024-08-23 05:04] LABS: Add Manual Diff / Slide Review NO; Basophils Absolute Auto 0 /uL (0-100); Basophils Percent Auto 0.1 % (0-2); Eosinophils Absolute Auto 0 /uL (0-450); Eosinophils Percent Auto 0.1 % (2-4); Hematocrit 43.9 % (36-46); Hemoglobin 14.4 g/dL (12.0-16.0); Lymphocytes Absolute Auto 1100 /uL (1100-4500); Lymphocytes Percent Auto 15.9 % (25-40); Mean Corpuscular HGB Conc 32.7 % (30-36); Mean Corpuscular Hemoglobin 27.9 PG (26-34); Mean Corpuscular Volume 85.2 fL (80-100); Monocytes Absolute Auto 400 /uL (0-900); Monocytes Percent Auto 5.3 % (3-14); Neutrophils Absolute Auto 5600 /uL (1500-7000); Neutrophils Percent Auto 78.6 % (50-75); Platelet Count 162 X10^3/uL (150-400); Red Blood Cell Count 5.15 X10^6/uL (4.0-5.2); Red Cell Distribution Width 14.2 % (11.6-14.8); White Blood Cell Count 7.1 X10^3/uL (4.5-11.0)
[2024-08-23 05:14] LABS: BUN Creatinine Ratio 28.4 (6-22); Blood Urea Nitrogen 23 mg/dL (7-17); Calcium 9.6 mg/dL (8.4-10.2); Carbon Dioxide 22 mmol/L (22-32); Chloride 103 mmol/L (98-107); Estimated Glomerular Filt Rate > 60 mL/min (>60); Glucose 183 mg/dL (70-99); HEMOLYSIS 29 (0-50); Potassium 4.1 mmol/L (3.4-5.1); Sodium 139 mmol/L (137-145)
[2024-08-23] MEDS: methylPREDNISolone 125 MG/2 ML VIAL 60 MG IV ×4 (06:28→23:19)
[2024-08-23] MEDS: ACETAMINOPHEN 325 MG TABLET 650 MG PO (07:05)
--- NOTE | 2024-08-23 07:35 | PM.PN.1 ---
Subjective Subjective Interval history: S: She had a difficult night and slept very little. She was still quite tight and wheezy. Her parainfluenza PCR was positive. Exam Vital Signs (past 8 hours): - 08/23/24 00:00 08/23/24 03:28 08/23/24 04:00 Temperature 97.1 F L 97.3 F L Pulse Rate 104 H 113 H Respiratory Rate 16 24 Blood Pressure 129/73 138/82 Pulse Oximetry 92 92 91 Oxygen Delivery Method Nasal Cannula Oxygen Flow Rate 3 3 5 Fraction of Inspired Oxygen 32 08/23/24 04:38 Temperature Pulse Rate 116 H Respiratory Rate 24 Blood Pressure Pulse Oximetry 94 Oxygen Delivery Method Oximask Oxygen Flow Rate 5 Fraction of Inspired Oxygen 35 Fraction of Inspired Oxygen 35 SaO2/FiO2 Ratio 268 Oxygen Delivery Method Oximask Oxygen Flow Rate 5 Narrative Exam Narrative: NAD, alert and oriented. Fluent speech. Lungs are with diffuse expiratory wheezing and prolonged expiratory phase. Normal rate and effort. Heart is regular, no murmur gallop or rub. Abdomen is soft, non distended. Extremities are free of edema. Objective Labs 08/23/24 05:00 08/23/24 05:00 Labs: Laboratory Results - last 24 hr 08/22/24 08/22/24 08/23/24 11:54 16:28 05:00 WBC 5.8 7.1 RBC 4.95 5.15 Hgb 14.1 14.4 Hct 41.7 43.9 MCV 84.4 85.2 MCH 28.4 27.9 MCHC 33.7 32.7 RDW 14.2 14.2 Plt Count 171 162 Neut % (Auto) 51.4 78.6 H D Lymph % (Auto) 27.2 15.9 L [place] % (Auto) 13.4 5.3 Eos % (Auto) 7.4 H 0.1 L Baso % (Auto) 0.6 0.1 Neut # (Auto) 3000 5600 Lymph # (Auto) 1600 1100 [place] # (Auto) 800 400 Eos # (Auto) 400 0 Baso # (Auto) 0 0 PT 11.0 INR 1.0 Sodium 139 139 Potassium 4.5 4.1 Chloride 104 103 Carbon Dioxide 25 22 BUN 21 H 23 H Creatinine 0.94 0.81 Estimated GFR > 60 > 60 BUN/Creatinine Ratio 22.3 H 28.4 H Glucose 132 H 183 H Lactate 1.2 Calcium 9.2 9.6 Total Bilirubin 0.6 AST 37 H ALT 28 Alkaline Phosphatase 115 Troponin I < 0.012 NT-Pro-B Natriuret Pep 282 H Total Protein 7.6 Albumin 4.6 Globulin 3.0 Albumin/Globulin Ratio 1.5 Chlamy pneumoniae PCR Not detected Adenovirus (PCR) Not detected B. pertussis DNA (PCR) Not detected B.parapertussis DNA PCR Not detected Coronavirus OC43 (PCR) Not detected Coronavirus HKU1 (PCR) Not detected Coronavirus 229E (PCR) Not detected SARS-CoV-2 (PCR) Not detected Coronavirus NL63 (PCR) Not detected Human Metapneumovir PCR Not detected Influenza Type A (PCR) Not detected Influenza Type B (PCR) Not detected M. pneumoniae (PCR) Not detected Parainfluenza 1 (PCR) Not detected Parainfluenza 2 (PCR) Not detected Parainfluenza 3 (PCR) Detected H Parainfluenza 4 (PCR) Not detected RSV (PCR) Not detected Entero/Rhino (PCR) Not detected PFSH Medical History HTN (hypertension) Hypothyroidism GERD (gastroesophageal reflux disease) Diabetes Crohn disease Asthma RHONDA (obstructive sleep apnea) Deafness COVID-19 Surgical History S/P implantation of urinary electronic stimulator device Social History household members: none Smoking Status: Former smoker alcohol intake: never Assessment & Plan Assessment & Plan narrative: 1. Asthma/COPD exacerbation. Present on admission and active. 2. NIDDM. Present on admission and active. 3. Hypothyroidism. Present on admission and stable. 4. GERD. Present on admission and stable. 5. HTN. Present on admission and stable. 6. ParaInfluenza URI. Active. PLAN: -continue corticosteroids and bronchodilators. -no antibiotics at this point. Imaging is clear. -continue her chronic PPI and hypertension medications as well as Synthroid. -correctional lispro and hold oral agents. -oxycodone as needed for headache or pain. Tylenol is not very helpful. -Tessalon as needed cough MELANY: 08/25. She requires at least a 2nd night in the hospital and possibly 3 based on her clinical status. Time-Based Coding :: [TOTAL MINUTES] spent with patient and on the chart (including review of chart, obtaining history, exam, reviewing outside data, placing orders, documenting exam and treatment plan, and counseling patient) on [DATE]. Quality VTE Deep Vein Thrombosis/Pulmonary Embolism Present on Admission: No
[2024-08-23] MEDS: LEVOTHYROXINE 50 MCG TABLET PO (08:22)
[2024-08-23] MEDS: GABAPENTIN 300 MG CAPSULE PO ×3 (08:22→20:27)
[2024-08-23] MEDS: DOXYCYCLINE HYCLATE 100 MG TABLET PO ×2 (08:22→20:27)
[2024-08-23] MEDS: guaiFENesin Solution 100 MG/5 ML UDC 200 MG PO ×3 (08:22→18:53)
[2024-08-23] MEDS: PANTOPRAZOLE DR 40 MG TABLET PO (08:22)
[2024-08-23] MEDS: METOPROLOL ER 50 MG TABLET 100 MG PO (08:22)
[2024-08-23] MEDS: INSULIN LISPRO 100 UNIT/ML 3ML VIAL SUBCUT ×4 (08:26→20:38)
[2024-08-23] MEDS: ALBUTEROL/IPRATROPIUM 3 ML AMPUL INH ×3 (09:07→16:52)
[2024-08-23] MEDS: HYDROCODONE/ACET 10/325 TABLET 1 TAB PO ×2 (10:25→16:05)
[2024-08-23] MEDS: OSELTAMIVIR 75 MG CAPSULE PO (10:25)
--- NOTE | 2024-08-23 15:47 | CM.DANOTE ---
Initial DCP Assessment Note Pt is a 53 yo female, resident of [place], sent from Pulmonology, Wheezing. Patient admitted for management of Asthma/COPD exacerbation and ParaInfluenza. PCP: Clementina Krishnan Payer: [facility] MCR/NANNETTE Reviewed chart, pt discussed in multidisciplinary rounds this morning. MELANY 08/25. Patient lives indp in her [place] [address]; hearing impaired. Patient on disability benefits. Plan is for return home at OR, friend to transport. No barriers identified at this time to patient's safe discharge home with close outpatient f/u. CM team will plan to follow clinical course closely in case any DC needs or concerns arise. KEERTHI Graham Discharge Planning/Care Management CM Discharge Assessment Start: 08/22/24 15:13 Freq: Status: Active Protocol: Document 08/23/24 15:42 NASH (Rec: 08/23/24 15:46 NASH [id number]) Discharge Planning Assessment Assigned Discharge KEERTHI Rojas [employer] DPOA/Assigned lilliana Marie Designee Name Contact Information [phone] Advance Directives? No Advance Directives No on File History Provided By Patient,Family Member,Medical Record Prior Living Apartment/Condo Arrangements Household Members none Type of Relies on Others transporation used prior to admit Independent with ADL Yes 's Is patient alert and Yes oriented? Comment Home Barriers to No Discharge Discharge Plan Home Transportation Family Arrangement Referrals Initiated None needed
[2024-08-23] MEDS: ONDANSETRON 4 MG/2 ML INJ IV (20:27)
[2024-08-23] MEDS: ENOXAPARIN 40 MG/0.4 ML SYRINGE SUBCUT (20:27)
[2024-08-23] MEDS: INSULIN GLARGINE 100 UNIT/ML 3ML PEN 10 UNIT SUBCUT (20:38)
[2024-08-24] VITALS (9 sets, daily range): BP systolic 103–148; BP diastolic 65–92; PULSE 81–104; RESP 17–22; TEMP 35.6–36.7; O2SAT 90–97
[2024-08-24 06:18] LABS: Add Manual Diff / Slide Review NO; Basophils Absolute Auto 0 /uL (0-100); Basophils Percent Auto 0.1 % (0-2); Eosinophils Absolute Auto 0 /uL (0-450); Hematocrit 40.2 % (36-46); Hemoglobin 13.2 g/dL (12.0-16.0); Lymphocytes Absolute Auto 800 /uL (1100-4500); Lymphocytes Percent Auto 7.1 % (25-40); Mean Corpuscular HGB Conc 32.9 % (30-36); Mean Corpuscular Volume 85.2 fL (80-100); Monocytes Absolute Auto 400 /uL (0-900); Monocytes Percent Auto 3.4 % (3-14); Neutrophils Absolute Auto 10100 /uL (1500-7000); Neutrophils Percent Auto 89.4 % (50-75); Platelet Count 174 X10^3/uL (150-400); Red Blood Cell Count 4.72 X10^6/uL (4.0-5.2); Red Cell Distribution Width 14.4 % (11.6-14.8); White Blood Cell Count 11.3 X10^3/uL (4.5-11.0)
[2024-08-24 06:25] LABS: BUN Creatinine Ratio 37.3 (6-22); Blood Urea Nitrogen 31 mg/dL (7-17); Calcium 9.4 mg/dL (8.4-10.2); Carbon Dioxide 31 mmol/L (22-32); Chloride 100 mmol/L (98-107); Estimated Glomerular Filt Rate > 60 mL/min (>60); Glucose 276 mg/dL (70-99); HEMOLYSIS < 15 (0-50); Sodium 136 mmol/L (137-145)
[2024-08-24 06:27] LABS: Potassium 5.5 mmol/L (3.4-5.1)
[2024-08-24] MEDS: LEVOTHYROXINE 50 MCG TABLET PO (06:50)
[2024-08-24] MEDS: methylPREDNISolone 125 MG/2 ML VIAL 60 MG IV ×4 (06:50→23:57)
--- NOTE | 2024-08-24 07:45 | P.PN_ITS ---
Subjective Subjective Interval history: S: She was doing about the same. She was still coughing and short of breath. Her oxygen has been able to wean down to 2 L. She did have a headache today. Exam Vital Signs (past 8 hours): - 08/24/24 00:00 08/24/24 04:00 Temperature 98.0 F 97.7 F Pulse Rate 104 H 81 Respiratory Rate 18 17 Blood Pressure 103/65 128/68 Pulse Oximetry 92 94 Fraction of Inspired Oxygen 40 SaO2/FiO2 Ratio 235 Oxygen Delivery Method Nasal Cannula Oxygen Flow Rate 5 Narrative Exam Narrative: NAD, alert and oriented. Lungs are diffusely wheezy but improved, normal rate and effort. Heart is regular, no murmur gallop or rub. Abdomen is soft, non distended. Extremities are free of edema. Objective Labs 08/24/24 06:01 08/24/24 06:01 Labs: Laboratory Results - last 24 hr 08/24/24 06:01 WBC 11.3 H D RBC 4.72 Hgb 13.2 Hct 40.2 MCV 85.2 MCH 28.0 MCHC 32.9 RDW 14.4 Plt Count 174 Neut % (Auto) 89.4 H Lymph % (Auto) 7.1 L [place] % (Auto) 3.4 Eos % (Auto) 0.0 L Baso % (Auto) 0.1 Neut # (Auto) 38653 H Lymph # (Auto) 800 L [place] # (Auto) 400 Eos # (Auto) 0 Baso # (Auto) 0 Sodium 136 L Potassium 5.5 H D Chloride 100 Carbon Dioxide 31 BUN 31 H Creatinine 0.83 Estimated GFR > 60 BUN/Creatinine Ratio 37.3 H Glucose 276 H Calcium 9.4 PFSH Medical History HTN (hypertension) Hypothyroidism GERD (gastroesophageal reflux disease) Diabetes Crohn disease Asthma RHONDA (obstructive sleep apnea) Deafness COVID-19 Surgical History S/P implantation of urinary electronic stimulator device Social History household members: none Smoking Status: Former smoker alcohol intake: never Assessment & Plan Assessment & Plan narrative: 1. Asthma/COPD exacerbation. Present on admission and improving. 2. NIDDM. Present on admission and active. 3. Hypothyroidism. Present on admission and stable. 4. GERD. Present on admission and stable. 5. HTN. Present on admission and stable. 6. ParaInfluenza URI. Active. PLAN: -continue corticosteroids and bronchodilators. No dose changes. -no antibiotics at this point. Imaging is clear. Parainfluenza. -continue her chronic PPI and hypertension medications as well as Synthroid. -correctional lispro and hold oral agents. -oxycodone as needed for headache or pain. Tylenol is not very helpful. -Tessalon as needed cough MELANY: 08/25. Time-Based Coding :: [TOTAL MINUTES] spent with patient and on the chart (including review of chart, obtaining history, exam, reviewing outside data, placing orders, documenting exam and treatment plan, and counseling patient) on [DATE]. Quality VTE Deep Vein Thrombosis/Pulmonary Embolism Present on Admission: No
[2024-08-24] MEDS: ALBUTEROL/IPRATROPIUM 3 ML AMPUL INH ×3 (08:30→20:03)
[2024-08-24] MEDS: INSULIN LISPRO 100 UNIT/ML 3ML VIAL SUBCUT ×4 (08:49→21:10)
[2024-08-24] MEDS: ENOXAPARIN 40 MG/0.4 ML SYRINGE SUBCUT ×2 (08:50→21:09)
[2024-08-24] MEDS: GABAPENTIN 300 MG CAPSULE PO ×3 (08:54→20:54)
[2024-08-24] MEDS: METOPROLOL ER 50 MG TABLET 100 MG PO (08:55)
[2024-08-24] MEDS: PANTOPRAZOLE DR 40 MG TABLET PO (08:56)
[2024-08-24] MEDS: DOXYCYCLINE HYCLATE 100 MG TABLET PO ×2 (08:56→20:54)
[2024-08-24] MEDS: VIBEGRON 75 MG 75 EACH PO (09:02)
[2024-08-24] MEDS: HYDROCODONE/ACET 10/325 TABLET 1 TAB PO ×2 (10:18→15:35)
[2024-08-24] MEDS: guaiFENesin Solution 100 MG/5 ML UDC 200 MG PO ×2 (12:44→17:26)
[2024-08-24] MEDS: HYDROMORPHONE 0.5 MG INJ IV (12:44)
--- NOTE | 2024-08-24 17:52 | PC.NURSE ---
PT weaned down to 2L NC, still having wheezing. Scheduled nebs. Increased headache pain, PRN dilaudid added. Insulin sliding scale increased as well as long acting. Possible discharge home tomorrow. Pt OOB walking to bathroom, stand by assist with cords.
[2024-08-24] MEDS: ONDANSETRON 4 MG/2 ML INJ IV (18:18)
[2024-08-24] MEDS: LORazepam 1 MG TABLET PO (20:55)
[2024-08-24] MEDS: SENNOSIDES 8.6 MG TABLET PO (20:55)
[2024-08-24] MEDS: polyethylene glycoL 3350 17 GM POWD.PACK PO (20:55)
[2024-08-24] MEDS: INSULIN GLARGINE 100 UNIT/ML 3ML PEN 12 UNIT SUBCUT (21:10)
[2024-08-25] VITALS (10 sets, daily range): BP systolic 132–158; BP diastolic 73–98; PULSE 84–100; RESP 17–22; TEMP 35.8–36.4; O2SAT 91–96
[2024-08-25 06:04] LABS: Hematocrit 42.2 % (36-46); Hemoglobin 13.7 g/dL (12.0-16.0); Mean Corpuscular HGB Conc 32.4 % (30-36); Mean Corpuscular Hemoglobin 27.5 PG (26-34); Mean Corpuscular Volume 85.1 fL (80-100); Platelet Count 174 X10^3/uL (150-400); Red Blood Cell Count 4.96 X10^6/uL (4.0-5.2); Red Cell Distribution Width 14.1 % (11.6-14.8); White Blood Cell Count 10.8 X10^3/uL (4.5-11.0)
[2024-08-25] MEDS: methylPREDNISolone 125 MG/2 ML VIAL 60 MG IV ×4 (06:08→23:49)
[2024-08-25] MEDS: HYDROCODONE/ACET 10/325 TABLET 1 TAB PO ×3 (06:08→21:06)
[2024-08-25] MEDS: LEVOTHYROXINE 50 MCG TABLET PO (06:08)
[2024-08-25 06:17] LABS: Blood Urea Nitrogen 34 mg/dL (7-17); Calcium 9.7 mg/dL (8.4-10.2); Carbon Dioxide 29 mmol/L (22-32); Chloride 99 mmol/L (98-107); Estimated Glomerular Filt Rate > 60 mL/min (>60); Glucose 215 mg/dL (70-99); HEMOLYSIS < 15 (0-50); Potassium 4.9 mmol/L (3.4-5.1); Sodium 135 mmol/L (137-145)
[2024-08-25] MEDS: ONDANSETRON 4 MG/2 ML INJ IV (06:19)
[2024-08-25] MEDS: LORazepam 1 MG TABLET PO ×2 (06:19→15:38)
[2024-08-25] MEDS: ALBUTEROL/IPRATROPIUM 3 ML AMPUL INH ×3 (08:18→19:16)
[2024-08-25] MEDS: ACETAMINOPHEN 325 MG TABLET 650 MG PO (09:02)
[2024-08-25] MEDS: INSULIN LISPRO 100 UNIT/ML 3ML VIAL SUBCUT ×4 (09:03→20:55)
[2024-08-25] MEDS: PANTOPRAZOLE DR 40 MG TABLET PO (09:03)
[2024-08-25] MEDS: SENNOSIDES 8.6 MG TABLET PO (09:03)
[2024-08-25] MEDS: METOPROLOL ER 50 MG TABLET 100 MG PO (09:03)
[2024-08-25] MEDS: polyethylene glycoL 3350 17 GM POWD.PACK PO ×2 (09:03→20:53)
[2024-08-25] MEDS: GABAPENTIN 300 MG CAPSULE PO ×3 (09:03→20:53)
[2024-08-25] MEDS: DOXYCYCLINE HYCLATE 100 MG TABLET PO ×2 (09:03→20:53)
[2024-08-25] MEDS: ENOXAPARIN 40 MG/0.4 ML SYRINGE SUBCUT ×2 (09:03→20:53)
--- NOTE | 2024-08-25 14:10 | CM.DPNOTE ---
DCP note COMPUTER SYSTEMS INTEGRATOR reviewed EMR per provider in morning rounds, potential dc later today vs tomorrow. per previous CM notes, home with friend to transport at dc. no identified CM needs. No barriers identified at this time to patient's safe discharge home with close outpatient f/u. CM team will plan to follow clinical course closely in case any DC needs or concerns arise. KEERTHI Troy
--- NOTE | 2024-08-25 15:35 | PM.PN.1 ---
Subjective Subjective Interval history: Summary: She was a 53-year-old female with history of asthma. She also has a history of tobacco use. She presents with the acute wheezing, dyspnea, and hypoxemia. She was seen in pulmonary clinic and sent to the ED for admission. She uses nebulizers at home. She was hearing impaired. She was had cold symptoms recently including rhinorrhea, and a nonproductive cough. She denies chest pain, abdominal pain, nausea, vomiting, or diarrhea. Chest x-ray in the ED was clear and she was given steroids and nebulizers. S: She has a ARORA, constipation, and is still dyspneic. Exam Vital Signs (past 8 hours): - 08/25/24 08:00 08/25/24 08:40 08/25/24 09:03 Temperature 96.4 F L Pulse Rate 90 100 H 90 Respiratory Rate 18 20 Blood Pressure 141/88 H 141/88 H Pulse Oximetry 92 91 Oxygen Delivery Method Nasal Cannula Oxygen Flow Rate 2 2 08/25/24 13:16 08/25/24 13:47 Temperature 97.1 F L Pulse Rate 88 86 Respiratory Rate 20 22 Blood Pressure 148/92 H Pulse Oximetry 95 94 Oxygen Delivery Method Nasal Cannula Oxygen Flow Rate 2 3 Fraction of Inspired Oxygen 28 SaO2/FiO2 Ratio 328 Oxygen Delivery Method Nasal Cannula Oxygen Flow Rate 3 Narrative Exam Narrative: NAD, alert and oriented. VERY ANXIOUS. Lungs are diffusely wheezy but improved, normal rate and effort. Heart is regular, no murmur gallop or rub. Abdomen is soft, non distended. Extremities are free of edema. Objective Labs 08/25/24 05:08 08/25/24 05:08 Labs: Laboratory Results - last 24 hr 08/25/24 05:08 WBC 10.8 RBC 4.96 Hgb 13.7 Hct 42.2 MCV 85.1 MCH 27.5 MCHC 32.4 RDW 14.1 Plt Count 174 Sodium 135 L Potassium 4.9 Chloride 99 Carbon Dioxide 29 BUN 34 H Creatinine 0.79 Estimated GFR > 60 BUN/Creatinine Ratio 43.0 H Glucose 215 H Calcium 9.7 PFSH Medical History HTN (hypertension) Hypothyroidism GERD (gastroesophageal reflux disease) Diabetes Crohn disease Asthma RHONDA (obstructive sleep apnea) Deafness COVID-19 Surgical History S/P implantation of urinary electronic stimulator device Social History household members: none Smoking Status: Former smoker alcohol intake: never Assessment & Plan Assessment & Plan narrative: 1. Asthma/COPD exacerbation. Present on admission and active/slowly improving. 2. NIDDM. Present on admission and active. Hyperglycemic on steroids. 3. Hypothyroidism. Present on admission and stable. 4. GERD. Present on admission and stable. 5. HTN. Present on admission and stable. 6. Constipation, active. PLAN: -continue corticosteroids and bronchodilators. Begib PO prednisone. -PO antibiotics at this point. CXR is clear. -continue her chronic PPI and hypertension medications as well as Synthroid. -correctional lispro and hold oral agents. -oxycodone as needed for headache or pain. Tylenol is not very helpful. -Tessalon as needed cough. -Dulcolax supp and Ativan PRN. I had a discussion on the phone with her sister, she has seen new recent behaviors recently of depression and general defeat. MELANY: 1-2 days. Time-Based Coding :: [TOTAL MINUTES] spent with patient and on the chart (including review of chart, obtaining history, exam, reviewing outside data, placing orders, documenting exam and treatment plan, and counseling patient) on [DATE]. Quality VTE Deep Vein Thrombosis/Pulmonary Embolism Present on Admission: No
[2024-08-25] MEDS: BISACODYL 10 MG SUPP PR (17:11)
[2024-08-25 18:07] LABS: Base Excess VBG 0.6 mmol/L (0-4); HCO3 VBG 30 mmol/L (24-28); Oxygen Saturation VBG 54 % (70-75); PCO2 VBG 65.7 mmHg (45-50); PO2 VBG 33 mmHg (35-45); Total CO2 VBG 29 mmol/L (24-29); pH VBG 7.26 (7.33-7.43)
[2024-08-25] MEDS: NYSTATIN POWDER 15GM 1 APPLIC TOP (20:53)
[2024-08-25] MEDS: INSULIN GLARGINE 100 UNIT/ML 3ML PEN 12 UNIT SUBCUT (20:54)
[2024-08-25] MEDS: LORazepam 0.5 MG TABLET PO (21:06)
[2024-08-26] VITALS (9 sets, daily range): BP systolic 137–156; BP diastolic 73–100; PULSE 79–94; RESP 16–20; TEMP 36.2–36.3; O2SAT 93–98
[2024-08-26 05:23] LABS: Hematocrit 42.5 % (36-46); Hemoglobin 13.9 g/dL (12.0-16.0); Mean Corpuscular HGB Conc 32.8 % (30-36); Mean Corpuscular Hemoglobin 27.8 PG (26-34); Mean Corpuscular Volume 84.8 fL (80-100); Platelet Count 150 X10^3/uL (150-400); Red Blood Cell Count 5.01 X10^6/uL (4.0-5.2); Red Cell Distribution Width 13.9 % (11.6-14.8)
[2024-08-26 05:43] LABS: BUN Creatinine Ratio 40.7 (6-22); Blood Urea Nitrogen 33 mg/dL (7-17); Calcium 9.6 mg/dL (8.4-10.2); Carbon Dioxide 34 mmol/L (22-32); Chloride 95 mmol/L (98-107); Estimated Glomerular Filt Rate > 60 mL/min (>60); Glucose 242 mg/dL (70-99); HEMOLYSIS < 15 (0-50); Potassium 4.8 mmol/L (3.4-5.1); Sodium 134 mmol/L (137-145)
[2024-08-26] MEDS: LEVOTHYROXINE 50 MCG TABLET PO (06:25)
[2024-08-26] MEDS: methylPREDNISolone 125 MG/2 ML VIAL 60 MG IV ×2 (06:25→12:20)
[2024-08-26] MEDS: SODIUM CHLORIDE 0.9% FLUSH 10 ML IV (06:25)
[2024-08-26] MEDS: LORazepam 0.5 MG TABLET PO (06:37)
[2024-08-26] MEDS: HYDROCODONE/ACET 10/325 TABLET 1 TAB PO (06:37)
[2024-08-26] MEDS: ALBUTEROL/IPRATROPIUM 3 ML AMPUL INH (08:34)
[2024-08-26] MEDS: INSULIN LISPRO 100 UNIT/ML 3ML VIAL SUBCUT ×4 (09:50→21:26)
[2024-08-26] MEDS: SENNOSIDES 8.6 MG TABLET PO (10:03)
[2024-08-26] MEDS: PANTOPRAZOLE DR 40 MG TABLET PO (10:03)
[2024-08-26] MEDS: ENOXAPARIN 40 MG/0.4 ML SYRINGE SUBCUT ×2 (10:03→21:25)
[2024-08-26] MEDS: DOXYCYCLINE HYCLATE 100 MG TABLET PO ×2 (10:03→21:24)
[2024-08-26] MEDS: GABAPENTIN 300 MG CAPSULE PO ×3 (10:03→21:23)
[2024-08-26] MEDS: polyethylene glycoL 3350 17 GM POWD.PACK PO (10:04)
[2024-08-26] MEDS: METOPROLOL ER 50 MG TABLET 100 MG PO (10:04)
[2024-08-26] MEDS: BISACODYL 10 MG SUPP PR (10:04)
[2024-08-26] MEDS: NYSTATIN POWDER 15GM 1 APPLIC TOP ×2 (10:19→21:24)
--- NOTE | 2024-08-26 16:07 | CM.DPNOTE ---
DCP Note APPRENTICE/LINEMAN reviewed EMR per provider potential dc today vs tomorrow. per RN, uses the dip stand loader. APPRENTICE/LINEMAN met with pt in room, entry level finance Brian [id number]. pt confirms living alone in [place]. uses walking sticks at baseline. 2ltrs O2 at baseline. on 3ltrs at this time. denies wanting MH/counseling resources at this time reports having gone in past and it not working for her. reports she's lonely and has no friends, reports local sister but sister is busy. reports she will transport self home. reports she has an OP appt for her diabetes f/u tomorrow with dr. Chidi Lew in [facility], reports if she changes it the next available is November? started to grab her head in pain and report headache. APPRENTICE/LINEMAN Updated RN, at bedside to offer pain meds. APPRENTICE/LINEMAN updated provider on OP appt tomorrow. P: anticipate dc home when medically stable, transport with self. denies any DCP/CM needs at this time. will continue to follow closely for DCP coordination KEERTHI Fabian
--- NOTE | 2024-08-26 16:23 | PM.PN.1 ---
Subjective Subjective Interval history: Summary: She was a 53-year-old female with history of asthma. She also has a history of tobacco use. She presents with the acute wheezing, dyspnea, and hypoxemia. She was seen in pulmonary clinic and sent to the ED for admission. She uses nebulizers at home. She was hearing impaired. She was had cold symptoms recently including rhinorrhea, and a nonproductive cough. She denies chest pain, abdominal pain, nausea, vomiting, or diarrhea. Chest x-ray in the ED was clear and she was given steroids and nebulizers. S: She complains of persistent headache and nasal congestion, as well as double vision today. She feels quite dehydrated and very out of it today but also asking if she can go home. She appears ill, and is still on 3L O2 via NC today. Exam Vital Signs (past 8 hours): - 08/26/24 08:36 08/26/24 10:04 08/26/24 12:00 Pulse Rate 79 86 94 H Respiratory Rate 20 Blood Pressure 142/93 H 142/87 H Pulse Oximetry 94 94 Oxygen Delivery Method Nasal Cannula Oxygen Flow Rate 3 3 Fraction of Inspired Oxygen 32 Fraction of Inspired Oxygen 32 SaO2/FiO2 Ratio 290 Oxygen Delivery Method Nasal Cannula Oxygen Flow Rate 3 Narrative Exam Narrative: NAD, alert and oriented. VERY ANXIOUS. Lungs are diffusely wheezy but improved, normal rate and effort. Heart is regular, no murmur gallop or rub. Abdomen is soft, non distended. Extremities are free of edema. Objective Labs 08/26/24 05:00 08/26/24 05:00 Labs: Laboratory Results - last 24 hr 08/22/24 08/26/24 11:56 05:00 WBC 7.0 RBC 5.01 Hgb 13.9 Hct 42.5 MCV 84.8 MCH 27.8 MCHC 32.8 RDW 13.9 Plt Count 150 VBG pH 7.26 L VBG pCO2 65.7 H VBG pO2 33 L VBG HCO3 30 H VBG Total CO2 29 VBG O2 Saturation 54 L VBG Base Excess 0.6 FiO2 % 28 % Sodium 134 L Potassium 4.8 Chloride 95 L Carbon Dioxide 34 H BUN 33 H Creatinine 0.81 Estimated GFR > 60 BUN/Creatinine Ratio 40.7 H Glucose 242 H Calcium 9.6 PFSH Medical History HTN (hypertension) Hypothyroidism GERD (gastroesophageal reflux disease) Diabetes Crohn disease Asthma RHONDA (obstructive sleep apnea) Deafness COVID-19 Surgical History S/P implantation of urinary electronic stimulator device Social History household members: none Smoking Status: Former smoker alcohol intake: never Assessment & Plan Assessment & Plan narrative: 1. Asthma/COPD exacerbation. Present on admission and active/slowly improving. 2. NIDDM. Present on admission and active. Hyperglycemic on steroids. 3. Hypothyroidism. Present on admission and stable. 4. GERD. Present on admission and stable. 5. HTN. Present on admission and stable. 6. Constipation, active. 7. parainfluenza viral infection 7. Diplopia, not present on admission PLAN: -continue corticosteroids and bronchodilators. Was still on q6 solumedrol, will decrease to BID and then transition to PO prednisone. -PO antibiotics at this point, will add augmentin to doxycycline given lack of improvement and ill apperance today. CXR is clear. -continue her chronic PPI and hypertension medications as well as Synthroid. -correctional lispro and hold oral agents. -oxycodone as needed for headache or pain. Tylenol is not very helpful. -Tessalon as needed cough. -Dulcolax supp and Ativan PRN. -Will monitor diplopia, suspect related to nasal/sinus congestion and pressure. Given unknown timeframe and unclear LKN, unlikely CVA given no other symptoms, but if no improvement with supportive treatments, steroids, etc can obtain MRI. MELANY: 1-2 days. Time-Based Coding :: [TOTAL MINUTES] spent with patient and on the chart (including review of chart, obtaining history, exam, reviewing outside data, placing orders, documenting exam and treatment plan, and counseling patient) on [DATE]. Quality VTE Deep Vein Thrombosis/Pulmonary Embolism Present on Admission: No
[2024-08-26] MEDS: AMOXICILLIN/CLAV 875/125 MG 1 TAB PO (21:24)
[2024-08-26] MEDS: LORazepam 1 MG TABLET PO (21:24)
[2024-08-26] MEDS: FLUTICASONE 120 SPRAY/16 GM SPRAY.SUSP NASAL (21:25)
[2024-08-26] MEDS: INSULIN GLARGINE 100 UNIT/ML 3ML PEN 15 UNIT SUBCUT (21:25)
--- NOTE | 2024-08-26 22:24 | PC.NURSE ---
[id number] [employer] Supervisor Justyn ID: [id number] utilized regarding patient head to toe assessment, review of night time medications and any questions the patient may have. Patient with no complaints at this time. Education provided regarding proper carb controlled diet.
[2024-08-27] VITALS (7 sets, daily range): BP systolic 120–148; BP diastolic 74–99; PULSE 80–91; RESP 16–22; TEMP 36.2–36.6; O2SAT 91–95
[2024-08-27] MEDS: methylPREDNISolone 125 MG/2 ML VIAL 60 MG IV ×2 (00:50→12:30)
[2024-08-27] MEDS: LEVOTHYROXINE 50 MCG TABLET PO (05:34)
[2024-08-27] MEDS: HYDROCODONE/ACET 10/325 TABLET 1 TAB PO (06:55)
--- NOTE | 2024-08-27 08:24 | DI.MRI.S_ITS ---
PROCEDURE: MR HEAD/BRAIN WO CON INDICATIONS: new onset diplopia TECHNIQUE: Noncontrast axial T1 spin echo, axial T2 fast spin echo, sagittal and axial FLAIR, coronal T2 fast spin echo, axial gradient echo, axial diffusion and ADC through the brain. COMPARISON: None. FINDINGS: Image quality: This examination is limited by involuntary motion artifact. CSF Spaces: Basal cisterns are patent. No extra-axial fluid collections. Ventricles are normal in size and shape. Brain: No intracranial masses or hemorrhage. Cotter/white matter interface is normal. Brainstem appears normal. Diffusion-weighted images demonstrate no acute infarct. No chronic ischemic insults. Normal intravascular flow voids are present. Relatively prominent perivascular spaces are noted. Skull and face: Calvarium has normal marrow signal. Orbits appear normal. Sinuses: Mild bilateral mastoid air cell fluid can be seen. Mild scattered areas paranasal sinus mucosal thickening can be seen. IMPRESSION: No imaging explanation is found for this patient's presenting symptoms. No findings of acute or subacute infarction can be seen. To the limits of this noncontrast study, no findings of intracranial masses or mass effect can be seen. Dictated by: Vaughn Meraz M.D. on 08/27/2024 at 9:53 Approved by: Vaughn Meraz M.D. on 08/27/2024 at 9:54
[2024-08-27] MEDS: INSULIN LISPRO 100 UNIT/ML 3ML VIAL SUBCUT ×6 (08:37→20:34)
[2024-08-27] MEDS: PANTOPRAZOLE DR 40 MG TABLET PO (08:37)
[2024-08-27] MEDS: DOXYCYCLINE HYCLATE 100 MG TABLET PO ×2 (08:37→20:33)
[2024-08-27] MEDS: METOPROLOL ER 50 MG TABLET 100 MG PO (08:38)
[2024-08-27] MEDS: GABAPENTIN 300 MG CAPSULE PO ×3 (08:38→20:33)
[2024-08-27] MEDS: SENNOSIDES 8.6 MG TABLET PO (08:38)
[2024-08-27] MEDS: ENOXAPARIN 40 MG/0.4 ML SYRINGE SUBCUT ×2 (08:38→20:33)
[2024-08-27] MEDS: AMOXICILLIN/CLAV 875/125 MG 1 TAB PO ×2 (08:38→20:33)
[2024-08-27] MEDS: FLUTICASONE 120 SPRAY/16 GM SPRAY.SUSP NASAL ×2 (08:38→20:32)
[2024-08-27] MEDS: NYSTATIN POWDER 15GM 1 APPLIC TOP (08:39)
[2024-08-27] MEDS: polyethylene glycoL 3350 17 GM POWD.PACK PO (08:39)
[2024-08-27] MEDS: ALBUTEROL 2.5 MG/3 ML NEB (ADULT) INH (09:54)
[2024-08-27] MEDS: VIBEGRON 75 MG 75 EACH PO (09:57)
[2024-08-27] MEDS: ACETAMINOPHEN 325 MG TABLET 650 MG PO (11:13)
[2024-08-27] MEDS: SUMAtriptan 6 MG/0.5 ML VIAL SUBCUT (14:41)
--- NOTE | 2024-08-27 18:26 | PM.PN.1 ---
Subjective Subjective Interval history: Summary: She was a 53-year-old female with history of asthma. She also has a history of tobacco use. She presents with the acute wheezing, dyspnea, and hypoxemia. She was seen in pulmonary clinic and sent to the ED for admission. She uses nebulizers at home. She was hearing impaired. She was had cold symptoms recently including rhinorrhea, and a nonproductive cough. She denies chest pain, abdominal pain, nausea, vomiting, or diarrhea. Chest x-ray in the ED was clear and she was given steroids and nebulizers. Patient seen with seamless hosiery knitter on a tablet in the room: S: She complains of persistent headache and nasal congestion, as well as double vision today. MRI was negative for ischemia. She does endorse increased light sensitivity. Her breathing feels much better today actually but the headache is what's bothering her the most. Exam Vital Signs (past 8 hours): - 08/27/24 12:00 08/27/24 13:34 08/27/24 16:00 Temperature 97.2 F L 97.6 F Pulse Rate 84 88 87 Respiratory Rate 16 18 21 Blood Pressure 135/85 148/74 H Pulse Oximetry 95 91 93 Oxygen Delivery Method Nasal Cannula Oxygen Flow Rate 0 3 Fraction of Inspired Oxygen 32 Fraction of Inspired Oxygen 32 SaO2/FiO2 Ratio 284 Oxygen Delivery Method Nasal Cannula Oxygen Flow Rate 3 Narrative Exam Narrative: NAD, alert and oriented. mildly anxious but improved. Lungs are diffusely wheezy but improved, normal rate and effort. Heart is regular, no murmur gallop or rub. Abdomen is soft, non distended. Extremities are free of edema. Objective Labs 08/26/24 05:00 08/26/24 05:00 [facility] Medical History HTN (hypertension) Hypothyroidism GERD (gastroesophageal reflux disease) Diabetes Crohn disease Asthma RHONDA (obstructive sleep apnea) Deafness COVID-19 Surgical History S/P implantation of urinary electronic stimulator device Social History household members: none Smoking Status: Former smoker alcohol intake: never Assessment & Plan Assessment & Plan narrative: 1. Asthma/COPD exacerbation with acute on chronic respiratory failure with hypoxia. Present on admission and active/slowly improving. 2. NIDDM. Present on admission and active. Hyperglycemic on steroids. 3. Hypothyroidism. Present on admission and stable. 4. GERD. Present on admission and stable. 5. HTN. Present on admission and stable. 6. Constipation, active. 7. parainfluenza viral infection 7. Migraine with diplopia, not present on admission PLAN: -continue corticosteroids and bronchodilators. Was still on q6 solumedrol, decreased to BID and then transition to PO prednisone starting tomorrow AM. -PO antibiotics at this point, added augmentin to doxycycline given lack of improvement. Some improvement symptomatically today. -continue her chronic PPI and hypertension medications as well as Synthroid. -correctional lispro and hold oral agents. -oxycodone as needed for headache or pain. Tylenol is not very helpful. -Tessalon as needed cough. -Dulcolax supp and Ativan PRN. -MRI negative for acute infarct with diplopia. Did respond this evening to a dose of sumatriptan so likely represents complex migraine. MELANY: if remains on stable O2 and improvement in symptoms can likely discharge home tomorrow! Time-Based Coding :: [TOTAL MINUTES] spent with patient and on the chart (including review of chart, obtaining history, exam, reviewing outside data, placing orders, documenting exam and treatment plan, and counseling patient) on [DATE]. Quality VTE Deep Vein Thrombosis/Pulmonary Embolism Present on Admission: No
[2024-08-27] MEDS: ALBUTEROL/IPRATROPIUM 3 ML AMPUL INH ×2 (20:25→20:27)
[2024-08-27] MEDS: INSULIN GLARGINE 100 UNIT/ML 3ML PEN 22 UNIT SUBCUT (20:31)
[2024-08-27] MEDS: LORazepam 1 MG TABLET PO (20:33)
[2024-08-28 04:00] VITALS: BP 126/80; PULSE 82; RESP 18; TEMP 35.8; O2SAT 95
[2024-08-28 08:00] VITALS: BP 147/93; PULSE 88; RESP 18; TEMP 35.8; O2SAT 95
[2024-08-28] MEDS: GABAPENTIN 300 MG CAPSULE PO (08:16)
[2024-08-28] MEDS: predniSONE 20 MG TABLET 40 MG PO (08:16)
[2024-08-28] MEDS: DOXYCYCLINE HYCLATE 100 MG TABLET PO (08:16)
[2024-08-28] MEDS: PANTOPRAZOLE DR 40 MG TABLET PO (08:16)
[2024-08-28] MEDS: AMOXICILLIN/CLAV 875/125 MG 1 TAB PO (08:16)
[2024-08-28] MEDS: ENOXAPARIN 40 MG/0.4 ML SYRINGE SUBCUT (08:16)
[2024-08-28] MEDS: VIBEGRON 75 MG 75 EACH PO (08:16)
[2024-08-28 08:17] VITALS: BP 147/93; PULSE 88
[2024-08-28] MEDS: LEVOTHYROXINE 50 MCG TABLET PO (08:17)
[2024-08-28] MEDS: METOPROLOL ER 50 MG TABLET 100 MG PO (08:17)
[2024-08-28] MEDS: FLUTICASONE 120 SPRAY/16 GM SPRAY.SUSP NASAL (08:17)
[2024-08-28] MEDS: NYSTATIN POWDER 15GM 1 APPLIC TOP (08:18)
[2024-08-28] MEDS: INSULIN LISPRO 100 UNIT/ML 3ML VIAL 7 UNIT SUBCUT (08:20)
[2024-08-28] MEDS: INSULIN LISPRO 100 UNIT/ML 3ML VIAL SUBCUT (08:21)
--- NOTE | 2024-08-28 10:07 | DIET.CONS ---
Dietary Consultation Note Admission Date: 08/22/2024 14:39 Assessment: 53 y F admitted for asthma exacerbation. Dietitian screened for LOS. EMR reviewed pt with 75-100% recorded PO intakes, DFM reviewed for meal composition. No recent weight loss per chart. Last A1c% is 6.5% on 01/17/24. BG elevated yesterday 228-418, insulin adjusted by pharmacy and hospitalist and BG this morning 130. Ht: 162.56 cm Wt: 122.5 kg BMI: 46.3 UBW: 113.398 kg on 04/11/24, 112.03 kg on 10/15/23 Last BM: 08/27/24 (08/27/24 10:40) MNA: 14 Coleman Score: 21 Diet: 08/22/24 Dinner Carbohydrate Consistent Diet Diet Modifications: Carbohydrate level: Medium (3 CHO) Bedtime snack: Yes Reflex DM orders: No Nutrition Percent Meal Consumed 100% 08/27/24 18:00 Percent Meal Consumed 75% 08/27/24 13:17 Percent Meal Consumed 100% 08/26/24 18:00 Labs: RBC 5.01 X10^6/uL (4.0-5.2) 08/26/24 05:00 Hgb 13.9 g/dL (12.0-16.0) 08/26/24 05:00 Hct 42.5 % (36-46) 08/26/24 05:00 Creatinine 0.81 mg/dL (0.52-1.04) 08/26/24 05:00 Lactate 1.2 mmol/L (0.7-2.1) 08/22/24 11:54 NT-Pro-B Natriuret Pep 282 pg/mL (<125) H 08/22/24 11:54 Nutrition Diagnosis: none at this time Monitoring/Evaluations: BG, PO intakes Electronically Signed by: Yoana Siegel 08/28/24 10:07 Clinical Dietitian [address] [address]
--- NOTE | 2024-08-28 10:13 | P.DS_ITS ---
History of Present Illness History of Present Illness Date Patient Seen: 08/28/24 Time Patient Seen: 10:13 Chief complaint: sent from Pulmonology, Wheezing Narrative: Per admitting provider, She was a 53-year-old female with history of asthma. She also has a history of tobacco use. She presents with the acute wheezing, dyspnea, and hypoxemia. She was seen in pulmonary clinic and sent to the ED for admission. She uses nebulizers at home. She was hearing impaired. She was had cold symptoms recently including rhinorrhea, and a nonproductive cough. She denies chest pain, abdominal pain, nausea, vomiting, or diarrhea. Chest x-ray in the ED was clear and she was given steroids and nebulizers. Discharge Providers Provider Date of admission: 08/22/24 14:39 Discharge Date: 08/28/24 Primary care physician: MILLI Morgan Consults: 08/22/24 16:14 Consult to Cardio/Pulmonary Rehabilitation Routine Comment: Physician Instructions: Evaluate and treat Discharge provider: Bowen Lopes DO Summary Hospital Course Discharge Diagnosis: 1. Asthma/COPD exacerbation with acute on chronic respiratory failure with hypoxia. Present on admission and active/slowly improving. 2. NIDDM. Present on admission and active. Hyperglycemic on steroids. 3. Hypothyroidism. Present on admission and stable. 4. GERD. Present on admission and stable. 5. HTN. Present on admission and stable. 6. Constipation, active. 7. parainfluenza viral infection 8. Migraine with diplopia, not present on admission Hospital Course: 53 year old nora with severe persistent asthma send to the ER from pulmonology clinic for asthma exacerbation. She was started on IV steroids on admission and doxycycline for asthma exacerbation. She was slow to improve requiring more oxygen than was typical for her. IV steroids were decreased to prednisone after a couple of days, augmentin was added given a lack of improvement initially. She then developed severe headache and diplopia during her admission, which did not improve initially with supportive therapy as initially presumed due to sinus pressure from viral infection. MRI was checked and was negative for infarct. Sumatriptan was trialed with subsequent resolution of her symptoms. Her breathing symptoms further improved and she was able to be discharged on 08/28. She will continue on prednisone, augmentin and doxycycline on discharge. She should follow up with pulmonology again for continued management of severe persistant astham Time Spent with Patient Time spent: Greater than 30 minutes Exam Vital Signs (past 8 hours): - 08/28/24 04:00 08/28/24 08:00 08/28/24 08:17 Temperature 96.4 F L 96.5 F L Pulse Rate 82 88 88 Respiratory Rate 18 18 Blood Pressure 126/80 147/93 H 147/93 H Pulse Oximetry 95 95 Oxygen Flow Rate 2 2 Fraction of Inspired Oxygen 32 SaO2/FiO2 Ratio 284 Oxygen Delivery Method Nasal Cannula Oxygen Flow Rate 2 Narrative Exam Narrative: NAD, alert and oriented. mildly anxious but improved. Lungs are diffusely wheezy but improved, normal rate and effort. Heart is regular, no murmur gallop or rub. Abdomen is soft, non distended. Extremities are free of edema. Objective Labs 08/26/24 05:00 08/26/24 05:00 [facility] Medical History HTN (hypertension) Hypothyroidism GERD (gastroesophageal reflux disease) Diabetes Crohn disease Asthma RHONDA (obstructive sleep apnea) Deafness COVID-19 Surgical History S/P implantation of urinary electronic stimulator device Social History household members: none Smoking Status: Former smoker alcohol intake: never Discharge Plan Discharge Plan Patient Disposition: Home Provider Discharge Comment: You were admitted to the hospital with asthma exacerbation, improving with steroids and antibiotics. Also you had a migraine while here, you can look at [employer] to reduce cost on the sumatriptan if it's too expensive with insurance. Discharge orders & Medications Prescriptions: New doxycycline hyclate 100 mg Tablet 100 mg PO BID 5 Days Qty: 10 0RF amoxicillin-pot clavulanate 875-125 mg Tablet 1 tab PO BID 5 Days Qty: 10 0RF prednisone 20 mg Tablet 40 mg PO DAILY 3 Days Qty: 6 0RF sumatriptan succinate 50 mg tablet See Rx Instructions .ROUTE .COMPLEX Qty: 9 0RF Rx Instructions: take 1 tab at onset of headache; if no relief may repeat 1 tab after at least 2 hrs; max = 4 tabs/24 hr Continued pantoprazole 40 mg tablet,delayed release (DR/EC) 40 mg PO DAILY Gemtesa 75 mg tablet 75 mg PO DAILY pioglitazone 15 mg Tablet 15 mg PO DAILY albuterol sulfate 2.5 mg /3 mL (0.083 %) Solution For Nebulization 2.5 mg inhalation Q4H PRN (Reason: Shortness Of Breath) Qty: 180 0RF ipratropium-albuterol 0.5 mg-3 mg(2.5 mg base)/3 mL Solution For Nebulization 3 ml inhalation TID Qty: 180 0RF gabapentin 300 mg capsule 300 mg PO TID omega 5-cju-rei-fish oil [Fish Oil] 300-1,000 mg capsule 1 cap PO DAILY metoprolol succinate 50 mg tablet extended release 24 hr 100 mg PO DAILY glimepiride 2 mg tablet 2 mg PO DAILY Rx Instructions: Take along with 4 mg tab levothyroxine 50 mcg tablet 50 mcg PO DAILY (DME) nebulizer accessories Misc See Rx Instructions .Route Qty: 4 0RF Rx Instructions: nebulizer tubing (DME) blood sugar diagnostic Strip See Rx Instructions .Route Qty: 50 0RF Rx Instructions: As directed albuterol sulfate 90 mcg/actuation HFA aerosol inhaler 2 puff inhalation Q6H PRN (Reason: shortness of breath or wheezing) Qty: 8.5 3RF Follow up/Referrals: Celmentina Krishnan ARNP [Primary Care Provider, Medical] Diet/Activity/Treatments Diet: Diet as Tolerated and Carb-consistent/Diabetic Activity: No restrictions. Oxygen: as needed to keep O2 between 88-96% Visit Report/Discharge Packet Stand Alone Forms: Patient Portal/API, Stroke Signs & Symptoms Discharge Data Primary Care Provider: Clementina Krishnan Quality VTE Deep Vein Thrombosis/Pulmonary Embolism Present on Admission: No
== END 2024-08-28 12:05 | disposition home or self-care (01) | DRG 190 ==
LOC: ED 11:53 → AC 14:46
PROVIDERS: Admitting Provider Hospitalist; Emergency Provider Emergency Medicine; PCP Nurse Practitioner Family; Referring Provider Emergency Medicine; Visit Provider Hospitalist
DX: J44.1 Chronic obstructive pulmonary disease with (acute) exacerbation (principal); J96.21 Acute and chronic respiratory failure with hypoxia; J45.51 Severe persistent asthma with (acute) exacerbation; E03.9 Hypothyroidism, unspecified; K21.9 Gastro-esophageal reflux disease without esophagitis; I10 Essential (primary) hypertension; B97.89 Other viral agents as the cause of diseases classified elsewhere; J06.9 Acute upper respiratory infection, unspecified; E11.65 Type 2 diabetes mellitus with hyperglycemia; H53.2 Diplopia; K59.00 Constipation, unspecified; G43.909 Migraine, unspecified, not intractable, without status migrainosus; H91.90 Unspecified hearing loss, unspecified ear; Z79.84 Long term (current) use of oral hypoglycemic drugs; Z87.891 Personal history of nicotine dependence; Z79.890 Hormone replacement therapy
CPT/HCPCS: 36415; 70551; 71045; 80048; 80053; 82805; 82962; 83605; 83880; 84484; 85025; 85027; 85610; 87070; 87205; 87633; 93005; 94640; 94762; 96374; 99214; 99284; 99285; J1171; J1650; J1815; J2405; J2919; J3030; J7613

== ENCOUNTER 2025-02-25 15:56 | Observation (INO) | payer MEDICARE, MEDICAID, SELFPAY ==
[2024-08-22 16:10] VITALS: BMI 46.3
[2025-02-25] VITALS (15 sets, daily range): BP systolic 124–137; BP diastolic 66–82; PULSE 96–117; RESP 18–35; TEMP 36.8; O2SAT 87–97; BMI 47.0
--- NOTE | 2025-02-25 16:33 | DI.RAD.S_ITS ---
PROCEDURE: XR CHEST 1V INDICATIONS: shortness of breath, dyspnea TECHNIQUE: One view of the chest was acquired. COMPARISON: [facility], CR, XR CHEST 1V, 08/22/2024, 11:08. FINDINGS: Surgical changes and devices: None. Lungs and pleura: Lungs are clear. No pleural effusions or pneumothorax. Mediastinum: Mediastinal contours appear normal. Heart size is normal. Bones and chest wall: No suspicious bony lesions. Overlying soft tissues appear unremarkable. IMPRESSION: No acute cardiopulmonary abnormality is seen. Approved by: Deepa Beebe M.D.,Ph.D. on 02/25/2025 at 17:36
--- NOTE | 2025-02-25 16:34 | ED_ITS ---
HPI - SOB/Dyspnea General Chief Complaint: Shortness of Breath/Dyspnea Stated Complaint: SOB/wheezing Time Seen by Provider: 02/25/25 16:31 History of Present Illness HPI Narrative: This is a 54-year-old female with a history of persistent asthma who presents to the emergency room with 3 weeks of increasing shortness of breath and clear cough. Patient was seen by her industrial gas servicer helper today who told her to come to the emergency department patient is definitely speaks sign language so history is limited. Patient with audible wheezes and mild respiratory distress. Related Data Home Medications ?Medication ?Instructions ?Recorded ?Confirmed levothyroxine 50 mcg tablet 50 mcg PO DAILY 03/29/23 1 04/28/24 metoprolol succinate 50 mg 100 mg PO DAILY 03/29/23 tablet,extended release 24 hr pantoprazole 40 mg tablet,delayed 40 mg PO DAILY 04/1202/25/25 release vibegron 75 mg tablet (Gemtesa) 75 mg PO DAILY 5 02/25/25 gabapentin 300 mg capsule 300 mg PO TID nerve pain 08/1102/25/25 omega 9-irf-svm-fish oil 300 1 cap PO DAILY 08/22/24 1 04/28/24 mg-1,000 mg capsule (Fish Oil) glimepiride 2 mg tablet 7 mg PO DAILY 11/22/2402/25 sulfadiazine 500 mg tablet 1 g PO DAILY 11/22/2402/25 Previous Rx's ?Medication ?Instructions ?Recorded nebulizer accessories #4 ea 04/04/23 albuterol sulfate 90 mcg/actuation 2 puff inhalation Q 6H PRN 06/27/23 aerosol inhaler shortness of breath or wheez ing #8.5 grams blood sugar diagnostic #50 ea 10/15/23 ipratropium 0.5 mg-albuterol 3 mg 3 ml inhalation TID #180 mL 04/14/24 (2.5 mg base)/3 mL nebulization soln sumatriptan succinate 50 mg tablet See Rx Instructions PO .COMPLEX #9 08/28/24 tabs albuterol sulfate 2.5 mg/3 mL 2.5 mg (3 mL) inhalation Q4H PRN 11/22/24 (0.083 %) solution for nebulization Shortness Of Breat h #180 mL albuterol sulfate 90 mcg/actuation 2 puff inhalation Q 4-6H PRN 11/22/24 aerosol inhaler shortness of breath or wheez ing #6.7 grams budesonide 0.25 mg/2 mL suspension 0.5 mg (4 mL) inhal ation BID #60 mL 11/22/24 for nebulization dupilumab 300 mg/2 mL subcutaneous 300 mg (2 mL) SUBCU T Q2W #4 mL 11/22/24 pen injector (Dupixent) dupilumab 300 mg/2 mL subcutaneous 600 mg (4 mL) SUBCU T ONCE #4 mL 11/22/24 pen injector (Dupixent) prednisone 10 mg tablet 10 mg PO DIRECTED #18 tab s 11/22/24 fluticasone 500 mcg-salmeterol 50 1 inh inhalation BID #60 ea 02/25/25 mcg/dose blistr powdr for inhalation (Wixela Inhub) prednisone 10 mg tablet 10 mg PO DIRECTED #50 tab s 02/25/25 Allergies Allergy/AdvReac Type Severity Reaction Status Date / Time shellfish derived Allergy Intermediate Verified 02/25/25 16:29 [facility] ([facility] Allergy Verified 02/25/25 16:29 metformin Allergy Verified 02/25/25 16:29 Review of Systems Review of Systems Narrative: GENERAL: Denies chills, fatigue, malaise, fever, sweats. HEENT: Denies sinus pain, ear pain, sore throat, difficulty swallowing, dizziness. RESPIRATORY: See HPI CARDIOVASCULAR: Denies chest pain, palpitations, orthopnea, edema, GASTROINTESTINAL: Denies nausea, vomiting, abdominal pain, diarrhea, constipation, melena. : Denies dysuria, frequency, incontinence, hematuria, urinary retention. MUSCULOSKELETAL: denies weakness, joint pain, or bony pain SKIN: Denies rash, skin lesions, or other NEUROLOGIC: Denies weakness, headache, numbness, change in speech, confusion, seizures, incoordination. PSYCHIATRIC: No concerning psychosocial issues. 12 point review of systems is negative except for those stated above Patient History Medical History HTN (hypertension) Hypothyroidism GERD (gastroesophageal reflux disease) Diabetes Crohn disease Asthma RHONDA (obstructive sleep apnea) Deafness COVID-19 Surgical History S/P implantation of urinary electronic stimulator device Social History household members: none Smoking Status: Former smoker alcohol intake: never alcohol intake frequency: holidays/special occasions only Exam Narrative Exam Narrative: GENERAL: [] year old patient appears stated age. Well-developed patient, in mild distress. HEAD: Atraumatic. Normocephalic. EYES: Pupils equal round and reactive. Extraocular motions intact. No scleral icterus. No injection or drainage. ENT: Nose without bleeding, purulent drainage. Throat without erythema, tonsillar hypertrophy or exudate. Airway patent. NECK: Trachea midline. Non tender CARDIOVASCULAR: Regular rate and rhythm without murmurs, gallops, or rubs. RESPIRATORY: Diffuse wheezes and rhonchi [id number] respiratory distress GASTROINTESTINAL: Abdomen soft, non-tender, nondistended. EXTREMITIES: No edema or joint tenderness. BACK: Nontender without deformity or crepitance. No flank tenderness. NEURO: AOx3. SKIN: No rash or erythema of visible areas Initial Vital Signs Initial Vital Signs: Vital Signs Temperature 98.3 F 02/25/25 16:27 Pulse Rate 111 H 02/25/25 16:27 Respiratory Rate 28 H 02/25/25 16:27 Blood Pressure 132/75 02/25/25 16:27 Pulse Oximetry 91 02/25/25 16:27 Oxygen Delivery Method Room Air 02/25/25 16:27 Course Orders Ordered: ED Orders 02/25/25 16:32 Arterial Blood Gas STAT EKG-12 Lead Stat RT Consult Eval and Treat NOW 02/25/25 16:33 XR chest 1V Stat 02/25/25 17:08 Blood Culture Stat 02/25/25 17:12 Covid-19 + FLU A/B + RSV - PCR Stat 02/25/25 17:17 Complete Blood Count AUTO DIFF Stat Comprehensive Metabolic Panel Stat Lactate (Lactic Acid) Stat Magnesium Stat NT-proBNP (BNP-Adult 18+) Stat Procalcitonin Stat Troponin I Stat Discontinued Medications Albuterol (Albuterol 2.5 Mg/3 Ml Neb (Adult)) 10 mg INH NOW ONE Stop: 02/25/25 16:47 Last Admin: 02/25/25 17:07 Dose: 10 mg Documented By: DANIEL Albuterol/Ipratropium (Albuterol/Ipratropium 3 Ml Ampul) 3 ml INH NOW ONE Stop: 02/25/25 21:08 Dexamethasone (Dexamethasone 10 Mg/Ml Vial) 10 mg IV NOW ONE Stop: 02/25/25 16:50 Last Admin: 02/25/25 18:20 Dose: 10 mg Documented By: ARLINE Magnesium Sulfate (Magnesium Sulfate) 2 gm in 50 mls @ 150 mls/hr IV NOW ONE Stop: 02/25/25 17:02 Last Infusion: 02/25/25 19:39 Dose: Infused Documented By: ARLINE Co-signed By: SHARRI Admin: 02/25/25 19:11 Dose: 150 mls/hr Documented By: ARLINE Co-signed By: PRIMITIVO Ipratropium [place] (Ipratropium 0.5 Mg/2.5 Ml Neb) 1.5 mg INH NOW ONE Stop: 02/25/25 16:48 Last Admin: 02/25/25 17:07 Dose: 1.5 mg Documented By: DANIEL Vital Signs Vital signs: Vital Signs - 8 hr 02/25/25 16:27 02/25/25 18:15 Temperature 98.3 F Pulse Rate 111 H 110 H Respiratory Rate 28 H 20 Blood Pressure 132/75 Pulse Oximetry 91 96 Oxygen Delivery Method Room Air Room Air MDM - SOB/Dyspnea Lab Data 02/25/25 17:17 02/25/25 17:17 Labs: Lab Results 02/25/25 02/25/25 02/25/25 Range/Units 17:12 17:17 17:31 WBC 7.8 (4.5-11.0) X10^3/uL RBC 5.43 H (4.0-5.2) X10^6/uL Hgb 14.8 (12.0-16.0) g/dL Hct 44.2 (36-46) % MCV 81.5 (80-100) fL MCH 27.2 (26-34) PG MCHC 33.4 (30-36) % RDW 15.3 H (11.6-14.8) % Plt Count 187 (150-400) X10^3/uL Neut % (Auto) 53.5 (50-75) % Lymph % (Auto) 25.4 (25-40) % [place] % (Auto) 10.8 (3-14) % Eos % (Auto) 9.7 H (2-4) % Baso % (Auto) 0.6 (0-2) % Neut # (Auto) 4200 (6973-3097) /uL Lymph # (Auto) 2000 (9186-0669) /uL [place] # (Auto) 800 (0-900) /uL Eos # (Auto) 800 H (0-450) /uL Baso # (Auto) 0 (0-100) /uL ABG Sample Site Left radial ABG pH 7.38 (7.35-7.45) ABG pCO2 41.5 (35-45) mmHg ABG pO2 79 L (80-100) mmHg ABG HCO3 25 (23-27) mmol/L ABG Total CO2 24 (23-27) mmol/L ABG O2 Saturation 95 (95-100) % ABG Base Excess -0.5 (-2-3) mmol/L David Test Positive Sodium 139 (137-145) mmol/L Potassium 4.2 (3.4-5.1) mmol/L Chloride 105 (98-107) mmol/L Carbon Dioxide 24 (22-32) mmol/L BUN 20 H (7-17) mg/dL Creatinine 0.95 (0.52-1.04) mg/dL Estimated GFR > 60 (>60) mL/min BUN/Creatinine Ratio 21.1 (6-22) Glucose 191 H (70-99) mg/dL Lactate 1.6 (0.7-2.1) mmol/L Calcium 9.4 (8.4-10.2) mg/dL Magnesium 1.9 (1.6-2.3) mg/dL Total Bilirubin 0.7 (0.2-1.3) mg/dL AST 33 (14-36) IU/L ALT 40 H (<35) IU/L Alkaline Phosphatase 109 (38-126) U/L Troponin I < 0.012 (0.01-0.034) ng/mL NT-Pro-B Natriuret Pep 92 (<125) pg/mL Total Protein 7.6 (6.3-8.2) g/dL Albumin 4.5 (3.5-5.0) g/dL Globulin 3.1 (1.7-4.1) g/dL Albumin/Globulin Ratio 1.5 (1.0-2.8) Procalcitonin 0.062 (<0.5) ng/mL SARS-CoV-2 (PCR) Negative (Negative) Influenza A (RT-PCR) Flu a negative (NEGATIVE) Influenza B (RT-PCR) Flu b negative (NEGATIVE) RSV (PCR) Negative (Negative) MDM Narrative Medical decision making narrative: Patient had 12 lead EKG reveals sinus rhythm at 95 beats per minute normal axis no blocks no acute changes patient had chest x-ray read by the radiologist as negative patient has CBC within normals chemistry remarkable for glucose of 191 troponin was negative lactic acid was normal BNP was normal COVID and flu were negative ABG revealed normal acid base with adequate oxygenation. When the patient 1st arrived shows a moderate respiratory distress with audible wheezes patient received a total of 4 nebulizer treatments IV Decadron IV Mag sulfate I went back to re-evaluate her she is still wheezing diffusely. Because she is not breaking at this point the patient will need more intense respiratory therapy which will require hospitalization with speak with the hospitalist to admit the patient differential diagnosis bronchitis pneumonia CHF Discharge Plan Departure Patient Disposition: Admitted as Observation Clinical Impression: Asthma, severe persistent Qualifiers: Asthma complication type: with acute exacerbation Qualified Code(s): J45.51 - Severe persistent asthma with (acute) exacerbation
[2025-02-25] MEDS: ALBUTEROL 2.5 MG/3 ML NEB (ADULT) 10 MG INH (17:07)
[2025-02-25] MEDS: IPRATROPIUM 0.5 MG/2.5 ML NEB 1.5 MG INH (17:07)
[2025-02-25 17:29] LABS: Add Manual Diff / Slide Review NO; Hematocrit 44.2 % (36-46); Hemoglobin 14.8 g/dL (12.0-16.0); Lymphocytes Absolute Auto 2000 /uL (1100-4500); Mean Corpuscular HGB Conc 33.4 % (30-36); Mean Corpuscular Hemoglobin 27.2 PG (26-34); Mean Corpuscular Volume 81.5 fL (80-100); Platelet Count 187 X10^3/uL (150-400)
[2025-02-25 17:34] LABS: Allen Test for ABG Passed? Positive; Blood Gas Collection Site Left Radial; HCO3 ABG 25 mmol/L (23-27); Oxygen Saturation ABG 95 % (95-100); PCO2 ABG 41.5 mmHg (35-45); PO2 ABG 79 mmHg (80-100); TCO2 ABG 24 mmol/L (23-27)
[2025-02-25 17:42] LABS: Alanine Aminotransferase 40 IU/L (<35); Albumin 4.5 g/dL (3.5-5.0); Albumin Globulin Ratio 1.5 (1.0-2.8); Alkaline Phosphatase 109 U/L (38-126); Blood Urea Nitrogen 20 mg/dL (7-17); Calcium 9.4 mg/dL (8.4-10.2); Carbon Dioxide 24 mmol/L (22-32); Chloride 105 mmol/L (98-107); Estimated Glomerular Filt Rate > 60 mL/min (>60); Globulin 3.1 g/dL (1.7-4.1); Glucose 191 mg/dL (70-99); HEMOLYSIS < 15 (0-50); Lactate (Lactic Acid) 1.6 mmol/L (0.7-2.1); Magnesium 1.9 mg/dL (1.6-2.3); Potassium 4.2 mmol/L (3.4-5.1); Sodium 139 mmol/L (137-145); Total Protein 7.6 g/dL (6.3-8.2)
--- NOTE | 2025-02-25 17:44 | EKG_ITS ---
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
[2025-02-25 17:54] LABS: NT-proBNP (BNP-Adult 18+) 92 pg/mL (<125); Troponin I < 0.012 ng/mL (0.01-0.034)
[2025-02-25 17:58] LABS: Procalcitonin 0.062 ng/mL (<0.5)
[2025-02-25 18:13] LABS: COVID-19 CEPHEID 4-PLEX PCR Negative (Negative); Influenza A - CEPHEID Flu A NEGATIVE (NEGATIVE); Influenza B - CEPHEID Flu B NEGATIVE (NEGATIVE)
[2025-02-25] MEDS: MAGNESIUM SULFATE 2 GM/50 ML PIGGYBACK IV (19:11)
[2025-02-25] MEDS: ALBUTEROL/IPRATROPIUM 3 ML AMPUL INH (21:14)
--- NOTE | 2025-02-25 22:45 | PM.HP.1 ---
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 She also complains on cough, somewhat productive. Last night she woke up with severe dyspnea. Without chest pain. Referred to hospital by pulmonology. In the ED treated with bronchodilators, steroid and placed in observation for further treatment of asthma exacerbation. [facility] Medical History (Updated 02/26/25 @ 06:28 by Rosalio Bryant MD) HTN (hypertension) Hypothyroidism GERD (gastroesophageal reflux disease) Diabetes Crohn disease Asthma RHONDA (obstructive sleep apnea) Deafness COVID-19 Surgical History S/P implantation of urinary electronic stimulator device Social History household members: none Smoking Status: Former smoker alcohol intake: never Meds Home Medications and Allergies Home Medications ?Medication ?Instructions ?Recorded ?Confirmed ?Type levothyroxine 50 mcg tablet 50 mcg PO DAILY 03/29/23 02/25/25 History metoprolol succinate 50 mg 100 mg PO DAILY 03/29/23 02/25/25 History tablet,extended release 24 hr nebulizer accessories #4 ea 04/04/23 02/25/25 Rx albuterol sulfate 90 mcg/actuation 2 puff inhalation Q6H PRN 06/27/23 02/25/25 Rx aerosol inhaler shortness of breath or wheezing #8.5 grams blood sugar diagnostic #50 ea 10/15/23 02/25/25 Rx pantoprazole 40 mg tablet,delayed 40 mg PO DAILY 04/12/24 02/25/25 History release vibegron 75 mg tablet (Gemtesa) 75 mg PO DAILY 04/12/24 02/25/25 History ipratropium 0.5 mg-albuterol 3 mg 3 ml inhalation TID #180 mL 04/14/24 02/25/25 Rx (2.5 mg base)/3 mL nebulization soln gabapentin 300 mg capsule 300 mg PO TID nerve pain 08/22/24 02/25/25 History omega 4-yli-exk-fish oil 300 1 cap PO DAILY 08/22/24 02/25/25 History mg-1,000 mg capsule (Fish Oil) sumatriptan succinate 50 mg tablet See Rx Instructions PO .COMPLEX #9 08/28/24 02/25/25 Rx tabs albuterol sulfate 2.5 mg/3 mL 2.5 mg (3 mL) inhalation Q4H PRN 11/22/24 02/25/25 Rx (0.083 %) solution for nebulization Shortness Of Breath #180 mL albuterol sulfate 90 mcg/actuation 2 puff inhalation Q4-6H PRN 11/22/24 02/25/25 Rx aerosol inhaler shortness of breath or wheezing #6.7 grams budesonide 0.25 mg/2 mL suspension 0.5 mg (4 mL) inhalation BID #60 mL 11/22/24 02/25/25 Rx for nebulization dupilumab 300 mg/2 mL subcutaneous 300 mg (2 mL) SUBCUT Q2W #4 mL 11/22/24 02/25/25 Rx pen injector (Dupixent) dupilumab 300 mg/2 mL subcutaneous 600 mg (4 mL) SUBCUT ONCE #4 mL 11/22/24 02/25/25 Rx pen injector (Dupixent) glimepiride 2 mg tablet 7 mg PO DAILY 11/22/24 02/25/25 History prednisone 10 mg tablet 10 mg PO DIRECTED #18 tabs 11/22/24 02/25/25 Rx sulfadiazine 500 mg tablet 1 g PO DAILY 11/22/24 02/25/25 History fluticasone 500 mcg-salmeterol 50 1 inh inhalation BID #60 ea 02/25/25 02/25/25 Rx mcg/dose blistr powdr for inhalation (Wixela Inhub) prednisone 10 mg tablet 10 mg PO DIRECTED #50 tabs 02/25/25 02/25/25 Rx Allergies Allergy/AdvReac Type Severity Reaction Status Date / Time shellfish derived Allergy Intermediate Verified 02/25/25 16:29 dulaglutide (From [facility]) Allergy Verified 02/25/25 16:29 metformin Allergy Verified 02/25/25 16:29 Review of Systems Review of Systems Narrative: Deaf, sister interpreting sign language General - no fever or chills RS - wheezy, short of breath, cough CVS - w/o chest pain ABD - w/o complaints Exam Vital Signs (past 8 hours): - 02/25/25 16:27 02/25/25 18:15 02/25/25 18:49 Temperature 98.3 F Pulse Rate 111 H 110 H Respiratory Rate 28 H 20 Blood Pressure 132/75 124/66 Pulse Oximetry 91 96 Oxygen Delivery Method Room Air Room Air 02/25/25 18:50 02/25/25 19:12 02/25/25 19:30 Temperature Pulse Rate 101 H 102 H 99 H Respiratory Rate 26 H 24 Blood Pressure Pulse Oximetry 92 95 92 Oxygen Delivery Method 02/25/25 20:00 02/25/25 20:30 02/25/25 21:00 Temperature Pulse Rate 98 H 97 H 96 H Respiratory Rate 35 H 20 25 H Blood Pressure Pulse Oximetry 93 91 92 Oxygen Delivery Method 02/25/25 21:17 02/25/25 22:22 02/25/25 22:26 Temperature Pulse Rate 101 H 117 H 108 H Respiratory Rate 18 Blood Pressure Pulse Oximetry 95 97 94 Oxygen Delivery Method 02/25/25 22:26 Temperature Pulse Rate Respiratory Rate Blood Pressure 137/82 Pulse Oximetry Oxygen Delivery Method Oxygen Delivery Method Room Air Narrative Exam Narrative: General - in no distress HEENT - normocephalic RS - decreased air flow, wheezes CVS - tachycardic, regular ABD - not distended EXT - w/o edema Objective ECG Impression: NSR 95 Imaging Chest x-ray: My impression: Without infiltrates Labs 02/26/25 04:45 02/26/25 04:45 Labs: Laboratory Results - last 24 hr 02/25/25 02/25/25 02/25/25 17:12 17:17 17:31 WBC 7.8 RBC 5.43 H Hgb 14.8 Hct 44.2 MCV 81.5 MCH 27.2 MCHC 33.4 RDW 15.3 H Plt Count 187 Neut % (Auto) 53.5 Lymph % (Auto) 25.4 [place] % (Auto) 10.8 Eos % (Auto) 9.7 H Baso % (Auto) 0.6 Neut # (Auto) 4200 Lymph # (Auto) 2000 [place] # (Auto) 800 Eos # (Auto) 800 H Baso # (Auto) 0 ABG Sample Site Left radial ABG pH 7.38 ABG pCO2 41.5 ABG pO2 79 L ABG HCO3 25 ABG Total CO2 24 ABG O2 Saturation 95 ABG Base Excess -0.5 David Test Positive Sodium 139 Potassium 4.2 Chloride 105 Carbon Dioxide 24 BUN 20 H Creatinine 0.95 Estimated GFR > 60 BUN/Creatinine Ratio 21.1 Glucose 191 H Lactate 1.6 Calcium 9.4 Magnesium 1.9 Total Bilirubin 0.7 AST 33 ALT 40 H Alkaline Phosphatase 109 Troponin I < 0.012 NT-Pro-B Natriuret Pep 92 Total Protein 7.6 Albumin 4.5 Globulin 3.1 Albumin/Globulin Ratio 1.5 Procalcitonin 0.062 SARS-CoV-2 (PCR) Negative Influenza A (RT-PCR) Flu a negative Influenza B (RT-PCR) Flu b negative RSV (PCR) Negative Assessment & Plan Assessment and plan (1) Asthma with exacerbation: Qualifiers: Asthma persistence: persistent Asthma severity: severe Qualified Code(s): J45.51 - Severe persistent asthma with (acute) exacerbation Status: Acute (2) Deafness: Problem details: ASL Status: Acute (3) GERD (gastroesophageal reflux disease): Status: Acute (4) Hypothyroidism: Status: Acute (5) HTN (hypertension): Status: Acute (6) Asthma, severe persistent: Qualifiers: Asthma complication type: with acute exacerbation Qualified Code(s): J45.51 - Severe persistent asthma with (acute) exacerbation Status: Acute Assessment & Plan narrative: Severe persistent asthma with exacerbation - prednisone - nebulized bronchodilators - pulmonology follow up - advised to quit smoking DM with neuropathy - Amaryl, SS, CCD - gabapentin HTN - metoprolol Urinary incontinence - Gemtesa Hypothyroidism - levothyroxine GERD - Protonix Hypomagnesemia - replaced in ED DVT prophylaxis - Lovenox Patient consented to telemedicine, audio-visual encounter with RN assisting during the exam. Patient located at [place], [place], provider located in [place]. Time-Based Coding :: [TOTAL MINUTES] spent with patient and on the chart (including review of chart, obtaining history, exam, reviewing outside data, placing orders, documenting exam and treatment plan, and counseling patient) on [DATE].
[2025-02-26] VITALS (31 sets, daily range): BP systolic 103–141; BP diastolic 59–83; PULSE 94–128; RESP 13–51; TEMP 36.3–36.6; O2SAT 90–96; BMI 47.0
[2025-02-26] MEDS: ACETAMINOPHEN 325 MG TABLET 975 MG PO ×2 (03:34→11:21)
[2025-02-26 04:58] LABS: Add Manual Diff / Slide Review NO; Hematocrit 41.1 % (36-46); Hemoglobin 13.9 g/dL (12.0-16.0); Lymphocytes Absolute Auto 600 /uL (1100-4500); Mean Corpuscular HGB Conc 33.8 % (30-36); Mean Corpuscular Hemoglobin 27.5 PG (26-34); Mean Corpuscular Volume 81.4 fL (80-100); Platelet Count 151 X10^3/uL (150-400)
[2025-02-26 05:10] LABS: Blood Urea Nitrogen 18 mg/dL (7-17); Calcium 9.1 mg/dL (8.4-10.2); Carbon Dioxide 23 mmol/L (22-32); Chloride 105 mmol/L (98-107); Estimated Glomerular Filt Rate > 60 mL/min (>60); Glucose 332 mg/dL (70-99); HEMOLYSIS < 15 (0-50); Potassium 5.0 mmol/L (3.4-5.1); Sodium 136 mmol/L (137-145)
[2025-02-26] MEDS: INSULIN LISPRO 100 UNIT/ML 3ML VIAL SUBCUT ×4 (08:04→22:18)
[2025-02-26] MEDS: BUDESONIDE 0.5 MG/2 ML NEB INH ×2 (08:57→19:36)
[2025-02-26] MEDS: ALBUTEROL/IPRATROPIUM 3 ML AMPUL INH ×3 (08:57→19:36)
[2025-02-26] MEDS: ENOXAPARIN 40 MG/0.4 ML SYRINGE SUBCUT ×2 (09:05→22:17)
[2025-02-26] MEDS: GABAPENTIN 300 MG CAPSULE PO ×3 (09:06→22:17)
[2025-02-26] MEDS: PANTOPRAZOLE DR 40 MG TABLET PO (09:07)
[2025-02-26] MEDS: METOPROLOL ER 50 MG TABLET 100 MG PO (09:09)
[2025-02-26] MEDS: LEVOTHYROXINE 50 MCG TABLET PO (09:22)
--- NOTE | 2025-02-26 13:51 | P.PN_ITS ---
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 Patient does not note improvement compared to arrival last evening.. In the ED treated with bronchodilators, steroid and placed in observation for further treatment of asthma exacerbation. Currently, BG is elevated and patient reports this is making her dizzy. Patient evaluated with financial services representative services. Objective Vs reviewed and notable for POx 93%, HR 106, RR 22 A&O, WD, obese, ill appearing mild tachy, regular, no M coars bs throughout, +wheeze soft, NT, ND, +BS warm without edema grossly nonfocal neuro pleasant, cooperative A&P Severe persistent asthma with exacerbation - continue prednisone as patient on RA - nebulized bronchodilators - pulmonology follow up - advised to quit smoking Type 2 DM with neuropathy - Continue SSI but change to medium dose -Add lantus at hs -hold amaryl and mounjaro - gabapentin HTN - metoprolol Urinary incontinence - Gemtesa Hypothyroidism - levothyroxine GERD - Protonix Hypomagnesemia - replaced in ED -recheck in am Exam Vital Signs (past 8 hours): - 02/26/25 06:00 02/26/25 06:30 02/26/25 06:31 Temperature Pulse Rate 105 H 100 H 128 H Respiratory Rate 29 H 26 H Blood Pressure Blood Pressure [Left Wrist] Pulse Oximetry 92 91 93 Oxygen Delivery Method Nasal Cannula Oxygen Flow Rate 3 Fraction of Inspired Oxygen 02/26/25 07:00 02/26/25 07:00 02/26/25 07:30 Temperature Pulse Rate 97 H 97 H Respiratory Rate 16 18 Blood Pressure Blood Pressure [Left Wrist] Pulse Oximetry 92 92 Oxygen Delivery Method Nasal Cannula Oxygen Flow Rate Fraction of Inspired Oxygen 02/26/25 08:00 02/26/25 08:30 02/26/25 08:58 Temperature Pulse Rate 109 H 115 H 105 H Respiratory Rate 20 Blood Pressure Blood Pressure [Left Wrist] Pulse Oximetry 93 92 91 Oxygen Delivery Method Room Air Nasal Cannula Oxygen Flow Rate 3 Fraction of Inspired Oxygen 32 02/26/25 09:00 02/26/25 09:08 02/26/25 09:09 Temperature Pulse Rate 105 H 107 H Respiratory Rate Blood Pressure 119/83 119/83 Blood Pressure [Left Wrist] 119/83 Pulse Oximetry 96 Oxygen Delivery Method Room Air Oxygen Flow Rate Fraction of Inspired Oxygen 02/26/25 09:55 02/26/25 11:22 02/26/25 12:22 Temperature 97.3 F L Pulse Rate 103 H 110 H 106 H Respiratory Rate 22 22 Blood Pressure 119/83 115/59 L 141/81 H Blood Pressure [Left Wrist] Pulse Oximetry 94 94 Oxygen Delivery Method Room Air Oxygen Flow Rate 0 Fraction of Inspired Oxygen 02/26/25 12:36 Temperature Pulse Rate Respiratory Rate Blood Pressure Blood Pressure [Left Wrist] Pulse Oximetry Oxygen Delivery Method Room Air Oxygen Flow Rate Fraction of Inspired Oxygen Fraction of Inspired Oxygen 32 SaO2/FiO2 Ratio 287 Oxygen Delivery Method Room Air Oxygen Flow Rate 0 Objective Imaging Chest x-ray: My impression: No acute cardiopulmonary abnormalities. Labs 02/26/25 04:45 02/26/25 04:45 Labs: Laboratory Results - last 24 hr 02/25/25 02/25/25 02/25/25 17:12 17:17 17:31 WBC 7.8 RBC 5.43 H Hgb 14.8 Hct 44.2 MCV 81.5 MCH 27.2 MCHC 33.4 RDW 15.3 H Plt Count 187 Neut % (Auto) 53.5 Lymph % (Auto) 25.4 [place] % (Auto) 10.8 Eos % (Auto) 9.7 H Baso % (Auto) 0.6 Neut # (Auto) 4200 Lymph # (Auto) 2000 [place] # (Auto) 800 Eos # (Auto) 800 H Baso # (Auto) 0 ABG Sample Site Left radial ABG pH 7.38 ABG pCO2 41.5 ABG pO2 79 L ABG HCO3 25 ABG Total CO2 24 ABG O2 Saturation 95 ABG Base Excess -0.5 David Test Positive Sodium 139 Potassium 4.2 Chloride 105 Carbon Dioxide 24 BUN 20 H Creatinine 0.95 Estimated GFR > 60 BUN/Creatinine Ratio 21.1 Glucose 191 H POC Whole Bld Glucose Lactate 1.6 Calcium 9.4 Magnesium 1.9 Total Bilirubin 0.7 AST 33 ALT 40 H Alkaline Phosphatase 109 Troponin I < 0.012 NT-Pro-B Natriuret Pep 92 Total Protein 7.6 Albumin 4.5 Globulin 3.1 Albumin/Globulin Ratio 1.5 Procalcitonin 0.062 SARS-CoV-2 (PCR) Negative Influenza A (RT-PCR) Flu a negative Influenza B (RT-PCR) Flu b negative RSV (PCR) Negative 02/26/25 02/26/25 02/26/25 04:45 07:48 11:37 WBC 6.7 RBC 5.05 Hgb 13.9 Hct 41.1 MCV 81.4 MCH 27.5 MCHC 33.8 RDW 14.9 H Plt Count 151 Neut % (Auto) 88.0 H D Lymph % (Auto) 9.0 L [place] % (Auto) 2.7 L Eos % (Auto) 0.0 L Baso % (Auto) 0.3 Neut # (Auto) 5900 Lymph # (Auto) 600 L [place] # (Auto) 200 Eos # (Auto) 0 Baso # (Auto) 0 ABG Sample Site ABG pH ABG pCO2 ABG pO2 ABG HCO3 ABG Total CO2 ABG O2 Saturation ABG Base Excess David Test Sodium 136 L Potassium 5.0 Chloride 105 Carbon Dioxide 23 BUN 18 H Creatinine 0.81 Estimated GFR > 60 BUN/Creatinine Ratio 22.2 H Glucose 332 H D POC Whole Bld Glucose 286 H 344 H Lactate Calcium 9.1 Magnesium Total Bilirubin AST ALT Alkaline Phosphatase Troponin I NT-Pro-B Natriuret Pep Total Protein Albumin Globulin Albumin/Globulin Ratio Procalcitonin SARS-CoV-2 (PCR) Influenza A (RT-PCR) Influenza B (RT-PCR) RSV (PCR) [facility] Medical History (Updated 02/26/25 @ 06:28 by Rosalio Bryant MD) HTN (hypertension) Hypothyroidism GERD (gastroesophageal reflux disease) Diabetes Crohn disease Asthma RHONDA (obstructive sleep apnea) Deafness COVID-19 Surgical History S/P implantation of urinary electronic stimulator device Social History household members: none Smoking Status: Former smoker alcohol intake: never Assessment & Plan Time-Based Coding :: 40 spent with patient and on the chart (including review of chart, obtaining history, exam, reviewing outside data, placing orders, documenting exam and treatment plan, and counseling patient) on [DATE].
[2025-02-26] MEDS: MAG HYDROX/ALUM/SIMETH 30 ML UDC PO (22:17)
[2025-02-26] MEDS: INSULIN GLARGINE 100 UNIT/ML 3ML PEN 10 UNIT SUBCUT (22:20)
[2025-02-27] VITALS (8 sets, daily range): BP systolic 113–151; BP diastolic 61–103; PULSE 94–108; RESP 17–24; TEMP 36.7–36.9; O2SAT 91–94
[2025-02-27] MEDS: LEVOTHYROXINE 50 MCG TABLET PO (06:24)
[2025-02-27 06:41] LABS: Magnesium 1.9 mg/dL (1.6-2.3)
[2025-02-27] MEDS: INSULIN LISPRO 100 UNIT/ML 3ML VIAL SUBCUT ×4 (07:45→20:20)
--- NOTE | 2025-02-27 07:59 | PM.PN.1 ---
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 Patient does not note improvement compared to arrival last evening.. In the ED, treated with bronchodilators, steroid and placed in observation for further treatment of asthma exacerbation. Currently, BG is elevated and patient reports this is making her dizzy. Patient evaluated with hob machine operator services. Objective Vs reviewed and notable for POx 93% on 2L, BP 144/103 A&O, WD, obese, ill appearing mild tachy, regular, no M coarse bs throughout, +wheeze soft, NT, ND, +BS warm without edema grossly nonfocal neuro pleasant, cooperative A&P Severe persistent asthma with exacerbation Patient has O2 which she uses at night but her cat keeps chewing holes through the tubing. - change prednisone to solumedrol - nebulized bronchodilators - pulmonology follow up as outpatient - advised to quit smoking - CM to assist with home O2 issues Type 2 DM with neuropathy Blood glucose 344, 314, 253 - Continue SSI medium dose - Increase lantus at hs to 20 units - hold amaryl and mounjaro - gabapentin HTN - Continue metoprolol Urinary incontinence - Continue Gemtesa Hypothyroidism - Continue levothyroxine GERD - Continue Protonix Hypomagnesemia, resolved replaced in ED, now normal - CTM prn Exam Vital Signs (past 8 hours): - 02/27/25 07:41 Temperature 98.3 F Pulse Rate 99 H Respiratory Rate 17 Blood Pressure 144/103 H Pulse Oximetry 93 Oxygen Flow Rate 2 Fraction of Inspired Oxygen 32 SaO2/FiO2 Ratio 287 Oxygen Delivery Method Room Air Oxygen Flow Rate 2 Objective Labs 02/26/25 04:45 02/26/25 04:45 Labs: Laboratory Results - last 24 hr 02/26/25 02/26/25 02/26/25 11:37 16:25 21:43 POC Whole Bld Glucose 344 H 197 H D 314 H D Magnesium 02/27/25 02/27/25 05:55 07:34 POC Whole Bld Glucose 253 H Magnesium 1.9 PFSH Medical History (Updated 02/26/25 @ 06:28 by Rosalio Bryant MD) HTN (hypertension) Hypothyroidism GERD (gastroesophageal reflux disease) Diabetes Crohn disease Asthma RHONDA (obstructive sleep apnea) Deafness COVID-19 Surgical History S/P implantation of urinary electronic stimulator device Social History household members: none Smoking Status: Former smoker alcohol intake: never Assessment & Plan Time-Based Coding :: 40 minutes spent with patient and on the chart (including review of chart, obtaining history, exam, reviewing outside data, placing orders, documenting exam and treatment plan, and counseling patient) on [DATE].
[2025-02-27] MEDS: ALBUTEROL/IPRATROPIUM 3 ML AMPUL INH ×3 (08:09→19:26)
[2025-02-27] MEDS: BUDESONIDE 0.5 MG/2 ML NEB INH ×2 (08:10→19:26)
[2025-02-27] MEDS: methylPREDNISolone succ 125 MG/2 ML VIAL 60 MG IV ×2 (09:40→17:54)
[2025-02-27] MEDS: ENOXAPARIN 40 MG/0.4 ML SYRINGE SUBCUT ×2 (09:40→20:18)
[2025-02-27] MEDS: PANTOPRAZOLE DR 40 MG TABLET PO (09:41)
[2025-02-27] MEDS: METOPROLOL ER 50 MG TABLET 100 MG PO (09:41)
[2025-02-27] MEDS: GABAPENTIN 300 MG CAPSULE PO ×3 (09:52→20:18)
--- NOTE | 2025-02-27 15:43 | CM.DANOTE ---
Patient is a 54 yo female who was admitted OBS Status on 02/25/25 for Asthma Exacerbation. Pt has [facility] and [facility] for insurance and her PCP is Clementina Krishnan. EMR was reviewed. Per MD, pt with hx of asthma and is already established with [employer] Teacher but being treated for asthma exacerbation and on higher than home O2. Likely ready for d/c by tomorrow but pt having concerns that her cat has been chewing on her oxygen line at home. Pt also legally deaf and utilizes [place] Sign Language or lip reading at baseline. Pt admitted for similar in August 2024 and discharged home via own vehicle. SW met bedside briefly bedside with pt confirms she still lives indp in her [place] apartment and due to her hearing impairment she is on disability benefits. Pt typically uses walking sticks at baseline and is on 2ltrs O2 at home. Pt also has local supportive sister. SW attempted to contact liaison for [employer] (pt's oxygen provider) [place] [phone] and left msg requesting call back and left msg at [place] office to inquire if they have a tech or staff member who can help pt determine best options for her oxygen line at home with her cat. SW also attempted to call [facility] Medical Record Assistant to determine if they happen to cover any of [place] or if [place] has community final armature tester who might be able to assist pt at home with her oxygen line concerns but had to leave [facility] for them as well requesting call back. Plan: SW to follow for plan of discharge home likely tomorrow if she remains stable and if no ability to assist pt through [place] or Community Medical Record Assistant, will need to reach out to sister for assistance with problem solving pt's oxygen line. KEERTHI Gallegos Discharge Planning/Care Management Advanced directive, confirm from FAMILY Start: 02/26/25 15:56 Freq: Q24H Status: Active Protocol: Document 02/26/25 15:56 YAD (Rec: 02/26/25 16:22 YAD [id number]) Advance Directive, confirm on record Time 16:22 Person contacted Pt Copy received No CM Discharge Assessment Start: 02/25/25 21:52 Freq: Status: Active Protocol: Document 02/27/25 15:41 BF (Rec: 02/27/25 15:43 BF [id number]) Discharge Planning Assessment Assigned Discharge KEERTHI Arevalo Bottom Liner Provider Clementina Krishnan Insurance Medicaid,Medicare,[facility] Advance Directives? No Advance Directives No on File History Provided By Patient,Family Member,Medical Record Has Patient been No admitted in last 30 days? Comment Last admit in August 2024 and went home Prior Living Apartment/Condo Arrangements Household Members none Type of Drives own vehicle transporation used prior to admit Independent with ADL Yes 's Is patient alert and Yes oriented? DME Already Rented / Oxygen Owned Comment Home O2 2L Barriers to No Discharge Discharge Plan Home Community Services Oxygen Therapy Transportation Family Arrangement Referrals Initiated None needed Whiteboard Updated Yes in Patient Room with name and ext. # of Juice Packaging Machines Setter Review Status In Process Please Provide Date 02/27/25 Initial DC Assessment Was Performed Next Review Type Continued Stay Review
[2025-02-27] MEDS: ACETAMINOPHEN 325 MG TABLET 975 MG PO (17:48)
[2025-02-27] MEDS: MAG HYDROX/ALUM/SIMETH 30 ML UDC PO (20:17)
[2025-02-27] MEDS: INSULIN GLARGINE 100 UNIT/ML 3ML PEN 25 UNIT SUBCUT (20:19)
[2025-02-28] MEDS: methylPREDNISolone succ 125 MG/2 ML VIAL 60 MG IV ×2 (01:13→08:20)
[2025-02-28 04:00] VITALS: BP 125/97; PULSE 85; RESP 20; TEMP 36.2; O2SAT 90
[2025-02-28 05:34] LABS: Hematocrit 43.0 % (36-46); Hemoglobin 14.3 g/dL (12.0-16.0); Mean Corpuscular HGB Conc 33.3 % (30-36); Mean Corpuscular Hemoglobin 27.4 PG (26-34); Mean Corpuscular Volume 82.4 fL (80-100); Platelet Count 173 X10^3/uL (150-400)
[2025-02-28 05:50] LABS: Blood Urea Nitrogen 28 mg/dL (7-17); Calcium 9.5 mg/dL (8.4-10.2); Carbon Dioxide 24 mmol/L (22-32); Chloride 103 mmol/L (98-107); Estimated Glomerular Filt Rate > 60 mL/min (>60); Glucose 330 mg/dL (70-99); HEMOLYSIS < 15 (0-50); Hemoglobin A1C% w Est Avg Glu 7.1 % (4.0-6.0); Magnesium 1.9 mg/dL (1.6-2.3); Potassium 4.3 mmol/L (3.4-5.1); Sodium 135 mmol/L (137-145)
[2025-02-28] MEDS: LEVOTHYROXINE 50 MCG TABLET PO (05:57)
[2025-02-28] MEDS: BUDESONIDE 0.5 MG/2 ML NEB INH (07:22)
[2025-02-28] MEDS: ALBUTEROL/IPRATROPIUM 3 ML AMPUL INH (07:22)
[2025-02-28 07:25] VITALS: PULSE 96; RESP 18; O2SAT 92
[2025-02-28] MEDS: INSULIN LISPRO 100 UNIT/ML 3ML VIAL SUBCUT ×2 (08:04→12:10)
[2025-02-28 08:19] VITALS: BP 128/88; PULSE 64
[2025-02-28] MEDS: GABAPENTIN 300 MG CAPSULE PO (08:19)
[2025-02-28] MEDS: PANTOPRAZOLE DR 40 MG TABLET PO (08:19)
[2025-02-28] MEDS: ENOXAPARIN 40 MG/0.4 ML SYRINGE SUBCUT (08:19)
[2025-02-28] MEDS: METOPROLOL ER 50 MG TABLET 100 MG PO (08:19)
[2025-02-28 09:06] VITALS: BP 157/94; PULSE 96; RESP 16; TEMP 36.4; O2SAT 91
[2025-02-28 09:10] VITALS: BP 127/70
--- NOTE | 2025-02-28 10:18 | PM.DS.1 ---
History of Present Illness History of Present Illness Chief complaint: SOB/wheezing Narrative: Subjective 54 y/o with PMH of persistent asthma, followed by bolting machine operator, treated with Albuterol MDI, nebs, Symbicort and lately had few doses of Dupixent, presented with worsening shortness of breath and wheezing. In the ED, treated with bronchodilators, steroid and then admitted to the hospital. She was initially O2 dependent and required frequent nebs as well as IV steroids. Her wheezing and dyspnea have resolved and she is now oxygenating well on room air. At baseline, she does not need oxygen at home but requires it while sleeping. She is stable for discharge to home. All history obtained with the help of an certified court interpreter. Objective Vs reviewed and unremarkable A&O, WD, obese, no acute distress Regular rate and rhythm, no murmurs coarse bs throughout, +wheeze soft, NT, ND, +BS warm without edema grossly nonfocal neuro pleasant, cooperative Chest x-ray-no acute cardiopulmonary abnormality. Labs-unremarkable except for hyperglycemia A&P Severe persistent asthma with exacerbation Acute hypoxic respiratory failure Patient presented with hypoxia and increasing shortness of breath. She had diffuse wheezing and increased work of breathing. Treatment with nebulizers and steroids have returned her respiratory status to prior baseline. The patient has been advised to discontinue tobacco use. Of note she is having issues with her oxygen at home. She reports that her CT keeps chewing through the oxygen tubing and so then she can not use her oxygen. This was discussed with the oxygen supplier and with care management. The recommendation from the oxygen company was that the patient should wrap the tubing in aluminum foil to prevent the calf from biting through it. If the patient is aware of this instruction and will try to do this when she returns home. She will discharge on her usual medications as well as prednisone 60 mg daily for 5 days. She should follow up with her bolting machine operator, Dr. Danial Infante within 2 weeks. Type 2 DM with neuropathy Blood glucose elevated here secondary to steroid use but she returned to prior levels once the patient has discontinued prednisone. She received Lantus and SSI while here. She should resume her oral medications at home. HTN Continue metoprolol Urinary incontinence Continue Gemtesa Hypothyroidism Continue levothyroxine GERD Continue Protonix Hypomagnesemia, resolved replaced in ED, now normal Discharge Providers Provider Date of admission: 02/25/25 21:29 Discharge Date: 02/28/25 Primary care physician: MILLI Morgan Discharge provider: Rosemarie Fernández MD Exam Vital Signs (past 8 hours): - 02/28/25 04:00 02/28/25 07:25 02/28/25 08:19 Temperature 97.1 F L Pulse Rate 85 96 H 64 Respiratory Rate 20 18 Blood Pressure 125/97 H 128/88 Pulse Oximetry 90 L 92 Oxygen Delivery Method Room Air Oxygen Flow Rate 02/28/25 09:06 Temperature 97.5 F L Pulse Rate 96 H Respiratory Rate 16 Blood Pressure 157/94 H Pulse Oximetry 91 Oxygen Delivery Method Oxygen Flow Rate 0 Fraction of Inspired Oxygen 32 SaO2/FiO2 Ratio 287 Oxygen Delivery Method Room Air Oxygen Flow Rate 0 Objective Labs 02/28/25 05:17 02/28/25 05:17 Labs: Laboratory Results - last 24 hr 02/27/25 02/27/25 02/27/25 11:30 16:34 20:13 WBC RBC Hgb Hct MCV MCH MCHC RDW Plt Count Sodium Potassium Chloride Carbon Dioxide BUN Creatinine Estimated GFR BUN/Creatinine Ratio Glucose POC Whole Bld Glucose 359 H D 396 H 407 H Hemoglobin A1c Calcium Magnesium 02/28/25 02/28/25 05:17 08:01 WBC 9.6 RBC 5.22 H Hgb 14.3 Hct 43.0 MCV 82.4 MCH 27.4 MCHC 33.3 RDW 15.5 H Plt Count 173 Sodium 135 L Potassium 4.3 Chloride 103 Carbon Dioxide 24 BUN 28 H Creatinine 0.80 Estimated GFR > 60 BUN/Creatinine Ratio 35.0 H Glucose 330 H POC Whole Bld Glucose 346 H Hemoglobin A1c 7.1 H Calcium 9.5 Magnesium 1.9 PFSH Medical History (Updated 02/26/25 @ 06:28 by Rosalio Bryant MD) HTN (hypertension) Hypothyroidism GERD (gastroesophageal reflux disease) Diabetes Crohn disease Asthma RHONDA (obstructive sleep apnea) Deafness COVID-19 Surgical History S/P implantation of urinary electronic stimulator device Social History household members: none Smoking Status: Former smoker alcohol intake: never Discharge Plan Discharge Plan Patient Disposition: Home Discharge orders & Medications Prescriptions: New prednisone 10 mg tablets,dose pack 60 mg PO DAILY 5 Days Qty: 30 0RF fluticasone propion-salmeterol [Wixela Inhub] 500-50 mcg/dose blister with device 1 inh inhalation BID Qty: 60 0RF Continued pantoprazole 40 mg tablet,delayed release (DR/EC) 40 mg PO DAILY Gemtesa 75 mg tablet 75 mg PO DAILY ipratropium-albuterol 0.5 mg-3 mg(2.5 mg base)/3 mL Solution For Nebulization 3 ml inhalation TID Qty: 180 0RF gabapentin 300 mg capsule 300 mg PO TID omega 3-lss-rvh-fish oil [Fish Oil] 300-1,000 mg capsule 1 cap PO DAILY sumatriptan succinate 50 mg tablet See Rx Instructions .ROUTE .COMPLEX Qty: 9 0RF Rx Instructions: take 1 tab at onset of headache; if no relief may repeat 1 tab after at least 2 hrs; max = 4 tabs/24 hr metoprolol succinate 50 mg tablet extended release 24 hr 100 mg PO DAILY levothyroxine 50 mcg tablet 50 mcg PO DAILY (DME) nebulizer accessories Misc See Rx Instructions .Route Qty: 4 0RF Rx Instructions: nebulizer tubing glimepiride 2 mg tablet 7 mg PO DAILY Rx Instructions: Take along with 4 mg tab (DME) blood sugar diagnostic Strip See Rx Instructions .Route Qty: 50 0RF Rx Instructions: As directed albuterol sulfate 90 mcg/actuation HFA aerosol inhaler 2 puff inhalation Q6H PRN (Reason: shortness of breath or wheezing) Qty: 8.5 3RF sulfadiazine 500 mg tablet 1 g PO DAILY Rx Instructions: administer with large glass of water albuterol sulfate 2.5 mg /3 mL (0.083 %) solution for nebulization 2.5 mg inhalation Q4H PRN (Reason: Shortness Of Breath) Qty: 180 11RF prednisone 10 mg tablet 10 mg PO DIRECTED Qty: 18 2RF Rx Instructions: Take 3 tabs every morning X 3 days, then 2 tabs X 3 days, then 1 tab X 3 days budesonide 0.25 mg/2 mL suspension for nebulization 0.5 mg inhalation BID Qty: 60 11RF albuterol sulfate 90 mcg/actuation HFA aerosol inhaler 2 puff inhalation Q4-6H PRN (Reason: shortness of breath or wheezing) Qty: 6.7 11RF Dupixent Pen 300 mg/2 mL pen injector 600 mg SUBCUT ONCE Qty: 4 0RF Rx Instructions: as a single dose Dupixent Pen 300 mg/2 mL pen injector 300 mg SUBCUT Q2W Qty: 4 6RF prednisone 10 mg tablet 10 mg PO DIRECTED Qty: 50 0RF Rx Instructions: Take 4 tabs every morning for 5 days, then 3 times X 5 days, then 2 times X 5 days, then 1 tab X 5 days Discontinued fluticasone propion-salmeterol [Wixela Inhub] 500-50 mcg/dose blister with device 1 inh inhalation BID Qty: 60 11RF Follow up/Referrals: Clementina Krishnan ARNP [Primary Care Provider, Family Practice] Diet/Activity/Treatments Diet: Diet as Tolerated Activity: As tolerated Visit Report/Discharge Packet Stand Alone Forms: Patient Portal/API, Stroke Signs & Symptoms Discharge Data Primary Care Provider: Clementina Krishnan Attending Provider: Rosalio Theodore Admit Date/Time: 02/25/25 21:29
[2025-02-28] MEDS: ALBUTEROL 2.5 MG/3 ML NEB (ADULT) INH (11:52)
--- NOTE | 2025-02-28 12:04 | CM.DPC ---
DCP Cont. Reviewed EMR and team rounds for pt's medical status and updates. Pt has been medically cleared for home d/c. Family will transport her home. No further CM d/c needs or resources identified at this time.
[2025-02-28] MEDS: INSULIN GLARGINE 100 UNIT/ML 3ML PEN 10 UNIT SUBCUT (12:12)
[2025-02-28] MEDS: INSULIN LISPRO 100 UNIT/ML 3ML VIAL 8 UNIT SUBCUT (12:13)
--- NOTE | 2025-02-28 12:45 | PC.NURSE ---
Pt independent in room, Denies any issues CBG 322; given additional dose of insulin as per orders. Home instructions given w/ understanding Pt has own car here and will be driving herself home D/C in stable status.
== END 2025-02-28 13:15 | disposition home or self-care (01) ==
LOC: ED 21:11 → AC 21:29
PROVIDERS: Internal Medicine Infectious Disease; Admitting Provider Internal Medicine; Emergency Provider Emergency Medicine; PCP Nurse Practitioner Family; Referring Provider Emergency Medicine; Visit Provider Internal Medicine
DX: J96.01 Acute respiratory failure with hypoxia (principal); J45.51 Severe persistent asthma with (acute) exacerbation; H91.90 Unspecified hearing loss, unspecified ear; K21.9 Gastro-esophageal reflux disease without esophagitis; E03.9 Hypothyroidism, unspecified; I10 Essential (primary) hypertension; E11.40 Type 2 diabetes mellitus with diabetic neuropathy, unspecified; R32 Unspecified urinary incontinence; E66.9 Obesity, unspecified; F17.210 Nicotine dependence, cigarettes, uncomplicated; Z79.84 Long term (current) use of oral hypoglycemic drugs; Z99.81 Dependence on supplemental oxygen
CPT/HCPCS: 36415; 36600; 71045; 80048; 80053; 82805; 82962; 83036; 83605; 83735; 83880; 84145; 84484; 85025; 85027; 87040; 87637; 93005; 93010; 94640; 94644; 94760; 96365; 96372; 96375; 99285; G0378; J1100; J1650; J1815; J2919; J3475; J7613

== ENCOUNTER 2025-03-05 11:53 | Emergency (ER) | payer MEDICARE, MEDICAID, SELFPAY ==
[2025-02-26 15:33] VITALS: BMI 47.0
[2025-03-05 11:59] VITALS: BP 139/103; PULSE 93; RESP 19; TEMP 36.6; O2SAT 98; BMI 47.0
--- NOTE | 2025-03-05 12:20 | EKG_ITS ---
[address] [address] Test Date: 2025-03-05 Pat Name: Yamel Shah Department: Room: Gender: Female [employer] Operator: MARIO : 1970 Requested By: Order Number: [id number] Reading MD: Magdaleno Small MD Measurements Intervals [place] Rate: 86 P: 42 MN: 144 QRS: 33 QRSD: 78 T: 58 QT: 386 QTc: 461 Interpretive Statements Normal sinus rhythm Electronically Signed On 03-06-2025 7:17:10 PST by Magdaleno Small MD
--- NOTE | 2025-03-05 13:20 | ED.DIZZY ---
HPI - Dizziness General Chief Complaint: Dizziness Stated Complaint: excruciating pain/dizziness/vertigo Time Seen by Provider: 03/05/25 12:33 Source: patient and plastics patternmaker Mode of arrival: Wheelchair History of Present Illness HPI Narrative: Patient is a 54-year-old female history of persistent asthma, type 2 diabetes, hypertension, hypothyroid recently admitted to the hospital February 25 through the for an asthma exacerbation. She uses [employer], sister is used as plastics patternmaker. Patient has a variety of complaints. Sounds like she has had vertigo like symptoms since she has been discharged at least for the last 5 days. She has been taking meclizine without any kind of relief. She has had vertigo in the past this feels like the same. She got some blurry vision with it but no numbness tingling or weakness. No facial droop. She has no nausea or vomiting. She also has this ongoing right-sided pain that is been there for 3 months. It has been unchanged in nature. She has a history of a cholecystectomy does not think she has had an appendectomy no history of kidney stones. It seems to be in her right side. She does not take anything at home for pain. She told then that she has pain while admitted to the hospital but everyone just gave her a pillow. Related Data Home Medications ?Medication ?Instructions ?Recorded ?Confirmed levothyroxine 50 mcg tablet 50 mcg PO DAILY 03/29/23 02/25/25 metoprolol succinate 50 mg 100 mg PO DAILY 03/29/23 02/25/25 tablet,extended release 24 hr pantoprazole 40 mg tablet,delayed 40 mg PO DAILY 04/12/24 02/25/25 release vibegron 75 mg tablet (Gemtesa) 75 mg PO DAILY 04/12/24 02/25/25 gabapentin 300 mg capsule 300 mg PO TID nerve pain 08/22/24 02/25/25 omega 4-ohn-vpw-fish oil 300 1 cap PO DAILY 08/22/24 02/25/25 mg-1,000 mg capsule (Fish Oil) glimepiride 2 mg tablet 7 mg PO DAILY 11/22/24 02/25/25 sulfadiazine 500 mg tablet 1 g PO DAILY 11/22/24 02/25/25 Previous Rx's ?Medication ?Instructions ?Recorded nebulizer accessories #4 ea 04/04/23 albuterol sulfate 90 mcg/actuation 2 puff inhalation Q6H PRN 06/27/23 aerosol inhaler shortness of breath or wheezing #8.5 grams blood sugar diagnostic #50 ea 10/15/23 ipratropium 0.5 mg-albuterol 3 mg 3 ml inhalation TID #180 mL 04/14/24 (2.5 mg base)/3 mL nebulization soln sumatriptan succinate 50 mg tablet See Rx Instructions PO .COMPLEX #9 08/28/24 tabs albuterol sulfate 2.5 mg/3 mL 2.5 mg (3 mL) inhalation Q4H PRN 11/22/24 (0.083 %) solution for nebulization Shortness Of Breath #180 mL albuterol sulfate 90 mcg/actuation 2 puff inhalation Q4-6H PRN 11/22/24 aerosol inhaler shortness of breath or wheezing #6.7 grams budesonide 0.25 mg/2 mL suspension 0.5 mg (4 mL) inhalation BID #60 mL 11/22/24 for nebulization dupilumab 300 mg/2 mL subcutaneous 300 mg (2 mL) SUBCUT Q2W #4 mL 11/22/24 pen injector ([employer]) dupilumab 300 mg/2 mL subcutaneous 600 mg (4 mL) SUBCUT ONCE #4 mL 11/22/24 pen injector ([employer]) prednisone 10 mg tablet 10 mg PO DIRECTED #18 tabs 11/22/24 prednisone 10 mg tablet 10 mg PO DIRECTED #50 tabs 02/25/25 fluticasone 500 mcg-salmeterol 50 1 inh inhalation BID #60 ea 02/28/25 mcg/dose blistr powdr for inhalation (Wixela Inhub) hydrocodone 5 mg-acetaminophen 325 1 tab PO Q6H PRN pain #10 tabs 03/05/25 mg tablet meclizine 25 mg tablet 50 mg (2 x 25 mg) PO TID PRN 03/05/25 dizziness #30 tabs Allergies Allergy/AdvReac Type Severity Reaction Status Date / Time shellfish derived Allergy Intermediate Verified 03/05/25 12:00 dulaglutide (From [facility]) Allergy Verified 03/05/25 12:00 metformin Allergy Verified 03/05/25 12:00 Patient History Medical History (Updated 03/05/25 @ 15:19 by Yokasta Jasmine DO) HTN (hypertension) Hypothyroidism GERD (gastroesophageal reflux disease) Diabetes Crohn disease Asthma RHONDA (obstructive sleep apnea) Deafness COVID-19 Surgical History S/P implantation of urinary electronic stimulator device Social History household members: none alcohol intake: never tobacco type: cigarettes alcohol intake frequency: holidays/special occasions only Exam Initial Vital Signs Initial Vital Signs: Vital Signs Temperature 97.9 F 03/05/25 11:59 Pulse Rate 93 H 03/05/25 11:59 Respiratory Rate 19 03/05/25 11:59 Blood Pressure 139/103 H 03/05/25 11:59 Pulse Oximetry 98 03/05/25 11:59 Oxygen Delivery Method Room Air 03/05/25 11:59 GENERAL: Alert pleasant 54-year-old and in no acute distress. HEENT: Head atraumatic,EOMI, pupils reactive, face symmetric, moist mucous membranes CARDIOVASCULAR: Regular rate and rhythm without murmurs, rubs or gallops. RESPIRATORY: Breath sounds equal bilaterally, no wheezes rales or rhonchi. No respiratory distress ABDOMEN: Soft, tender on her right lateral side no real positive Wick's sign no real flank pain abdomen is generally soft nondistended : No CVA tenderness EXTREMITIES: Normal range of motion, no clubbing or edema. Neurovascularly intact NEUROLOGICAL: Alert and oriented x4.Normal gait and speech. Cranial nerves II through XII grossly intact. SKIN: Warm, dry, no laceration, no petechiae, no rashes or lesions. Course Orders Ordered: ED Orders 03/05/25 13:40 CT abdomen pelvis w con Stat 03/05/25 14:25 Complete Blood Count AUTO DIFF Stat Comprehensive Metabolic Panel Stat Lipase Stat Magnesium Stat NT-proBNP (BNP-Adult 18+) Stat Troponin I Stat 03/05/25 14:40 Urine Culture Stat Urine Microscopic Stat Discontinued Medications Sodium Chloride (Normal Saline 0.9%) 1,000 mls @ 1,000 mls/hr IV BOLUS ONE Stop: 03/05/25 14:39 Last Infusion: 03/05/25 16:51 Dose: Infused Documented By: Admin: 03/05/25 14:19 Dose: 1,000 mls/hr Documented By: JAVI Ketorolac Tromethamine (Ketorolac 30 Mg/Ml Vial) 15 mg IV NOW ONE Stop: 03/05/25 13:41 Last Admin: 03/05/25 14:19 Dose: 15 mg Documented By: JAVI Meclizine HCl (Meclizine Hcl 12.5 Mg Tablet) 50 mg PO NOW ONE Stop: 03/05/25 13:41 Last Admin: 03/05/25 14:18 Dose: 50 mg Documented By: JAVI Vital Signs Vital signs: Vital Signs - 8 hr 03/05/25 11:59 03/05/25 15:22 Temperature 97.9 F Pulse Rate 93 H 84 Respiratory Rate 19 23 Blood Pressure 139/103 H 149/90 H Pulse Oximetry 98 93 Oxygen Delivery Method Room Air Room Air MDM - Dizziness Lab Data 03/05/25 14:25 03/05/25 14:25 Labs: Lab Results 03/05/25 03/05/25 Range/Units 14:25 14:40 WBC 7.8 (4.5-11.0) X10^3/uL RBC 5.51 H (4.0-5.2) X10^6/uL Hgb 15.2 (12.0-16.0) g/dL Hct 45.3 (36-46) % MCV 82.3 (80-100) fL MCH 27.6 (26-34) PG MCHC 33.6 (30-36) % RDW 15.2 H (11.6-14.8) % Plt Count 198 (150-400) X10^3/uL Neut % (Auto) 54.6 (50-75) % Lymph % (Auto) 29.4 (25-40) % [place] % (Auto) 7.6 (3-14) % Eos % (Auto) 7.8 H (2-4) % Baso % (Auto) 0.6 (0-2) % Neut # (Auto) 4300 (0366-1093) /uL Lymph # (Auto) 2300 (6399-0602) /uL [place] # (Auto) 600 (0-900) /uL Eos # (Auto) 600 H (0-450) /uL Baso # (Auto) 0 (0-100) /uL Sodium 139 (137-145) mmol/L Potassium 4.5 (3.4-5.1) mmol/L Chloride 103 (98-107) mmol/L Carbon Dioxide 29 (22-32) mmol/L BUN 22 H (7-17) mg/dL Creatinine 0.85 (0.52-1.04) mg/dL Estimated GFR > 60 (>60) mL/min BUN/Creatinine Ratio 25.9 H (6-22) Glucose 185 H D (70-99) mg/dL Calcium 9.4 (8.4-10.2) mg/dL Magnesium 2.1 (1.6-2.3) mg/dL Total Bilirubin 0.7 (0.2-1.3) mg/dL AST 36 (14-36) IU/L ALT 52 H (<35) IU/L Alkaline Phosphatase 137 H (38-126) U/L Troponin I < 0.012 (0.01-0.034) ng/mL NT-Pro-B Natriuret Pep 100 (<125) pg/mL Total Protein 7.5 (6.3-8.2) g/dL Albumin 4.5 (3.5-5.0) g/dL Globulin 3.0 (1.7-4.1) g/dL Albumin/Globulin Ratio 1.5 (1.0-2.8) Lipase 138 (23-300) U/L Urine RBC 0-1/hpf (0-5/HPF) Urine WBC 5-10/hpf H (0-5/HPF) Ur Squamous Epith Cells 5-10 /hpf H (0-5/HPF) Urine Bacteria Many (>30) H (None) Vol Urine Centrifuged 10ml (spun) Urine Dip Bedside Urine Glucose Negative Bedside Urine Bilirubin - Negative Bedside Urine Ketone - Negative Urine Specific [place] 1.010 Bedside Urine Occult Blood - Negative Bedside Urine pH 6.0 Bedside Urine Protein - Negative Bedside Urine Urobilinogen - Negative Bedside Urine Nitrite + Positive Bedside Urine Leukocytes - Negative Esterase Imaging Data CT scan - abdomen/pelvis: Radiologist's Impression: PROCEDURE: CT ABDOMEN PELVIS W CON INDICATIONS: right sided pain mid level TECHNIQUE: After the administration of intravenous contrast, axial sections acquired from the lung bases to the pubic symphysis. Coronal and sagittal reformats were performed. For radiation dose reduction, the following was used: automated exposure control, adjustment of mA and/or kV according to patient size. COMPARISON: [facility], CT, CT ABDOMEN PELVIS W CON, 10/15/2023, 16:36. FINDINGS: Image quality: Diagnostic. Lower Chest: No significant findings. ABDOMEN: Liver: No solid mass. Cirrhotic change. Surface nodularity and prominence of the left lobe. Gallbladder: Absent Biliary ducts: No biliary dilation. Pancreas: No ductal dilation. Spleen: Size is within normal limits. Adrenal Glands: No adrenal nodules. Kidneys and Ureters: No hydronephrosis. No solid mass. No complex renal cystic lesion which requires follow up. Stomach and Bowel: Normal colonic caliber, without significant wall thickening. Mild diverticulosis. No CT evidence of acute diverticulitis. Peritoneum: No abnormal intraperitoneal fluid. No free air. Ventral Wall: No significant ventral hernia. Abdominal Nodes: No retroperitoneal or mesenteric adenopathy by size criteria. Vessels: Aorta and inferior vena cava are normal in size. PELVIS: Pelvic Organs: Uterus is surgically absent. No adnexal masses.. Bladder: No bladder wall thickening, accounting for underdistention. Pelvic Nodes: No enlarged lymph nodes. Miscellaneous: No inguinal hernias are seen. Pelvic stimulator device Bones: No aggressive osseous abnormality. IMPRESSION: 1. No acute abdominal process noted. 2. Cirrhotic change. 3. Remote cholecystectomy and hysterectomy. Dictated by: Janes Rader M.D. on 03/05/2025 at 15:02 ECG Data Attestation: I personally reviewed and interpreted this ECG as follows: Interpretation: Sinus rhythm rate 86 WI interval 144 QRS [address] changes no T-wave inversions MDM Narrative Medical decision making narrative: MDM CC: Abdominal pain dizziness Complicating co-morbidities: Prior cholecystectomy asthma Data collected from: Patient and family for interpretation Medical records reviewed: Recent admission reviewed Differential considered: Nephrolithiasis appendicitis bowel obstruction, vertigo, posterior CVA Exam documented above, pertinent findings include: Alert very well-appearing 54-year-old female she is was pinpoint tender on the right side negative Wick's sign no real flank pain no right lower quadrant pain abdomen is soft no peritoneal signs breath sounds are clear no wheezing, NIH 0 minimal nystagmus Lab Test results independently reviewed as above. Pertinent findings: CBC no leukocytosis no anemia CMP within normal limits Slight elevation of ALT of 52 alk-phos is 137 normal bilirubin Troponin negative BNP is 100 Independently reviewed EKG as above Sinus rhythm no ischemia or arrhythmia Imaging studies independently reviewed: CT abdomen and pelvis cirrhotic change cholecystectomy no acute abnormalities Consultations: None Treatments: Toradol meclizine Re-evaluations: Overall feeling better dizziness has subsided and improved pain in his side still there Discussion: Patient 54-year-old female presenting today with dizziness and right-sided pain. The right-sided pain has been ongoing for number of months is not truly been evaluated is it is not going away she is frustrated. It does not sound like he is taking a whole lot of medications such as Tylenol and Motrin at home. She was given Toradol here. Workup for abdominal pain is negative. CT does not show a cause for her pain. I suspect that this is musculoskeletal. Dizziness is new over the last couple of days but she has had episodes of vertigo in the past she has previously had a prescription for meclizine this seems similar. She has a NIH of 0. She does not have nausea or vomiting she has very minimal nystagmus, at this time supportive care only interpreter and translator used to discuss results with patient. All questions have been answered. She actually is feeling better after 50 mg of meclizine. Does not really feel like the Toradol helped her pain but it is not any worse. She would like something stronger at home for her right-sided abdominal pain. Discharge Plan Departure Patient Disposition: Home Clinical Impression: Abdominal pain, Vertigo Instructions: DI for Vertigo, DI for Abdominal Pain-Adult Activity Restrictions/Additional Instructions: *You have been diagnosed with abdominal pain and vertigo *What to do: At this time vertigo does go away spontaneously. You may ultimately need to see ENT or get an MRI. You may try the Tricia maneuver at home if you choose *Continue to take medications as directed Meclizine 25-50 mg every 8 hours if needed for dizzy Motrin 600 mg every 6 hours if needed for [id number]-[id number] pain Tylenol 1000 mg every 6 hours if needed for jxzy-zx-oacpvnrl pain [place] 1 tablet every 6 hours only if needed for severe pain--this has Tylenol in it, and does cause constipation *Follow up with your primary care provider in 2-3 days or call [phone] *Return to ER if you should have increasing dizziness weakness numbness tingling weakness increasing pain or any new, worsening or concerning symptoms CONTROLLED SUBSTANCE DISCHARGE (Narcotoic/benzodiazepine/Flexeril/Phenergan) 1. You have been prescribed narcotic medications, it does have acetaminophen/Tylenol/paracetamol in it, DO NOT TAKE MORE THAN 4,00mg in 24 hours of Tylenol. TRAMADOL DOES NOT CONTAIN TYLENOL 2. Please understand that we cannot provide further refills of narcotics, benzodiazepines or controlled substances through the ED and her pain management will need to be through your provider. 3. While on these medications you cannot drive or operate heavy machinery. 4. You cannot sign legal documents or perform any duties such as this. 5. As long as you're taking opiate pain medications he should also be taking a stool softener such as Colace, Dulcolax, MiraLAX or prune juice, to help avoid constipation. Prescriptions: New hydrocodone-acetaminophen 5-325 mg tablet 1 tab PO Q6H PRN (Reason: pain) Qty: 10 0RF meclizine 25 mg tablet 50 mg PO TID PRN (Reason: dizziness) Qty: 30 0RF No Action pantoprazole 40 mg tablet,delayed release (DR/EC) 40 mg PO DAILY Gemtesa 75 mg tablet 75 mg PO DAILY ipratropium-albuterol 0.5 mg-3 mg(2.5 mg base)/3 mL Solution For Nebulization 3 ml inhalation TID Qty: 180 0RF gabapentin 300 mg capsule 300 mg PO TID omega 5-rcg-xay-fish oil [Fish Oil] 300-1,000 mg capsule 1 cap PO DAILY sumatriptan succinate 50 mg tablet See Rx Instructions .ROUTE .COMPLEX Qty: 9 0RF Rx Instructions: take 1 tab at onset of headache; if no relief may repeat 1 tab after at least 2 hrs; max = 4 tabs/24 hr fluticasone propion-salmeterol [[employer]ela Inhub] 500-50 mcg/dose blister with device 1 inh inhalation BID Qty: 60 0RF metoprolol succinate 50 mg tablet extended release 24 hr 100 mg PO DAILY levothyroxine 50 mcg tablet 50 mcg PO DAILY (DME) nebulizer accessories Misc See Rx Instructions .Route Qty: 4 0RF Rx Instructions: nebulizer tubing glimepiride 2 mg tablet 7 mg PO DAILY Rx Instructions: Take along with 4 mg tab (DME) blood sugar diagnostic Strip See Rx Instructions .Route Qty: 50 0RF Rx Instructions: As directed albuterol sulfate 90 mcg/actuation HFA aerosol inhaler 2 puff inhalation Q6H PRN (Reason: shortness of breath or wheezing) Qty: 8.5 3RF sulfadiazine 500 mg tablet 1 g PO DAILY Rx Instructions: administer with large glass of water albuterol sulfate 2.5 mg /3 mL (0.083 %) solution for nebulization 2.5 mg inhalation Q4H PRN (Reason: Shortness Of Breath) Qty: 180 11RF prednisone 10 mg tablet 10 mg PO DIRECTED Qty: 18 2RF Rx Instructions: Take 3 tabs every morning X 3 days, then 2 tabs X 3 days, then 1 tab X 3 days budesonide 0.25 mg/2 mL suspension for nebulization 0.5 mg inhalation BID Qty: 60 11RF albuterol sulfate 90 mcg/actuation HFA aerosol inhaler 2 puff inhalation Q4-6H PRN (Reason: shortness of breath or wheezing) Qty: 6.7 11RF Dupixent Pen 300 mg/2 mL pen injector 600 mg SUBCUT ONCE Qty: 4 0RF Rx Instructions: as a single dose Dupixent Pen 300 mg/2 mL pen injector 300 mg SUBCUT Q2W Qty: 4 6RF prednisone 10 mg tablet 10 mg PO DIRECTED Qty: 50 0RF Rx Instructions: Take 4 tabs every morning for 5 days, then 3 times X 5 days, then 2 times X 5 days, then 1 tab X 5 days Referrals: Clementina Krishnan ARNP [Primary Care Provider, Family Practice] Stand Alone Forms: Patient Portal/API
--- NOTE | 2025-03-05 13:40 | DI.CT.S_ITS ---
PROCEDURE: CT ABDOMEN PELVIS W CON INDICATIONS: right sided pain mid level TECHNIQUE: After the administration of intravenous contrast, axial sections acquired from the lung bases to the pubic symphysis. Coronal and sagittal reformats were performed. For radiation dose reduction, the following was used: automated exposure control, adjustment of mA and/or kV according to patient size. COMPARISON: [facility], CT, CT ABDOMEN PELVIS W CON, 10/15/2023, 16:36. FINDINGS: Image quality: Diagnostic. Lower Chest: No significant findings. ABDOMEN: Liver: No solid mass. Cirrhotic change. Surface nodularity and prominence of the left lobe. Gallbladder: Absent Biliary ducts: No biliary dilation. Pancreas: No ductal dilation. Spleen: Size is within normal limits. Adrenal Glands: No adrenal nodules. Kidneys and Ureters: No hydronephrosis. No solid mass. No complex renal cystic lesion which requires follow up. Stomach and Bowel: Normal colonic caliber, without significant wall thickening. Mild diverticulosis. No CT evidence of acute diverticulitis. Peritoneum: No abnormal intraperitoneal fluid. No free air. Ventral Wall: No significant ventral hernia. Abdominal Nodes: No retroperitoneal or mesenteric adenopathy by size criteria. Vessels: Aorta and inferior vena cava are normal in size. PELVIS: Pelvic Organs: Uterus is surgically absent. No adnexal masses.. Bladder: No bladder wall thickening, accounting for underdistention. Pelvic Nodes: No enlarged lymph nodes. Miscellaneous: No inguinal hernias are seen. Pelvic stimulator device Bones: No aggressive osseous abnormality. IMPRESSION: 1. No acute abdominal process noted. 2. Cirrhotic change. 3. Remote cholecystectomy and hysterectomy. Dictated by: Janes Rader M.D. on 03/05/2025 at 15:02 Approved by: Janes Rader M.D. on 03/05/2025 at 15:06
[2025-03-05] MEDS: MECLIZINE HCL 12.5 MG TABLET 50 MG PO (14:18)
[2025-03-05] MEDS: SODIUM CHLORIDE 0.9% 1,000 ML 1000 ML IV (14:19)
[2025-03-05] MEDS: KETOROLAC 30 MG/ML VIAL 15 MG IV (14:19)
[2025-03-05 14:35] LABS: Add Manual Diff / Slide Review NO; Hematocrit 45.3 % (36-46); Hemoglobin 15.2 g/dL (12.0-16.0); Lymphocytes Absolute Auto 2300 /uL (1100-4500); Mean Corpuscular HGB Conc 33.6 % (30-36); Mean Corpuscular Hemoglobin 27.6 PG (26-34); Mean Corpuscular Volume 82.3 fL (80-100); Platelet Count 198 X10^3/uL (150-400)
[2025-03-05 14:51] LABS: Alanine Aminotransferase 52 IU/L (<35); Albumin 4.5 g/dL (3.5-5.0); Albumin Globulin Ratio 1.5 (1.0-2.8); Alkaline Phosphatase 137 U/L (38-126); Blood Urea Nitrogen 22 mg/dL (7-17); Calcium 9.4 mg/dL (8.4-10.2); Carbon Dioxide 29 mmol/L (22-32); Chloride 103 mmol/L (98-107); Estimated Glomerular Filt Rate > 60 mL/min (>60); Globulin 3.0 g/dL (1.7-4.1); Glucose 185 mg/dL (70-99); HEMOLYSIS 38 (0-50); Lipase 138 U/L (23-300); Magnesium 2.1 mg/dL (1.6-2.3); Potassium 4.5 mmol/L (3.4-5.1); Sodium 139 mmol/L (137-145); Total Protein 7.5 g/dL (6.3-8.2)
[2025-03-05 15:02] LABS: NT-proBNP (BNP-Adult 18+) 100 pg/mL (<125); Troponin I < 0.012 ng/mL (0.01-0.034)
[2025-03-05 15:22] VITALS: BP 149/90; PULSE 84; RESP 23; O2SAT 93
== END 2025-03-05 16:42 | disposition home or self-care (01) ==
PROVIDERS: Emergency Provider Emergency Medicine; PCP Nurse Practitioner Family
DX: R42 Dizziness and giddiness (principal); R52 Pain, unspecified
CPT/HCPCS: 36415; 74177; 80053; 81003; 81015; 83690; 83735; 83880; 84484; 85025; 87077; 87086; 87186; 93005; 96361; 96374; 99284; J1885; J7030; Q9967